=== PATIENT | male | born 1945 | race Caucasian/White ===

== ENCOUNTER 2023-11-26 06:35 | Outpatient (CLI) | payer MEDICARE, SELFPAY ==
--- NOTE | ~2023-11-26 | MR_ITS ---
MRI of the lumbar spine Clinical History: Spinal stenosis Technique: Axial T2-weighted images, and sagittal T1-weighted, T2-weighted, and STIR images were acqu ired. Findings: There is posterior fusion from L3 through S1, with bilateral rods and transpedicular screws present. There is posterior decompression L3, L4, L5. No acute fracture evident. There is underlying 4 mm anterolisthesis of L4 over L5. There is 4 mm retrolisthesis of L2 over L3. No suspicious bone m arrow signal abnormality seen. No acute fracture. At L1-L2, there is moderate degenerative disc narrowing. There is mild disc bulge and moderate facet arthropathy. No central canal stenosis. There is moderate bilateral neural foraminal narrowing. At L2-L3, there is moderate to advanced degenerative disc narrowing. Disc bulge and advanced facet ar thropathy result in severe spinal canal stenosis/thecal sac compression. There is severe bilateral ne ural foraminal, right. At L3-L4, there is advanced degenerative disc narrowing. No james spinal canal stenosis. There is mod erate bilateral neural foraminal narrowing. At L4-L5, there is advanced degenerative disc narrowing. No james spinal canal stenosis. There is mod erate bilateral neural foraminal narrowing. L5-S1, there is no james spinal canal stenosis. There is probable mild to moderate bilateral neural f oraminal narrowing. There is a 4.0 x 2.4 x 9.1 cm seroma in the posterior paravertebral soft tissues at the surgical bed. Impression: Posterior fusion changes from L3 through S1, as detailed above. Underlying 4 mm anterolisthesis of L4 over L5. 4 mm retrolisthesis of L2 over L3. Severe degenerative spondylosis at L2-L3, as detailed above. Moderate degenerative spondylosis in the remainder of the lumbar spine. Large chronic postoperative seroma in the posterior paravertebral soft tissues, as detailed above. Reviewed, dictated and finalized at location . Impression: Posterior fusion changes from L3 through S1, as detailed above. Underlying 4 mm anterolisthesis of L4 over L5. 4 mm retrolisthesis of L2 over L3. Severe degenerative spondylosis at L2-L3, as detailed above. Moderate degenerat jasbir spondylosis in the remainder of the lumbar spine. Large chronic postoperative seroma in the posterior paravertebral soft tissues, as detailed above.
--- NOTE | ~2023-11-26 | CT_ITS ---
EXAMINATION: CT lumbar spine wo con DATE: 11/26/2023 07:28 INDICATION: Spinal stenosis, lumbar region with neurogenic claudication. TECHNIQUE: Computed tomography (CT) of the lumbar spine was performed without intravenous contrast. A utomated exposure control and iterative reconstruction technique were employed. The dose-length produ ct was 1296.24 mGy-cm. COMPARISON: Lumbar spine MRI 11/26/2023 FINDINGS: There is a 4.9 cm cyst in right kidney. Aortic atherosclerosis is noted. There is 6 degrees levocurvature of lumbar spine. There is 3 mm retrolisthesis of L2 on L3 and 3 mm anterolisthesis of L4 on L5 and L5 on S1. There are Schmorl's nodes at most levels. There is mild chronic anterior wedgi ng of T11-L2 vertebral bodies. There is mildly decreased disc height at L1-L2, moderately decreased d isc height at L2-L3, and severely decreased disc height at L3-L4, L4-L5, and L5-S1. There are changes of posterior fusion procedure from L3 to S1 with pedicle screws. There are lucencies around the righ t S1 screw, consistent with loosening. There are laminectomies from L3 to L5 with fluid in the postla minectomy surgical bed, consistent with seroma. The following disc levels are specifically discussed: L1-L2: The disc is bulging. There is moderate bilateral facet joint osteoarthritis. There is mild yvette ateral neural foraminal stenosis. There is mild central canal stenosis. L2-L3: The disc is bulging. There is moderate right and mild left facet joint osteoarthritis. There i s moderate bilateral neural foraminal stenosis. There is mild central canal stenosis. L3-L4: The disc is bulging. There is mild bilateral facet joint hypertrophy. There is mild bilateral neural foraminal stenosis. There is mild central canal stenosis with posterior decompression. L4-L5: The disc is bulging. There is mild bilateral facet joint hypertrophy. There is mild bilateral neural foraminal stenosis. There is mild central canal stenosis with posterior decompression. L5-S1: The disc does not extend beyond the endplate margin. There is moderate bilateral facet joint h ypertrophy. There is mild bilateral neural foraminal stenosis. There is no central canal stenosis. IMPRESSION: 1. Severe lumbar spondylosis. 2. Posterior fusion procedure from L3 to S1. Lucencies around the right S1 screw, consistent with loo sening. Reviewed, dictated and finalized at location A. IMPRESSION: 1. Severe lumbar spondylosis. 2. Posterior fusion procedure from L3 to S1. Lucencies around the right S1 scre w, consistent with loosening.
== END 2023-11-26 06:36 | disposition home or self-care (01) ==
PROVIDERS: PCP Family Medicine; Visit Provider Neurological Surgery
DX: M48.062 Spinal stenosis, lumbar region with neurogenic claudication (principal); Z98.1 Arthrodesis status; M47.896 Other spondylosis, lumbar region
CPT/HCPCS: 72131; 72148

== ENCOUNTER 2025-05-19 13:57 | Outpatient (CLI) | payer MEDICARE, SELFPAY ==
--- OUTSIDE RECORDS SUMMARY | 2000-03-04 09:15 | XMS_ITS | Continuity of Care Document ---
Author Organization [facility] Address [address] [facility] [address] [facility] [address] [place] [address] Phone Care Team Providers Care Milking Worker Name Role Phone Drake Nuno MD, FACS Unavailable Unavailab le Advance Directives Directive Yes / No Effective Date File Name No Information Encounters Encounter Description Practice Location Reason(s) For Visit Diagnoses Date Provider Providers Copied on Encounter [facility], [address], [place], [place], [address], [place] tel:[phone] SEC Adam MCLAUGHLIN Professional No Information Garcia-2 0-200 0 Yaakov Juan. [address], [address], [place], [place], [address], [place]. tel:[phone] Family History Family Member Type Diagnosis Age At Onset No Information Payers Payer name Insurance type Covered constitution party ID Authoriza tion(s) No Information Social History [...]
--- OUTSIDE RECORDS SUMMARY | 2015-02-20 03:58 | XMS_ITS | Continuity of Care Document ---
Author Organization [employer] Address [address] [place] [address] Phone Care Team Providers Care Business Agent Name Role Phone Johnson De La Rosa [...] Diagnoses Date Provider Providers Copied on Encounter [facility], [address], [place], [place], [address] , [place] tel: [phone] [place] No Information 5 Rj Ornelas. [address] [facility], [address], [id number], [place]. tel:[phone] [facility], [address], [place], [place], [address] , [place] tel: [phone] [place] Male hypogonadismHyperte nsionHypothyroidism GERD (gastroesophageal reflux disease)Osteoarthri tisBPH (benign prostatic hyperplasia) Dec-0 5 Rj Ornelas. [address] [facility], [address], [address], [place]. tel:[phone] Referring Provider: Johnson De La Rosa, [address], [address] . tel:[phone] [facility], [address], [place], [place], [address] , tel: [phone] [place] Cough Nov-2 5 Ventura Smith. [address] [facility], [address], [address], . tel:[phone] Referring Provider: Johnson De La Rosa, [address], [address] . tel:[phone] [facility], [address], [place], [place], [address] , tel: [phone] [place] No Information 4 Rj Ornelas. [address] [facility], [address], [address], [place]. tel:[phone] [facility], [address], [place], [place], [address] , [place] tel:[phone] [place] HypothyroidismGERD (gastroesophageal reflux disease)Male hypogonadismSkin lesionsRight hip painHypertension 4 Rj Ornelas. [address] [facility], [facility] [address], [place], [address], [place]. tel:[phone] Referring Provider: Johnson De La Rosa, [address], [address] . tel:[phone] [facility], [address], [place], [place], [address] , tel: [phone] [place] GERD (gastroesophageal reflux disease)Hypothyroid ismHypertensionOste oarthritisBPH (benign prostatic hyperplasia) Sep-0 8201 4 Rj Ornelas. [address] [facility], [address], [address], . tel:[phone] Referring Provider: Johnson De La Rosa, [address], [address] . tel:[phone] Family History Family Member Type Diagnosis Age At Onset Father Problem (finding) alcoholism Mother Problem (finding) malignant neoplasm of b one Maternal grandfather Problem (finding) cancer of colon Payers Payer name Insurance type Covered democrat ID Authoriza tion(s) [facility] MEDICARE ADVANTAGE [id number] 8 Social History Type Description Quantity Date [...]
--- OUTSIDE RECORDS SUMMARY | 2025-02-03 05:00 | XMS_ITS ---
Author Organization [facility] Address [address] [address] Care Team Providers Care Plaster Caster Name Role Phone Jeffry Wilson Primary Care Provider JACINTA Wells Unavailable [phone] Allergies Allergen (clinical drug ingredient) Drug/Non Drug [...] 02/03/2025 Encounters Encounter Location Date Provider [facility] [id number] [place] [address] [place] [address] [place] [address] 02/03/2025 JACINTA HUERTA Chronic kidney disease, stage [...] FERRITIN PANEL (5616) 09/2025 RENAL FUNCTION PANEL (10756) 07/16/2026 ALBUMIN, RANDOM URINE W/O CREATININE (17 674) 07/16/2026 Next Appt Details Follow Up: 1 1/2 Years, Reas on: Provider Name:JACINTACHLOÉ HUERTA , 08/02/2026 10:00:00 AM, [address] [place] [address], [place] [address], [address], Progress Notes * JARET SORIA LDOB:[birth year] (80 yo M)Acc No.[id number]:02/03/2025 Progress Notes Patient: JARET BENITO Provider: Brittni Huerta MD :1945 A ge:79 Y S ex:Male Date:02/03/2025 Address:[address] [place], [place] [id number] Pcp:Jeffry Wilson Subjective: * Chief Complaints: * [...] Electronic signature of JUDI HUERTA MD on 05/19/2025 at 02:15 PM CDT Sign off status: Pending * Provider: Brittni Huerta MD Date: 0 02/03/2025 Generated for Chriss carrington/Emmie/Hellenitting on: 0 05/19/2025 02:15 PM CDT History and Physical Notes * HPI [...]
--- OUTSIDE RECORDS SUMMARY | 2025-05-19 14:14 | XMS_ITS | Encounter Summary ---
Author Organization [facility] Address [address] [place] [address] Care Team Providers Care Head Cleaning Porter Name Role Phone Errol Suarez DO Primary Care Provider Encounter Details Date Type Department Care Team (Latest Contact Info) Description 09/01/2000 Outpatient Historical [facility] Jaun John MD NO ADDRESS ON FILE Internal hemorrhoids with other complication (Primary Dx) Social History Tobacco Use Types Packs/Day Years Used Date Smoking Tobacco: Never Assessed Sex and Gender Information Value Date Recorded Sex Assigned at Not on file Legal Sex Male 4:15 AM CARPENTER Gender Identity Not on file Sexual Orientation Not on file documented as of this encounter Plan of Treatment Not on file documented as of this encounter Visit Diagnoses Diagnosis Internal hemorrhoids with other complication- Primary documented in this encounter Care Teams Head Cleaning Porter Relationship Specialty Start Date End Date Errol Suarez DO [address] [place] [id number] PCP - General Internal Medicine 11/10/15 documented as of this encounter
--- OUTSIDE RECORDS SUMMARY | 2025-05-19 14:14 | XMS_ITS | Clinical Summary ---
Author Organization [facility] [address] Address [address] [place] [address] Care Team Providers Care Management Trainer Name Role Phone Dieter Strauss MD Unavailable Onel Sheldon MD Unavailable Adam Boyer MD Unavailable Sahara Huerta MD Unavailable [phone] Grzegorz Cardenas MD Unavailable Jerry Reynolds MD Unavailable [phone] Krystian Paige MD Unavailable Cristopher Brian MD Unavailable [phone] Haley Milan Unavailable [phone] Jeffry Wilson MD Primary Care Provider [phone] Allergies Active Allergy Reactions Criticality Noted Date Comments Atorvastatin Muscle pain Medium 02/13/2016 Muscle weakness, memeory loss, joint pain Apixaban Hives High 01/28/2023 Levofloxacin Hives,Rash High 08/31/2010 Other reaction(s): Hives Reaction: Hives, , Minocycline Nausea only Low 04/22/2013 Nsaids (Non-Steroidal Anti-Inflammatory Drug) Other (See comments) Low 01/06/2023 Due to kidney function Sdymbpr-Tsi-Cbk Reductase Inhibitors Hives Medium 09/18/2016 Reaction: Hives, Other reaction(s): Memory and muscle loss Sulfa (Sulfonamide Antibiotics) Hives,Rash Medium 04/22/2013 Reaction: Hives, Other reaction(s): Skin Rashes, Hives Medications cholecalciferol (VITAMIN D-3) 25 mcg (1,000 unit) tabletIndications :Vitamin D Deficiency,For supplement Take 2 tablets (2,000 Units total) by mouth nightly Active tadalafiL (CIALIS) 5 mg tabletIndications :benign prostatic hyperplasia with lower urinary tract sx Take 1 tablet (5 mg total) by mouth nightly Active tamsulosin (FLOMAX) 0.4 mg extended release capsuleIndication s:benign prostatic hyperplasia with lower urinary tract sx Take 2 capsules (0.8 mg total) by mouth nightly Active hydrocortisone (CORTEF) 10 mg tabletIndications :Adrenal Cortical Insufficiency Take 1.5 tablets (15 mg total) by mouth daily before breakfast 15 mg morning 10mg noon 08/03/20 21 Active ezetimibe (ZETIA) 10 mg tabletIndications :hyperlipidemia Take 1 tablet (10 mg total) by mouth nightly Active atenoloL (TENORMIN) 50 mg tablet Take 1 tablet (50 mg total) by mouth nightly 30 tablet 01/15/20 23 Active Additional Information Patient taking differently:50 mg oral Nightly,Indications: hypertension, Informant: Self, Reported on 03/01/2025 hydrocortisone (CORTEF) 5 mg tabletIndications :Adrenal Cortical Insufficiency Take 2 tablets (10 mg total) by mouth daily after lunch 05/21/20 23 Active losartan (COZAAR) 25 mg tabletIndications :hypertension Take 1 tablet (25 mg total) by mouth every morning Active cabergoline (DOSTINEX) 0.5 mg tabletIndications :hyperprolactinem ia Take 1 tablet (0.5 mg total) by mouth every 2 (two) weeks Last dose 02/15/2025 Active levothyroxine (SYNTHROID) 175 mcg tabletIndications :hypothyroidism Take 1 tablet (175 mcg total) by mouth every morning Active testosterone 50 mg/5 gram (1 %)Indications:Low T Place 1 each on the skin every morning Gel 03/31/20 24 Active colchicine (COLCRYS) 0.6 mg tabletIndications :pseudo gout Take one tablet by mouth every 2 hours for 4 doses then twice daily until symptoms resolve. Hold for diarrhea. 60 tablet 05/13/20 Active Additional Information Patient taking differently: 0.6 mg oral As needed, muscle/joint pain, gout, Take one tablet by mouth every 2 hours for 4 doses then twice daily until symptoms resolve. Hold for diarrhea.,Indications: acute gouty arthritis, pseudo gout, Informant: Self, Reported on 03/01/2025 rivaroxaban (XARELTO) 20 mg tablet Take 1 tablet (20 mg total) by mouth daily with breakfast 30 tablet 3 06/17/20 24 Active Additional Information Patient taking differently:20 mg oralDaily with dinner, Per Mucker Operator and Urologist to stay off for a couple more day., Indications: atrial fibrillation, Informant: Self, Reported on 02/23/[address] (NexIUM) 40 mg capsule Take 1 capsule (40 mg total) by mouth daily 90 capsule 3 08/24/20 Active Additional Information Patient taking differently:40 mg oralDaily before breakfast, Indications: Treatment of Non-Bleeding Gastric Disorder, Informant: Self, Reported on 03/01/2025 vitamin B complex (B COMPLEX 1 ORAL)Indications: For supplement Take 1 tablet by mouth nightly Active ALPRAZolam (XANAX) 0.25 mg tabletIndications :anxiety Take 1 tablet (0.25 mg total) by mouth as needed for anxiety (for MRIs) Active vitamins A,C,R-fxxs-guvkcw (PreserVision AREDS) 2,148 mcg-113 mg-45 mg-17.4mg tablet Take 1 tablet by mouth 2 (two) times a day Eye vitamin 01/22/20 24 Active oxyCODONE-acetami nophen (PERCOCET) 5-325 mg per tabletIndications :Pain Take 1 tablet by mouth 3 (three) times a day as needed for pain 90 tablet 04/19/20 25 025 Active oxyCODONE-acetami nophen (PERCOCET) 5-325 mg per tabletIndications :Pain Take 1 tablet by mouth 3 (three) times a day as needed for pain 90 tablet 05/19/20 25 025 Active oxyCODONE-acetami nophen (PERCOCET) 5-325 mg per tabletIndications :Pain Take 1 tablet by mouth 3 (three) times a day as needed for pain 90 tablet 06/18/20 25 025 Active Active Problems Problem Noted Date Diagnosed Date Thumb pain, left 02/23/2025 Urinary tract infection with hematuria Assessment & Plan (01/30/2025 8:59 AM CDT): Completed course of linezolid. Benign prostatic hyperplasia with weak urinary s tream 01/30/2025 BMI 35.0-35.9,adult 01/30/2025 Severe obesity (BMI 35.0-39.9) with comorbidity 01/30/2025 Pancreatic cyst 01/09/2025 Assessment & Plan (01/30/2025 8:58 AM CDT): Continuing surveillance with GI and will montior esrpnse. Healthy food chocies. Gross hematuria 01/08/2025 Assessment & Plan (01/30/2025 8:57 AM CDT): Continue f/u with urology and will montior ersponse. Continues supplementation . Upcomgin f/u and prostate enlarged prostate. Encounter for annual wellness exam in Medicare p atient 08/24/2024 Assessment & Plan (08/24/2024 12:41 PM ECONOMIC FORECASTER): Preventive exam; reviewed recommended preventive screenings and vaccinations. Encourage annual flu vaccine. -Up-to-date on screening and vaccinations. VERENA (obstructive sleep apnea) 08/24/2024 Assessment & Plan (08/24/2024 12:42 PM ECONOMIC FORECASTER): Has not been able to wear oral appliance for the past few months with recent dental implants. Reports increased fatigued has correlated with timing of not having oral appliance. Is hopeful to have dental work completed in the next month and have new oral appliance made. CMC arthritis 08/18/2024 Calcium pyrophosphate crystal disease 08/06/2024 Assessment & Plan (08/06/2024 12:27 PM ECONOMIC FORECASTER): Unable to take nsaids . Prescribed colchicine given recent septic joint. Reviewed signs and symptoms of infection prompting immediate return to the emergency department. Infection of prosthetic left knee joint 05/07/20 Infection of total left knee replacement, initia l encounter 05/03/2024 Persistent atrial fibrillation 02/16/2024 Assessment & Plan (01/30/2025 8:58 AM CDT): As above. Continue surveillance [facility] for pituitary changes. Assessment & Plan (08/06/2024 12:28 PM ECONOMIC FORECASTER): Following with Cardiology, continue Eliquis. Rate controlled. Assessment & Plan (02/16/2024 11:05 AM CDT): EKG repeated today in office showing atrial fibrillation with rate 75. Rate controlled with atenolol. Patient is asymptomatic. He has allergy to Eliquis, will start Xarelto 20 mg daily. Reviewed medication side effects and scheduling and follow-up precautions. Patient to follow-up with his established chinchilla farmer, Dr. Boyer. Will fax EKG documentation to Dr. Boyer office. 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 Da Silva in 4 weeks. Infection of total left knee replacement 024 Fever 01/29/2024 Assessment & Plan (01/29/2024 2:36 PM CDT): Continue Tylenol p.r.n.. See plan as above. Thoracic aortic ectasia 12/01/2023 Platelets decreased 12/01/2023 Prolactinoma 12/01/2023 Assessment & Plan (01/30/2025 8:58 AM CDT): DoAC and rate control. Class 2 severe obesity due t o excess calories with serious comorbidity and body mass index (BMI) of 35.0 to 35.9 in adult 12/01/2023 Assessment & Plan (01/30/2025 8:58 AM CDT): Encourage 150min/week aerobic exerics. Healthy food chocie. S Assessment & Plan (08/24/2024 12:45 PM ECONOMIC FORECASTER): Encouraged higher protein, lower carb diet. Avoid sweetened beverages. Encourage health diet and regular exercise. Interested in GLP-1 use, no MENS or history of pancreatitis. Discussed concerns with addisons disease and GLP-1. See above Assessment & Plan (02/16/2024 11:05 AM CDT): Reviewed, mayank. Situational anxiety 05/26/2023 Assessment & Plan (01/29/2024 2:35 PM CDT): Stable. Will continue to monitor. RTC for any exacerbations. Assessment & Plan (05/26/2023 12:22 PM CDT): Prescribed alprazolam 0.25 mg tablets, instructed to take 1 tablet 30 minutes prior to testing and 1 tablet immediately before test. Patient planning upcoming MRI and CT. Aware not to drive while taking alprazolam. Mixed hyperlipidemia 05/26/2023 Assessment & Plan (08/24/2024 12:48 PM ECONOMIC FORECASTER): Stable; continue ezetimibe. Assessment & Plan (05/26/2023 12:24 PM CDT): LDL equals 78. Continues zetia 10 mg daily. Patient is unable to take statin medications. 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 Hypothyroid 08/27/2020 Assessment & Plan (08/24/2024 10:24 AM ECONOMIC FORECASTER): Levothyroxine 175 mcg daily. Will check TSH/T4 and make changes as needed. Lab Results Component Value Date TSH 1.19 01/29/2024 Assessment & Plan (05/26/2023 12:22 PM CDT): Managed by endocrinology. Assessment & Plan (08/27/2020 2:18 AM ECONOMIC FORECASTER): Continue levothyroxine Essential hypertension 08/27/2020 Assessment & Plan (01/29/2024 2:35 PM CDT): Normotensive. Continue atenolol, losartan, amlodipine. Will continue to monitor. Assessment & Plan (05/26/2023 12:24 PM CDT): Blood pressure is well controlled, patient reports he is no longer taking losartan. Continues atenolol 50 mg daily. Assessment & Plan (08/27/2020 2:18 AM ECONOMIC FORECASTER): Blood pressure is controlled. Home medications have been resumed with hold parameters. Will continue to monitor. Pneumonia due to COVID-19 virus 08/26/2020 Assessment & Plan (08/27/2020 2:21 AM ECONOMIC FORECASTER): He is currently feeling better. Continue remdesivir. Patient is on Solu-Cortef. IV fluids. Continue to monitor. Continuous pulse ox. Will check procalcitonin to rule out bacterial infection. Continue empiric antibiotics for cap for now. 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 Assessment & Plan (08/24/2024 12:44 PM ECONOMIC FORECASTER): Managed by endocrinology Dr. Sheldon. Continues 25 mg daily of hydrocortisone. Patient interested in use of GLP 1 for weight loss. Would need to check with shoe polisher given possible contraindication. Side effects of GI upset, dehydration nausea possibly triggering adrenal crisis. May also need closer monitoring of steroid replacement. Will avoid prescribing this today and have patient follow-up with endocrinology. Assessment & Plan (05/26/2023 12:24 PM CDT): Managed by endocrinology. Resolved Problems Problem Noted Date Diagnosed Date Resolved Date Strep pharyngitis 01/29/2024 08/24/2024 Assessment & Plan (01/29/2024 2:36 PM CDT): Will stop cephalexin start clindamycin. If worsening or not resolving RTC. Monitor knee pain as well. If not improving follow-up with orthopedist. Red flags reviewed as well. Will continue to monitor. Aftercare following left kne e joint replacement surgery 01/24/2023 08/27/2023 Failed total left knee repla cement, subsequent encounter 01/13/2023 08/27/2023 Failed total left knee replacement 12/30/2022 01/24/2023 Greater trochanteric bursitis of right hip 04/16/2022 08/27/2023 Lumbar radiculopathy 01/12/2020 023 Chronic bilateral low back p ain without sciatica 10/10/2019 08/27/2023 Lumbar facet joint syndrome 10/10/2019 08/27/2023 DDD (degenerative disc disease), lumbar 10/10/2019 08/27/2023 Right hip pain 11/27/2011 08/27/2023 Assessment & Plan (08/27/2020 2:18 AM ECONOMIC FORECASTER): Patient is on Percocet at home however may need more Tylenol for fevers. Will change Percocet to oxycodone p.r.n. and order Tylenol p.r.n.. Patient is aware of this change. Encounters Date Type Department Care Team Description 04/13/2025 3:00 PM CDT Office Visit [facility] Medicine Orthopaedic Surgery [address] 2[address] [place] [address] Jaylen Leigh MD [facility] arthritis (Primary Dx) 04/13/2025 7:23 AM CDT - 04/13/2025 11:59 PM CDT Hospital Encounter [facility] [address] [facility] [address] [place] [address] Negar Gonzales NP Lumbar post-laminectomy syndrome (Primary Dx); USP (current) use of opiate analgesic Discharge Disposition: Discharge to home or self care 04/01/2025 Orders Only [facility] [address] [phone] Jeffry Wilson MD 03/16/2025 10:20 AM CDT Therapy [facility] Medicine Occupational Therapy [address] [place] [address] 1st Floor [address] [place] [address] Nely Ferrari OT CMC arthritis (Primary Dx); Pain of left thumb 03/16/2025 9:30 AM CDT Office Visit [facility] [place] [place] Orthopaedic Surgery [address] [place] [address] 2nd Floor [address] [place] [address] Jaylen Leigh MD CMC arthritis (Primary Dx); Pain of left thumb 03/16/2025 Plan of Care Documentation [facility] Medicine Occupational Therapy [address] [place] [address] 1st Floor [address] [place] [id number] 03/01/2025 3:17 PM CDT Anesthesia Event [facility] [address] [place] [id number] Jose Ramon Agiula MD Horton, Cheryl Renee Hill, NP 03/01/2025 2:30 PM CDT - 03/01/2025 4:15 PM CDT Surgery [facility] [address] [place] [address] Jaylen Leigh MD left thumb ligament reconstruction and tendon interposition 03/01/2025 12:34 PM CDT - 03/01/2025 6:33 PM CDT Hospital Encounter [facility] [address] [place] [address] Jaylen Leigh MD Thumb pain, left (Primary Dx) Discharge Disposition: Discharge to home or self care 02/23/2025 10:00 AM CDT Office Visit [facility] Medicine Orthopaedic Surgery [address] [place] [address] Jaylen Leigh MD Arthritis of carpometacarpal (CMC) joint of left thumb (Primary Dx) from Last 3 Months Immunizations Immunization Administration Dates Next Due Influenza, Quad, Adjuvantate d, Intramuscular 07/18/2021 Influenza, Quadrivalent, Hig h Dose, Preservative Free, Intrr 05/26/2023,07/30/2022 Influenza, Quadrivalent, Rec ombinant, Egg Free, Preservative Free, Intramuscular 06/26/2018 Influenza, Quadrivalent, Spl it, Preservative Free, Intramuscular 07/16/2019,07/11/2017,07/03/2016,07/20 Influenza, Trivalent, High D ose, Split, Preservative Free, Intramuscular 07/15/2024,07/18/2021,07/17/2020,07/17 Influenza, Trivalent, IM (MDV) 07/27/2013 Influenza, Unspecified 07/30/2022,2021(Deferred: Patient Refused),05/16/2022(Deferred: Patient Refused),05/16/2022(Deferred: Patient Refused),05/16/2021(Deferred: Patient Refused) Pneumococcal Polysaccharide PPV23 10/02/2011 ZOSTER LIVE 05/18/2013 Surgical History Surgery Date Site/Laterality Comments KNEE ARTHROPLASTY 09/15/2000 - 09/14/2001 Bilateral Knee replacement and TRANSURETHRAL RESECTION OF PROSTATE 2012 - 09/14/2013 turp CATARACT EXTRACTION EXTRACAP SULAR W/ INTRAOCULAR LENS IMPLANTATION 09/15/1999 - 09/14/2000 Bilateral BACK SURGERY 09/15/2015 - 09/14/2016 fusion L3-4, L4-5 CHOLECYSTECTOMY 09/15/2015 - 09/14/2016 KNEE SURGERY 01/13/2023 Left Knee replacement IR INJECTION ARTHROGRAM SI J OINT RIGHT INCLUDES IMAGING GUIDANCE 08/12/2023 Right HEMORRHOID SURGERY 09/15/1994 - 09/14/1995 CARPAL TUNNEL RELEASE 09/15/2002 - 09/14/2003 Bilateral KNEE SURGERY 02/06/2024 Left Incision and Drainage WRIST SURGERY 09/15/2008 - 09/14/2009 Bilateral resection of tendon ESOPHAGOGASTRODUODENOSCOPY 09/15/2024 - 09/14/2025 OTHER SURGICAL HISTORY 09/15/2024 - 09/14/2025 Left Trapeziectomy Medical History Medical History Date Comments Disorder of thyroid Thyroid dise ase Hx Other Medical gastric reflux Hx Other Medical neuropathy hand s Hx Other Medical osteoarthritis GERD (gastroesophageal reflux disease) Osteoarthritis Ear problems Low back pain Hypertension Chronic pain disorder Sleep apnea Difficulty urinating after back surgery Arrhythmia flutter Pneumonia Chronic kidney disease Hypothyroidism Macular degeneration Billings disease Family History Medical History Relation Name Comments Alcohol abuse Father Liver cancer Father Bone cancer Mother Cancer Mother Alcohol abuse Other 1 Family history of Alcoholism; Cancer Other 2 Family history of cancer; Relation Name Status Comments Father Mother Other 1 Other 2 Social History Tobacco Use Types Packs/Day Years Used Date Smoking Tobacco: Former Cigarettes Q uit: 1989 Passive Smoke Exposure: Past Smokeless Tobacco: Never Tobacco Cessation:Counseling Given: Not Answered Alcohol Use Standard Drinks/Week Comments Yes 0 (1 standard drink = 0.6 oz pur e alcohol) rarely [email or web address] Answer Date Recorded In the past 12 months has [employer], gas, oil, or water codebender threatened to shut off services in your home? No 01/10/2025 Social Connection and Isolation Panel Answer Date Recorded In a typical week, how many times do you talk on the phone with family, friends, or neighbors? More than three times a week 01/10/2025 How often do you get togethe r with friends or relatives? More than three times a week 01/10/2025 How often do you attend [facility] or confucianism services? Never 01/10/2025 Do you belong to any clubs o r organizations such as anabaptist groups, unions, fraternal or athletic groups, or school groups? No 01/10/2025 How often do you attend meet ings of the clubs or organizations you belong to? Never 01/10/2025 Are you , , di vorced, , never , or living with a partner? 01/10/2025 AUDIT-C Answer Date Recorded Q1: How often do you have a drink containing alcohol? Never 03/01/2025 Q2: How many drinks containi ng alcohol do you have on a typical day when you are drinking? Patient does not drink Q3: How often do you have si x or more drinks on one occasion? Never 03/01/2025 Overall Financial Resource Strain (CARDIA) Answe r Date Recorded How hard is it for you to pa y for the very basics like food, housing, medical care, and heating? Not hard at all 01/10/2025 PHQ-2 Answer Date Recorded PHQ-2 Total Score (If total score is 3 or more points, staff should administer the PHQ-9) 0 04/13/2025 Hunger Vital Sign Answer Date Recorded Within the past 12 months, y ou worried that your food would run out before you got the money to buy more. Never true 01/11/20 25 Within the past 12 months, t he food you bought just didn't last and you didn't have money to get more. Never true 01/10/2025 PRAPARE - Transportation Answer Date Re corded In the past 12 months, has l ack of transportation kept you from medical appointments or from getting medications? No 12/15 In the past 12 months, has l ack of transportation kept you from meetings, work, or from getting things needed for daily living? No 01/10/2025 PHQ-9 Answer Date Recorded PHQ-9 Total Score 2 04/13/2025 Housing Stability Vital Sign Answer Joesph e Recorded In the last 12 months, was t here a time when you were not able to pay the mortgage or rent on time? No 01/10/2025 In the past 12 months, how m any times have you moved where you were living? 0 01/10/2025 At any time in the past 12 m [facility], were you homeless or living in a half-way (including now)? No 01/10/2025 Personal Safety Answer Date Recorded Have you ever been in or are you currently in a harmful physical or emotional relationship or is someone making you feel afraid or unsafe? Denies 03/01/2025 Sex and Gender Information Value Date Recorded Sex Assigned at Not on file Legal Sex Male 5:24 PM ECONOMIC FORECASTER Gender Identity Not on file Sexual Orientation Not on file Obstetrics History Last Filed Vital Signs Vital Sign Reading Time Taken Comments Blood Pressure 108/60 04/13/2025 7:41 AM CDT Pulse 92 04/13/2025 7:41 AM CDT Temperature 36.2 C (97.2 F) 03/01/2025 5:50 PM CDT Respiratory Rate 18 04/13/2025 7:41 AM CDT Oxygen Saturation 98% 04/13/2025 7:41 AM CDT Inhaled Oxygen Concentration - - Weight 110.2 kg (242 lb 14.4 oz) 03/01/2025 1:12 PM CDT Height 177.8 cm (5' 10) 03/01/2025 1:12 PM CDT Body Mass Index 34.85 03/01/2025 1:12 PM CDT Plan of Treatment Health Maintenance Due Date Last Done Comments Hepatitis C Screening 1945 DTaP/Tdap/Td Vaccine (1 - Tdap) 1957 Hepatitis B Screening 1963 Pneumococcal vaccine 65+ (2 of 2 - PCV) 10/02/2012 10/02/2011 Zoster Vaccine (2 of 3) 07/13/2013 05/18/2013 Covid-19 Vaccine (3 - 2023-2 5 season) 2024 11/08/2020, 10/18/2020 Influenza Vaccine (#1) 2025 , 05/26/2023, 07/30/2022, Additional history exists Well Visit 65+ 08/24/2025 08/24/2024 Fall Risk Assessment 03/01/2026 03/01/2025, 08/24/2024, 05/13/2024, Additional history exists Depression Screening 04/13/2026 04/13/2025, 04/13/2025, 01/05/2025, Additional history exists Abdominal Aortic Aneurysm (A AA) Screen Completed 01/12/2021, 03/25/2012 Goals Goal Patient Goal Type Associated Problems Recent Progress Patient-Stated? Author -Pain Behavioral Health On track(10/03 11:12 AM ECONOMIC FORECASTER) No Asia Sigala, RN Note: Patient will describe nonpharmacological methods that can be used to supplement, or enhance, pharmacological interventions and help achieve the comfort-function goal. -Pain Behavioral Health On track(10/03 11:12 AM ECONOMIC FORECASTER) No Cecy Cummins RN Note: Patient will establish a comfort-function goal and identify the pain level that will allow the patient to perform desired activities and achieve an acceptable quality of life. Medical Devices Implanted Type Area [employer] Device Identifier Shelf Expiration Date Model / Serial / Lot [employer] 3086 Octrode 60cm Trial Lead Kit Neurostimulator Sterile Latex Free - [id number] Implanted:Qty: 1 on 12/15/2020 by Dieter Garcia MD at [facility] [employer] 12/15/2021 3086 / / [employer] 3086 Octrode 60cm Trial Lead Kit Neurostimulator Sterile Latex Free - [id number] Implanted:Qty: 1 on 12/15/2020 by Dieter Garcia MD at [facility] [employer] 12/15/2021 3086 / / [employer] Attune L50 Mm Revision Full Coated Knee Sleeve Femoral Porocoat Sterile Latex Free [id number] - [id number] Implanted:Qty: 1 on 01/13/2023 by Dieter Strauss MD at [facility] Left: Knee [employer] 02/12/2031 [id number] / / [id number] [employer] Attune 20mm 60mm Revision Press Fit Knee Stem Femoral Sterile Latex Free [id number] - [id number] Implanted:Qty: 1 on 01/13/2023 by Dieter Strauss MD at [facility] Left: Knee [employer] 08/14/2030 [id number] / / [id number] [employer] Attune Revision Cement Constrain Knee Left 7 Component Femoral Sterile [id number] - [id number] Implanted:Qty: 1 on 01/13/2023 by Dieter Strauss MD at [facility] Left: Knee [employer] 11/12/2032 [id number] / / [id number] Depuy [employer] Attune 41mm Cemented Medialize Knee Dome Patellar Aox Sterile [id number] - [id number] Implanted:Qty: 1 on 01/13/2023 by Dieter Strauss MD at [facility] Left: Knee [employer] 06/14/2027 [id number] / / [id number] [employer] Cement Bone Simplex Gentamicin High Viscosity 40 6195-1-001 - [id number] Implanted:Qty: 1 on 01/13/2023 by Dieter Strauss MD at [facility] Left: Knee [employer] 05/15/2024 6195-1-001 / / [id number] [employer] Cement Bone Simplex Gentamicin High Viscosity 40 6195-1-001 - [id number] Implanted:Qty: 1 on 01/13/2023 by Dieter Strauss MD at [facility] Left: Knee [employer] 05/15/2024 6195-1-001 / / [id number] [employer] Attune Cement Revision Rotate Platform Knee 7 Baseplate Tibial Sterile [id number] - [id number] Implanted:Qty: 1 on 01/13/2023 by Dieter Strauss MD at [facility] Left: Knee [employer] 10/15/2032 [id number] / / [id number] [employer] Attune L53 Mm Revision Full Coated Knee Sleeve Tibial Porocoat Sterile Latex Free [id number] - [id number] Implanted:Qty: 1 on 01/13/2023 by Dieter Strauss MD at [facility] Left: Knee [employer] 06/14/2032 [id number] / / [id number] [employer] Attune 20mm 60mm Revision Press Fit Knee Stem Femoral Sterile Latex Free [id number] - [id number] Implanted:Qty: 1 on 01/13/2023 by Dieter Strauss MD at [facility] Left: Knee [employer] 04/14/2032 [id number] / / [id number] [employer] Attune H4 Mm Revision Cement Knee Distal 7 Augment Femoral Sterile Latex Free [id number] - [id number] Implanted:Qty: 1 on 01/13/2023 by Dieter Strauss MD at [facility] Left: Knee [employer] 04/14/2029 [id number] / / [id number] [employer] Attune H4 Mm Revision Cement Knee Distal 7 Augment Femoral Sterile Latex Free [id number] - [id number] Implanted:Qty: 1 on 01/13/2023 by Dieter Strauss MD at [facility] Left: Knee [employer] 07/15/2032 [id number] / / [id number] [employer] Attune 10mm Revision Constrain Rotate Platform Knee 7 Insert [id number] - [id number] Implanted:Qty: 1 on 02/06/2024 by Dieter Strauss MD at [facility] Left: Knee [employer] 01/13/2028 [id number] / / [id number] [employer] Internalbrace Kit Hand Wrist Set Implant Ligament Augmentation Ar-8978-Cp - [id number] Implanted:Qty: 1 on 09/21/2024 by Jaylen Leigh MD at [facility] [place] Left: Thumb [employer] 02/12/2029 AR-8978-CP / / [id number] Explanted Type Area [employer]ic[employer] Device Identifier Shelf Expiration Date Model / Serial / Lot Depuy [employer] Inc Attune 10mm Revision Constrain Rotate Platform Knee 7 Insert [id number] - [id number] Implanted:Qty: 1 on 01/13/2023 by Dieter Strauss MD at [facility] Explanted:Qty: 1 on 02/06/2024 at [facility] Left: Knee [employer] 04/14/2027 [id number] / / [id number] [employer] Alejandro .062in 9in Style 1 Wire Fixation Stainless Steel 1600-962tns - [id number] Explanted:Qty: 1 on 09/21/2024 at [facility] [place] Left: Thumb [employer] [id number] / / Procedures Procedure Name Priority Date/Time Associated Diagnosis Comments REPAIR LIGAMENT HAND 03/01/2025 3:17 PM CDT Thumb pain, left PA AN PROCEDURE PLACEHOLDER Routine 03/01/2025 2:07 PM CDT PA AN PROCEDURE PLACEHOLDER Routine 03/01/2025 2:07 PM CDT PA AN PROCEDURE PLACEHOLDER Routine 03/01/2025 2:06 PM CDT from Last 3 Months Results * PA AN PROCEDURE PLACEHOLDER (03/01/2025 2:07 PM CDT) Jose Ramon Nuñez MD - 03/01/2025 2:07 PM CDT Jose Ramon Aguila MD 03/01/2025 2:07 PM Peripheral Block Patient location during procedure: pre-op holding Reason for block: post-op pain management per surgeon request Ultrasound image in chart or stored: yes Block type: single shot Laterality: left Block type: musculocutaneous nerve block Procedure prep: Preprocedure checklist: patient identified, procedure contraindications assessed, site marked, procedure consent, surgical consent, IV checked, risks, benefits and alternatives discussed, monitors and equipment checked and timeout performed Patient position: supine Procedure performed while patient: sedate with meaningful contact Monitoring: oximetry Supplemental O2: nasal cannula Prep solution: chlorhexidine/alcohol Peripheral nerve block: Technique: ultrasound guided Needle type: short-bevel and echogenic Needle gauge: 26 G Needle length: 50 mm Injection assessment: injection made incrementally with constant monitoring, local visualized surrounding nerve on ultrasound, negative aspiration for heme, no paresthesias noted, normal resistance to injection and see flowsheet for medication details Assessment: Block success: full evaluation pending Events: patient tolerated procedure well with no complications Jose Ramon Aguila MD ANESTHESIA ORDERABLES Cara terrazas Result * PA AN PROCEDURE PLACEHOLDER (03/01/2025 2:07 PM CDT) Jose Ramon Nuñez MD - 03/01/2025 2:07 PM CDT Jose Ramon Aguila MD 03/01/2025 2:07 PM Peripheral Block Patient location during procedure: pre-op holding Reason for block: post-op pain management per surgeon request Ultrasound image in chart or stored: yes Block type: single shot Laterality: left Block type: radial nerve block - at forearm Procedure prep: Preprocedure checklist: patient identified, procedure contraindications assessed, site marked, procedure consent, surgical consent, IV checked, risks, benefits and alternatives discussed, monitors and equipment checked and timeout performed Patient position: supine Procedure performed while patient: sedate with meaningful contact Monitoring: oximetry Supplemental O2: nasal cannula Prep solution: chlorhexidine/alcohol Peripheral nerve block: Technique: ultrasound guided Needle type: short-bevel and echogenic Needle gauge: 26 G Needle length: 50 mm Injection assessment: injection made incrementally with constant monitoring, local visualized surrounding nerve on ultrasound, negative aspiration for heme, no paresthesias noted, normal resistance to injection and see flowsheet for medication details Assessment: Block success: full evaluation pending Events: patient tolerated procedure well with no complications Jose Ramon Aguila MD ANESTHESIA ORDERABLES Cara terrazas Result * PA AN PROCEDURE PLACEHOLDER (03/01/2025 2:06 PM CDT) Narrative Jose Ramon Aguila MD - 03/01/2025 2:06 PM CDT Jose Ramon Aguila MD 03/01/2025 2:07 PM Peripheral Block Patient location during procedure: pre-op holding Reason for block: post-op pain management per surgeon request Ultrasound image in chart or stored: yes Block type: single shot Laterality: left Block type: median nerve block - at forearm Procedure prep: Preprocedure checklist: patient identified, procedure contraindications assessed, site marked, procedure consent, surgical consent, IV checked, risks, benefits and alternatives discussed, monitors and equipment checked and timeout performed Patient position: supine Procedure performed while patient: sedate with meaningful contact Monitoring: oximetry Supplemental O2: nasal cannula Prep solution: chlorhexidine/alcohol Peripheral nerve block: Technique: ultrasound guided Needle type: short-bevel and echogenic Needle gauge: 26 G Needle length: 50 mm Injection assessment: injection made incrementally with constant monitoring, local visualized surrounding nerve on ultrasound, negative aspiration for heme, no paresthesias noted, normal resistance to injection and see flowsheet for medication details Assessment: Block success: full evaluation pending Events: patient tolerated procedure well with no complications Jose Ramon Aguila MD ANESTHESIA ORDERABLES Cara l Result from Last 3 Months Insurance AETNA MEDICARE AETNA MEDICARE AET MEDICARE Advance Directives For more information, please contact: [phone] * Full Code (Latest Code Status on File) Date Activated Date Inactivated Comments 02/09/2025 10:38 AM 02/09/2025 4:35 PM * Full Code Date Activated Date Inactivated Comments 01/08/2025 1:32 PM 01/10/2025 6:22 PM * Full Code Date Activated Date Inactivated Comments 01/08/2025 12:00 PM 01/08/2025 1:32 PM * Full Code Date Activated Date Inactivated Comments 02/06/2024 11:29 AM 02/10/2024 8:41 PM * Full Code Date Activated Date Inactivated Comments 01/13/2023 4:41 PM 01/14/2023 6:36 PM Care Teams Management Trainer Relationship Specialty Start Date End Date Jeffry Wilson MD [address] [place] [address] PCP - General Family Medicine 05/13/24 Dieter Strauss MD [address] [place] [address] [address] [place] [address] Surgeon Orthopedic Surgery 01/14/23 [place] [address] [place] [id number] Referring Physician Internal Medicine 05/26/23 Adam Boyer MD [address] [facility] [address] [address] Consulting Physician Cardiology 05/26/23 [place] [address] [place] [address] Consulting Physician Nephrology 05/26/23 Grzegorz Cardenas MD [address] [place] [address] Referring Physician Ophthalmology 05/26/23 Jerry Reynolds MD [address] [facility] [address] [place] [address] Referring Physician Dermatology 05/26/23 Krystian Paige MD [address] [address] Consulting Physician Neurosurgery 05/26/23 Cristopher Brian MD [address] [place] [address] Consulting Physician Anesthesiology 08/12/23 Haley Milan PA [address] [place] [address] [address] [place] [address] Physician Medical Legal Investigator Orthopedic Surgery 02/10/24
--- OUTSIDE RECORDS SUMMARY | 2025-05-19 14:14 | XMS_ITS | Encounter Summary ---
Author Organization [facility] Address 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
--- OUTSIDE RECORDS SUMMARY | 2025-05-19 14:14 | XMS_ITS | Encounter Summary ---
Author Organization [facility] Address 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
--- OUTSIDE RECORDS SUMMARY | 2025-05-19 14:15 | XMS_ITS | Patient Health Record ---
Author Organization [facility] Address [address] [place] [address] Care Team Providers Care Equity Research Associate Name Role Phone Jeffry Wilson Primary Care Provider JACINTA Wells Unavailable [phone] Allergies Allergen (clinical drug ingredient) Drug/Non Drug Allergy documented on EMR Reaction Allergy Type Onset Date Status Levaquin (levofloxacin) (uncoded) unspecified Allergy Active atorvastatin Lipitor (atorvastatin) (uncoded) unspecified Allergy Active Reason For Referral No Information Medications Medication SIG (Take, Route, Frequency, Duration) Notes Start Date End Date Status Multivitamin - 1 tablet Orally Once a day Active Hydrocortisone 10 MG 1.5 tablet Orally e very morning and 1 tablet at night Active Iron (Ferrous Sulfate) 325 (65 Fe) MG 1 tablet Orally Twice a week Active Zetia 10 MG 1 tablet Orally Once a day Active Esomeprazole Magnesium 40 MG 1 capsule Orally Once a day Active Cialis 10 MG 1 tablet as needed O rally Once a day Active Cyclobenzaprine HCl 10 MG 1 tablet at be dtime as needed Orally Once a day Active Testosterone Cypionate 200 MG/ML 1 mL Intramuscular every 2 weeks Active Chlor-Trimeton 4 MG 1 tablet as needed O rally every 8 hrs Active Vitamin D3 25 MCG (1000 UT) 1 capsule Or ally Once a day Active Atenolol 50 MG 1 tablet Orally Once a day Active Tamsulosin HCl 0.4 MG 1 capsule Orally O nce a day Active oxyCODONE-Acetaminophen 5-325 MG 1 tablet as needed Orally every 6 hrs Active Losartan Potassium 25 MG 1 tablet Orally Once a day Active Levothyroxine Sodium 150 MCG 1 tablet in the morning on an empty stomach Orally Once a day Active Immunizations Vaccine Route Administration Date Status Comme nts Influenza, high dose seasonal Unknown 06/15/2019 Admini stered Influenza, high dose seasonal Unknown 07/17/2020 Admini stered Problems Problem Type SNOMED Code ICD Code Onset Dates Problem Status W/U Status Risk Notes Problem Chronic kidney disease due to hypertension (751526821632559 ) Hypertensive chronic kidney disease with stage 1 through stage 4 chronic kidney disease, or unspecified chronic kidney disease (I12.9) 9 Active confirmed 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 Problem Chronic kidney disease stage 2 (442166692) Chronic kidney disease, stage 2 (mild) (N18.2) 9 Active confirmed Problem Proteinuria (99079457) Proteinuria, unspecified (R80.9) 9 Active confirmed Problem Diastolic dysfunction (7525196) Diastolic dysfunction (I51.9) 9 Active confirmed Problem Hypogonadism (69836456) Hypogonadism (E29.1) 9 Active confirmed Problem Prolactinoma (98186405) Prolactinoma (D35.2) 9 Active confirmed Vital Signs Heart Rate 52 /min 02/03/2025 Respiratory Rate 18 /min 02/03/2025 Blood pressure diastolic 60 mm Hg 02/03/2025 Weight-kg 110.59 kg 02/03/2025 Height 72 in 02/03/2025 Blood pressure systolic 124 mm Hg 02/03/2025 Weight 243.8 lbs 02/03/2025 BMI 33.06 kg/m2 02/03/2025 Encounters Encounter Location Date Provider Diagnosis [address] [address] 02/03/2025 JACINTA MENDEZ Chronic kidney disease, stage 2 (mild) N18.2 ; Hypertensive chronic kidney disease with stage 1 through stage 4 chronic kidney disease, or unspecified chronic kidney disease I12.9 ; Analgesic nephropathy N14.0 ; Proteinuria, unspecified R80.9 ; Diastolic dysfunction I51.9 ; Hypogonadism E29.1 and Prolactinoma D35[address] [address] 07/29/2024 JACINTA MENDEZ Chronic kidney disease, stage 2 (mild) N18.2 ; Hypertensive chronic kidney disease with stage 1 through stage 4 chronic kidney disease, or unspecified chronic kidney disease I12.9 ; Analgesic nephropathy N14.0 ; Proteinuria, unspecified R80.9 ; Diastolic dysfunction I51.9 ; Hypogonadism E29.1 and Prolactinoma D35.2 Assessments Encounter Date Diagnosis (ICD Code) Assessment Notes Treatment Notes Treatment Clinical Notes Section Notes 07/29/2024 Chronic kidney disease, stage 2 (mild) (ICD-10 - N18.2) 02/03/2025 Chronic kidney disease, stage 2 (mild) (ICD-10 - N18.2) 07/29/2024 Hypertensive chronic kidney disease with stage 1 through stage 4 chronic kidney disease, or unspecified chronic kidney disease (ICD-10 - I12.9) 02/03/2025 Hypertensive chronic kidney disease with stage 1 through stage 4 chronic kidney disease, or unspecified chronic kidney disease (ICD-10 - I12.9) 02/03/2025 Analgesic nephropathy (ICD-10 - N14.0) 07/29/2024 Analgesic nephropathy (ICD-10 - N14.0) 02/03/2025 Proteinuria, unspecified (ICD-10 - R80.9) 07/29/2024 Proteinuria, unspecified (ICD-10 - R80.9) 07/29/2024 Diastolic dysfunction (ICD-10 - I51.9) 02/03/2025 Diastolic dysfunction (ICD-10 - I51.9) 02/03/2025 Hypogonadism (ICD-10 - E29.1) 07/29/2024 Hypogonadism (ICD-10 - E29.1) 07/29/2024 Prolactinoma (ICD-10 - D35.2) 02/03/2025 Prolactinoma (ICD-10 - D35.2) Plan Of Treatment Next Appt Details Provider Name:JACINTA MENDEZ , 08/02/2026 10:00:00 AM, [address], [address], Insurance Providers Payer Name Payer Address Payer Phone Subscriber Number Group Number Insured Name Patient Relationship to Insured Coverage Start Date Coverage End Date AETNA [facility] MEDICARE PPO [address] [place] [phone] [id number] JARET SORIA Self - patient is the insured Medical (General) History Medical History History ICD Code Chronic kidney disease Hypertension Dyslipidemia 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
--- OUTSIDE RECORDS SUMMARY | 2025-05-19 14:15 | XMS_ITS | Clinical Summary ---
Author Organization [facility] Address [address] [place] [phone] Phone Care Team Providers Care Plastics Bench Mechanic Name Role Phone Errol Suarez DO Primary Care Provider Allergies Active Allergy Reactions Criticality Noted Date Comments Levofloxacin Hives High 08/31/2010 Medications levothyroxine (SYNTHROID) 150 mcg Oral tablet daily. Acti ve esomeprazole (NEXIUM) 40 mg Oral CpDR daily. Active testosterone (ANDROGEL) 1 %(50 mg/5 gram) Gel in Packet Apply to skin as directed 2 times daily. Active atenolol (TENORMIN) 50 mg tablet Take 1 Tab by mouth Daily LATE. 90 Tab 4 12/29/2013 Active sildenafil (VIAGRA) 100 mg tablet Take 100 mg by mouth 1 time daily as needed. Active FOLIC ACID/MULTIVITS- MIN/LUT (CENTRUM SILVER ORAL) Take by mouth daily. Active atorvastatin (LIPITOR) 20 mg tablet Take 1 Tab (20 mg) by mouth Daily LATE. 90 Tab 3 11/14/2014 Active amLODIPine (NORVASC) 10 mg tablet TAKE 1 TABLET BY MOUTH EVERY MORNING 90 Tab 3 12/30/2014 Active cholecalciferol , vitamin D3, 1,000 unit Take 2,000 Units by mouth daily. Active oxyCODONE-aceta minophen (PERCOCET) 5-325 mg tablet Take 1 Tablet by mouth. 04/03/2021 Active losartan (COZAAR) 100 mg tablet Take 100 mg by mouth daily. 07/26/2019 Active multivit with minerals/lutein (MULTIVITAMIN-M INERALS-LUTEIN ORAL) Take by mouth. Active cabergoline (DOSTINEX) 0.5 mg Tablet Take 0.5 mg by mouth. Active Active Problems Patient Care Coordination No te Formatting of this note migh t be different from the original. Hull Builder- Dr. Ramana Morgan Energy Operations Vice President - Dr. Adam Boyer Problem Noted Date Diagnosed Date Pancreatic mass 02/25/2014 Overview (02/25/2014): 1.3 cm onset mass present on CT urogram-to be evaluated with endoscopic ultrasound Hyperlipidemia 12/29/2013 Overview (11/14/2014): 08/28 Cholesterol 185 HDL 45 LDL 122 triglyceride 89, normal TSH/CMP x glucose 104 08/27 Cholesterol 185 HDL 34 LDL 100 triglyceride 254 Hypertension 11/08/2013 Chest pain 10/28/2012 Overview (10/28/2012): 11/17 stress nuclear: anterior ischemia, normal EF 11/17 cath: LV 120/15, EF 60%, normal coronaries 10/21 stress EKG 5:30--89% maximal heart rate, PVCs, no EKG ischemia, (nuclear report not known) SVT (supraventricular tachycardia), nonsustained 10/27/2012 Overview (12/21/2014): 10/27 Holter: SR at 63, range 48-103, rare PACs, no PVCs, 4 atrial triplets, fastest 129 / TSH 0.42 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 Overview (05/18/2015): 09/19 CT: mild eccentric aortic atherosclerosis 10/26 echo: EF 60%, mild LAE, probable Chiari/eustachian valve remnant, PA 41, aorta: root 40 mm, ascending 39 mm, arch 38 mm, 3 cusp AV 03/26 CT: fusiform thoracic aortic ectasia up to 38 mm in distal aortic arch, no AAA 09/27 echo: EF 55-60%, grade 1 DD, mild TR, PA 29, aorta: root 43 mm, ascending 40 mm, 3 cusp AV 10/29 echo: EF 60-65%, mild-moderate LVH, diastolic dysfunction with increased LA pressure, mild LAE, mild TR, PA 40, 3 cusp AV, aorta: 44 mm root, 39 mm ascending, 35 mm arch 01/26 CT abd: atherosclerotic abd aorta without aneurysm 11/27 echo: EF 65-70%, normal diastolic function, 3 cusp AV, aortic root 39 mm, ascending aorta grossly normal, arch images inadequate, mild MAC, mild TR, PA 33 PVC (premature ventricular contraction) 10/10/19 11 Hypothyroidism Overview (08/31/2010): Status post treatment Near syncope Family History Medical History Relation Name Comments Cancer Father Liver Disease Father Colon Cancer Maternal Grandmother Relation Name Status Comments Father (Age 64) throat can cer; no vasuclar/heart disease Maternal Grandmother Mother (Age 84) bone cance r; no vascular/heart disease Sister 1 Alive no vascular/hea rt disease Sister 2 Alive no vascular/hea rt disease Son Alive no vascular/hea rt disease Social History Tobacco Use Types Packs/Day Years Used Date Smoking Tobacco: Former Cigarettes Q uit: 08/31/1995 Smokeless Tobacco: Never Alcohol Use Standard Drinks/Week Comments Yes 0 (1 standard drink = 0.6 oz pur e alcohol) rarely Sex and Gender Information Value Date Recorded Sex Assigned at Not on file 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 Gender Identity Not on file Sexual Orientation Not on file Occupation Industry Job Start Date Job End Date Not on file Not on file Not on file Not on file Last Filed Vital Signs Vital Sign Reading Time Taken Comments Blood Pressure 136/67 04/26/2021 11:05 AM CDT Pulse 64 04/26/2021 11:05 AM CDT Temperature 35.9 C (96.7 F) 04/26/2021 10:50 AM CDT Respiratory Rate 16 04/26/2021 11:05 AM CDT Oxygen Saturation 100% 04/26/2021 11:05 AM CDT Inhaled Oxygen Concentration - - Weight 103.4 kg (228 lb) 04/26/2021 9:23 AM CDT Height 180.3 cm (5' 11) 04/26/2021 9:23 AM CDT Body Mass Index 31.8 04/26/2021 9:23 AM CDT Plan of Treatment Health Maintenance Due Date Last Done Comments DTAP/TDAP/TD VACCINES (1 - Tdap) 1965 PNEUMOCOCCAL VACCINE 50+ YEA RS (1 of 1 - PCV) 1996 ZOSTER VACCINE (1 of 2) 1996 RSV VACCINE (60+ or ) (1 - 1-dose 75+ series) 2021 INFLUENZA VACCINE (#1) 2025 COLORECTAL SCREENING Discontinued 03/17/2014, 01/22/20 11 Colorectal Cancer Screening Discontinued FIT-DNA Q 3 years Discontinued FIT/FOBT Q 1 year Discontinued Flex Sig/CT Colonography Q 5 years Discontinued Insurance Advance Directives For more information, please contact: [phone] * Full Code (Latest Code Status on File) Date Activated Date Inactivated Comments 04/26/2021 9:25 AM 04/26/2021 1:52 PM * Full Code Date Activated Date Inactivated Comments 03/17/2014 8:25 AM 03/17/2014 12:43 PM * Full Code Date Activated Date Inactivated Comments 01/21/2011 6:44 AM 01/22/2011 2:33 AM Care Teams Plastics Bench Mechanic Relationship Specialty Start Date End Date Errol Suarez DO [address] [place] [address] PCP - General Internal Medicine 11/10/15
--- OUTSIDE RECORDS SUMMARY | 2025-05-19 14:15 | XMS_ITS | Encounter Summary ---
Author Organization [facility] Address [address] [place] [address] Care Team Providers Care Speech Communication Instructor Name Role Phone Luisvic ErrolAlisia LAND Primary Care Provider Encounter Details Date Type Department Care Team (Late st Contact Info) Description 02/04/2008 Outpatient Historical [facility] Jaun John MD NO ADDRESS ON FILE Social History Tobacco Use Types Packs/Day Years Used Date Smoking Tobacco: Never Assessed Sex and Gender Information Value Date Recorded Sex Assigned at Not on file Legal Sex Male 4:15 AM RETAIL SUPPORT SPECIALIST Gender Identity Not on file Sexual Orientation Not on file documented as of this encounter Plan of Treatment Not on file documented as of this encounter Procedures Procedure Name Priority Date/Time Associated Diagnosis Comments PATHOLOGY Routine 02/04/2008 11:15 AM CDT documented in this encounter Results * PATHOLOGY (02/04/2008 11:15 AM CDT) FINAL REPORT [address] [address] Patient: CHIRAG MACHUCA : 1945 Procedure Date: 02/04/2008 Accession Date: 02/04/2008 Case No: [id number] Ordering Dr: JAUN JOHN Case types AW, BW, FW, NW and SH are performed by [facility], [place], [place] SURGICAL PATHOLOGY & NON-GYNECOLOGIC CYTOPATHOLOGY REPORT DIAGNOSIS LARGE INTESTINE, RIGHT COLON, BIOPSY: - TUBULAR ADENOMA. LARGE INTESTINE, RIGHT DISTAL SIGMOID, BIOPSY: - TUBULAR ADENOMA. Specimen Description: (1) Right colon polyp; (2) distal sigmoid polyp. Operative Procedure: Colonoscopy. Patient Information/Histo ry/Diagnosis: Not stated. Gross: Two containers are received labeled Chirag Sven. The first specimen is received in a container labeled right colon polyp. It consists of a single piece of alvares tissue measuring 0.2 x 0.1 x 0.1 cm. The specimen is submitted entirely labeled A1. The second specimen is received in a container labeled distal sigmoid polyp. It consists of two pieces of alvares tissue, each measuring 0.2 cm in greatest dimension. The specimen is submitted entirely labeled B1. KLA/LKP 02.04.2008 02:59 pm Microscopic: The slides are labeled Chirag Machuca, [id number]. The biopsy from the right colon, and the biopsy from the sigmoid show adenomatous polyps. TIA/PJS 02.05.2008 09:30 am Staging Form: NO ELECTRONIC SIGNATURE FOR VAN MCGILL M.D.- 02/05/08 05:10 pm INTERFACE SYSTEM 02/04/2008 11:1 5 AM CDT us Jaun John MD PATHOLOGY/CYTOLOGY ORDERABLE S Final Result INTERFACE SYSTEM Refer to clinic/hospital department documented in this encounter Visit Diagnoses Not on filedocumented in this encounter Care Teams Speech Communication Instructor Relationship Specialty Start Date End Date Errol Suarez DO [address] [place] [id number] PCP - General Internal Medicine 11/10/15 documented as of this encounter
--- OUTSIDE RECORDS SUMMARY | 2025-05-19 14:15 | XMS_ITS | Encounter Summary ---
Author Organization [employer] [facility] Address [address] [place] [address] Care Team Providers Care Maintenance Construction Helper Name Role Phone Errol Suarez DO Primary Care Provider Encounter Details Date Type Department Care Team (Late st Contact Info) Description 02/24/2003 Outpatient Historical [facility] Jaun John MD NO ADDRESS ON FILE DIVERTICULOSIS OF COLON W/O BLEED (Primary Dx) Social History Tobacco Use Types Packs/Day Years Used Date Smoking Tobacco: Never Assessed Sex and Gender Information Value Date Recorded Sex Assigned at Not on file Legal Sex Male 4:15 AM NAILHEAD SETTER Gender Identity Not on file Sexual Orientation Not on file documented as of this encounter Plan of Treatment Not on file documented as of this encounter Visit Diagnoses Diagnosis Diverticulosis of colon (without mention of hemorrhage)- Primary documented in this encounter Care Teams Maintenance Construction Helper Relationship Specialty Start Date End Date Errol Suarez DO [address] [place] [id number] PCP - General Internal Medicine 11/10/15 documented as of this encounter
--- OUTSIDE RECORDS SUMMARY | 2025-05-19 14:15 | XMS_ITS | Clinical Summary ---
Author Organization [facility] Address [address] [facility] [place] [address] Care Team Providers Care Acls Nurse Name Role Phone Jaylen Louis MD Unavailable [phone] Onel Sheldon MD Unavailable Jason Banerjee MD Unavailable Adam Boyer MD Unavailable [phone] Reagan Alvarado MD Unavailable [phone] Keith Thompson MD Unavailable [phone] Jeffry Wilson MD Primary Care Provider [phone] Source Comments [facility],non-owned Affiliates and Associated Physician Practices is amultiple site organization consisting of ambulatory clinics and hospital sitesin [place], [place], [place] and [place]. This disclosure is being madepursuant to the Care Everywhere program and may not contain all information available regarding this patient. Last updated 18.[facility] Allergies Active Allergy Reactions Criticality Noted Date Comments Apixaban Rash,Urticaria High 01/28/2023 Atorvastatin Myalgias 02/13/2016 Muscle weakness, memeory loss, joint pain Levofloxacin Rash Low 03/08/2013 Other reaction(s): Hives Medications * Be aware that medications may not be up to date on this document. Alwaysverify current medications with the patient. esomeprazole (NEXIUM) 40 MG capsule Take 1 (one) capsule by mouth daily before breakfast Active SM MULTIPLE VITAMINS/IRON TABS Active fluticasone propionate (FLONASE) 50 MCG/ACT nasal spray INSTILL 2 SPRAYS IEN D 018 Active ferrous sulfate 325 (65 FE) MG tablet Take 1 (one) tablet by mouth 2 times daily with morning and evening meal Active losartan (COZAAR) 100 MG tabletIndications :Thoracic aortic ectasia,Essential (primary) hypertension TAKE 1 TABLET BY MOUTH EVERY DAY 90 tablet 4 019 Active cyclobenzaprine (FLEXERIL) 10 MG tablet Take 10 mg by mouth once daily 020 Active atenolol (TENORMIN) 50 MG tablet TAKE 1 TABLET BY MOUTH DAILY 90 tablet 4 020 Active vitamin D3-cholecalcifero l (CHOLECALCIFEROL) 25 MCG (1000 UNITS) tablet Take 1 (one) tablet by mouth once daily Active oxyCODONE-acetami nophen (Percocet) 5-325 MG tablet Take 1 (one) tablet by mouth every 6 hours as needed for Pain Active amLODIPine (NORVASC) 5 MG tablet TAKE 1 TABLET BY MOUTH EVERY NIGHT AT BEDTIME 90 tablet 4 021 Active ALPRAZolam (Xanax) 0.25 MG tabletIndications :Prolactinoma (HCC) Take first tablet 30 minutes before MRI scan and take second tablet on arrival. 2 tablet 022 Active Xarelto 20 MG tablet TAKE 1 TABLET BY MOUTH IN THE EVENING WITH DINNER TAKE WITH FOOD Active hydrocortisone (Cortef) 10 MG tabletIndications :Secondary adrenal insufficiency (HCC) Take 1 (one) tablet by mouth 2 times daily 200 tablet 2 025 Active hydrocortisone (Cortef) 5 MG tabletIndications :Secondary adrenal insufficiency (HCC) TAKE 1 TABLET BY MOUTH EVERY DAY IN ADDITION TO 10 MG HYDROCORTISONE TO. MAKE TOTAL OF 25 MG DAILY 90 tablet 2 025 Active levothyroxine (Synthroid) 175 MCG tabletIndications :Secondary hypothyroidism Take 1 (one) tablet by mouth once daily 90 tablet 2 025 Active testosterone (AndroGel) 50 MG/5GM (1%) gelIndications:Hy pogonadism in male Use 10 (ten) g as instructed once daily Apply to clean, dry, intact skin of the shoulders and upper arms. 900 g 1 025 Active cabergoline (Dostinex) 0.5 MG tabletIndications :Prolactinoma (HCC) TAKE 1 TABLET BY MOUTH EVERY 14 DAYS 8 tablet 2 025 Active cabergoline (Dostinex) 0.5 MG tabletIndications :Prolactinoma (HCC) Take 1 (one) tablet by mouth every 14 days 8 tablet 2 025 2024 Discontinued Active Problems Problem Noted Date Diagnosed Date Class 2 severe obesity due t o excess calories with serious comorbidity and body mass index (BMI) of 35.0 to 35.9 in adult 11/01/2024 [place] disease 04/29/2024 Renal insufficiency 05/18/2019 Overview (05/31/2020): 08/03 creatinine 1.2 06/03 BUN 30 creatinine 1.4 GFR 53 11/03 creatinine 1.47 06/02 BUN 24 creatinine 1.2 05/01 BUN 34 creatinine 1.2 11/29 creatinine 1.15 Pain in both lower extremities 05/20/2017 Overview (05/27/2017): 06/01 PALLAVI: right 1.21, left 1.27 -> exercise -> right 1.14, left 1.11 Hypogonadism in male 07/02/2016 Secondary hypothyroidism 07/02/2016 Secondary adrenal insufficiency 07/02/2016 Prolactinoma 04/18/2016 Mixed hyperlipidemia 12/29/2013 Overview (05/18/2019): 06/03 Cholesterol 199 HDL 52 LDL 114 triglyceride 163, AST 22 ALT 24 glucose 95 06/02 Cholesterol 222 HDL 53 LDL 140 triglyceride 146, AST 24 ALT 25 CK 206 glucose 88 05/01 Cholesterol 170 HDL 38 LDL 100 triglyceride 160, AST 29 ALT 25 CK 308 (normal <200) glucose 89 04/30 Cholesterol 181 HDL 55 LDL 111 triglyceride 77, AST 19 ALT 17 CK 201 glucose 89 10/31 Cholesterol 106 HDL 27 LDL 54 triglyceride 127 08/28 Cholesterol 185 HDL 45 LDL 122 triglyceride 89, normal TSH/CMP x glucose 104 08/27 Cholesterol 185 HDL 34 LDL 100 triglyceride 254 10/31 Cholesterol 106 HDL 27 LDL 54 triglyceride 127 04/29 Cholesterol 135 HDL 36 LDL 64 triglyceride 174, AST 25 ALT 30 glucose 109 08/28 Cholesterol 185 HDL 45 LDL 122 triglyceride 89, normal TSH/CMP x glucose 104 08/27 Cholesterol 185 HDL 34 LDL 100 triglyceride 254 Essential (primary) hypertension 11/08/2013 Precordial pain 10/28/2012 Overview (05/27/2017): 11/17 stress nuclear: anterior ischemia, normal EF 11/17 cath: LV 120/15, EF 60%, normal coronaries 10/21 stress EKG 5:30--89% maximal heart rate, PVCs, no EKG ischemia, (nuclear report not known) 06/01 Lexiscan nuclear: no ischemia, EF 64% SVT (supraventricular tachycardia) 10/27/2012 Overview (07/19/2019): 10/27 Holter: SR at 63, range 48-103, rare PACs, no PVCs, 4 atrial triplets, fastest 129 12/28 TSH 0.42 04/30 EKG: SB at 55 07/03 EKG: SB at 55, borderline low voltage, baseline artifact in V2, normal intervals 07/03 Holter 48 hours: SR at 62, range 44-99, rare PVCs, rare PACs, 51 runs of nonsustained SVT, longest 17 beats at 100, fastest 4 beats at 176 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 Overview (10/03/2020): 09/19 CT: mild eccentric aortic atherosclerosis 10/26 echo: EF 60%, mild LAE, probable Chiari/eustachian valve remnant, PA 41, aortic root 40 mm, ascending aorta 39 mm, arch 38 mm, 3 cusp AV 03/26 CT: fusiform thoracic aortic ectasia up to 38 mm in distal aortic arch, no AAA 09/27 echo: EF 55-60%, grade 1 DD, mild TR, PA 29, aortic root 43 mm, ascending aorta 40 mm, 3 cusp AV 10/29 echo: [...] inadequate, mild MAC, mild TR, PA 33 11/28 echo: EF 55%, mild LVE/RVE/MAYRA, mild MR, mild-moderate TR, RV 37, aortic root 45 mm, ascending aorta 40 mm 11/28 CTA chest: 40 mm aorta at SOV, 38 mm ascending aorta, 41 mm proximal descending aorta 06/01 echo: EF 60%, mild LAE, mild TR, RVSP 36, proximal aorta 38 mm 06/02 echo: EF 55-60%, upper normal RA & RV sizes, trace MR/TR, RVSP 31, aortic root 43 mm, proximal ascending aorta 37 mm, grossly normal arch 06/03 echo: EF 65%, mild-moderate LVH, trace MR/TR, 3 cusp AV, RVSP 32-37, 44 mm aortic root, 37 mm proximal ascending aorta, grossly normal arch caliber 06/04 echo: EF 60%, trace PI/TR, 3 csup AV, aortic root 45 mm, proximal ascending aorta 40 mm, RVSP 32 10/[address] w/o contrast: borderline dilation descending aorta at 40 mm, mild dilation of arch extending to descending aorta at 41 mm, descending aorta normal size at 3.4 mm, nonspecific lung groundglass infiltrates, tiny nodule 4 mm LLL, bronchiectasis PVC's (premature ventricular contractions) 10/10 Resolved Problems Problem Noted Date Diagnosed Date Resolved Date Hypothyroidism 05/19/2015 05/19/2015 Overview (05/19/2015): Status post treatment Syncope and collapse 05/19/2015 015 Pancreatic mass 02/25/2014 05/19/2015 Overview (05/19/2015): 1.3 cm onset mass present on CT urogram-to be evaluated with endoscopic ultrasound Essential hypertension 11/08/201304/19 Supraventricular tachycardia 10/27/2012 05/17/2016 Overview (01/30/2016): Overview: 10/27 Holter: SR at 63, range 48-103, rare PACs, no PVCs, 4 atrial triplets, fastest 129 15 TSH 0.42 Ventricular premature depolarization 10/10/2010 05/27/2017 Encounters Date Type Department Care Team Description 04/21/2025 Refill [facility] - Endocrinology [address] [facility], [address] [address] Onel Sheldon MD Refill Request from Last 3 Months Family History Medical History Relation Name Comments Alcohol abuse Father Cancer Father Stroke Father Cancer Mother Cancer - Prostate Paternal Grandfather Arthritis - Osteo Sister 3 Thyroid Disease Sister 3 Relation Name Status Comments Father (Age 64) throat can cer/ no heart disease Mother (Age 84) bone cance r/ no heart disease Paternal Grandfather Sister 1 Alive no vascular or heart disease Sister 2 Alive no vascular or heart disease Sister 3 Son Alive no vascular or heart disease Social History Tobacco Use Types Packs/Day Years Used Date Smoking Tobacco: Former Cigarettes 0 09/15/1964 - 09/15/1994 Smokeless Tobacco: Never Tobacco Cessation:Counseling Given: Not Answered Alcohol Use Standard Drinks/Week Comments No 0 (1 standard drink = 0.6 oz pur e alcohol) PHQ-2 Answer Date Recorded PHQ2 TOTAL SCORE 0 04/22/2022 Sex and Gender Information Value Date Recorded Sex Assigned at Not on file Legal Sex Male 6:01 AM SOUS CHEF Gender Identity Not on file Sexual Orientation Not on file Occupation Industry Job Start Date Job End Date RETIRED Not on file Not on file Not on file Last Filed Vital Signs Vital Sign Reading Time Taken Comments Blood Pressure 122/80 11/01/2024 9:03 AM SOUS CHEF Pulse 86 11/01/2024 9:03 AM SOUS CHEF Temperature 36.5 C (97.7 F) 11/11/2023 10:10 AM SOUS CHEF Respiratory Rate 95 11/11/2023 10:10 AM SOUS CHEF Oxygen Saturation 98% 11/01/2024 9:03 AM SOUS CHEF Inhaled Oxygen Concentration - - Weight 115.2 kg (254 lb) 11/01/2024 9:03 AM SOUS CHEF Height 177.8 cm (5' 10) 11/01/2024 9:03 AM SOUS CHEF Body Mass Index 36.45 11/01/2024 9:03 AM SOUS CHEF Plan of Treatment Upcoming Encounters Date Type Department Care Team (Late st Contact Info) Description 11/01/2025 9:00 AM SOUS CHEF Office Visit [facility] - Endocrinology [address] [facility], [address] [place] [id number] [place] [address] [facility] [address] [place] [address] Health Maintenance Due Date Last Done Comments DTAP/TDAP/TD VACCINES (1 - Tdap) 1964 PNEUMOCOCCAL VACCINE 50+ (1 of 1 - PCV) 1996 ZOSTER VACCINE (1 of 2) 1996 Respiratory Syncytial Virus (RSV) Vaccine Pt: or over 60 yrs (1 - 1-dose 75+ series) 2021 DEPRESSION SCREENING 09/15/2024 04/22/2022 MEDICARE AWV CALENDAR YEAR 2024 COVID-19 VACCINE ( - season) 2025 11/08/2020, 10/18/2020 INFLUENZA VACCINE (#1) 2025 , 07/30/2022, 07/18/2021, Additional history exists HEPATITIS B VACCINE Aged Out No longe r eligible based on patient's age to complete this topic HIB VACCINE Aged Out No longer eligi ble based on patient's age to complete this topic HPV VACCINE Aged Out No longer eligi ble based on patient's age to complete this topic MENINGOCOCCAL (Group B) VACCINE SHARED DECISION-MAKING Aged Out No longer eligible based on patient's age to complete this topic MENINGOCOCCAL GROUPS A/C/Y/W VACCINE Aged Out No longer eligible based on patient's age to complete this topic Insurance [employer] MEDICARE ADV Advance Directives * Full Code (Latest Code Status on File) Date Activated Date Inactivated Comments 05/23/2016 4:51 PM 05/24/2016 11:37 AM * FULL RESUSCITATION Date Activated Date Inactivated Comments 03/10/2013 3:20 PM 03/11/2013 1:27 PM Care Teams Acls Nurse Relationship Specialty Start Date End Date Jeffry Wilson MD [address] [place] [address] PCP - General Internal Medicine 10/23/22 Jaylen Louis MD Urology 10/27/14 [place] [address] [place] [address] Endocrinology 03/28/16 [place] [address] [place] [address] Neurological Surgery 07/02/16 [place] [address] [place] [address] Cardiovascular Disease 07/08/17 [place] [address] [place] [address] Physical Medicine and Rehabilitation 07/08/17 [place] [address] [place] [address] Orthopedic Surgery 01/06/18
--- OUTSIDE RECORDS SUMMARY | 2025-05-19 14:15 | XMS_ITS | Clinical Summary ---
Author Organization [facility] Address [address] [place] [address] Phone Care Team Providers Care Ripsaw Grader Name Role Phone Errol Suarez DO Primary Care Provider [phone] Allergies Active Allergy Reactions Criticality Noted Date Comments Levofloxacin Unknown 04/19/2019 Medications Multiple Vitamins-Minera ls (CENTRUM SILVER PO) Take 1 Tab by mouth. Active amLODIPine (NORVASC) 5 MG Tablet TK 1 T PO QHS 4 9 Active atenolol (TENORMIN) 50 MG Tablet 50 mg. 4 Active atorvastatin (LIPITOR) 20 MG Tablet Take 20 mg by mouth. 5 Active cabergoline (DOSTINEX) 0.5 MG Tablet TK ONE T PO Q 4 WEEKS 0 9 Active Cholecalciferol (D3-1000) 1000 UNIT Capsule Take 2 Caps by mouth. Active esomeprazole (NEXIUM) 40 MG CAPSULE DELAYED RELEASE Take 40 mg by mouth. 7 Active hydrocortisone (CORTEF) 10 MG Tablet TAKE 2 TABLETS BY MOUTH EVERY MORNING AND 1 TABLET IN THE AFTERNOON 7 Active levothyroxine (SYNTHROID) 150 MCG Tablet TAKE 1 TABLET BY MOUTH EVERY DAY 7 Active Mirabegron ER 25 MG TABLET SR 24 HR Take 25 mg by mouth. 7 Active testosterone (ANDROGEL) 25 MG/2.5GM (1%) Gel APPLY ONCE DAILY TO CLEAN, DRY, INTACT SKIN OF THE SHOULDERS AND UPPER ARMS AND/OR ABDOMEN 8 Active traMADol (ULTRAM) 50 MG Tablet TK 1 T PO QID PRN. 0 9 Active tiZANidine (ZANAFLEX) 4 MG Tablet TAKE 1 TABLET BY MOUTH AT BEDTIME 9 Active Active Problems Problem Noted Date Diagnosed Date Anemia, unspecified 04/19/2019 Hypothyroidism 04/19/2019 Hypogonadism in male 04/19/2019 Pituitary tumor 04/19/2019 Adrenal insufficiency 04/19/2019 Fatigue 04/19/2019 Family History Medical History Relation Name Comments Cancer Mother Relation Name Status Comments Father Mother Social History Tobacco Use Types Packs/Day Years Used Date Smoking Tobacco: Former Cigarettes Smokeless Tobacco: Never Alcohol Use Standard Drinks/Week Comments Yes 0 (1 standard drink = 0.6 oz pur e alcohol) Sex and Gender Information Value Date Recorded Sex Assigned at Not on file Legal Sex Male 11:52 PM CDT Gender Identity Not on file Sexual Orientation Not on file Last Filed Vital Signs Vital Sign Reading Time Taken Comments Blood Pressure 133/73 10/06/2019 9:44 AM REPAIRER VENEER SHEET Pulse 99 10/06/2019 9:44 AM REPAIRER VENEER SHEET Temperature 36.5 C (97.7 F) 10/06/2019 9:44 AM REPAIRER VENEER SHEET Respiratory Rate 20 10/06/2019 9:44 AM REPAIRER VENEER SHEET Oxygen Saturation 98% 10/06/2019 9:44 AM REPAIRER VENEER SHEET Inhaled Oxygen Concentration - - Weight 112.2 kg (247 lb 4.8 oz) 10/06/2019 9:44 AM REPAIRER VENEER SHEET Height 180.3 cm (5' 11) 10/06/2019 9:44 AM REPAIRER VENEER SHEET Body Mass Index 34.49 10/06/2019 9:44 AM REPAIRER VENEER SHEET Plan of Treatment Health Maintenance Due Date Last Done Comments Hepatitis C Virus (HCV) Screening 1945 TdaP Immunization 1945 Pneumococcal Immunization (50+ years) (1 of 1 - PCV) 1996 Zoster Immunization (2 of 3) 07/13/2013 05/18/2013 Respiratory Syncytial Virus (RSV) Immunization (Adult) (1 - 1-dose 75+ series) 2021 Influenza Immunization (#1) 2025 11/0 09/2018, 06/26/2018, 07/11/2017, Additional history exists SARS-COV-2 Immunization (3 - season) 2025 11/08/2020, 10/18/2020 Hepatitis B Immunization Aged Out No longer eligible based on patient's age to complete this topic Human Papillomavirus (HPV) Immunization Aged Out No longer eligible based on patient's age to complete this topic Meningococcal Immunization (ACWY) Aged Out No longer eligible based on patient's age to complete this topic Rotavirus Immunization Aged Out No lo nger eligible based on patient's age to complete this topic Insurance MEDICARE C [facility] Care Teams Ripsaw Grader Relationship Specialty Start Date End Date Errol Suarez DO [address] [place] [id number] PCP - General Internal Medicine 04/19/19
--- OUTSIDE RECORDS SUMMARY | 2025-05-19 14:15 | XMS_ITS | Encounter Summary ---
Author Organization [facility] Address [address] [place] [address] Care Team Providers Care Superior Court Clerk Name Role Phone LuisErrol ho Eze LAND Primary Care Provider Encounter Details Date Type Department Care Team (Latest Contact Info) Description 05/05/2008 Outpatient Historical HIS [facility] John, Jaun Brown MD NO ADDRESS ON FILE Diverticulitis of Colon (without Mention of Hemorrhage) Social History Tobacco Use Types Packs/Day Years Used Date Smoking Tobacco: Never Assessed Sex and Gender Information Value Date Recorded Sex Assigned at Not on file Legal Sex Male 4:15 AM LICENSING OFFICER Gender Identity Not on file Sexual Orientation Not on file documented as of this encounter Plan of Treatment Not on file documented as of this encounter Procedures Procedure Name Priority Date/Time Associated Diagnosis Comments CBC WITH DIFFERENTIAL Routine 05/05/2008 4:32 PM CDT C-REACTIVE PROTEIN Routine 05/05/2008 4: 32 PM CDT documented in this encounter Results * (ABNORMAL) CBC WITH DIFFERENTIAL (05/05/2008 4:32 PM CDT) RBC 4.26(L) 4.50 - 5.40 M/uL [facility] MCHC 33.7 31.5 - 35.5 % [facility] MCV 91.3 82.0 - 99.0 fL [facility] PLATELETS 229 140 - 350 K/uL [facility] HEMOGLOBIN 13.1(L) 13.6 - 16.5 g/dL [facility] RDW 13.8 11.5 - 14.5 % [facility] WBC 5.6 4.0 - 9.8 K/uL [facility] MCH 30.8 27.2 - 32.6 pg [facility] MPV 10.4 9.3 - 12.4 fL [facility] HEMATOCRIT 38.9(L) 40.0 - 48.0 % [facility] RDW-STDEV 45.3 37.1 - 48.7 fL [facility] MONOCYTE ABSOLUTE 0.43 0.10 - 1.30 K/uL [facility] NEUTROPHILS 65 45 - 70 % [facility] NEUTROPHIL ABSOLUTE 3.61 1.90 - 7.00 K/uL [facility] EOSINOPHILS 3 0 - 7 % [facility] EOSINOPHIL ABSOLUTE 0.17 0.00 - 0.70 K/uL [facility] LYMPHOCYTES 24 16 - 45 % [facility] LYMPHOCYTE ABSOLUTE 1.32 0.70 - 4.50 K/uL [facility] BASOPHILS 1 0 - 2 % [facility] BASOPHILS ABSOLUTE 0.04 0.00 - 0.20 K/uL [facility] MONOCYTES 8 3 - 13 % [facility] Blood specimen (specimen) 05/05/2008 4:32 PM CDT 05/05/2008 5:12 PM CDT us Jaun John MD HEMATOLOGY ORDERABLES Edited INTERFACE SYSTEM Refer to clinic/hospital department [facility] CLIA# [id number] [address] [place] [address] * C-REACTIVE PROTEIN (05/05/2008 4:32 PM CDT) CRP <0.2 0.0 - 0.8 mg/dL [facility] Blood specimen (specimen) 05/05/2008 4:32 PM CDT 05/05/2008 5:11 PM CDT us Jaun John MD CHEMISTRY ORDERABLES Final R esult INTERFACE SYSTEM Refer to clinic/hospital department [facility] CLIA# [id number] [address] [place] [address] documented in this encounter Visit Diagnoses Diagnosis Diverticulitis of colon (without mention of hemorrhage)(562.11) Diverticulitis of colon (without mention of hemorrhage) documented in this encounter Care Teams Superior Court Clerk Relationship Specialty Start Date End Date Errol Suarez DO [address] [place] [address] PCP - General Internal Medicine 11/10/15 documented as of this encounter
[2025-05-19 15:15] LABS: Hematocrit 38.1 % (42.0-52.0); Hemoglobin 12.6 g/dL (14.0-18.0); Mean Corpuscular HGB Conc 33.1 g/dl (32-36); Mean Corpuscular Hemoglobin 30.8 pg (26-34); Mean Corpuscular Volume 93.2 fl (80-100); Platelet Count Result 141 k/mm3 (150-375); Red Blood Count 4.09 M/mm3 (4.6-6.20); White Blood Count 5.5 K/mm3 (4.5-10.0)
[2025-05-19 15:26] LABS: INR 1.4; Prothrombin Time 16.8 Seconds (11.1-14.7)
[2025-05-19 15:27] LABS: Partial Thromboplastin Time 33.2 Seconds (22.3-36.8)
[2025-05-19 15:29] LABS: Anion Gap 8 mmol/L (4-12); Blood Urea Nitrogen 25 mg/dL (9-20); Calcium 9.1 mg/dL (8.4-10.2); Carbon Dioxide 26 mmol/L (22-30); Chloride 99 mmol/L (98-107); Estimated Glomerular Filt Rate 54; Glucose 101 mg/dL (65-110); Potassium 4.5 mmol/L (3.4-5.0); Sodium 133 mmol/L (137-145)
[2025-05-19 16:18] LABS: Appearance Urine Clear (Clear)
[2025-05-19 16:32] LABS: Add Urine Microscopic? NO
[2025-05-19 16:33] LABS: Glucose Urine UA Negative (Negative); Leukocyte Esterase Ur Negative LEU/UL (Negative); Nitrate Urine Negative (Negative); Specific Grav Ur 1.010 (1.001-1.035)
== END 2025-05-19 13:58 | disposition home or self-care (01) ==
LOC: ANHSURGERY 14:01
PROVIDERS: PCP Family Medicine; Visit Provider Neurological Surgery
DX: M54.9 Dorsalgia, unspecified (principal); Z98.1 Arthrodesis status; M48.062 Spinal stenosis, lumbar region with neurogenic claudication; M46.1 Sacroiliitis, not elsewhere classified; Z01.818 Encounter for other preprocedural examination
CPT/HCPCS: 36415; 80048; 81003; 85027; 85610; 85730; 86850; 86900; 86901

== ENCOUNTER 2025-05-31 10:15 | Inpatient (IN) | payer MEDICARE, SELFPAY ==
--- OUTSIDE RECORDS SUMMARY | 2000-03-04 09:15 | XMS_ITS | Continuity of Care Document ---
Author Organization [facility] Address [address] [facility] [address] [place] [address] Phone Care Team Providers Care City Director Name Role Phone Drake Nuno MD, FACS Unavailable Unavailab le Advance Directives Directive Yes / No Effective Date File Name No Information Encounters Encounter Description Practice Location Reason(s) For Visit Diagnoses Date Provider Providers Copied on Encounter [facility], [address], [place], [place], [address], [place] tel:[phone] SEC Adam MCLAUGHLIN Professional No Information Garcia-2 0-200 0 Yaakov Juan. [address], [address], [place], [place], [address], [place]. tel:[phone] Family History Family Member Type Diagnosis Age At Onset No Information Payers Payer name Insurance type Covered republican ID Authoriza tion(s) No Information Social History Type Description Quantity Date Captured Comments Sex Male Smoking Status No Information Chief Complaint And Reason For Visit No Information Reason For Referral Reason For Referral No Information History Of Present Illness Encounter Date Complaint History Of Prese nt Illness No Information Functional Status Date Functional Assessmen t No Information Instructions Date Instruction Additional Infor mation No Information Assessments Type Assessment Date No Information Patient Care Teams Name Effective Dates (start - stop) Status Members No Information
--- OUTSIDE RECORDS SUMMARY | 2000-03-04 09:15 | XMS_ITS | Continuity of Care Document ---
Author Organization [facility] Address [address] [facility] [address] [place] [address] Phone Care Team Providers Care Aeronautical Test Engineer Name Role Phone Drake Nuno MD, FACS Unavailable Unavailab le Advance Directives Directive Yes / No Effective Date File Name No Information Encounters Encounter Description Practice Location Reason(s) For Visit Diagnoses Date Provider Providers Copied on Encounter [facility], [address] [facility] [address], [place], [place], [address], [place] tel:[phone] SEC Adam MCLAUGHLIN Professional No Information Garcia-2 0-200 0 Yaakov Juan. [address], [address], [place], [place], [address], [place]. tel:[phone] Family History Family Member Type Diagnosis Age At Onset No Information Payers Payer name Insurance type Covered libertarian ID Authoriza tion(s) No Information Social History [...]
--- OUTSIDE RECORDS SUMMARY | 2015-02-20 03:58 | XMS_ITS | Continuity of Care Document ---
Author Organization [employer] Address [address] [place] [address] Phone Care Team Providers Care Alignment Mechanic Name Role Phone Johnson De La Rosa MD Unavailable Unavailable Allergies, Adverse Reactions, Alerts Substance Reaction Status Criticality No Known Allergies Active No Inform ation Medications Medication Instructions Dosage Effective Dates (start - stop) Status Comments Nexium 40 mg capsule,delayed release take 1 capsule by oral route every day 40 MG - Active atenolol 50 mg tablet take 1 tablet by oral route every day 50 MG - Active Viagra 100 mg tablet take 1 tablet by oral route every day as needed approximately 1 hour before sexual activity 100 MG - Active Synthroid 150 mcg tablet take 1 tablet by oral route every day 150 MCG - Active amlodipine 10 mg tablet take 1 tablet by mouth route every day 10 MG - Active AndroGel 1.62 % (20.25 mg/1.25 gram) transdermal gel packet apply 2 Pumps by transdermal route every day in the morning to each upper arm and shoulder for a total dose of 40.5mg - Active atorvastatin 20 mg tablet take 1 tablet by oral route every day 20 MG - Active Nexium 40 mg capsule,delayed release take 1 capsule by oral route every day 40 MG - No Longer Active atenolol 50 mg tablet take 1 tablet by oral route every day 50 MG - No Longer Active Advance Directives Directive Yes / No Effective Date File Name No Information Encounters Encounter Description Practice Location Reason(s) For Visit Diagnoses Date Provider Providers Copied on Encounter [facility], [address], [place], [place], [address] , [place] tel: [phone] [place] No Information 5 Rj Ornelas. [address] [facility], [address], [id number], [place]. tel:[phone] [facility], [address], [place], [place], [address] , [place] tel: [phone] [place] Male hypogonadismHyperte nsionHypothyroidism GERD (gastroesophageal reflux disease)Osteoarthri tisBPH (benign prostatic hyperplasia) Dec-0 5 Rj Ornelas. [address] [facility], [address], [id number], [place]. tel:[phone] Referring Provider: Jhonson De La Rosa, [address], [address] . tel:[phone] [facility], [address], [place], [place], [address] , tel: [phone] [place] Cough Nov-2 5 Ventura Smith. [address] [facility], [address], [id number], . tel:[phone] Referring Provider: Johnson De La Rosa, [address], [address] . tel:[phone] [facility], [address], [place], [place], [address] , tel: [phone] [place] No Information 4 Rj Ornelas. [address] [facility], [address], [address], [place]. tel:[phone] [facility], [address], [place], [place], [address] , [place] tel:[phone] [place] HypothyroidismGERD (gastroesophageal reflux disease)Male hypogonadismSkin lesionsRight hip painHypertension 4 Rj Ornelas. [address] [facility], [facility] [address], [place], [address], [place]. tel:[phone] Referring Provider: Johnson De La Rosa, [address], [address] . tel:[phone] [facility], [address], [place], [place], [address] , tel: [phone] [place] GERD (gastroesophageal reflux disease)Hypothyroid ismHypertensionOste oarthritisBPH (benign prostatic hyperplasia) Sep-0 8201 4 Rj Ornelas. [address] [facility], [address], [address], . tel:[phone] Referring Provider: Johnson De La Rosa, [address], [address] . tel:[phone] Family History Family Member Type Diagnosis Age At Onset Father Problem (finding) alcoholism Mother Problem (finding) malignant neoplasm of b one Maternal grandfather Problem (finding) cancer of colon Payers Payer name Insurance type Covered alliance party ID Authoriza tion(s) [facility] MEDICARE ADVANTAGE [id number] Social History Type Description Quantity Date Captured [...]
--- OUTSIDE RECORDS SUMMARY | 2015-02-20 03:58 | XMS_ITS | Continuity of Care Document ---
Author Organization [employer] Address [address] [place] [address] Phone Care Team Providers Care Beam Saw Operator Name Role Phone Johnson De La Rosa [...] Diagnoses Date Provider Providers Copied on Encounter [facility], [address], [place], [place], [address] , [place] tel: [phone] [place] No Information 5 Rj Ornelas. [address] [facility], [address], [address], [place]. tel:[phone] [facility], [address], [place], [place], [address] , [place] tel: [phone] [place] Male hypogonadismHyperte nsionHypothyroidism GERD (gastroesophageal reflux disease)Osteoarthri tisBPH (benign prostatic hyperplasia) Dec-0 5 Rj Ornelas. [address] [facility], [address], [id number], [place]. tel:[phone] Referring Provider: Johnson De La Rosa, [address], [address] . tel:[phone] [facility], [address], [place], [place], [address] , tel: [phone] [place] Cough Nov-2 5 Ventura Smith. [address] [facility], [address], [id number], . tel:[phone] Referring Provider: Johnson De La Rosa, [address], [address] . tel:[phone] [facility], [address], [place], [place], [address] , tel: [phone] [place] No Information 4 Rj Ornelas. [address] [facility], [address], [address], [place]. tel:[phone] [facility], [address], [place], [place], [address] , [place] tel:[phone] [place] HypothyroidismGERD (gastroesophageal reflux disease)Male hypogonadismSkin lesionsRight hip painHypertension 4 Rj Ornelas. [address] [facility], [facility] [address], [place], [address], [place]. tel:[phone] Referring Provider: Johnson De La Rosa, [address], [address] . tel:[phone] [facility], [address], [place], [place], [address] , tel: [phone] [place] GERD (gastroesophageal reflux disease)Hypothyroid ismHypertensionOste oarthritisBPH (benign prostatic hyperplasia) Sep-0 8 4 Rj Ornelas. [address] [facility], [address], [address], . tel:[phone] Referring Provider: Johnson De La Rosa, [address], [address] . tel:[phone] Family History Family Member Type Diagnosis Age At Onset Maternal grandfather Problem (finding) cancer of colon Mother Problem (finding) malignant neoplasm of b one Father Problem (finding) alcoholism Payers Payer name Insurance type Covered green party ID Authoriza tion(s) [facility] PPO GROUP MEDICARE ADVANTAGE [id number] 8 Social History Type Description Quantity Date [...]
--- OUTSIDE RECORDS SUMMARY | 2025-02-03 05:00 | XMS_ITS ---
Author Organization [facility] Address [address] [address] Care Team Providers Care Tunnel Heading Supervisor Name Role Phone Jeffry Wilson Primary Care Provider JACINTA Wells Unavailable [phone] Allergies Allergen (clinical drug ingredient) Drug/Non Drug [...] 02/03/2025 Encounters Encounter Location Date Provider [facility] [id number] [place] [address] [place] [address] [place] [address] 02/03/2025 JACINTA HUERTA Chronic kidney disease, stage [...] FERRITIN PANEL (5616) 09/2025 RENAL FUNCTION PANEL (01564) 07/16/2026 ALBUMIN, RANDOM URINE W/O CREATININE (17 674) 07/16/2026 Next Appt Details Follow Up: 1 1/2 Years, Reas on: Provider Name:JACINTACHLOÉ HUERTA , 08/02/2026 10:00:00 AM, [id number] [place] [address], [place] [address], [address], Progress Notes * JARET SORIA LDOB:[birth year] (80 yo M)Acc No.[id number]:02/03/2025 Progress Notes Patient: JARET BENITO Provider: Brittni Huerta MD :1945 A ge:79 Y S ex:Male Date:02/03/2025 Address:[address] [place], [place] [id number] Pcp:Jeffry Wilson Subjective: * Chief Complaints: * [...] Electronic signature of JUDI HUERTA MD on 06/06/2025 at 10:16 AM CDT Sign off status: Pending * Provider: Brittni Huerta MD Date: 0 02/03/2025 Generated for Chriss carrington/Emmie/Hellenitting on: 0 06/06/2025 10:16 AM CDT History and Physical Notes * HPI (History [...]
--- OUTSIDE RECORDS SUMMARY | 2025-02-03 05:00 | XMS_ITS ---
Author Organization [facility] Address [address] [address] Care Team Providers Care Facilities Planner Name Role Phone Jeffry Wilson Primary Care Provider JACINTA Wells Unavailable [phone] Allergies Allergen (clinical drug ingredient) Drug/Non Drug [...] 02/03/2025 Encounters Encounter Location Date Provider [facility] [id number] [place] [address] [place] [address] [place] [address] 02/03/2025 JACINTA HUERTA Chronic kidney disease, stage [...] FERRITIN PANEL (5616) 09/2025 RENAL FUNCTION PANEL (96487) 07/16/2026 ALBUMIN, RANDOM URINE W/O CREATININE (17 674) 07/16/2026 Next Appt Details Follow Up: 1 1/2 Years, Reas on: Provider Name:JACINTACHLOÉ HUERTA , 08/02/2026 10:00:00 AM, [address] [place] [address], [place] [address], [place], [address], Progress Notes * JARET SORIA LDOB:[birth year] (80 yo M)Acc No.[id number]:02/03/2025 Progress Notes Patient: JARET BENITO Provider: Brittin Huerta MD :1945 A ge:79 Y S ex:Male Date:02/03/2025 Address:[address] [place], [place] [id number] Pcp:Jeffry Wilson Subjective: * Chief Complaints: * [...] Electronic signature of JUDI HUERTA MD on 05/31/2025 at 12:40 AM CDT Sign off status: Pending * Provider: Brittni Huerta MD Date: 0 02/03/2025 Generated for Chriss carrington/Emmie/Hellenitting on: 0 05/31/2025 12:40 AM CDT History and Physical Notes * [...]
[2025-05-19 14:23] VITALS: BP 125/73; PULSE 61; RESP 14; TEMP 36.8; O2SAT 100; BMI 35.6
--- NOTE | 2025-05-19 14:45 | PC.NURSE ---
Report to the Outpatient Waiting Room, entrance under the green pavilion located off [facility], at time _06:00am on date __05/31/25 . Planned Procedure Time: _07:30am .? Time changes happen often and if your time is changed the preop area will call you the afternoon before. - You and your visitor will be asked to self-screen and do not enter if you have any COVID symptoms. Please call surgeon if you need to reschedule. - A mask is optional within the hospital at this time. Patients may have clear liquids (water, carbonated beverages, clear teas, apple juice) until 3 hours prior to surgery with a maximum of 20 ounces. - No food from midnight until time of surgery and no smoking, or chewing tobacco (or any form of nicotine). No chewing gum, candy or mints. (0430am) Take only the following medications with a SIP of water on the morning of surgery: ____Levothyroxine, Hydrocortisone, and Percocet if needed DO NOT STOP ANY OF YOUR OTHER PRESCRIPTION MEDICATIONS PRIOR TO SURGERY EXCEPT THE FOLLOWING Hold all vitamins and supplements for 3 days per anesthesiologist. Medications to discontinue per physician Xarelto per Dr Paige Date to take last dose____Pt to get direction from their office, I left VM for them to notify pt Please no make-up, nail hebrew, hairspray, perfume, deodorant, or body powder the day of surgery.? No jewelry (including any body piercings) or valuables the day of surgery, leave them at home.? Please take a shower or bath the night before, or the morning of, surgery with an antibacterial soap. GOLD DIAL ? Wear comfortable, loose fitting clothing. Overnight bag, mouthpiece, and anything and cane if needed. - Jewelry must be removed prior to entering the operating room.? Rings and piercings that are not removed may be cut off. - The hospital will not accept responsibility for valuables.? - Please leave all valuables, including medications, at home the day of surgery. If you are going home after surgery, a licensed racecar driver must drive you home.? - NO public transportation without another adult if you receive anesthesia. - We recommend that an adult stay with you for 24 hours following discharge. - We also recommend that you do not drive, make important decision, drink alcoholic beverages, or take any drugs that were not prescribed by your health care provider for at least 24 hours after your discharge time. Follow any additional instructions given to you from your surgeon. Telephone instructions given to __Patient and asked if any additional questions and then verbalized understanding. Patient advised to call surgeon office or pre surgery nurse liaison [phone] if any additional questions.
[2025-05-31] VITALS (11 sets, daily range): BP systolic 102–150; BP diastolic 51–79; PULSE 72–105; RESP 12–20; TEMP 36.3–37.2; O2SAT 92–100
--- NOTE | ~2025-05-31 | XR_ITS ---
EXAMINATION: XR fluoroscopy no charge DATE: 05/31/2025 12:15 INDICATION: posterior lumbar interbody fusion TECHNIQUE: 3 fluoroscopic images of the lumbar spine were obtained during procedure performed by Dr. Paige. Radiologist was not present for the imaging or procedure. The amount of fluoroscopy time used during this procedure was 0.1 minutes. Total DAP was 0.657 Gycm^2. COMPARISON: Lumbar spine CT dated 12/13/2023 FINDINGS: Again seen is a L3-S1 posterior spinal fusion with bilateral vertical geovanni and pedicle screw fixation. Initial image demonstrate soft tissue retractors posterior to the lower lumbar spine. There is a displacement of an interbody fusion device for L3-L4 anterior spinal fusion. IMPRESSION: 1. Fluoroscopy utilized during neurosurgical procedure and the lumbar spine including L3-L4 anterior spinal fusion with interbody fusion device placement. See procedure note for further detail. Reviewed, dictated and finalized at location A. IMPRESSION: 1. Fluoroscopy utilized during neurosurgical procedure and the lumbar spine inc luding L3-L4 anterior spinal fusion with interbody fusion device placement. See procedure note for further detail.
--- OUTSIDE RECORDS SUMMARY | 2025-05-31 00:40 | XMS_ITS | Encounter Summary ---
Author Organization [facility] Address 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
--- OUTSIDE RECORDS SUMMARY | 2025-05-31 00:40 | XMS_ITS | Encounter Summary ---
Author Organization [facility] Address 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
--- OUTSIDE RECORDS SUMMARY | 2025-05-31 00:40 | XMS_ITS | Encounter Summary ---
Author Organization [facility] Address 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
--- OUTSIDE RECORDS SUMMARY | 2025-05-31 00:40 | XMS_ITS | Encounter Summary ---
Author Organization [email or web address] Address 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
--- OUTSIDE RECORDS SUMMARY | 2025-05-31 00:40 | XMS_ITS | Encounter Summary ---
Author Organization [facility] Address 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 Gender Identity Not on file Sexual Orientation Not on file documented as of this encounter Plan of Treatment Not on file documented as of this encounter Procedures Procedure Name Priority Date/Time Associated Diagnosis Comments PATHOLOGY Routine 02/04/2008 11:15 AM CDT documented in this encounter Results * PATHOLOGY (02/04/2008 11:15 AM CDT) FINAL REPORT [address] [address] Patient: CHIRAG MACHUCA : 1945 Procedure Date: 02/04/2008 Accession Date: 02/04/2008 Case No: [id number] Ordering Dr: JAUN JOHN Case types AW, BW, FW, NW and SH are performed by [facility] [place], [place], [place] SURGICAL PATHOLOGY & NON-GYNECOLOGIC CYTOPATHOLOGY REPORT [...] Microscopic: The slides are labeled Chirag Machuca, [id number]. The biopsy from the right colon, and [...] on filedocumented in this encounter Care Teams Load Test Mechanic Relationship Specialty Start Date End Date Errol Suarez DO [address] [place] [id number] PCP - General Internal Medicine 11/10/15 documented as of this encounter
--- OUTSIDE RECORDS SUMMARY | 2025-05-31 00:40 | XMS_ITS | Encounter Summary ---
Author Organization [facility] Address 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 Gender Identity Not on file Sexual Orientation [...] CDT) RBC 4.26(L) 4.50 - 5.40 M/uL [facility] MCHC 33.7 31.5 - 35.5 % [facility] MCV 91.3 82.0 - 99.0 fL [facility] PLATELETS 229 140 - 350 K/uL [facility] HEMOGLOBIN 13.1(L) 13.6 - 16.5 g/dL [facility] RDW 13.8 11.5 - 14.5 % [facility] WBC 5.6 4.0 - 9.8 K/uL [facility] MCH 30.8 27.2 - 32.6 pg [facility] MPV 10.4 9.3 - 12.4 fL [facility] HEMATOCRIT 38.9(L) 40.0 - 48.0 % [facility] RDW-STDEV 45.3 37.1 - 48.7 fL [facility] MONOCYTE ABSOLUTE 0.43 0.10 - 1.30 K/uL [facility] NEUTROPHILS 65 45 - 70 % [facility] NEUTROPHIL ABSOLUTE 3.61 1.90 - 7.00 K/uL [facility] EOSINOPHILS 3 0 - 7 % [facility] EOSINOPHIL ABSOLUTE 0.17 0.00 - 0.70 K/uL [facility] LYMPHOCYTES 24 16 - 45 % [facility] LYMPHOCYTE ABSOLUTE 1.32 0.70 - 4.50 K/uL [facility] BASOPHILS 1 0 - 2 % [facility] BASOPHILS ABSOLUTE 0.04 0.00 - 0.20 K/uL [facility] MONOCYTES 8 3 - 13 % [facility] Blood specimen (specimen) 05/05/2008 4:32 PM CDT 05/05/2008 5:12 PM CDT us Jaun John MD HEMATOLOGY ORDERABLES Edited INTERFACE SYSTEM Refer to clinic/hospital department [facility] CLIA# [id number] [address] [place] [address] * C-REACTIVE PROTEIN (05/05/2008 4:32 PM CDT) CRP <0.2 0.0 - 0.8 mg/dL [facility] Blood specimen (specimen) 05/05/2008 4:32 PM CDT 05/05/2008 5:11 PM CDT us Jaun John MD CHEMISTRY ORDERABLES Final R esult INTERFACE SYSTEM Refer to clinic/hospital department [facility] CLIA# [id number] [address] [place] [address] documented in this encounter Visit Diagnoses Diagnosis Diverticulitis of colon (without mention of hemorrhage)(562.11) Diverticulitis of colon (without mention of hemorrhage) documented in this encounter Care Teams Polysom Tech Relationship Specialty Start Date End Date Errol Suarez DO [address] [place] [id number] PCP - General Internal Medicine 11/10/15 documented as of this encounter
--- OUTSIDE RECORDS SUMMARY | 2025-05-31 00:40 | XMS_ITS | Clinical Summary ---
Author Organization [facility] Address [address] [place] [address] Care Team Providers Care Policy Issue Clerk Name Role Phone Dieter Strauss MD Unavailable [phone] Onel Sheldon MD Unavailable Adam Boyer MD Unavailable [phone] Sahara Huerta MD Unavailable [phone] Grzegorz Cardenas MD Unavailable Jeryr Reynolds MD Unavailable [phone] Krystian Paige MD Unavailable Cristopher Brian MD Unavailable Haley Milan Unavailable Jeffry Wilson MD Primary Care Provider [phone] Allergies Active Allergy Reactions Criticality Noted Date Comments Atorvastatin Muscle pain Medium 02/13/2016 Muscle weakness, memeory loss, joint pain Apixaban Hives High 01/28/2023 Levofloxacin Hives,Rash High 08/31/2010 Other reaction(s): Hives Reaction: Hives, , Minocycline Nausea only Low 04/22/2013 Nsaids (Non-Steroidal Anti-Inflammatory Drug) Other (See comments) Low 01/06/2023 Due to kidney function Zuidpji-Hjn-Ovy Reductase Inhibitors Hives Medium 09/18/2016 Reaction: Hives, [...] daily with breakfast 30 tablet 3 06/17/20 Active Additional Information Patient taking differently:20 mg oralDaily with dinner, Per Privacy Director and Urologist to stay off for a [...] needed for anxiety (for MRIs) Active vitamins A,C,E-gniw-gzmiry (PreserVision AREDS) 2,148 mcg-113 mg-45 mg-17.4mg tablet [...] pain 90 tablet 06/18/20 25 025 Active oxyCODONE-acetami nophen (PERCOCET) 5-325 mg per tabletIndications :Pain Take 1 tablet by mouth 3 (three) times a day as needed for pain 90 tablet 04/19/20 25 025 Active Problems Problem Noted Date Diagnosed Date [...] 08/24/2024 Assessment & Plan (08/24/2024 12:41 PM SPEECH LANGUAGE PATHOLOGIST): Preventive exam; reviewed recommended preventive screenings and vaccinations. Encourage annual flu vaccine. -Up-to-date on screening and vaccinations. VERENA (obstructive sleep apnea) 08/24/2024 Assessment & Plan (08/24/2024 12:42 PM SPEECH LANGUAGE PATHOLOGIST): Has not been able to wear oral appliance for the past few months with recent dental implants. Reports increased fatigued has correlated with timing of not having oral appliance. Is hopeful to have dental work completed in the next month and have new oral appliance made. CMC arthritis 08/18/2024 Calcium pyrophosphate crystal disease 08/06/2024 Assessment & Plan (08/06/2024 12:27 PM SPEECH LANGUAGE PATHOLOGIST): Unable to take nsaids . Prescribed colchicine given recent septic joint. Reviewed signs and symptoms of infection prompting immediate return to the emergency department. Infection of prosthetic left knee joint 05/07/20 Infection of total left knee replacement, initia l encounter 05/03/2024 Persistent atrial fibrillation 02/16/2024 Assessment & Plan (01/30/2025 8:58 AM CDT): As above. Continue surveillance [facility] for pituitary changes. Assessment & Plan (08/06/2024 12:28 PM SPEECH LANGUAGE PATHOLOGIST): Following with Cardiology, continue Eliquis. Rate controlled. Assessment & Plan (02/16/2024 11:05 AM CDT): EKG repeated today in office showing atrial fibrillation with rate 75. Rate controlled with atenolol. Patient is asymptomatic. He has allergy to Eliquis, will start Xarelto 20 mg daily. Reviewed medication side effects and scheduling and follow-up precautions. Patient to follow-up with his established proof passer, Dr. Boyer. Will fax EKG documentation to [...] S Assessment & Plan (08/24/2024 12:45 PM SPEECH LANGUAGE PATHOLOGIST): Encouraged higher protein, lower carb diet. Avoid [...] 05/26/2023 Assessment & Plan (08/24/2024 12:48 PM SPEECH LANGUAGE PATHOLOGIST): Stable; continue ezetimibe. Assessment & Plan (05/26/2023 12:24 PM CDT): LDL equals 78. Continues zetia 10 mg daily. Patient is unable to take statin medications. 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 Hypothyroid 08/27/2020 Assessment & Plan (08/24/2024 10:24 AM SPEECH LANGUAGE PATHOLOGIST): Levothyroxine 175 mcg daily. Will check TSH/T4 and make changes as needed. Lab Results Component Value Date TSH 1.19 01/29/2024 Assessment & Plan (05/26/2023 12:22 PM CDT): Managed by endocrinology. Assessment & Plan (08/27/2020 2:18 AM SPEECH LANGUAGE PATHOLOGIST): Continue levothyroxine Essential hypertension 08/27/2020 Assessment & Plan (01/29/2024 2:35 PM CDT): Normotensive. Continue atenolol, losartan, amlodipine. Will continue to monitor. Assessment & Plan (05/26/2023 12:24 PM CDT): Blood pressure is well controlled, patient reports he is no longer taking losartan. Continues atenolol 50 mg daily. Assessment & Plan (08/27/2020 2:18 AM SPEECH LANGUAGE PATHOLOGIST): Blood pressure is controlled. Home medications have been resumed with hold parameters. Will continue to monitor. Pneumonia due to COVID-19 virus 08/26/2020 Assessment & Plan (08/27/2020 2:21 AM SPEECH LANGUAGE PATHOLOGIST): He is currently feeling better. Continue remdesivir. Patient is on Solu-Cortef. IV fluids. Continue to monitor. Continuous pulse ox. Will check procalcitonin to rule out bacterial infection. Continue empiric antibiotics for cap for now. 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 Assessment & Plan (08/24/2024 12:44 PM SPEECH LANGUAGE PATHOLOGIST): Managed by endocrinology Dr. Sheldon. Continues 25 mg daily of hydrocortisone. Patient interested in use of GLP 1 for weight loss. Would need to check with [facility] senior specialist given possible contraindication. Side effects of GI [...] 08/27/2023 Assessment & Plan (08/27/2020 2:18 AM SPEECH LANGUAGE PATHOLOGIST): Patient is on Percocet at home however may need more Tylenol for fevers. Will change Percocet to oxycodone p.r.n. and order Tylenol p.r.n.. Patient is aware of this change. Encounters Date Type Department Care Team Description 05/19/2025 Orders Only [facility] [place] [address] [place] [address] Scanning, Provider 04/13/2025 3:00 PM CDT Office Visit [facility] [address] [place] [address] 2nd [address] [place] [address] Jaylen Leigh MD CMC arthritis (Primary Dx) 04/13/2025 7:23 AM CDT - 04/13/2025 11:59 PM CDT Hospital Encounter [facility], [facility] [address] [place] [address] Neagr Gonzales NP Lumbar post-laminectomy syndrome (Primary Dx); 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 Discharge Disposition: Discharge to home or self care 04/01/2025 Orders Only [facility] [address] [address] Jeffry Wilson MD 03/16/2025 10:20 AM CDT Therapy [facility] Occupational Therapy [address] [place] [address] 1st Floor [address] [place] [phone] Nely Ferrari OT CMC arthritis (Primary Dx); Pain of left thumb 03/16/2025 9:30 AM CDT Office Visit [facility] [address] [place] [address] 2nd Floor [address] [place] [phone] Jaylen Leigh MD CMC arthritis (Primary Dx); Pain of left thumb 03/16/2025 Plan of Care Documentation [facility] Occupational Therapy [address] [place] [address] Floor [address] [place] [phone] 03/01/2025 3:17 PM CDT Anesthesia Event [facility] [address] [place] [address] Jose Ramon Aguila MD Horton, Cheryl Renee Hill, NP 03/01/2025 2:30 PM CDT - 03/01/2025 4:15 PM CDT Surgery [facility] [address] [place] [address] Jaylen Leigh MD left thumb ligament reconstruction and tendon interposition 03/01/2025 12:34 PM CDT - 03/01/2025 6:33 PM CDT Hospital Encounter [facility] [address] [place] [address] Jaylen Leigh MD Thumb pain, left (Primary Dx) Discharge Disposition: Discharge to home or self care from Last 3 Months Immunizations Immunization Administration [...] Pneumonia Chronic kidney disease Hypothyroidism Macular degeneration Yinka disease Family History Medical History Relation Name [...] = 0.6 oz pur e alcohol) rarely [employer] Utilities Answer Date Recorded In the past 12 months has [employer], gas, oil, or water [employer] threatened to shut off services in your [...] week 01/10/2025 How often do you attend chur or rastafari services? Never 01/10/2025 Do you belong to any clubs o r organizations such as yazidi groups, unions, fraternal or athletic groups, or [...] any time in the past 12 m [facility], were you homeless or living in a senior living (including now)? No 01/10/2025 Personal Safety Answer Date Recorded Have you ever been in or are you currently in a harmful physical or emotional relationship or is someone making you feel afraid or unsafe? Denies 03/01/2025 Sex and Gender Information Value Date Recorded Sex Assigned at Not on file Legal Sex Male 5:24 PM SPEECH LANGUAGE PATHOLOGIST Gender Identity Not on file Sexual Orientation [...] 3) 07/13/2013 05/18/2013 Covid-19 Vaccine (3 - 2024-2 6 season) 2025 11/08/2020, 10/18/2020 Influenza Vaccine (#1) 2025 , 05/26/2023, 07/30/2022, Additional history exists Well Visit 65+ 08/24/2025 08/24/2024 Fall Risk Assessment 03/01/2026 03/01/2025, 08/24/2024, 05/13/2024, Additional history exists Depression Screening 04/13/2026 04/13/2025, 04/13/2025, 01/05/2025, Additional history exists Abdominal Aortic Aneurysm (A AA) Screen Completed 01/12/2021, 03/25/2012 Goals Goal Patient Goal Type Associated Problems Recent Progress Patient-Stated? Author -Pain Behavioral Health On track(10/03 11:12 AM SPEECH LANGUAGE PATHOLOGIST) No Asia Sigala RN Note: Patient will describe nonpharmacological methods that can be used to supplement, or enhance, pharmacological interventions and help achieve the comfort-function goal. -Pain Behavioral Health On track(10/03 11:12 AM SPEECH LANGUAGE PATHOLOGIST) No Cecy Cummins, RN Note: Patient will establish a comfort-function goal and identify the pain level that will allow the patient to perform desired activities and achieve an acceptable quality of life. Medical Devices Implanted Type Area Marine Technician Device Identifier Shelf Expiration Date Model / Serial / Lot [employer] 3086 Octrode 60cm Trial Lead Kit Neurostimulator Sterile Latex Free - [id number] Implanted:Qty: 1 on 12/15/2020 by Dieter Garcia MD at [facility] [employer] 12/15/2021 3086 / / [employer] 3086 Octrode 60cm Trial Lead Kit Neurostimulator Sterile Latex Free - [id number] Implanted:Qty: 1 on 12/15/2020 by Dieter Garcia MD at [facility] [employer] 12/15/2021 3086 / / [employer] Attune L50 Mm Revision Full Coated Knee Sleeve Femoral Porocoat Sterile Latex Free [id number] - [id number] Implanted:Qty: 1 on 01/13/2023 by Dieter Strauss MD at [facility] Left: Knee [employer] 02/12/2031 [id number] / / [id number] [employer] Attune 20mm 60mm Revision Press Fit Knee Stem Femoral Sterile Latex Free [id number] - [id number] Implanted:Qty: 1 on 01/13/2023 by Dieter Strauss MD at [facility] Left: Knee [employer] 08/14/2030 [id number] / / [id number] [employer] Attune Revision Cement Constrain Knee Left 7 Component Femoral Sterile [id number] - [id number] Implanted:Qty: 1 on 01/13/2023 by Dieter Strauss MD at [facility] Left: Knee [employer] 11/12/2032 [id number] / / [id number] [employer] Attune 41mm Cemented Medialize Knee Dome Patellar Aox Sterile [id number] - [id number] Implanted:Qty: 1 on 01/13/2023 by Dieter Strauss MD at [facility] Left: Knee [employer] 06/14/2027 [id number] / / [id number] [employer] Cement Bone Simplex Gentamicin High Viscosity 40gm 6195-1-001 - [id number] Implanted:Qty: 1 on 01/13/2023 by Dieter Strauss MD at [facility] Left: Knee [employer] 05/15/2024 6195-1-001 / / [id number] [employer] Cement Bone Simplex Gentamicin High Viscosity 40gm 6195-1-001 - [id number] Implanted:Qty: 1 on 01/13/2023 by Dieter Strauss MD at [facility] Left: Knee [employer] 05/15/2024 6195-1-001 / / [id number] [employer] Attune Cement Revision Rotate Platform Knee 7 Baseplate Tibial Sterile [id number] - [id number] Implanted:Qty: 1 on 01/13/2023 by Dieter Strauss MD at [facility] Left: Knee [employer] 10/15/2032 [id number] / / [id number] [employer] Attune L53 Mm Revision Full Coated Knee Sleeve Tibial Porocoat Sterile Latex Free [id number] - [id number] Implanted:Qty: 1 on 01/13/2023 by Dieter Strauss MD at [facility] Left: Knee [employer] 06/14/2032 [id number] / / [id number] [employer] Attune 20mm 60mm Revision Press Fit Knee Stem Femoral Sterile Latex Free [id number] - [id number] Implanted:Qty: 1 on 01/13/2023 by Deiter Strauss MD at [facility] Left: Knee [employer] 04/14/2032 [id number] / / [id number] [employer] Attune H4 Mm Revision Cement Knee Distal 7 Augment Femoral Sterile Latex Free [id number] - [id number] Implanted:Qty: 1 on 01/13/2023 by Dieter Strauss MD at [facility] Left: Knee [employer] 04/14/2029 [id number] / / [id number] [employer] Attune H4 Mm Revision Cement Knee Distal 7 Augment Femoral Sterile Latex Free [id number] - [id number] Implanted:Qty: 1 on 01/13/2023 by Dieter Strauss MD at [facility] Left: Knee [employer] 07/15/2032 [id number] / / [id number] [employer] Attune 10mm Revision Constrain Rotate Platform Knee 7 Insert [id number] - [id number] Implanted:Qty: 1 on 02/06/2024 by Dieter Strauss MD at [facility] Left: Knee [employer] 01/13/2028 [id number] / / [id number] [employer] Internalbrace Kit Hand Wrist Set Implant Ligament Augmentation Ar-8978-Cp - [id number] Implanted:Qty: 1 on 09/21/2024 by Jaylen Leigh MD at [facility] Left: Thumb [employer] 02/12/2029 AR-8978-CP / / [id number] Explanted Type Area Marine Technician Device Identifier Shelf Expiration Date Model / Serial / Lot [employer] Attune 10mm Revision Constrain Rotate Platform Knee 7 Insert [id number] - [id number] Implanted:Qty: 1 on 01/13/2023 by Dieter Strauss MD at [facility] Explanted:Qty: 1 on 02/06/2024 at [facility] Left: Knee [employer] 04/14/2027 [id number] / / [id number] [employer] Alejandro .062in 9in Style 1 Wire Fixation Stainless Steel [id number] - [id number] Explanted:Qty: 1 on 09/21/2024 at [facility] Left: Thumb [employer] [id number] / / Procedures Procedure Name Priority Date/Time Associated Diagnosis Comments SCAN - LABS 05/19/2025 REPAIR LIGAMENT HAND 03/01/2025 3:17 PM CDT Thumb pain, left WI AN PROCEDURE PLACEHOLDER Routine 03/01/2025 2:07 PM CDT WI AN PROCEDURE PLACEHOLDER Routine 03/01/2025 2:07 PM CDT WI AN PROCEDURE PLACEHOLDER Routine 03/01/2025 2:06 PM CDT from Last 3 Months Results * SCAN - LABS (05/19/2025) us Provider Scanning Edited Result - Final * WI AN PROCEDURE PLACEHOLDER (03/01/2025 2:07 PM CDT) [...] Aguila MD ANESTHESIA ORDERABLES Cara l Result * WI AN PROCEDURE PLACEHOLDER (03/01/2025 2:07 PM CDT) Narrative Jose Ramon Aguila MD - 03/01/2025 2:07 PM CDT Jose [...] Aguila MD ANESTHESIA ORDERABLES Cara l Result * WI AN PROCEDURE PLACEHOLDER (03/01/2025 2:06 PM CDT) [...] complications Jose Ramon Aguila MD ANESTHESIA ORDERABLES Caar l Result from Last 3 Months Insurance [employer] MEDICARE AET MEDICARE AET MEDICARE Advance Directives For more information, please contact: [phone] * Full Code (Latest Code Status on [...] 4:41 PM 01/14/2023 6:36 PM Care Teams Policy Issue Clerk Relationship Specialty Start Date End Date Jeffry Wilson MD [address] [place] [address] PCP - General Family Medicine 05/13/24 Dieter Strauss MD [address] [place] [address] [address] [place] [address] Surgeon Orthopedic Surgery 01/14/23 [place] [address] [place] [address] Referring Physician Internal Medicine 05/26/23 Adam Boyer MD [address] [facility] [address] [facility] [address] [place], [place] [id number] Consulting Physician Cardiology 05/26/23 [place] [address] [place] [address] Consulting Physician Nephrology 05/26/23 Grzegorz Cardenas MD [address] [place] [address] Referring Physician Ophthalmology 05/26/23 Jerry Reynolds MD [address] [facility] [address] [place] [address] Referring Physician Dermatology 05/26/23 Krystian Paige MD [address] [place] [address] [place] [address] Consulting Physician Neurosurgery 05/26/23 Cristopher Brian MD [address] [address] Consulting Physician Anesthesiology 08/12/23 Haley Milan PA [address] [place] [address] [address] [place] [address] Physician Planogrammer Orthopedic Surgery 02/10/24
--- OUTSIDE RECORDS SUMMARY | 2025-05-31 00:41 | XMS_ITS | Clinical Summary ---
Author Organization [facility] Address [address] [place] [address] Phone Care Team Providers Care Supervisor Riprap Placing Name Role Phone Errol Suarez DO Primary Care Provider [phone] Allergies Active Allergy Reactions Criticality Noted Date [...] Comments Blood Pressure 133/73 10/06/2019 9:44 AM UTILITY BAGGER Pulse 99 10/06/2019 9:44 AM UTILITY BAGGER Temperature 36.5 C (97.7 F) 10/06/2019 9:44 AM UTILITY BAGGER Respiratory Rate 20 10/06/2019 9:44 AM UTILITY BAGGER Oxygen Saturation 98% 10/06/2019 9:44 AM UTILITY BAGGER Inhaled Oxygen Concentration - - Weight 112.2 kg (247 lb 4.8 oz) 10/06/2019 9:44 AM UTILITY BAGGER Height 180.3 cm (5' 11) 10/06/2019 9:44 AM UTILITY BAGGER Body Mass Index 34.49 10/06/2019 9:44 AM UTILITY BAGGER Plan of Treatment Health Maintenance Due Date [...] to complete this topic Insurance MEDICARE C [facility] Care Teams Supervisor Riprap Placing Relationship Specialty Start Date End Date Errol Suarez DO [address] [place] [address] PCP - General Internal Medicine 04/19/19
--- OUTSIDE RECORDS SUMMARY | 2025-05-31 00:41 | XMS_ITS | Patient Health Record ---
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 Problem Chronic kidney disease stage 2 (278870973) Chronic kidney disease, stage 2 (mild) (N18.2) 9 Active confirmed Problem Proteinuria (91680770) Proteinuria, unspecified (R80.9) 9 Active confirmed Problem Diastolic dysfunction (0274249) Diastolic dysfunction (I51.9) 9 Active confirmed Problem Hypogonadism (71516732) Hypogonadism (E29.1) 9 Active confirmed Problem Prolactinoma (27820330) Prolactinoma (D35.2) 9 Active confirmed Vital Signs Heart Rate 52 /min 02/03/2025 Respiratory Rate 18 /min 02/03/2025 Blood pressure diastolic 60 mm Hg 02/03/2025 Weight-kg 110.59 kg 02/03/2025 Height 72 in 02/03/2025 Blood pressure systolic 124 mm Hg 02/03/2025 Weight 243.8 lbs 02/03/2025 BMI 33.06 kg/m2 02/03/2025 Encounters Encounter Location Date Provider Diagnosis [address] [address] 02/03/2025 JACINTA MENDEZ Chronic kidney disease, stage 2 (mild) N18.2 ; Hypertensive chronic kidney disease with stage 1 through stage 4 chronic kidney disease, or unspecified chronic kidney disease I12.9 ; Analgesic nephropathy N14.0 ; Proteinuria, unspecified R80.9 ; Diastolic dysfunction I51.9 ; Hypogonadism E29.1 and Prolactinoma D35.[address] [address] 07/29/2024 JACINTA MENDEZ Chronic kidney disease, stage [...] Provider Name:JACINTA MENDEZ , 08/02/2026 10:00:00 AM, [address], [address], Insurance Providers Payer Name Payer Address Payer Phone Subscriber Number Group Number Insured Name Patient Relationship to Insured Coverage Start Date Coverage End Date [employer] [facility] MEDICARE PPO [address] [place] [phone] [id number] JARET SORIA Self - patient is the insured Medical (General) History Medical History History ICD Code Chronic kidney disease Hypertension Dyslipidemia 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
--- OUTSIDE RECORDS SUMMARY | 2025-05-31 00:41 | XMS_ITS | Clinical Summary ---
Author Organization [facility] Address [address] [place] [phone] Phone Care Team Providers Care Ground Crew Lines Person Name Role Phone Errol Suarez DO Primary Care Provider [phone] Allergies Active Allergy Reactions Criticality Noted Date [...] migh t be different from the original. Clean Room Technician- Dr. Ramana Morgan Software Validation Technician - Dr. Adam Boyer Problem Noted Date [...] on file Legal Sex Male 4:15 AM FRAUD REPRESENTATIVE Gender Identity Not on file Sexual Orientation [...] Advance Directives For more information, please contact: [phone] * Full Code (Latest Code Status on File) Date Activated Date Inactivated Comments 04/26/2021 9:25 AM 04/26/2021 1:52 PM * Full Code Date Activated Date Inactivated Comments 03/17/2014 8:25 AM 03/17/2014 12:43 PM * Full Code Date Activated Date Inactivated Comments 01/21/2011 6:44 AM 01/22/2011 2:33 AM Care Teams Ground Crew Lines Person Relationship Specialty Start Date End Date Errol Suarez DO [address] [place] [address] PCP - General Internal Medicine 11/10/15
[2025-05-31] MEDS: LACTATED RINGERS 1,000 ML 30 ML IV CONT ×2 (06:30→13:53)
[2025-05-31 07:05] LABS: INR 1.1; Prothrombin Time 14.2 Seconds (11.1-14.7)
--- NOTE | 2025-05-31 07:06 | WPDANESEPPF ---
Anes - Initial Pre Proc Eval Procedure: Operation Date: 05/31/25 07:30 Proposed Procedures p L2-3, Posterior Lumbar Interbody Fusion, Re-do L3-4, L5-S1, Posterolateral Instrumented Fusion, Possible S2 Screws - Krystian Paige MD Date/Time: 05/31/25 07:06 Surgeon: Krystian Paige MD Pre Op Diagnosis: lumbar stenosis, s/p lumbar fusion Patient Data Age: 80 Gender: M Height: 1.78 m Weight: 109.6 kg Last Vital Signs Temp 36.8 C 05/19/25 14:23 Pulse 61 05/19/25 14:23 Resp 14 05/19/25 14:23 BP 125/73 05/19/25 14:23 Pulse Ox 100 05/19/25 14:23 O2 Del Method Room Air 05/19/25 14:23 Allergies Allergy/AdvReac Type Severity Reaction Status Date / Time levofloxacin Allergy Intermediate HIVES Verified 05/31/25 07:02 sulfamethoxazole (From Allergy Mild Rash Verified 05/31/25 07:02 Septra) trimethoprim (From Septra) Allergy Mild Rash Verified 05/31/25 07:02 NSAIDS (Non-Steroidal AdvReac Severe CKD Verified 05/31/25 07:02 Anti-Inflamma Fosiekm-VGS-TrL Reductase AdvReac Severe confusion, Verified 05/31/25 07:02 Inhibitor joint pain, lost weight apixaban (From Eliquis) AdvReac Intermediate Fever Verified 05/31/25 07:02 Home Medications ?Medication ?Instructions ?Recorded ?Confirmed ?Type atenolol 50 mg tablet 50 mg PO DAILY 06/24/22 05/19/25 History levothyroxine 175 mcg capsule 175 mcg PO DAILY 06/24/22 05/31/25 History oxycodone-acetaminophen 5 mg-325 1 tablet PO TID PRN pain 06/24/22 05/31/25 History mg tablet (Percocet) tadalafil 5 mg tablet 5 mg PO DAILY 06/24/22 05/19/25 History ezetimibe 10 mg tablet (Zetia) 10 mg PO DAILY 04/21/23 05/19/25 History tamsulosin 0.4 mg capsule 0.4 mg PO BID 04/21/23 05/19/25 History testosterone 1 % (25 mg/2.5 gram) 1 packet transdermal DAILY 04/21/23 05/19/25 History transdermal gel packet (AndroGel) vitamins A,C,G-kamp-hvnepy 2,148 2 tablet PO BID 04/21/23 05/31/25 History mcg-113 mg-45 mg-17.4 mg tablet (PreserVision AREDS) cabergoline 0.5 mg tablet 0.5 mg PO .biweekly 11/09/24 05/19/25 History cholecalciferol (vitamin D3) 50 50 mcg PO DAILY 11/09/24 05/31/25 History mcg (2,000 unit) tablet rivaroxaban 20 mg tablet (Xarelto) 20 mg PO DAILY 11/09/24 05/31/25 History hydrocortisone 10 mg tablet 10 mg PO BID 03/01/25 05/31/25 History losartan 25 mg tablet 25 mg PO DAILY 03/01/25 05/31/25 History Laboratory Tests 05/31/25 06:48 PT 14.2 Seconds (11.1-14.7) INR 1.1 Patient hx anesthesia problems: none Family hx anesthesia problems: none Results Review: All pre-operative results and documents have been reviewed as part of the pre-operative evaluation. [facility] Past Medical History Medical History (Updated 05/31/25 @ 07:07 by Jason Valencia MD) [place] disease Obesity Atrial fibrillation VERENA (obstructive sleep apnea) Fusion of lumbar spine Male erectile dysfunction, unspecified Pain in unspecified hip Benign prostatic hyperplasia with lower urinary tract symptoms Pain in thoracic spine Other neuromuscular dysfunction of bladder Other spondylosis with myelopathy, lumbar region Surgical History Surgical History History of carpal tunnel surgery Total knee replacement status Right 01/13/23 H/O: vasectomy H/O Spinal surgery H/O hand surgery Family History Family History Other Colon polyp Diabetes mellitus Heart disease Hypertension Social History Social History Smoking status: Former smoker Tobacco type: cigarettes Smoking end date: 09/15/91 Alcohol intake: current Alcohol use details: 1 per Month Substance use: current Substance use type: painkillers Other substance usage details: Percocet x 3 daily Do You Feel Safe in your Home?: Yes Lack of Transportation: No Lack of Food: Never True Current Housing: I Have Housing Concerned About Future Housing: No Difficulty Paying Gas/Electric Bills: No Difficulty Paying for Meds: No Currently Unemployed: No Education: Master's Degree or Higher Difficulty w/ Childcare or Family Care: No Living arrangements: with family Additional living arrangements comments: Occupation/Education: retired Spiritual care concerns: No Anes - Eval Final PreProcedure Day of Procedure 05/31/25 07:06 Patient weight: obese Heart: irregular rhythm Lungs: clear to auscultation Airway: Mallampati scale Neurological: alert and oriented Last oral intake: >/= 8 hours ASA classification: IV Emergent: no Anesthetic plan: proceed Anesthesia type and monitoring: general ETT and standard monitoring Results Review: All pre-operative results and documents have been reviewed as part of the pre-operative evaluation. Informed Consent: The patient's anesthetic plan and its attendant risks and benefits were discussed with the patient/family/POA. Questions were solicited and answers provided to the satisfaction of the patient/family/POA.
--- NOTE | 2025-05-31 08:00 | PM.IMHP ---
H&P: HPI History of Present Illness Date/Time: 05/31/25 08:00 Chief Complaint: back and leg pain Narrative: Urbano is here today for L2-3 posterior lumbar interbody fusion and redo posterolateral instrumented fusion at L3-4 and L5-S1. He has claudicatory discomfort in the low back that radiates towards the bilateral hips and down his right leg nonspecifically. He is sore all the time across his back right greater than left. Sustained postures in activity seemed to exacerbate his discomfort. This been going on for years and really predates other spine surgeries done in 2019. And may have gotten worse after his knee surgery in 2022. He does not report specific muscle group weakness or dermatomal numbness. He does not have bowel or bladder difficulty. He is eager to undergo definitive management of his problem. Review of Systems Review of Systems: All systems reviewed & are unremarkable except as noted in HPI and below Denies chills, Denies fever(s), Denies frequent falls, Denies weakness, Denies weight gain and Denies weight loss Eyes Denies change in vision, Denies diplopia and Denies loss of vision ENT Reports Normal hearing present and Denies disequilibrium Card Denies chest pain and Denies dyspnea Resp Denies cough and Denies dyspnea GI Denies abdominal pain, Denies change in bowel habits, Denies fecal incontinence and Denies vomiting Denies hematuria, Denies oliguria, Denies difficulty urinating, Denies dysuria, Denies urinary frequency, Denies urinary hesitancy, Denies urinary incontinence and Denies urinary urgency Musc Reports as per HPI, Reports abnormal gait, Reports back pain, Denies atrophy, Denies muscle weakness, Denies numbness, Reports radiating pain into limb, Reports stiffness and Denies tingling Skin/ Breast Reports system reviewed and no additional complaints, except as documented Neuro Reports as per HPI, Reports Normal hearing present, Reports abnormal gait, Denies burning sensations, Denies frequent falls, Denies lack of coordination, Denies focal weakness, Denies loss of vision, Denies numbness, Denies Other visual disturbances, Reports radicular pain, Denies tingling, Denies disequilibrium and Denies weakness Psych Reports no additional complaints, Denies depression and Denies hopelessness Endo Reports no additional complaints and Denies polyuria Nathan/ Lymph Reports no additional complaints Aller/ Immun Reports no additional complaints PMFSH Past Medical History Medical History (Updated 05/31/25 @ 07:07 by Jason Valencia MD) [place] disease Obesity Atrial fibrillation VERENA (obstructive sleep apnea) Fusion of lumbar spine Male erectile dysfunction, unspecified Pain in unspecified hip Benign prostatic hyperplasia with lower urinary tract symptoms Pain in thoracic spine Other neuromuscular dysfunction of bladder Other spondylosis with myelopathy, lumbar region Surgical History Surgical History History of carpal tunnel surgery Total knee replacement status Right 01/13/23 H/O: vasectomy H/O Spinal surgery H/O hand surgery Family History Family History Other Colon polyp Diabetes mellitus Heart disease Hypertension Social History Social History Smoking status: Former smoker Tobacco type: cigarettes Smoking end date: 09/15/91 Alcohol intake: current Alcohol use details: 1 per Month Substance use: current Substance use type: painkillers Other substance usage details: Percocet x 3 daily Do You Feel Safe in your Home?: Yes Lack of Transportation: No Lack of Food: Never True Current Housing: I Have Housing Concerned About Future Housing: No Difficulty Paying Gas/Electric Bills: No Difficulty Paying for Meds: No Currently Unemployed: No Education: Master's Degree or Higher Difficulty w/ Childcare or Family Care: No Living arrangements: with family Additional living arrangements comments: Occupation/Education: retired Spiritual care concerns: No Meds Home Medications and Allergies Home Medications ?Medication ?Instructions ?Recorded ?Confirmed ?Type atenolol 50 mg tablet 50 mg PO DAILY 06/24/22 05/19/25 History levothyroxine 175 mcg capsule 175 mcg PO DAILY 06/24/22 05/31/25 History oxycodone-acetaminophen 5 mg-325 1 tablet PO TID PRN pain 06/24/22 05/31/25 History mg tablet (Percocet) tadalafil 5 mg tablet 5 mg PO DAILY 06/24/22 05/19/25 History ezetimibe 10 mg tablet (Zetia) 10 mg PO DAILY 04/21/23 05/19/25 History tamsulosin 0.4 mg capsule 0.4 mg PO BID 04/21/23 05/19/25 History testosterone 1 % (25 mg/2.5 gram) 1 packet transdermal DAILY 04/21/23 05/19/25 History transdermal gel packet (AndroGel) vitamins A,C,P-nrnq-zdygau 2,148 2 tablet PO BID 04/21/23 05/31/25 History mcg-113 mg-45 mg-17.4 mg tablet (PreserVision AREDS) cabergoline 0.5 mg tablet 0.5 mg PO .biweekly 11/09/24 05/19/25 History cholecalciferol (vitamin D3) 50 50 mcg PO DAILY 11/09/24 05/31/25 History mcg (2,000 unit) tablet rivaroxaban 20 mg tablet (Xarelto) 20 mg PO DAILY 11/09/24 05/31/25 History hydrocortisone 10 mg tablet 10 mg PO BID 03/01/25 05/31/25 History losartan 25 mg tablet 25 mg PO DAILY 03/01/25 05/31/25 History Allergies Allergy/AdvReac Type Severity Reaction Status Date / Time levofloxacin Allergy Intermediate HIVES Verified 05/31/25 07:02 sulfamethoxazole (From Allergy Mild Rash Verified 05/31/25 07:02 Septra) trimethoprim (From Septra) Allergy Mild Rash Verified 05/31/25 07:02 NSAIDS (Non-Steroidal AdvReac Severe CKD Verified 05/31/25 07:02 Anti-Inflamma Udtwjsv-HCU-OoP Reductase AdvReac Severe confusion, Verified 05/31/25 07:02 Inhibitor joint pain, lost weight apixaban (From Eliquis) AdvReac Intermediate Fever Verified 05/31/25 07:02 Exam Narrative: General: cooperative, no acute distress, well developed, alert and awake Orientation/Consciousness: oriented to person, oriented to place and oriented to time Constitutional Limitations: no limitations Other: The patient is a normally developed, normal appearing male sitting on the examination table in no acute distress. He is awake, alert, and oriented x3 with good fund of knowledge, recall of events, and fluent speech. HENMT Head: normocephalic and atraumatic Ears: external ears normal Face/Nose/Sinus: Normal external nose present Eyes Eyelids: eyelids normal Pupils: Yes Pupils normal by confrontation EOM: EOMs intact bilaterally Neck General: Yes no meningeal signs, Yes supple and Yes no JVD Resp Effort/Inspection: normal respiratory effort and able to speak in complete sentences Cardio Rate: Yes regular rate GI Inspection: No abdominal distension Musc Other: Examination of the back reveals a well healed scar and lumbar tenderness paraspinally and over the sacrum. Straight leg raise is negative bilaterally. Valentino?s test is negative bilaterally. Skin General: normal color Neuro General: Yes oriented to person, Yes oriented to place, Yes oriented to time, Yes normal cognition and Yes no meningeal signs Cranial Nerves: Yes CN's II-XII intact bilaterally and Yes Normal hearing present Other: Motor: Strength is normal, 5/5, throughout all muscle groups of the bilateral lower extremities to direct confrontation. Sensory: Sensation is intact to light touch throughout the lower extremities bilaterally. Reflexes: Deep tendon reflexes are difficult to elicit at the knees and ankles bilaterally. There is no ankle clonus. Gait: Gait, station, and transfers are independent and steady but somewhat antalgic for short periods of time and over short distances with a cane as an assistive device. Psych Appearance: grossly normal Mental status: Yes mental status grossly normal Mood: congruent mood Affect: Yes normal affect Speech/Movement: Normal speech and movement present Attitude: Yes cooperative Thought Content: Normal thought content present Assessment and Plan Assessment and plan (1) Status post lumbar spinal fusion: Code(s): Z98.1 - Arthrodesis status Status: Acute (2) Lumbar stenosis with neurogenic claudication: Code(s): M48.062 - Spinal stenosis, lumbar region with neurogenic claudication Status: Acute (3) Pseudoarthrosis of spine: Status: Acute Plan I continue to recommend him open surgery to deal with the junctional stenosis at L2-3 as well as the nonunion at L3-4 and L5-S1. I no longer believe that we should put in BRENT screws as I have notice that most of these become loose over time and believe that is sacroiliac joint should be fused a separate operation, more dura bili, if this is necessary after the other issues are dealt with. I described to him the above operation, its risks, potential benefits, the operative and postoperative course in detail and answered all his questions personally. We discussed risks including but not limited to permanent neurologic deficit secondary to nerve root injury, need for reoperation secondary to infection, bleeding, CSF leak, adjacent level disease, recurrent residual pathology or instability, malposition or migration of the hardware or nonunion, failure of the procedure to relieve his pain or symptoms, persistent pain, medical complications related to anesthesia or surgery, cetera. He indicates and understanding elects to proceed with that operation.
--- NOTE | 2025-05-31 08:04 | WPDHPUPDATE1 ---
History and Physical Update Update Date/Time: 05/31/25 08:04 History and Physical has been reviewed, including an updated exam of the patient. There are NO changes in the patient's condition. Risks, benefits, and alternatives have been discussed and questions answered. Patient agrees to proceed with procedure.
[2025-05-31] MEDS: ceFAZolin 2 GM in SODIUM CHLORIDE 0.9% IV 50 ML 100 ML IVPB (08:12)
[2025-05-31] MEDS: LIDO 1%/EPINEPHRINE/PF 1:200,000 30 ML VIAL 20 ML XX (08:45)
[2025-05-31] MEDS: TRANEXAMIC ACID 1,000 MG/10 ML AMPUL 1000 MG IV PUSH (12:10)
[2025-05-31] MEDS: fentaNYL CITRATE INJ (*CRX) 100 MCG/2 ML VIAL 25 MCG IV PUSH ×7 (13:05→13:45)
--- NOTE | 2025-05-31 14:17 | ADMGEN ---
This patient, Chirag Machuca, was admitted to Medical Room 255-01. Patient/family oriented to hospital policies and general routines including ID bracelet, bed and alarms, visiting hours, pain management, procedures, bathroom and other care routines, personal items, smoking policy, room service/diet, and visiting hours. Information on how to activate the Rapid Response Team has been discussed. Patient/Family are encouraged to report perceived risks to care and to ask questions if they do not understand what they are told or what they should do.
[2025-05-31] MEDS: KCL 20 MEQ/D5/0.45% SOD CHL 1,000 ML 100 ML IV CONT (14:54)
[2025-05-31] MEDS: oxyCODONE/ACETAMINOPHEN (*CRX) 10-325 MG TABLET 1 TAB PO ×2 (14:57→19:04)
[2025-05-31] MEDS: ceFAZolin 1 GM in SODIUM CHLORIDE 0.9% IV 50 ML 100 ML IVPB (15:12)
--- NOTE | 2025-05-31 15:14 | W.PM.PROC2 ---
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 He was then turned into the prone position on an open Osman table. The of operation on his back was examined, marked for incision, prepped and draped routine sterile fashion. Incision was marked from L2-S1. This area was injected with 0.5% lidocaine with [id number] epinephrine. Intravenous antibiotics given prior to incision. Incision was made with a 10 blade scalpel down to the lumbodorsal fascia. A subperiosteal dissection of the muscle soft tissue away from spinous process and lamina at mm L2-3 was performed with a subperiosteal elevator and Bovie cautery. A verifying x-rays obtained to verify the level of operation. The instrumentation at L3-S1 was uncovered. During this part of the operation the pseudomeningocele was the left encountered. CSF was noted to flow from this area. 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 This was closed primarily with 4-0 Nurolon sutures used to hold down fat graft into this fistula. The entire area was then covered DuraSeal both at this point and at the end of the case. No further leaking was noted at the end case. The L2 spinous process was removed with a Nik rongeur. Kerrison punches, curved curettes and Leksell rongeur were used to remove lamina in the midline and to the soft contents of the canal were encountered. The hernia is the a Midas Rocky drill was used to resect the pars bilaterally at L2. The inferior articular process and facet of L2 could then be removed bilaterally. These places spinous processes were stripped free of soft tissue and morselized for later use as interbody autograft. Kerrison punches and curved curettes were used to define a plane with her and removed bone ligament flush with the pedicle and through the foramina widely decompressing the exiting nerve roots. With thecal sac retracted and protected disc space was entered bilaterally using an 11 blade scalp. Scrapers a very sizes, curettes of various configurations, pituitary rongeur and a rasp were used to remove as much cartilaginous endplate and disc material as possible down to bleeding cortical flat surfaces on the opposing bones. The disc space was incised an appropriately-sized interbody devices were chosen and filled with local autograft bone. The disc space was likewise filled with local autograft bone medially and anteriorly. The interbody devices were then placed to 2-3 mm countersink within the disc space bilaterally. These were 10 mm devices. Pedicle screw instrumentation was performed at L2 by observing and palpating the pedicle while ankle was made and superior to the process above the pedicle using Midas Rocky drill. The pedicle was then cannulated with a pedicle probe, checked for continuity with ball probe, tapped with a 5.5 mm tap and a 6.5 x 50 mm screw was placed into each pedicle on each side. The instrumentation at L3 and S1 was removed using the appropriate drivers. Tap metformin each of these holes. A 0.5 x 50 mm screws were then placed the each L3 pedicle and 9.5 x 50 mm screws were placed into S1 bilaterally. These were extremely tight in the bone. A 90 mm rods were then brought to the field was placed into the screw heads on either side. The risk secured in position using the caps for that purpose. These were then definitively tightened with a torque and anti torque device. The transverse processes at L3-4 and L5-S1 were uncovered using her Bovie cautery. There were decorticated using a a Midas Rocky drill including at the ala of the sacrum bilaterally. Magnetos and local autograft bone were packed against these decorticated surfaces. The wound was then copiously irrigated with bacitracin irrigation all bleeding stopped with bipolar and Bovie cautery and Gelfoam thrombin powder. The wound was then closed in layered fashion with 2-0 Vicryl interrupted sutures in the lumbodorsal fascia and Michaela's layer. 3-0 Vicryl buried interrupted sutures were placed in the dermis and the skin was closed with a running 4-0 Monocryl subcuticular stitch and dressed with Dermabond. The patient was allowed to wake up in the operating room and was taken to the recovery room in stable condition. There were no immediate complications of this operation. All counts were reported correct again to the case. Blood loss was 650 cc. The patient was neurologically at his baseline postoperatively. Estimated Blood Loss 650 Drains Yes Complications None Disposition PACU [facility] Billing Surgery - Charge Forward: Surgery Billing
[2025-05-31] MEDS: CYCLOBENZAPRINE HCL 10 MG TABLET PO (16:48)
[2025-05-31] MEDS: diazePAM (*CRX) 5 MG TABLET PO (21:02)
[2025-05-31] MEDS: TAMSULOSIN HCL 0.4 MG CAPSULE PO (21:02)
[2025-05-31] MEDS: HYDROmorphone HCL INJ (*CRX) 1 MG/ML SYR 0.5 MG IV PUSH (21:03)
[2025-06-01] MEDS: ceFAZolin 1 GM in SODIUM CHLORIDE 0.9% IV 50 ML 100 ML IVPB ×4 (00:37→23:02)
[2025-06-01] MEDS: HYDROmorphone HCL INJ (*CRX) 1 MG/ML SYR 0.5 MG IV PUSH ×3 (00:49→09:23)
[2025-06-01] MEDS: oxyCODONE/ACETAMINOPHEN (*CRX) 10-325 MG TABLET 1 TAB PO ×5 (01:32→21:23)
[2025-06-01] MEDS: KCL 20 MEQ/D5/0.45% SOD CHL 1,000 ML 100 ML IV CONT ×3 (02:54→23:02)
[2025-06-01 04:06] VITALS: BP 105/51; PULSE 89; RESP 20; TEMP 37.1; O2SAT 95
[2025-06-01] MEDS: CYCLOBENZAPRINE HCL 10 MG TABLET PO ×3 (04:16→17:23)
[2025-06-01] MEDS: LEVOTHYROXINE SODIUM 75 MCG TABLET PO (06:25)
[2025-06-01] MEDS: LEVOTHYROXINE SODIUM 100 MCG TABLET PO (06:25)
[2025-06-01 08:20] VITALS: PULSE 89
[2025-06-01] MEDS: OPTI-GEN TAB 2 TABLET PO ×2 (08:20→17:17)
[2025-06-01] MEDS: LOSARTAN POTASSIUM 25 MG TABLET PO (08:20)
[2025-06-01] MEDS: CHOLECALCIFEROL (VITAMIN D3) 25 MCG (1,000 UNITS) TABLET 50 MCG PO (08:21)
[2025-06-01] MEDS: DOCUSATE SODIUM 100 MG CAPSULE PO ×2 (08:24→21:22)
[2025-06-01] MEDS: EZETIMIBE 10 MG TABLET PO (08:25)
[2025-06-01] MEDS: TAMSULOSIN HCL 0.4 MG CAPSULE PO ×2 (08:25→21:22)
[2025-06-01 08:39] LABS: Alanine Aminotransferase 26 U/L (6-50); Albumin Level 3.6 g/dL (3.5-5.1); Alkaline Phosphatase 38 U/L (38-126); Anion Gap 5 mmol/L (4-12); Aspartate Amino Transferase 40 U/L (17-59); Bilirubin,Total 2.2 mg/dL (0.2-1.3); Blood Urea Nitrogen 19 mg/dL (9-20); Calcium 7.9 mg/dL (8.4-10.2); Carbon Dioxide 28 mmol/L (22-30); Chloride 101 mmol/L (98-107); Estimated CRCL calculation 57 ml/min; Estimated Glomerular Filt Rate > 60; Glucose 125 mg/dL (65-110); Potassium 3.8 mmol/L (3.4-5.0); Sodium 134 mmol/L (137-145); Total Protein 6.2 g/dL (6.3-8.2)
[2025-06-01 08:43] LABS: Hematocrit 35.6 % (42.0-52.0); Hemoglobin 11.4 g/dL (14.0-18.0); Immature Granulocyte Percent A 0.4 % (0-0.5); Lymphocytes Absolute Auto 0.95 K/mm3 (0.9-3.2); Mean Corpuscular HGB Conc 32.0 g/dl (32-36); Mean Corpuscular Hemoglobin 30.9 pg (26-34); Mean Corpuscular Volume 96.5 fl (80-100); Nucleated Red Blood Cells Absolute Auto 0.000 K/mm3 (0.0-0.012); Nucleated Red Blood Cells Perc 0.0 % (0.0-0.2); Platelet Count Result 120 k/mm3 (150-375); Red Blood Count 3.69 M/mm3 (4.6-6.20); White Blood Count 6.8 K/mm3 (4.5-10.0)
[2025-06-01 09:02] VITALS: BP 131/79; PULSE 89; RESP 16; TEMP 36.5; O2SAT 97
[2025-06-01] MEDS: HYDROCORTISONE 5 MG TABLET 15 MG PO (09:24)
--- NOTE | 2025-06-01 11:47 | P.PNNEUSUR_ITS ---
Progress Note: A&P Assessment and Plan (1) Status post lumbar spinal fusion: Code(s): Z98.1 - Arthrodesis status Status: Acute Plan -Keep flat until noon today -Can start to sit him up to 30 degrees this afternoon -Will monitor him in that position today; please notify Dr. Paige for drainage or significant positional headache Subjective Date/time seen: 06/01/25 11:47 Interval history: He is doing well overall with adequately-controlled pain in his back. He denies any pain in his legs. He has no headaches. He has been flat in bed since surgery. Review of Systems Review of Systems: All systems reviewed & are unremarkable except as noted in HPI and below Exam Narrative: AOx4 Full strength in lower extremities Sensation intact to light touch Incision c/d/i without evidence of drainage Objective Data Vital Signs Vital Signs: Vital Signs - 24 hr 05/31/25 12:53 05/31/25 13:10 05/31/25 13:25 Temperature 98.9 F Pulse Rate 80 87 89 Respiratory Rate 12 12 18 Blood Pressure 109/58 L 127/79 124/59 L Pulse Oximetry 100 94 98 Oxygen Delivery Simple Face Mask Simple Face Mask Room Air Oxygen Flow Rate 8 8 05/31/25 13:40 05/31/25 13:55 05/31/25 14:17 Temperature 97.6 F Pulse Rate 88 105 H 82 Respiratory Rate 12 14 16 Blood Pressure 102/56 L 102/51 L 132/66 Pulse Oximetry 95 92 97 Oxygen Delivery Room Air Room Air Oxygen Flow Rate 05/31/25 15:14 05/31/25 16:49 05/31/25 16:53 Temperature 97.4 F L 97.4 F L Pulse Rate 73 74 74 Respiratory Rate 16 16 16 Blood Pressure 141/73 H 129/71 Pulse Oximetry 99 100 100 Oxygen Delivery Room Air Oxygen Flow Rate 05/31/25 19:38 05/31/25 23:48 06/01/25 04:06 Temperature 97.7 F 97.6 F 98.7 F Pulse Rate 72 85 89 Respiratory Rate 18 20 20 Blood Pressure 150/72 H 116/67 105/51 L Pulse Oximetry 99 95 95 Oxygen Delivery Oxygen Flow Rate 06/01/25 08:20 06/01/25 08:30 Temperature Pulse Rate 89 Respiratory Rate Blood Pressure Pulse Oximetry Oxygen Delivery Room Air Oxygen Flow Rate Intake/Output Intake/Output: Intake & Output 05/29/25 05/30/25 05/31/25 06/01/25 23:59 23:59 23:59 23:59 Intake Total 300 1370 Output Total 110 1200 Balance 190 170 Meds/Results Medications: Active Medications Generic Name Dose Route Start Last Admin Trade Name Freq PRN Reason Stop Dose Admin Al Hydrox/Mg Hydrox/Simethicone 20 ml 05/31/25 14:02 Mag Hydrox/Al Hydrox/Simeth 30 Ml Udc PO Q4H PRN Indigestion/Heartburn Atenolol 50 mg 06/01/25 09:00 06/01/25 08:20 Atenolol 50 Mg Tablet PO 50 mg DAILY SAEID Administration Bisacodyl 10 mg 05/31/25 14:02 Bisacodyl 10 Mg Suppository RECTAL DAILY PRN Constipation Cyclobenzaprine HCl 10 mg 05/31/25 14:02 06/01/25 09:23 Cyclobenzaprine Hcl 10 Mg Tablet PO 10 mg TID PRN Administration Muscle Spasms Diazepam 5 mg 05/31/25 19:25 05/31/25 21:02 Diazepam (*Crx) 5 Mg Tablet PO 5 mg HS PRN Administration Sleep Docusate Sodium 100 mg 05/31/25 21:00 06/01/25 08:24 Docusate Sodium 100 Mg Capsule PO 100 mg Q12HR SAEID Administration Ezetimibe 10 mg 06/01/25 09:00 06/01/25 08:25 Ezetimibe 10 Mg Tablet PO 10 mg DAILY SAEID Administration Hydrocortisone 15 mg 06/01/25 08:55 06/01/25 09:24 Hydrocortisone 5 Mg Tablet PO 15 mg DAILY@0800 [facility] Administration Hydrocortisone 10 mg 06/01/25 12:00 Hydrocortisone 10 Mg Tablet PO DAILY@1200 [facility] Hydromorphone HCl 0.5 mg 05/31/25 14:02 06/01/25 09:23 Hydromorphone Hcl Inj (*Crx) 1 Mg/Ml Syr IV PUSH 0.5 mg Q2H PRN Administration Pain Rated 7-10 Cefazolin Sodium 1 gm/ Sodium 50 mls @ 100 mls/hr 05/31/25 16:00 06/01/25 08:25 Chloride IVPB 100 mls/hr Q8H SAEID Administration Potassium Chloride/Dextrose/Sod Cl 1,000 mls @ 100 mls/hr 05/31/25 14:02 06/01/25 02:54 Kcl 20 Meq/D5/0.45% Sod Chl IV CONT 100 mls/hr .Q10H SAEID Administration Levothyroxine Sodium 100 mcg 06/01/25 06:30 06/01/25 06:25 Levothyroxine Sodium 100 Mcg Tablet PO 100 mcg DAILY@0630 [facility] Administration Levothyroxine Sodium 75 mcg 06/01/25 06:30 06/01/25 06:25 Levothyroxine Sodium 75 Mcg Tablet PO 75 mcg DAILY@0630 SAE[facility] Administration Losartan Potassium 25 mg 06/01/25 09:00 06/01/25 08:20 Losartan Potassium 25 Mg Tablet PO 25 mg DAILY SAEID Administration Miscellaneous Information 1 each 05/31/25 00:01 Tadalafil Can Patient Use From Home? XX 06/30/25 00:00 CLARIFY [facility] Miscellaneous Information 1 each 05/31/25 00:01 Nonformulary Drug (Testosterone [Androgel] 1 % (25 Mg/2.5gram) Gel In Packet)Can Patient U XX 06/30/25 00:00 CLARIFY [facility] Miscellaneous Information 1 each 05/31/25 00:01 Nonformulary Drug (Cabergoline 0.5 Mg Tablet)Washing Machine Repairer Patient Use From Home? XX 06/30/25 00:00 CLARIFY [facility] Multivitamins/Minerals 2 tablet 05/31/25 17:00 06/01/25 08:20 Opti-Gen Tab PO 2 tablet BID SAEID Administration Non-Formulary Medication 0.5 mg 05/31/25 14:02 Cabergoline PO 06/30/25 14:01 .biweekly SAEID Non-Formulary Medication 5 mg 06/01/25 09:00 Tadalafil PO 07/01/25 08:59 DAILY [facility] Non-Formulary Medication 1 packet 06/01/25 09:00 Testosterone [Androgel] XX 07/01/25 08:59 DAILY [facility] Ondansetron HCl 4 mg 05/31/25 14:02 Ondansetron Inj 4 Mg/2 Ml Vial IV PUSH Q8H PRN Nausea And Vomiting Oxycodone/Acetaminophen 1 tablet 05/31/25 14:02 Oxycodone/Acetaminophen (*Crx) 5-325 Mg Tablet PO Q4H PRN Mild Pain (1-3) Oxycodone/Acetaminophen 1 tab 05/31/25 14:02 06/01/25 08:24 Oxycodone/Acetaminophen (*Crx) 10-325 Mg Tablet PO 1 tab Q4H PRN Administration Moderate Pain (4-6) Senna/Docusate Sodium 1 tab 05/31/25 14:02 Senna/Docusate Sodium Tablet PO HS PRN Constipation Tamsulosin HCl 0.4 mg 05/31/25 21:00 06/01/25 08:25 Tamsulosin Hcl 0.4 Mg Capsule PO 0.4 mg Q12HR SAEID Administration Vitamin D 50 mcg 06/01/25 09:00 06/01/25 08:21 Cholecalciferol (Vitamin D3) 25 Mcg (1,000 Units) Tablet PO 50 mcg DAILY SAEID Administration Radiology Results: ITS Impressions Fluoroscopy 05/31/25 12:37 IMPRESSION: 1. Fluoroscopy utilized during neurosurgical procedure and the lumbar spine including L3-L4 anterior spinal fusion with interbody fusion device placement. See procedure note for further detail. Labs Labs: Laboratory Results - last 24 hr 06/01/25 08:21 WBC 6.8 RBC 3.69 L Hgb 11.4 L Hct 35.6 L MCV 96.5 MCH 30.9 MCHC 32.0 RDW 14.9 H Plt Count 120 L MPV 9.4 Immature Gran % (Auto) 0.4 Neut % (Auto) 73.2 H Lymph % (Auto) 14.1 L Duval % (Auto) 10.4 H Eos % (Auto) 1.5 Baso % (Auto) 0.4 Lymph # (Auto) 0.95 [place]val # (Auto) 0.7 H Eos # (Auto) 0.1 Baso # (Auto) 0.0 Abs Immat Gran (auto) 0.03 Absolute Neuts (auto) 4.9 Absolute Nucleated RBC 0.000 Nucleated RBC % 0.0 Sodium 134 L Potassium 3.8 Chloride 101 Carbon Dioxide 28 Anion Gap 5 BUN 19 Creatinine 1.16 Estim Creat Clear Calc 57 Estimated GFR > 60 Glucose 125 H Calcium 7.9 L Total Bilirubin 2.2 H AST 40 ALT 26 Alkaline Phosphatase 38 Total Protein 6.2 L Albumin 3.6
[2025-06-01] MEDS: HYDROCORTISONE 10 MG TABLET PO (12:33)
--- NOTE | 2025-06-01 12:47 | PCOTNOTE ---
Pt to lie flat today until noon then increase HOB to 30 and monitor symptoms so will wait to evaluate for therapy evaluation tomorrow.
[2025-06-01 12:48] VITALS: BP 111/67; PULSE 101; RESP 20; TEMP 36.9; O2SAT 97
--- NOTE | 2025-06-01 13:43 | WPDANESPN ---
Anes - Prog Note Post-Op Date/Time: 06/01/25 13:43 Cardiovascular status: normal Respiratory status: normal Airway patency: baseline Mental status: baseline Post-Op hydration status: normal Vital Signs: Last Vital Signs Temp 36.9 C 06/01/25 12:48 Pulse 101 H 06/01/25 12:48 Resp 20 06/01/25 12:48 BP 111/67 06/01/25 12:48 Pulse Ox 97 06/01/25 12:48 O2 Del Method Room Air 06/01/25 08:30 O2 Flow Rate 8 05/31/25 13:10 Pain Score (VAS): 3 I/O: Intake & Output 05/31/25 06/01/25 06/01/25 23:59 07:59 15:59 Intake Total 1170 1320 Output Total 1200 Balance -30 1320 Laboratory Tests 06/01/25 08:21 06/01/25 08:21 06/01/25 08:21 WBC 6.8 RBC 3.69 L Hgb 11.4 L Hct 35.6 L MCV 96.5 MCH 30.9 MCHC 32.0 RDW 14.9 H Plt Count 120 L MPV 9.4 Immature Gran % (Auto) 0.4 Neut % (Auto) 73.2 H Lymph % (Auto) 14.1 L [place] % (Auto) 10.4 H Eos % (Auto) 1.5 Baso % (Auto) 0.4 Lymph # (Auto) 0.95 [place] # (Auto) 0.7 H Eos # (Auto) 0.1 Baso # (Auto) 0.0 Abs Immat Gran (auto) 0.03 Absolute Neuts (auto) 4.9 Absolute Nucleated RBC 0.000 Nucleated RBC % 0.0 Sodium 134 L Potassium 3.8 Chloride 101 Carbon Dioxide 28 Anion Gap 5 BUN 19 Creatinine 1.16 Estim Creat Clear Calc 57 Estimated GFR > 60 Glucose 125 H Calcium 7.9 L Total Bilirubin 2.2 H AST 40 ALT 26 Alkaline Phosphatase 38 Total Protein 6.2 L Albumin 3.6 Patient Feedback: Patient satisfied with anesthetic care.
[2025-06-01 17:02] VITALS: BP 99/50; PULSE 85; RESP 10; TEMP 37.3; O2SAT 96
[2025-06-01 20:00] VITALS: BP 122/57; PULSE 100; RESP 18; TEMP 36.6; O2SAT 98
[2025-06-01] MEDS: diazePAM (*CRX) 5 MG TABLET PO (21:23)
[2025-06-02 00:17] VITALS: BP 113/64; PULSE 84; RESP 18; TEMP 36.4; O2SAT 97
[2025-06-02] MEDS: SENNA/DOCUSATE SODIUM TABLET 1 TAB PO (02:42)
[2025-06-02] MEDS: oxyCODONE/ACETAMINOPHEN (*CRX) 10-325 MG TABLET 1 TAB PO ×4 (02:42→20:06)
[2025-06-02 04:21] VITALS: BP 129/60; PULSE 104; RESP 18; TEMP 36.6; O2SAT 97
[2025-06-02] MEDS: LEVOTHYROXINE SODIUM 75 MCG TABLET PO (05:41)
[2025-06-02] MEDS: LEVOTHYROXINE SODIUM 100 MCG TABLET PO (05:41)
--- NOTE | 2025-06-02 08:16 | PCOTNOTE ---
Attmpted OT evaluation this AM. At this time patient is restricted to 30 degrees of elevation. Will continue to follow after MD updates patient's activity restrictions.
[2025-06-02 09:31] VITALS: PULSE 100
[2025-06-02] MEDS: TAMSULOSIN HCL 0.4 MG CAPSULE PO ×2 (09:32→20:05)
[2025-06-02] MEDS: LOSARTAN POTASSIUM 25 MG TABLET PO (09:32)
[2025-06-02] MEDS: HYDROCORTISONE 5 MG TABLET 15 MG PO (09:32)
[2025-06-02] MEDS: EZETIMIBE 10 MG TABLET PO (09:32)
[2025-06-02] MEDS: DOCUSATE SODIUM 100 MG CAPSULE PO ×2 (09:32→20:05)
[2025-06-02] MEDS: OPTI-GEN TAB 2 TABLET PO ×2 (09:33→16:52)
[2025-06-02] MEDS: ceFAZolin 1 GM in SODIUM CHLORIDE 0.9% IV 50 ML 100 ML IVPB (09:33)
[2025-06-02] MEDS: CHOLECALCIFEROL (VITAMIN D3) 25 MCG (1,000 UNITS) TABLET 50 MCG PO (09:33)
[2025-06-02] MEDS: CYCLOBENZAPRINE HCL 10 MG TABLET PO (12:42)
[2025-06-02] MEDS: HYDROCORTISONE 10 MG TABLET PO (12:43)
[2025-06-02] MEDS: BISACODYL 10 MG SUPPOSITORY RECTAL (12:43)
[2025-06-02] MEDS: BISACODYL 5 MG TABLET EC PO (15:42)
[2025-06-02] MEDS: HYDROmorphone HCL INJ (*CRX) 1 MG/ML SYR 0.5 MG IV PUSH (17:09)
[2025-06-02] MEDS: diazePAM (*CRX) 5 MG TABLET PO (20:07)
[2025-06-02 20:30] VITALS: BP 118/64; PULSE 98; RESP 18; TEMP 37.2; O2SAT 98
[2025-06-03] MEDS: CYCLOBENZAPRINE HCL 10 MG TABLET PO ×2 (01:30→08:52)
[2025-06-03] MEDS: oxyCODONE/ACETAMINOPHEN (*CRX) 10-325 MG TABLET 1 TAB PO ×3 (01:30→09:34)
[2025-06-03 05:16] VITALS: BP 130/61; PULSE 100; RESP 20; TEMP 37; O2SAT 97
[2025-06-03] MEDS: LEVOTHYROXINE SODIUM 100 MCG TABLET PO (05:31)
[2025-06-03] MEDS: LEVOTHYROXINE SODIUM 75 MCG TABLET PO (05:31)
[2025-06-03] MEDS: HYDROCORTISONE 5 MG TABLET 15 MG PO (08:48)
[2025-06-03 08:49] VITALS: PULSE 88
[2025-06-03] MEDS: EZETIMIBE 10 MG TABLET PO (08:49)
[2025-06-03] MEDS: LOSARTAN POTASSIUM 25 MG TABLET PO (08:52)
[2025-06-03] MEDS: OPTI-GEN TAB 2 TABLET PO (08:52)
[2025-06-03] MEDS: TAMSULOSIN HCL 0.4 MG CAPSULE PO (08:52)
[2025-06-03] MEDS: DOCUSATE SODIUM 100 MG CAPSULE PO (08:52)
[2025-06-03] MEDS: CHOLECALCIFEROL (VITAMIN D3) 25 MCG (1,000 UNITS) TABLET 50 MCG PO (08:52)
--- NOTE | 2025-06-03 10:01 | P.PNNEUSUR_ITS ---
Progress Note: A&P Assessment and Plan (1) Status post lumbar spinal fusion: Code(s): Z98.1 - Arthrodesis status Status: Acute Plan He is doing very well from a postoperative standpoint. I discussed with Dr. Paige and he is okay with patient going home. I have asked the patient to discuss when to resume his Coumadin with Dr. Paige. I spoke to his nurse as well and she has agrees that he is doing very well and can go home today. Subjective Date/time seen: 06/03/25 10:01 Interval history: patient is doing very well he wishes to go home. He has tolerated diet he has voided he has passed flatus and bowel movement and he has ambulated with physical therapy and his pain is controlled. Exam Narrative: Awake alert no acute distress he moves all his extremities well full strength including iliopsoas, quadriceps, hamstrings, plantar flexors, dorsiflexors, EHL. Objective Data Vital Signs Vital Signs: Vital Signs - 24 hr 06/02/25 20:00 06/02/25 20:30 06/03/25 05:16 Temperature 99 F 98.6 F Pulse Rate 98 100 Respiratory Rate 18 20 Blood Pressure 118/64 130/61 Pulse Oximetry 98 97 Oxygen Delivery Room Air 06/03/25 08:49 Temperature Pulse Rate 88 Respiratory Rate Blood Pressure Pulse Oximetry Oxygen Delivery Intake/Output Intake/Output: Intake & Output 05/31/25 06/01/25 06/02/25 06/03/25 23:59 23:59 23:59 23:59 Intake Total 300 3640 900 350 Output Total 110 1200 1800 420 Balance 190 2440 -900 -70 Meds/Results Medications: Active Medications Generic Name Dose Route Start Last Admin Trade Name Freq PRN Reason Stop Dose Admin Al Hydrox/Mg Hydrox/Simethicone 20 ml 05/31/25 14:02 Mag Hydrox/Al Hydrox/Simeth 30 Ml Udc PO Q4H PRN Indigestion/Heartburn Atenolol 50 mg 06/01/25 09:00 06/03/25 08:49 Atenolol 50 Mg Tablet PO 50 mg DAILY SAEID Administration Bisacodyl 5 mg 06/02/25 15:03 06/02/25 15:42 Bisacodyl 5 Mg Tablet Ec PO 5 mg DAILY PRN Administration Constipation Cyclobenzaprine HCl 10 mg 05/31/25 14:02 06/03/25 08:52 Cyclobenzaprine Hcl 10 Mg Tablet PO 10 mg TID PRN Administration Muscle Spasms Diazepam 5 mg 05/31/25 19:25 06/02/25 20:07 Diazepam (*Crx) 5 Mg Tablet PO 5 mg HS PRN Administration Sleep Docusate Sodium 100 mg 05/31/25 21:00 06/03/25 08:52 Docusate Sodium 100 Mg Capsule PO 100 mg Q12HR SAEID Administration Ezetimibe 10 mg 06/01/25 09:00 06/03/25 08:49 Ezetimibe 10 Mg Tablet PO 10 mg DAILY SAEID Administration Hydrocortisone 15 mg 06/01/25 08:55 06/03/25 08:48 Hydrocortisone 5 Mg Tablet PO 15 mg DAILY@0800 SAEID Administration Hydrocortisone 10 mg 06/01/25 12:00 06/02/25 12:43 Hydrocortisone 10 Mg Tablet PO 10 mg DAILY@1200 [facility] Administration Hydromorphone HCl 0.5 mg 05/31/25 14:02 06/02/25 17:09 Hydromorphone Hcl Inj (*Crx) 1 Mg/Ml Syr IV PUSH 0.5 mg Q2H PRN Administration Pain Rated 7-10 Levothyroxine Sodium 100 mcg 06/01/25 06:30 06/03/25 05:31 Levothyroxine Sodium 100 Mcg Tablet PO 100 mcg DAILY@0630 SAEID Administration Levothyroxine Sodium 75 mcg 06/01/25 06:30 06/03/25 05:31 Levothyroxine Sodium 75 Mcg Tablet PO 75 mcg DAILY@0630 [facility] Administration Losartan Potassium 25 mg 06/01/25 09:00 06/03/25 08:52 Losartan Potassium 25 Mg Tablet PO 25 mg DAILY SAEID Administration Miscellaneous Information 1 each 05/31/25 00:01 Tadalafil Can Patient Use From Home? XX 06/30/25 00:00 CLARIFY [facility] Miscellaneous Information 1 each 05/31/25 00:01 Nonformulary Drug (Testosterone [Androgel] 1 % (25 Mg/2.5gram) Gel In Packet)Can Patient U XX 06/30/25 00:00 CLARIFY [facility] Miscellaneous Information 1 each 05/31/25 00:01 Nonformulary Drug (Cabergoline 0.5 Mg Tablet)Home Care Music Therapist Patient Use From Home? XX 06/30/25 00:00 CLARIFY [facility] Multivitamins/Minerals 2 tablet 05/31/25 17:00 06/03/25 08:52 Opti-Gen Tab PO 2 tablet BID SAEID Administration Non-Formulary Medication 0.5 mg 05/31/25 14:02 Cabergoline PO 06/30/25 14:01 .biweekly SAEID Non-Formulary Medication 5 mg 06/01/25 09:00 Tadalafil PO 07/01/25 08:59 DAILY SAEID Non-Formulary Medication 1 packet 06/01/25 09:00 Testosterone [Androgel] XX 07/01/25 08:59 DAILY SAEID Ondansetron HCl 4 mg 05/31/25 14:02 Ondansetron Inj 4 Mg/2 Ml Vial IV PUSH Q8H PRN Nausea And Vomiting Oxycodone/Acetaminophen 1 tablet 05/31/25 14:02 Oxycodone/Acetaminophen (*Crx) 5-325 Mg Tablet PO Q4H PRN Mild Pain (1-3) Oxycodone/Acetaminophen 1 tab 05/31/25 14:02 06/03/25 09:34 Oxycodone/Acetaminophen (*Crx) 10-325 Mg Tablet PO 1 tab Q4H PRN Administration Moderate Pain (4-6) Senna/Docusate Sodium 1 tab 05/31/25 14:02 06/02/25 02:42 Senna/Docusate Sodium Tablet PO 1 tab HS PRN Administration Constipation Tamsulosin HCl 0.4 mg 05/31/25 21:00 06/03/25 08:52 Tamsulosin Hcl 0.4 Mg Capsule PO 0.4 mg Q12HR SAEID Administration Vitamin D 50 mcg 06/01/25 09:00 06/03/25 08:52 Cholecalciferol (Vitamin D3) 25 Mcg (1,000 Units) Tablet PO 50 mcg DAILY SAEID Administration Radiology Results: ITS Impressions Fluoroscopy 05/31/25 12:37 IMPRESSION: 1. Fluoroscopy utilized during neurosurgical procedure and the lumbar spine including L3-L4 anterior spinal fusion with interbody fusion device placement. See procedure note for further detail.
[2025-06-03] MEDS: HYDROCORTISONE 10 MG TABLET PO (12:01)
--- OUTSIDE RECORDS SUMMARY | 2025-06-06 10:16 | XMS_ITS | Encounter Summary ---
Author Organization [facility] Address 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 Gender Identity Not on file Sexual Orientation [...] CDT) RBC 4.26(L) 4.50 - 5.40 M/uL [facility] MCHC 33.7 31.5 - 35.5 % [facility] MCV 91.3 82.0 - 99.0 fL [facility] PLATELETS 229 140 - 350 K/uL [facility] HEMOGLOBIN 13.1(L) 13.6 - 16.5 g/dL [facility] RDW 13.8 11.5 - 14.5 % [facility] WBC 5.6 4.0 - 9.8 K/uL [facility] MCH 30.8 27.2 - 32.6 pg [facility] MPV 10.4 9.3 - 12.4 fL [facility] HEMATOCRIT 38.9(L) 40.0 - 48.0 % [facility] RDW-STDEV 45.3 37.1 - 48.7 fL [facility] MONOCYTE ABSOLUTE 0.43 0.10 - 1.30 K/uL [facility] NEUTROPHILS 65 45 - 70 % [facility] NEUTROPHIL ABSOLUTE 3.61 1.90 - 7.00 K/uL [facility] EOSINOPHILS 3 0 - 7 % [facility] EOSINOPHIL ABSOLUTE 0.17 0.00 - 0.70 K/uL [facility] LYMPHOCYTES 24 16 - 45 % [facility] LYMPHOCYTE ABSOLUTE 1.32 0.70 - 4.50 K/uL [facility] BASOPHILS 1 0 - 2 % [facility] BASOPHILS ABSOLUTE 0.04 0.00 - 0.20 K/uL [facility] MONOCYTES 8 3 - 13 % [facility] Blood specimen (specimen) 05/05/2008 4:32 PM CDT 05/05/2008 5:12 PM CDT us Jaun John MD HEMATOLOGY ORDERABLES Edited INTERFACE SYSTEM Refer to clinic/hospital department [facility] CLIA# [id number] [address] [place] [address] * C-REACTIVE PROTEIN (05/05/2008 4:32 PM CDT) CRP <0.2 0.0 - 0.8 mg/dL [facility] Blood specimen (specimen) 05/05/2008 4:32 PM CDT 05/05/2008 5:11 PM CDT us Jaun John MD CHEMISTRY ORDERABLES Final R esult INTERFACE SYSTEM Refer to clinic/hospital department [facility] CLIA# [id number] [address] [place] [address] documented in this encounter Visit Diagnoses Diagnosis Diverticulitis of colon (without mention of hemorrhage)(562.11) Diverticulitis of colon (without mention of hemorrhage) documented in this encounter Care Teams Chart Picker Relationship Specialty Start Date End Date Errol Suarez DO [address] [place] [id number] PCP - General Internal Medicine 11/10/15 documented as of this encounter
--- OUTSIDE RECORDS SUMMARY | 2025-06-06 10:16 | XMS_ITS | Clinical Summary ---
Author Organization [facility] Address [address] [place] [address] Phone Care Team Providers Care Local Company Refrigerated Truck Driver Name Role Phone Jeffry Wilson MD Primary Care Provider [phone] Allergies Active Allergy Reactions Criticality Noted Date [...] Comments Blood Pressure 133/73 10/06/2019 9:44 AM COLOR DEVELOPER Pulse 99 10/06/2019 9:44 AM COLOR DEVELOPER Temperature 36.5 C (97.7 F) 10/06/2019 9:44 AM COLOR DEVELOPER Respiratory Rate 20 10/06/2019 9:44 AM COLOR DEVELOPER Oxygen Saturation 98% 10/06/2019 9: 44 AM COLOR DEVELOPER Inhaled Oxygen Concentration - - Weight 112.2 kg (247 lb 4.8 oz) 10/06/2019 9:44 AM COLOR DEVELOPER Height 180.3 cm (5' 11) 10/06/2019 9:44 AM COLOR DEVELOPER Body Mass Index 34.49 10/06/2019 9:44 AM COLOR DEVELOPER Plan of Treatment Health Maintenance Due Date Last Done Comments Hepatitis C Virus (HCV) Screening 1945 TdaP Immunization 1945 Pneumococcal Immunization (50+ years) (2 of 2 - PCV) 10/02/2012 10/02/2011 Zoster Immunization (2 of 3) 07/13/2013 05/18/2013 Respiratory Syncytial Virus (RSV) Immunization (Adult) (1 - 1-dose 75+ series) 2021 Influenza Immunization (#1) 2025 10/09/2023, 05/26/2023, 07/30/2022, Additional history exists SARS-COV-2 Immunization (3 - 2024- season) 2025 11/08/2020, 10/18/2020 Pneumococcal Immunization Combined Discontinued 10/02/2011 Hepatitis B Immunization Aged Out No longer [...] to complete this topic Insurance MEDICARE C [employer] Care Teams Local Company Refrigerated Truck Driver Relationship Specialty Start Date End [place] [address] PCP - General Internal Medicine 06/02/25
--- OUTSIDE RECORDS SUMMARY | 2025-06-06 10:16 | XMS_ITS | Clinical Summary ---
Author Organization [facility] Address [address] [place] [phone] Phone Care Team Providers Care Lining Machine Operator Name Role Phone Errol Suarez DO Primary Care Provider [phone] Allergies Active Allergy Reactions Criticality Noted Date [...] migh t be different from the original. Director Museum Or Zoo- Dr. Ramana Morgan Senior Policy Associate - Dr. 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
--- OUTSIDE RECORDS SUMMARY | 2025-06-06 10:16 | XMS_ITS | Encounter Summary ---
Author Organization [facility] Address [address] [place] [address] Care Team Providers Care Screen And Cyclone Repairer Name Role Phone Luisvic Errol Eze LAND [...] on file Legal Sex Male 4:15 AM RECORDS TECH Gender Identity Not on file Sexual Orientation Not on file documented as of this encounter Plan of Treatment Not on file documented as of this encounter Procedures Procedure Name Priority Date/Time Associated Diagnosis Comments PATHOLOGY Routine 02/04/2008 11:15 AM CDT documented in this encounter Results * PATHOLOGY (02/04/2008 11:15 AM CDT) FINAL REPORT [address] [address] Patient: CHIRAG MACHUCA : 1945 Procedure Date: 02/04/2008 Accession Date: 02/04/2008 Case No: [id number] Ordering Dr: JAUN JOHN Case types AW, BW, FW, NW and SH are performed by [facility] [place], [place] SURGICAL PATHOLOGY & NON-GYNECOLOGIC CYTOPATHOLOGY REPORT [...] Microscopic: The slides are labeled Chirag Machuca, [id number]. The biopsy from the right colon, and [...] on filedocumented in this encounter Care Teams Screen And Cyclone Repairer Relationship Specialty Start Date End Date Errol Suarez DO [address] [place] [id number] PCP - General Internal Medicine 11/10/15 documented as of this encounter
--- OUTSIDE RECORDS SUMMARY | 2025-06-06 10:16 | XMS_ITS | Encounter Summary ---
Author Organization [facility] Address 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
--- OUTSIDE RECORDS SUMMARY | 2025-06-06 10:16 | XMS_ITS | Encounter Summary ---
Author Organization [facility] Address 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
--- OUTSIDE RECORDS SUMMARY | 2025-06-06 10:16 | XMS_ITS | Encounter Summary ---
Author Organization [facility] Address 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
--- OUTSIDE RECORDS SUMMARY | 2025-06-06 10:16 | XMS_ITS | Clinical Summary ---
Author Organization [facility] Address [address] [place] [address] Care Team Providers Care Commercial Sales Director Name Role Phone Jaylen Louis MD Unavailable [phone] Onel Sheldon MD Unavailable Jason Banerjee MD Unavailable Adam Boyer MD Unavailable [phone] Reagan Alvarado MD Unavailable [phone] Keith Thompson MD Unavailable [phone] Jeffry Wilson MD Primary Care Provider [phone] Source Comments [facility],non-owned Affiliates and Associated Physician Practices is amultiple site organization consisting of ambulatory clinics and hospital sitesin [place], [place], [place] and [place]. This disclosure is being madepursuant to the Care Everywhere program and may not contain all information available regarding this patient. Last updated 18.[facility] Allergies Active Allergy Reactions Criticality Noted Date [...] before breakfast Active SM MULTIPLE VITAMINS/IRON TABS A ctive fluticasone propionate (FLONASE) 50 MCG/ACT nasal spray INSTILL 2 SPRAYS IEN D 10/16/19 18 Active ferrous sulfate 325 (65 FE) MG tablet Take 1 (one) tablet by mouth 2 times daily with morning and evening meal Active losartan (COZAAR) 100 MG tabletIndications: Thoracic aortic ectasia,Essential (primary) hypertension TAKE 1 TABLET BY MOUTH EVERY DAY 90 tablet 4 07/26/20 19 Active cyclobenzaprine (FLEXERIL) 10 MG tablet Take 10 mg by mouth once daily 11/22/19 20 Active atenolol (TENORMIN) 50 MG tablet TAKE 1 TABLET BY MOUTH DAILY 90 tablet 4 01/18/20 20 Active vitamin D3-cholecalciferol (CHOLECALCIFEROL) 25 MCG (1000 UNITS) tablet Take 1 (one) tablet by mouth once daily Active oxyCODONE-acetamin ophen (Percocet) 5-325 MG tablet Take 1 (one) tablet by mouth every 6 hours as needed for Pain Active amLODIPine (NORVASC) 5 MG tablet TAKE 1 TABLET BY MOUTH EVERY NIGHT AT BEDTIME 90 tablet 4 10/02/19 21 Active ALPRAZolam (Xanax) 0.25 MG tabletIndications: Prolactinoma (HCC) Take first tablet 30 minutes before MRI scan and take second tablet on arrival. 2 tablet 08/23/20 22 Active Xarelto 20 MG tablet TAKE 1 TABLET BY MOUTH IN THE EVENING WITH DINNER TAKE WITH FOOD Active hydrocortisone (Cortef) 10 MG tabletIndications: Secondary adrenal insufficiency (HCC) Take 1 (one) tablet by mouth 2 times daily 200 tablet 2 11/01/19 25 Active hydrocortisone (Cortef) 5 MG tabletIndications: Secondary adrenal insufficiency (HCC) TAKE 1 TABLET BY MOUTH EVERY DAY IN ADDITION TO 10 MG HYDROCORTISONE TO. MAKE TOTAL OF 25 MG DAILY 90 tablet 2 11/01/19 25 Active levothyroxine (Synthroid) 175 MCG tabletIndications: Secondary hypothyroidism Take 1 (one) tablet by mouth once daily 90 tablet 2 11/01/19 25 Active testosterone (AndroGel) 50 MG/5GM (1%) gelIndications:Hyp ogonadism in male Use 10 (ten) g as instructed once daily Apply to clean, dry, intact skin of the shoulders and upper arms. 900 g 1 01/20/20 25 Active cabergoline (Dostinex) 0.5 MG tabletIndications: Prolactinoma (HCC) TAKE 1 TABLET BY MOUTH EVERY 14 DAYS 8 tablet 2 04/24/20 25 Active Active Problems Problem Noted Date Diagnosed Date Class 2 severe obesity due t o excess calories with serious comorbidity and body mass index (BMI) of 35.0 to 35.9 in adult 11/01/2024 [place] disease 04/29/2024 Renal insufficiency 05/18/2019 Overview (05/31/2020): [...] triglyceride 89, normal TSH/CMP x glucose 104 12 Cholesterol 185 HDL 34 LDL 100 triglyceride 254 10/31 Cholesterol 106 HDL 27 LDL 54 triglyceride 127 04/29 Cholesterol 135 HDL 36 LDL 64 triglyceride 174, AST 25 ALT 30 glucose 109 08/28 Cholesterol 185 HDL 45 LDL 122 triglyceride 89, normal TSH/CMP x glucose 104 12 Cholesterol 185 HDL 34 LDL 100 triglyceride [...] no PVCs, 4 atrial triplets, fastest 129 4/15 TSH 0.42 Ventricular premature depolarization 10/10/2010 05/27/2017 Encounters Date Type Department Care Team Description 04/21/2025 Refill [facility] - Endocrinology [address], [address] [place] [address] Onel Sheldon MD Refill Request from Last [...] on file 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 Gender Identity Not on file Sexual Orientation Not on file Occupation Industry Job Start Date Job End Date RETIRED Not on file Not on file Not on file Last Filed Vital Signs Vital Sign Reading Time Taken Comments Blood Pressure 122/80 11/01/2024 9:03 AM HOTEL SERVICE SUPERVISOR Pulse 86 11/01/2024 9:03 AM HOTEL SERVICE SUPERVISOR Temperature 36.5 C (97.7 F) 11/11/2023 10:10 AM HOTEL SERVICE SUPERVISOR Respiratory Rate 95 11/11/2023 10:10 AM HOTEL SERVICE SUPERVISOR Oxygen Saturation 98% 11/01/2024 9:03 AM HOTEL SERVICE SUPERVISOR Inhaled Oxygen Concentration - - Weight 115.2 kg (254 lb) 11/01/2024 9:03 AM HOTEL SERVICE SUPERVISOR Height 177.8 cm (5' 10) 11/01/2024 9:03 AM HOTEL SERVICE SUPERVISOR Body Mass Index 36.45 11/01/2024 9:03 AM HOTEL SERVICE SUPERVISOR Plan of Treatment Upcoming Encounters Date Type Department Care Team (Late st Contact Info) Description 11/01/2025 9:00 AM HOTEL SERVICE SUPERVISOR Office Visit [facility] Medical [facility] - Endocrinology [address], [address] [place] [address] [place] [address] [address] [place] [address] Health Maintenance Due Date Last [...] 3:20 PM 03/11/2013 1:27 PM Care Teams Commercial Sales Director Relationship Specialty Start Date End Date Jeffry Wilson MD [address] [place] [address] PCP - General Internal Medicine 10/23/22 Jaylen Louis MD Urology 10/27/14 [place] [address] [place] [address] Endocrinology 03/28/16 [place] [address] [place] [address] Neurological Surgery 07/02/16 [place] [address] [place] [address] Cardiovascular Disease 07/08/17 [place] [address] [place] [address] Physical Medicine and Rehabilitation 07/08/17 [place] [address] [address] Orthopedic Surgery 01/06/18
--- OUTSIDE RECORDS SUMMARY | 2025-06-06 10:16 | XMS_ITS | Encounter Summary ---
Author Organization [facility] Address 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
--- NOTE | 2025-07-03 18:51 | P.DS_ITS ---
DS: Admitting Diagnosis Discharge Date 06/03/25 Admitting Diagnosis Junctional stenosis and nonunion DS: Discharge Diagnosis Discharge Diagnosis (1) Pseudoarthrosis of spine: Status: Acute (2) Lumbar stenosis with neurogenic claudication: Code(s): M48.062 - Spinal stenosis, lumbar region with neurogenic claudication Status: Acute DS: Summary Hospital Course Hospital Course: Mr. Machuca was taken to the operating room on 05/31/2025 with the above aforementioned L2-3 posterior lumbar interbody fusion with redo posterolateral fusion L3-4 and L5-S1 with redo vision of his posterior instrumentation from L3- S1 was performed without complication. The patient went to the floor postoperatively. Physical and occupational therapy were involved in his care. His Wilson catheter in drain removed by postoperative day 2. On postoperative day 3 he was eating, ambulating, emptying his bladder his pain was under control with by mouth pain medicine. His wounds remained clean, dry and intact. He was afebrile with stable vital signs. He was therefore allowed to be discharged home. Time Spent with Patient Time attestation: Total time spent providing and/or coordinating discharge services: Discharge Plan Discharge Attending physician on discharge: Krystian Paige Consulting providers: Ayse Whipple; Halle Vail; Jason Valencia; Adam Du Discharging Clinician: Maco Becerra Anticipated Discharge Date/Time: 06/03/25 09:51 Patient Disposition: Home with Home Health Service Activity: as tolerated Diet: as tolerated Wound Care Instructions: follow printed instructions Discharge Instructions: Per Care Coordination. Patient to have [facility] for RN/PT/OT eval and treat [phone]. RN please fax discharge instructions to: F: [phone] Patient Instructions: Antibiotic Form Patient Language: Hungarian Stand Alone Forms: General Discharge Information Follow-up/Referrals: Krystian Paige MD [Physician, Neurosurgery] Discharge Medications: New sennosides [senna] 8.6 mg tablet 8.6 mg PO BID PRN (Reason: constipation) Qty: 30 2RF oxycodone 5 mg tablet 5 mg PO Q4H PRN (Reason: pain) Qty: 32 0RF cyclobenzaprine 5 mg tablet 5 mg PO HS Qty: 30 0RF Continued levothyroxine 175 mcg capsule 175 mcg PO DAILY atenolol 50 mg tablet 50 mg PO DAILY Patient Comments: PM tadalafil 5 mg tablet 5 mg PO DAILY hydrocortisone 10 mg tablet 10 mg PO BID Rx Instructions: 15mg in am 10mg in pm PreserVision AREDS 2,148 mcg-113 mg-45 mg-17.4mg tablet 2 tablet PO BID Rx Instructions: administer with AM and PM meals tamsulosin 0.4 mg capsule 0.4 mg PO BID testosterone [AndroGel] 1 % (25 mg/2.5gram) gel in packet 1 packet transdermal DAILY ezetimibe [Zetia] 10 mg tablet 10 mg PO DAILY cabergoline 0.5 mg tablet 0.5 mg PO .biweekly losartan 25 mg tablet 25 mg PO DAILY cholecalciferol (vitamin D3) 50 mcg (2,000 unit) tablet 50 mcg PO DAILY Held oxycodone-acetaminophen [Percocet] 5-325 mg tablet 1 tablet PO TID PRN (Reason: pain) Hold Instructions: Resume on 06/10/25. Xarelto 20 mg tablet 20 mg PO DAILY Hold Instructions: follow up with dr. paige Rx Instructions: must administer with evening meal No Action oxycodone-acetaminophen 5-325 mg tablet 1 tablet PO Q8H PRN (Reason: pain) Qty: 21 0RF Date of admission: 05/31/25 10:15 Primary Care Provider: Steve,Jeffry Borges Admitting Provider: Krystian Paige Attending physician on admission: Maco Becerra Condition: Improved
== END 2025-06-03 12:05 | disposition home health service (06) | DRG 427 ==
LOC: ANH2MED 06-02 14:49
PROVIDERS: Admitting Provider Neurological Surgery; PCP Family Medicine; Visit Provider Neurological Surgery
PROC: 01NB0ZZ Release Lumbar Nerve, Open Approach (ICD-10-PCS; CPT 22612; principal; 2025-05-31 07:30)
DX: M48.062 Spinal stenosis, lumbar region with neurogenic claudication (principal); E27.1 Primary adrenocortical insufficiency; M47.16 Other spondylosis with myelopathy, lumbar region; I48.91 Unspecified atrial fibrillation; N40.1 Benign prostatic hyperplasia with lower urinary tract symptoms; N31.8 Other neuromuscular dysfunction of bladder; E66.9 Obesity, unspecified; G47.33 Obstructive sleep apnea (adult) (pediatric); Z96.651 Presence of right artificial knee joint; Z68.34 Body mass index [BMI] 34.0-34.9, adult; Z87.891 Personal history of nicotine dependence; Z98.1 Arthrodesis status
CPT/HCPCS: 36415; 80053; 85025; 85610; 97116; 97162; 97165; 97530; 97535; 99199; J0690; A9270; C1713; J1171; J1720; J2003; J2004; J2405; J2704; J3010; J3480; J7120

== ENCOUNTER 2025-07-19 08:40 | Outpatient (CLI) | payer MEDICARE, SELFPAY ==
--- OUTSIDE RECORDS SUMMARY | 2025-02-03 04:00 | XMS_ITS ---
Author Organization [facility] Address [address] [address] Care Team Providers Care Roadway Designer Name Role Phone Jeffry Wilson Primary Care Provider JACINTA Wells Unavailable [phone] Allergies Allergen (clinical drug ingredient) Drug/Non Drug Allergy documented on EMR Reaction Allergy Type Onset Date Status Levaquin (levofloxacin) (uncoded) unspecified Allergy Active atorvastatin Lipitor (atorvastatin) (uncoded) unspecified Allergy Active REASON FOR VISIT FOLLOW-UP VISIT, General ROS/Exam Medications Medication SIG (Take, Route, Frequency, Duration) Notes Start Date End Date Status Iron (Ferrous Sulfate) 325 (65 Fe) MG 1 tablet Orally Twice a week Active Esomeprazole Magnesium 40 MG 1 capsule Orally Once a day Active Cyclobenzaprine HCl 10 MG 1 tablet at be dtime as needed Orally Once a day Active Chlor-Trimeton 4 MG 1 tablet as needed O rally every 8 hrs Active Atenolol 50 MG 1 tablet Orally Once a day Active Multivitamin - 1 tablet Orally Once a day Active Losartan Potassium 25 MG 1 tablet Orally Once a day Active Levothyroxine Sodium 150 MCG 1 tablet in the morning on an empty stomach Orally Once a day Active Hydrocortisone 10 MG 1.5 tablet Orally e very morning and 1 tablet at night Active oxyCODONE-Acetaminophen 5-325 MG 1 tablet as needed Orally every 6 hrs Active Zetia 10 MG 1 tablet Orally Once a day Active Cialis 10 MG 1 tablet as needed O rally Once a day Active Testosterone Cypionate 200 MG/ML 1 mL Intramuscular every 2 weeks Active Vitamin D3 25 MCG (1000 UT) 1 capsule Or ally Once a day Active Tamsulosin HCl 0.4 MG 1 capsule Orally O nce a day Active Vital Signs Blood pressure systolic 124 mm Hg 02/04/20 25 Blood pressure diastolic 60 mm Hg 025 Heart Rate 52 /min 02/03/2025 Respiratory Rate 18 /min 02/03/2025 Height 72 in 02/03/2025 Weight 243.8 lbs 02/03/2025 BMI 33.06 kg/m2 02/03/2025 Weight-kg 110.59 kg 02/03/2025 Encounters Encounter Location Date Provider 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9) 02/03/2025 Hypogonadism (ICD-10 - E29.1) 02/03/2025 Prolactinoma (ICD-10 - D35.2) Plan Of Treatment Future Test Test Name Order Date IRON, TIBC AND FERRITIN PANEL (5616) 09/2025 RENAL FUNCTION PANEL (25680) 07/16/2026 ALBUMIN, RANDOM URINE W/O CREATININE (17 674) 07/16/2026 Next Appt Details Follow Up: 1 1/2 Years, Reas on: Provider Name:JACINTACHLOÉ HUERTA , 08/02/2026 10:00:00 AM, [id number] [place] [address], [place] [address], [place], [address], Progress Notes * JARET SORIA LDOB:[birth year] (80 yo M)Acc No.[id number]:02/03/2025 Progress Notes Patient: JARET BENITO Provider: Brittni Huerta MD :1945 A ge:79 Y S ex:Male Date:02/03/2025 Address:[address] [place], [place] [id number] Pcp:Jeffry Wilson Subjective: * Chief Complaints: * 1 . FOLLOW-UP VISIT. 2. General ROS/Exam. * HPI: H PI: . 79-year-old with medical history significant for CKD, hypertension, analgesic nephropathy, dyslipidemia, hematuria he is in for follow-up. Since his last visit patient reports he had hematuria and was seen by urology. He has no new complaints besides that. Renal function has improved considerably. Patient is being followed by GI for a pancreatic cyst. If continues to follow with urology for his hematuria and also for his BPH and he supposed to have prostatic artery embolization done soon. For his UTI he was treated with linezolid. I will see him back after a year. . * ROS: G eneral / Constitutional: Change in appetite d enies. L ightheadedness d enies. W eakness d enies. R espiratory: Hemoptysis d enies. S hortness of breath at rest d enies. G astrointestinal: Abdominal pain d enies. C hange in bowel habits d enies. V omiting d enies. H ematology: Bleeding problems d enies. W eight loss d enies.? M usculoskeletal: Joint stiffness d enies. S kin: Ulcerations d enies. * Active Problem List N18.2 Chronic kidney disea se, stage 2 (mild) Onset Date:07/26/2019Modified On:04/03/2022W/U Status:confirmedClinical Status:active I12.9 Hypertensive chronic kidney disease with stage 1 through stage 4 chronic kidney disease, or unspecified chronic kidney disease Onset Date:07/26/2019W/U Status:confirmedClinical Status:active N14.0 Analgesic nephropath y Onset Date:06/29/2020Modified On:04/03/2022W/U Status:confirmedClinical Status:active R80.9 Proteinuria, unspeci fied Onset Date:07/26/2019W/U Status:confirmedClinical Status:active I51.9 Diastolic dysfunctio n Onset Date:08/09/2019Modified On:04/03/2022W/U Status:confirmedClinical Status:active E29.1 Hypogonadism Onset Date:08/09/2019W/U Status:confirmedClinical Status:active D35.2 Prolactinoma Onset Date:08/09/2019Modified On:04/03/2022W/U Status:confirmedClinical Status:active * Medical History: C hronic kidney disease, Hypertension, Dyslipidemia, CAD with history of CABG, DJD with history of knee replacement, lumbar laminectomy, History of tonsillectomy allergies to Levaquin and statin. * Medications: T aking Zetia 10 MG Tablet 1 tablet Orally Once a day , Taking Cialis(Tadalafil) 10 MG Tablet 1 tablet as needed Orally Once a day , Taking Testosterone Cypionate 200 MG/ML Solution 1 mL Intramuscular every 2 weeks , Taking Vitamin D3 25 MCG (1000 UT) Capsule 1 capsule Orally Once a day , Taking Tamsulosin HCl 0.4 MG Capsule 1 capsule Orally Once a day , Taking oxyCODONE-Acetaminophen 5-325 MG Tablet 1 tablet as needed Orally every 6 hrs , Taking Multivitamin(Multiple Vitamin) - Tablet 1 tablet Orally Once a day , Taking Losartan Potassium 25 MG Tablet 1 tablet Orally Once a day , Taking Levothyroxine Sodium 150 MCG Tablet 1 tablet in the morning on an empty stomach Orally Once a day , Taking Hydrocortisone 10 MG Tablet 1.5 tablet Orally every morning and 1 tablet at night , Taking Iron (Ferrous Sulfate) 325 (65 Fe) MG Tablet 1 tablet Orally Twice a week , Taking Esomeprazole Magnesium 40 MG Capsule Delayed Release 1 capsule Orally Once a day , Taking Cyclobenzaprine HCl 10 MG Tablet 1 tablet at bedtime as needed Orally Once a day , Taking Chlor-Trimeton 4 MG Tablet 1 tablet as needed Orally every 8 hrs , Taking Atenolol 50 MG Tablet 1 tablet Orally Once a day , Medication List reviewed and reconciled with the patient * Allergies: L evaquin (levofloxacin): unspecified - Allergy, Lipitor (atorvastatin): unspecified - Allergy. Objective: * Vitals: H t (ft'in): 6'0, Ht: 72 in, Wt: 243.8 lbs, BMI: 33.06 Index, BP: 124/60 mm Hg, HR: 52 /min, RR: 18 /min, Wt-k.59 kg, Body Surface Area: 2.37. * Examination: G eneral Examination: General appearance: a lert, pleasant, well-nourished and in no acute distress . Head: n ormocephalic, atraumatic. Eyes: p upils equal, round, reactive to light and accommodation. Ears: n ormal. Throat: c lear. Neck / thyroid: c arotid pulses are normal and without bruits neck is supple, with full range of motion and no cervical lymphadenopathy trachea midline . Skin: s kin is warm and dry, with no rashes, good skin turgor and normal hair distribution with no suspicious skin lesions . Heart: r egular rate and rhythm without murmurs, gallops, clicks or rubs no jugular venous distention . Lungs: c lear to auscultation bilaterally, with good air movement and no rales, rhonchi or wheezes . Chest: c hest wall with no costochondral junction tenderness, no rib deformity and normal shape and expansion . Breasts: n ot examined . Abdomen: s oft with good bowel sounds, nontender, and no masses or hepatosplenomegaly . Extremities: n ormal extremity with no clubbing, cyanosis or edema . Peripheral pulses: n ormal 2+ arterial pulses . Neurologic: n onfocal alert and oriented . Psych: a lert and oriented x 3 . Assessment: * Assessment: 1. C hronic kidney disease, stage 2 (mild) - N18.2 (Primary) 2 . H ypertensive chronic kidney disease with stage 1 through stage 4 chronic kidney disease, or unspecified chronic kidney disease - I12.9 3 . A nalgesic nephropathy - N14.0 4 . Proteinuria, unspecified - R80.9 5 . D iastolic dysfunction - I51.9 ? 6 . H ypogonadism - E29.1 7 . P rolactinoma - D35.2 ? Plan: * Treatment: * Follow Up: 1 1/2 Years * * Electronic signature of JUDI HUERTA MD on 07/19/2025 at 09:14 AM OTOLARYNGOLOGIST Sign off status: Pending * Provider: Brittni Huerta MD Date: 0 02/03/2025 Generated for Chriss carrington/Emmie/Mahi on: 09/18/2024 09:14 AM OTOLARYNGOLOGIST History and Physical Notes * HPI (History of Present Illness) Category Sub-Category Detail Notes Category Not es HPI . 79-year-old with medical history significant for CKD, hypertension, analgesic nephropathy, dyslipidemia, hematuria he is in for follow-up. Since his last visit patient reports he had hematuria and was seen by urology. He has no new complaints besides that. Renal function has improved considerably. Patient is being followed by GI for a pancreatic cyst. If continues to follow with urology for his hematuria and also for his BPH and he supposed to have prostatic artery embolization done soon. For his UTI he was treated with linezolid. I will see him back after a year. . Examination Category Sub-Category Detail Notes Category Not es General Examination General appearance: alert, p leasant, well-nourished and in no acute distress Head: normocephalic, atrau matic Eyes: pupils equal, round, reactive to light and accommodation Ears: normal Throat: clear Neck / thyroid: carotid pulses are n ormal and without bruits neck is supple, with full range of motion and no cervical lymphadenopathy trachea midline Heart: regular rate and rhy thm without murmurs, gallops, clicks or rubs no jugular venous distention Chest: chest wall with no c ostochondral junction tenderness, no rib deformity and normal shape and expansion Lungs: clear to auscultatio n bilaterally, with good air movement and no rales, rhonchi or wheezes Abdomen: soft with good bowel sounds, nontender, and no masses or hepatosplenomegaly Neurologic: nonfocal alert and o riented Skin: skin is warm and dry , with no rashes, good skin turgor and normal hair distribution with no suspicious skin lesions Extremities: normal extremity wit h no clubbing, cyanosis or edema Peripheral pulses: normal 2+ arterial p ulses Breasts: not examined Psych: alert and oriented x 3
--- NOTE | ~2025-07-19 | XR_ITS ---
XR lumbar spine 2-3V Indication: Z98.1 - Arthrodesis status Comparison: None Findings: Posterior fixation S1, L5, L4, L3 and L2 at this prosthesis L2-3. Grade 1 retrolisthesis of L2 on L3. No acute fracture. Moderate to severe loss of disc height throughout. Soft tissues unremarkable Impression: No acute abnormality. Reviewed, dictated and finalized at location P. UITING COORDINATOR Impression: No acute abnormality.
--- OUTSIDE RECORDS SUMMARY | 2025-07-19 09:10 | XMS_ITS | Clinical Summary ---
Author Organization [facility] Address [address] [place] [address] Care Team Providers Care Collaborative Teacher Name Role Phone Dieter Strauss MD Unavailable Onel Sheldon MD Unavailable Adam Boyer MD Unavailable [phone] Sahara Huerta MD Unavailable [phone] Grzegorz Cardenas MD Unavailable Jerry Reynolds MD Unavailable [phone] Krystian Paige MD Unavailable [phone] Cristopher Brian MD Unavailable [phone] Haley Milan Unavailable Jeffry Wilson MD Primary Care Provider [phone] Allergies Active Allergy Reactions Criticality Noted Date Comments Atorvastatin Muscle pain Medium 02/13/2016 Muscle weakness, memeory loss, joint pain Apixaban Hives High 01/28/2023 Levofloxacin Hives,Rash High 08/31/2010 Other reaction(s): Hives Reaction: Hives, , Minocycline Nausea only Low 04/22/2013 Nsaids (Non-Steroidal Anti-Inflammatory Drug) Other (See comments) Low 01/06/2023 Due to kidney function Avhqwdi-Vkl-Rvl Reductase Inhibitors Hives Medium 09/18/2016 Reaction: Hives, [...] taking differently:20 mg oralDaily with dinner, Per Die Engraver and Urologist to stay off for a [...] needed for anxiety (for MRIs) Active vitamins A,C,N-tdbb-inofls (PreserVision AREDS) 2,148 mcg-113 mg-45 mg-17.4mg tablet Take 1 tablet by mouth 2 (two) times a day Eye vitamin 01/22/20 24 Active oxyCODONE-acetami nophen (PERCOCET) 5-325 mg per tabletIndications :Pain Take 1 tablet by mouth 3 (three) times a day as needed for pain 90 tablet 07/18/20 25 025 Active oxyCODONE-acetami nophen (PERCOCET) 5-325 mg per tabletIndications :Pain Take 1 tablet by mouth 3 (three) times a day as needed for pain 90 tablet 08/17/20 25 026 Active oxyCODONE-acetami nophen (PERCOCET) 5-325 mg per tabletIndications :Pain Take 1 tablet by mouth 3 (three) times a day as needed for pain 90 tablet 09/16/19 26 026 Active oxyCODONE-acetami nophen (PERCOCET) 5-325 mg per tabletIndications :Pain Take 1 tablet by mouth 3 (three) times a day as needed for pain 90 tablet 06/18/20 25 025 Discontin ued(Reord er) Active Problems Problem Noted Date Diagnosed Date [...] 08/24/2024 Assessment & Plan (08/24/2024 12:41 PM [place]): Preventive exam; reviewed recommended preventive screenings and vaccinations. Encourage annual flu vaccine. -Up-to-date on screening and vaccinations. VERENA (obstructive sleep apnea) 08/24/2024 Assessment & Plan (08/24/2024 12:42 PM [place]): Has not been able to wear oral appliance for the past few months with recent dental implants. Reports increased fatigued has correlated with timing of not having oral appliance. Is hopeful to have dental work completed in the next month and have new oral appliance made. CMC arthritis 08/18/2024 Calcium pyrophosphate crystal disease 08/06/2024 Assessment & Plan (08/06/2024 12:27 PM [place]): Unable to take nsaids . Prescribed colchicine given recent septic joint. Reviewed signs and symptoms of infection prompting immediate return to the emergency department. Infection of prosthetic left knee joint 05/07/20 Infection of total left knee replacement, initia l encounter 05/03/2024 Persistent atrial fibrillation 02/16/2024 Assessment & Plan (01/30/2025 8:58 AM CDT): As above. Continue surveillance [facility] endocrine for pituitary changes. Assessment & Plan (08/06/2024 12:28 PM [place]): Following with Cardiology, continue Eliquis. Rate controlled. Assessment & Plan (02/16/2024 11:05 AM CDT): EKG repeated today in office showing atrial fibrillation with rate 75. Rate controlled with atenolol. Patient is asymptomatic. He has allergy to Eliquis, will start Xarelto 20 mg daily. Reviewed medication side effects and scheduling and follow-up precautions. Patient to follow-up with his established enginehouse brakeman, Dr. Boyer. Will fax EKG documentation to [...] S Assessment & Plan (08/24/2024 12:45 PM [place]): Encouraged higher protein, lower carb diet. Avoid sweetened beverages. Encourage health diet and regular exercise. Interested in GLP-1 use, no MENS or history of pancreatitis. Discussed concerns with addisons disease and GLP-1. See above Assessment & Plan (02/16/2024 11:05 AM CDT): Reviewed, stable. Situational anxiety 05/26/2023 Assessment & Plan (01/29/2024 [...] 05/26/2023 Assessment & Plan (08/24/2024 12:48 PM [place]): Stable; continue ezetimibe. Assessment & Plan (05/26/2023 12:24 PM CDT): LDL equals 78. Continues zetia 10 mg daily. Patient is unable to take statin medications. 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 Hypothyroid 08/27/2020 Assessment & Plan (08/24/2024 10:24 AM [place]): Levothyroxine 175 mcg daily. Will check TSH/T4 and make changes as needed. Lab Results Component Value Date TSH 1.19 01/29/2024 Assessment & Plan (05/26/2023 12:22 PM CDT): Managed by endocrinology. Assessment & Plan (08/27/2020 2:18 AM [place]): Continue levothyroxine Essential hypertension 08/27/2020 Assessment & Plan (01/29/2024 2:35 PM CDT): Normotensive. Continue atenolol, losartan, amlodipine. Will continue to monitor. Assessment & Plan (05/26/2023 12:24 PM CDT): Blood pressure is well controlled, patient reports he is no longer taking losartan. Continues atenolol 50 mg daily. Assessment & Plan (08/27/2020 2:18 AM [place]): Blood pressure is controlled. Home medications have been resumed with hold parameters. Will continue to monitor. Pneumonia due to COVID-19 virus 08/26/2020 Assessment & Plan (08/27/2020 2:21 AM [place]): He is currently feeling better. Continue remdesivir. Patient is on Solu-Cortef. IV fluids. Continue to monitor. Continuous pulse ox. Will check procalcitonin to rule out bacterial infection. Continue empiric antibiotics for cap for now. longterm (current) use of opiate analgesic 11/2019 Sacroiliitis 02/24/2020 Insomnia secondary to chronic pain 11/04/2019 Myofascial pain syndrome 11/04/2019 Lumbar post-laminectomy syndrome 10/10/2019 Knee pain 09/26/2010 Pinconning disease Assessment & Plan (01/30/2025 8:58 AM CDT): Prednisone stable and will montir repsonse. Assessment & Plan (08/24/2024 12:44 PM [place]): Managed by endocrinology Dr. Sheldon. Continues 25 mg daily of hydrocortisone. Patient interested in use of GLP 1 for weight loss. Would need to check with electrician helper given possible contraindication. Side effects of GI [...] 08/27/2023 Assessment & Plan (08/27/2020 2:18 AM [place]): Patient is on Percocet at home however may need more Tylenol for fevers. Will change Percocet to oxycodone p.r.n. and order Tylenol p.r.n.. Patient is aware of this change. Encounters Date Type Department Care Team Description 07/05/2025 8:47 AM CDT - 07/05/2025 11:59 PM CDT Hospital Encounter [facility] [address] [facility] [address], [address] [place] [address] Negar Gonzales NP watermelon inspector (current) use of opiate analgesic (Primary Dx); Lumbar post-laminectomy syndrome Discharge Disposition: Discharge to home or self care 06/23/2025 Telephone [facility] [address] [address] Jeffry Wilson MD 06/15/2025 Telephone [facility] [address] [address] Jeffry Wilson MD 06/03/2025 [facility]phone [facility] [address] [address] Jeffry Wilson MD 05/31/2025 Orders Only [facility] [address] [place] [address] Scanning, Provider 05/19/2025 Orders Only [facility] [address] [place] [address] Scanning, Provider from Last 3 Months Immunizations Immunization Administration [...] Pneumonia Chronic kidney disease Hypothyroidism Macular degeneration Pinconning disease Family History Medical History Relation Name [...] = 0.6 oz pur e alcohol) rarely C Utilities Answer Date Recorded In the past 12 months has e electric, gas, oil, or water company threatened to shut off services in your [...] 01/10/2025 How often do you attend chur ch or jainism services? Never 01/10/2025 Do you belong to any clubs o r organizations such as jehovah's witness groups, unions, fraternal or athletic groups, or [...] points, staff should administer the PHQ-9) 0 07/05/2025 Hunger Vital Sign Answer Date Recorded Within [...] PHQ-9 Answer Date Recorded PHQ-9 Total Score 3 07/05/2025 Housing Stability Vital Sign Answer Joesph e Recorded In the last 12 months, was t here a time when you were not able to pay the mortgage or rent on time? No 01/10/2025 In the past 12 months, how m any times have you moved where you were living? 0 01/10/2025 At any time in the past 12 m [facility], were you homeless or living in a care home (including now)? No 01/10/2025 Personal Safety Answer Date Recorded Have you ever been in or are you currently in a harmful physical or emotional relationship or is someone making you feel afraid or unsafe? Denies 03/01/2025 Sex and Gender Information Value Date Recorded Sex Assigned at Not on file Legal Sex Male 5:24 PM [place] Gender Identity Not on file Sexual Orientation Not on file Last Filed Vital Signs Vital Sign Reading Time Taken Comments Blood Pressure 118/68 07/05/2025 9:08 AM CDT Pulse 81 07/05/2025 9:08 AM CDT Temperature 36.2 C (97.2 F) 03/01/2025 5:50 PM CDT Respiratory Rate 18 07/05/2025 9:08 AM CDT Oxygen Saturation 99% 07/05/2025 9:08 AM CDT Inhaled Oxygen Concentration - - [...] 08/24/2024, 05/13/2024, Additional history exists Depression Screening 07/05/2026 07/05/2025, 07/05/2025, 04/13/2025, Additional history exists Abdominal Aortic Aneurysm (A AA) Screen Completed 01/12/2021, 03/25/2012 Goals Goal Patient Goal Type Associated Problems Recent Progress Patient-Stated? Author -Pain Behavioral Health On track(10/03 11:12 AM [place]) No Asia Sigala, JIMENA Note: Patient will describe nonpharmacological methods that can be used to supplement, or enhance, pharmacological interventions and help achieve the comfort-function goal. -Pain Behavioral Health On track(10/03 11:12 AM [place]) No Cecy Cummins RN Note: Patient will establish a comfort-function goal and identify the pain level that will allow the patient to perform desired activities and achieve an acceptable quality of life. Medical Devices Implanted Type Area Upholstered Goods Crafter Device Identifier Shelf Expiration Date Model / Serial / Lot [employer] 3086 Octrode 60cm Trial Lead Kit Neurostimulator Sterile Latex Free - [id number] Implanted:Qty: 1 on 12/15/2020 by Dieter Garcia MD at [facility] [employer] 12/15/2021 3086 / / [employer] 3086 Octrode 60cm Trial Lead Kit Neurostimulator Sterile Latex Free - [id number] Implanted:Qty: 1 on 12/15/2020 by Dieter Garcia MD at [facility] [employer] 12/15/2021 3086 / / [employer] Attune L50 Mm Revision Full Coated Knee Sleeve Femoral Porocoat Sterile Latex Free [id number] - [id number] Implanted:Qty: 1 on 01/13/2023 by Dieter Strauss MD at [facility] Left: Knee [employer] 02/12/2031 [id number] / / [id number] [employer] Attune 20mm 60mm Revision Press Fit Knee Stem Femoral Sterile Latex Free [id number] - [id number] Implanted:Qty: 1 on 01/13/2023 by Dieter Strauss MD at [facility] Left: Knee [employer] 08/14/2030 [id number] / / [id number] [employer] Attune Revision Cement Constrain Knee Left 7 Component Femoral Sterile [id number] - [id number] Implanted:Qty: 1 on 01/13/2023 by Dieter Strauss MD at [facility] Left: Knee [employer] 11/12/2032 [id number] / / [id number] [employer] Attune 41mm Cemented Medialize Knee Dome Patellar Aox Sterile [id number] - [id number] Implanted:Qty: 1 on 01/13/2023 by Dieter Strauss MD at [facility] Left: Knee [employer] 06/14/2027 [id number] / / [id number] [employer] Cement Bone Simplex Gentamicin High Viscosity 40 6195-1-001 - [id number] Implanted:Qty: 1 on 01/13/2023 by Dieter Strauss MD at [facility] Left: Knee [employer] 05/15/2024 6195-1-001 / / [id number] [employer] Cement Bone Simplex Gentamicin High Viscosity 40 6195-1-001 - [id number] Implanted:Qty: 1 on 01/13/2023 by Dieter Strauss MD at [facility] Left: Knee [employer] 05/15/2024 6195-1-001 / / [id number] [employer] Attune Cement Revision Rotate Platform Knee 7 Baseplate Tibial Sterile [id number] - [id number] Implanted:Qty: 1 on 01/13/2023 by Dieter Strauss MD at [facility] Left: Knee [employer] 10/15/2032 [id number] / / [id number] [employer] Attune L53 Mm Revision Full Coated Knee Sleeve Tibial Porocoat Sterile Latex Free [id number] - [id number] Implanted:Qty: 1 on 01/13/2023 by Dieter Strauss MD at [facility] Left: Knee [employer] 06/14/2032 [id number] / / [id number] [employer] Attune 20mm 60mm Revision Press Fit Knee Stem Femoral Sterile Latex Free [id number] - [id number] Implanted:Qty: 1 on 01/13/2023 by Dieter Strauss MD at [facility] Left: Knee [employer] 04/14/2032 [id number] / / [id number] [employer] Attune H4 Mm Revision Cement Knee Distal 7 Augment Femoral Sterile Latex Free [id number] - [id number] Implanted:Qty: 1 on 01/13/2023 by Dieter Strauss MD at [facility] Left: Knee [employer] 04/14/2029 [id number] / / [id number] [employer] Attune H4 Mm Revision Cement Knee Distal 7 Augment Femoral Sterile Latex Free [id number] - [id number] Implanted:Qty: 1 on 01/13/2023 by Dieter Strauss MD at [facility] Left: Knee [employer] 07/15/2032 [id number] / / [id number] [employer] Attune 10mm Revision Constrain Rotate Platform Knee 7 Insert [id number] - [id number] Implanted:Qty: 1 on 02/06/2024 by Dieter Strauss MD at [facility] Left: Knee [employer] 01/13/2028 [id number] / / [id number] [employer] Internalbrace Kit Hand Wrist Set Implant Ligament Augmentation Ar-8978-Cp - [id number] Implanted:Qty: 1 on 09/21/2024 by Jaylen Leigh MD at [facility] Left: Thumb [employer] 02/12/2029 AR-8978-CP / / [id number] Explanted Type Area Upholstered Goods Crafter Device Identifier Shelf Expiration Date Model / Serial / Lot [employer] Attune 10mm Revision Constrain Rotate Platform Knee 7 Insert [id number] - [id number] Implanted:Qty: 1 on 01/13/2023 by Dieter Strauss MD at [facility] Explanted:Qty: 1 on 02/06/2024 at [facility] Left: Knee [employer] 04/14/2027 [id number] / / [id number] [employer] Alejandro .062in 9in Style 1 Wire Fixation Stainless Steel 1600-962tns - [id number] Explanted:Qty: 1 on 09/21/2024 at [facility] Left: Thumb [employer] [id number] / / Procedures Procedure Name Priority Date/Time Associated Diagnosis Comments SCAN - LABS 05/31/2025 SCAN - RADIOLOGY/IMAGING 05/31/2025 SCAN - LABS 05/19/2025 from Last 3 Months Results * SCAN - RADIOLOGY/IMAGING (05/31/2025) Anatomical Region Laterality Modality Other us Provider Scanning Final Result * SCAN - LABS (05/31/2025) us Provider Scanning Final Result * SCAN - LABS (05/19/2025) us Provider Scanning Edited Result - Final from Last 3 Months Insurance [facility], [facility] MEDICARE T MEDICARE [employer] MEDICARE Advance Directives For more information, please contact: [phone] * Full Code (Latest Code Status on [...] 4:41 PM 01/14/2023 6:36 PM Care Teams Collaborative Teacher Relationship Specialty Start Date End Date Jeffry Wilson [place] [address] PCP - General Family Medicine 05/13/24 Dieter Strauss MD [address] [place] [address] [address] [place] [address] Surgeon Orthopedic Surgery 01/14/23 [place] [address] [place] [id number] Referring Physician Internal Medicine 05/26/23 Adam Boyer MD [address] [facility] [address] [place] [address] Consulting Physician Cardiology 05/26/23 [place] [address] [place] [address] Consulting Physician Nephrology 05/26/23 Grzegorz Cardenas MD [address] [place] [address] [place] [address] Referring Physician Ophthalmology 05/26/23 Jerry Reynolds MD [facility] [address] [address] Referring Physician Dermatology 05/26/23 Krystian Paige MD [facility] [address] [address] Consulting Physician Neurosurgery 05/26/23 Cristopher Brian MD [address] [address] Consulting Physician Anesthesiology 08/12/23 Haley Milan PA [address] [place] [address] [address] [place] [address] Physician Meter Reader Orthopedic Surgery 02/10/24
--- OUTSIDE RECORDS SUMMARY | 2025-07-19 09:11 | XMS_ITS | Encounter Summary ---
Author Organization [facility] Address 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
--- OUTSIDE RECORDS SUMMARY | 2025-07-19 09:11 | XMS_ITS | Encounter Summary ---
Author Organization [facility] Address [address] [place] [address] Care Team Providers Care Remote Mortgage Underwriter Name Role Phone LuisErrol ho Eze LAND Primary Care Provider [phone] Encounter Details Date Type Department Care Team (Latest Contact Info) Description 05/05/2008 Outpatient Historical HIS 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 Gender Identity Not on file Sexual [...] CDT) RBC 4.26(L) 4.50 - 5.40 M/uL [facility] MCHC 33.7 31.5 - 35.5 % [facility] MCV 91.3 82.0 - 99.0 fL [facility] PLATELETS 229 140 - 350 K/uL [facility] HEMOGLOBIN 13.1(L) 13.6 - 16.5 g/dL [facility] RDW 13.8 11.5 - 14.5 % [facility] WBC 5.6 4.0 - 9.8 K/uL [facility] MCH 30.8 27.2 - 32.6 pg [facility] MPV 10.4 9.3 - 12.4 fL [facility] HEMATOCRIT 38.9(L) 40.0 - 48.0 % [facility] RDW-STDEV 45.3 37.1 - 48.7 fL [facility] MONOCYTE ABSOLUTE 0.43 0.10 - 1.30 K/uL [facility] NEUTROPHILS 65 45 - 70 % [facility] NEUTROPHIL ABSOLUTE 3.61 1.90 - 7.00 K/uL [facility] EOSINOPHILS 3 0 - 7 % [facility] EOSINOPHIL ABSOLUTE 0.17 0.00 - 0.70 K/uL [facility] LYMPHOCYTES 24 16 - 45 % [facility] LYMPHOCYTE ABSOLUTE 1.32 0.70 - 4.50 K/uL [facility] BASOPHILS 1 0 - 2 % [facility] BASOPHILS ABSOLUTE 0.04 0.00 - 0.20 K/uL [facility] MONOCYTES 8 3 - 13 % [facility] Blood specimen (specimen) 05/05/2008 4:32 PM CDT 05/05/2008 5:12 PM CDT us Jaun John MD HEMATOLOGY ORDERABLES Edited INTERFACE SYSTEM Refer to clinic/hospital department [facility] CLIA# [id number] [address] [place] [address] * C-REACTIVE PROTEIN (05/05/2008 4:32 PM CDT) CRP <0.2 0.0 - 0.8 mg/dL [facility] Blood specimen (specimen) 05/05/2008 4:32 PM CDT 05/05/2008 5:11 PM CDT us Jaun John MD CHEMISTRY ORDERABLES Final R esult INTERFACE SYSTEM Refer to clinic/hospital department [facility] CLIA# [id number] [address] [place] [address] documented in this encounter Visit Diagnoses Diagnosis Diverticulitis of colon (without mention of hemorrhage)(562.11) Diverticulitis of colon (without mention of hemorrhage) documented in this encounter Care Teams Remote Mortgage Underwriter Relationship Specialty Start Date End Date Errol Suarez DO [address] [place] [address] PCP - General Internal Medicine 11/10/15 documented as of this encounter
--- OUTSIDE RECORDS SUMMARY | 2025-07-19 09:11 | XMS_ITS | Clinical Summary ---
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 09/23/2024 Active apixaban (ELIQUIS) 5 MG tablet Take 5 mg by mouth in the morning and 5 mg in the evening. 09/23/2024 Active aspirin (ST YVONNE) 81 MG EC tablet Take 81 mg by mouth in the morning. Active carvedilol (COREG) 25 MG tablet Take 25 mg by mouth in the morning and 25 mg in the evening. 09/23/2024 Active cloNIDine (CATAPRES) 0.1 MG tablet Take 0.2 mg by mouth in the morning and 0.2 mg in the evening. 09/23/2024 Active ferrous sulfate 325 (65 Fe) MG tablet Take 325 mg by mouth in the morning. 05/02/2025 Active furosemide (LASIX) 40 MG tablet Take 40 mg by mouth in the morning. 04/26/2025 Active insulin glargine (Lantus SoloStar) 100 UNIT/ML injection Inject 18 Units under the skin in the morning. 02/22/2025 Active levothyroxine (SYNTHROID) 175 MCG tablet Take 175 mcg by mouth 1 (one) time each day 09/23/2024 Active omeprazole (PriLOSEC) [address] capsule Take 20 mg by mouth 1 (one) time each day Active potassium chloride (KLOR-CON M20) 20 MEQ CR tablet Take 20 mEq by mouth in the morning. 04/26/2025 Active SITagliptin (JANUVIA) 25 MG tablet Take 25 mg by mouth in the morning. 09/23/2024 Active Encounters Date Type Department Care Team Description 07/11/2025 11:45 AM EDT Office Visit [facility], [address] [place] [address] Jeane Galeas NP Acute nontraumatic kidney injury, not otherwise specified (Primary Dx); Stage 3b chronic kidney disease; Chronic kidney disease due to hypertension; Chronic kidney disease due to type 2 diabetes mellitus ([facility]) 07/11/2025 Abstract [facility], [address] [place] [address] Amy Torres MA 07/05/2025 Orders Only [facility], [facility] [address] [place] [address] Jeane Galeas NP 05/12/2025 Telephone [facility], [facility] [address] [place] [address] Carmen Wheatley MA 05/10/2025 Telephone [facility], [facility] [address] [place] [address] Carmen Wheatley MA from Last 3 Months Family History Medical History Relation Comments Cancer Father Diabetes Father Alzheimer's disease Mother Relation Status Comments Father Mother Social History Tobacco Use Types Packs/Day Years Used Date Smoking Tobacco: Former Cigarettes Tobacco Cessation:Counseling Given: Not Answered Alcohol Use Standard Drinks/Week Comments Yes 0 (1 standard drink = 0.6 oz pur e alcohol) Sex and Gender Information Value Date Recorded Sex Assigned at Not on file Legal Sex Male 11:44 AM MDT Gender Identity Not on file Sexual Orientation Not on file Last Filed Vital Signs Vital Sign Reading Time Taken Comments Blood Pressure 130/74 07/11/2025 11:54 AM EDT Pulse 68 07/11/2025 11:54 AM EDT Temperature - - Respiratory Rate - - Oxygen Saturation 98% 07/11/2025 11:54 AM EDT Inhaled Oxygen Concentration - - Weight 106 kg (234 lb) 07/11/2025 11:54 AM EDT Height 182.9 cm (6') 07/11/2025 11:54 AM EDT Body Mass Index 31.74 07/11/2025 11:54 AM EDT Plan of Treatment Upcoming Encounters Date Type Department Care Team (Late st Contact Info) Description 09/23/2025 12:30 PM EST Office Visit [facility] [address] [place] [address] Ashley Mann PA [address] [place] [address] Health Maintenance Due Date Last Done Comments Diabetic Foot Exam 1955 Ophthalmology Exam 1955 Pneumococcal PPSV23/PCV13 65 + Years / High and Highest Risk (2 of 4 - PPSV23, PCV20, or PCV21) 01/06/2015 11/11/2014 Influenza Vaccine (#1) 2025 3, 06/15/2012, 06/30/2009 COVID-19 Vaccine ( - 2024-2 6 season) 2025 05/30/2025, 06/07/2024, 11/15/2020, Additional history exists Procedures Procedure Name Priority Date/Time Associated Diagnosis Comments RENAL FUNCTION PANEL Routine 07/05/2025 11:00 AM EDT from Last 3 Months Results * (ABNORMAL) Renal Function Panel (RFP) (07/05/2025 11:00 AM EDT) Glucose, Serum/Plasma 144(H) 70 - 99 mg/dL [facility] 1 Urea nitrogen, Serum/Plasma (BUN) 21 8 - 27 mg/dL [facility] 1 Creatinine, Serum/Plasma 2.37(H) 0.76 - 1.27 mg/dL [facility] 1 Estimated Glomerular Filtration Rate (eGFR) 27(L) >59 mL/min/1.7 3 [facility] 1 Urea nitrogen/Creati nine, Serum/Plasma 9(L) 10 - 24 [facility] 1 Sodium, Serum/Plasma 139 134 - 144 mmol/L [facility] 1 Potassium, Serum/Plasma 4.3 3.5 - 5.2 mmol/L [facility] 1 Chloride, Serum/Plasma 104 96 - 106 mmol/L [facility] 1 Carbon dioxide CO2), total, Serum/Plasma 21 20 - 29 mmol/L [facility] 1 Calcium, Serum/Plasma 9.4 8.6 - 10.2 mg/dL [facility] 1 Phosphate, Serum/Plasma 3.4 2.8 - 4.1 mg/dL [facility] 1 Albumin, Serum/Plasma 4.1 3.8 - 4.8 g/dL [facility] 1 07/05/2025 11:0 0 AM EDT 07/05/2025 Narrative [facility] - 07/06/2025 8:08 AM EDT Performed at: 01 - [facility] [id number] [employer]iche Camera Operator: Dario Machado PhD, Phone: [phone] us Jeane Galeas NP LAB BLOOD ORDERABLES Final Res ult [facility] 1 from Last 3 Months Insurance [employer] MED[employer]ARE [employer]AGE Care Teams 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
--- OUTSIDE RECORDS SUMMARY | 2025-07-19 09:11 | XMS_ITS | Clinical Summary ---
Author Organization [facility] Address [address] [place] [phone] Phone Care Team Providers Care Head Of Data Name Role Phone Errol Suarez DO Primary [...] migh t be different from the original. Clinic Manager- Dr. Ramana Morgan Bobtailer - Dr. 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
--- OUTSIDE RECORDS SUMMARY | 2025-07-19 09:11 | XMS_ITS | Clinical Summary ---
Author Organization [facility] Address [address] [place] [address] Phone Care Team Providers Care Manufacturing Process Technician Name Role Phone ROBERT ORTIZ DO Primary Care Provider [phone] ANGEL D.ROBERT Allred Unavailable [phone] Reason for Visit and Chief Complaint The Chief Complaint is: pt is here with a fever, fatigue,ma,bass,nausea and diarrhea since friday Problems Includes: Problems addressed during this encounter and other active Problems Current Visit Onset Date Resolved Date Provider Conditio n Status Fever [as Symptom] 02/11/2013 SUMMER 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 COMMERCIAL 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 TEACHER-C Inactive Last Documented On 08/30/2021 8:50AM ; [facility] Note: Unchanged Former Smoker 08/31/2012 ARMANDO MAJANO MD Active Last Documented On 08/31/2012 10:22AM ; [facility] Note: Unchanged - quit 21 y/o1 ppd / day for 20 years Past Visits Onset Date Resolved Date Provider Condition Status Adrenal Insufficiency 08/30/2021 SABRINA SUNG COMMERCIAL BAKING TEACHER-C Active Last Documented On 1 8:51AM ; [facility] Dorsopathy Dorsalgia Pain in Thoracic Spine 08/30/2021 STEFANIE SUNG COMMERCIAL BAKING TEACHER -C Active Last Documented On 1 8:50AM ; [facility] Hypopituitarism 08/30/2021 STEFANIE ALLISON ER-LUIS COMMERCIAL BAKING TEACHER-C Active Last Documented On 1 8:52AM ; [facility] Urinary Retention 08/30/2021 STEFANIE E CLONI NGER-HULTZ COMMERCIAL BAKING TEACHER-C Active Last Documented On 1 8:50AM ; [facility] Hypogonadism 08/30/2021 STEFANIE Weber CLONINGER- HULTZ COMMERCIAL BAKING TEACHER-C Active Last Documented On 1 8:54AM ; [facility] Vitamin Deficiency 08/30/2021 STEFANIE Weber CLON DAINELLE-HULTZ COMMERCIAL BAKING TEACHER-C Active Last Documented On 1 8:51AM ; [facility] Anemia 02/15/2019 ROBERT A CRANCER D.O. Act jasbir Last Documented On 02/15/2019 8:38AM ; [facility] Note: -Hgb on 01-12-19 was at 11.6 Other fatigue 01/12/2019 ROBERT A CRANCER D.O. Active Last Documented On 9 9:51AM ; [facility] Gerd 08/17/2018 ROBERT A CRANCER D.O. Act jasbir Last Documented On 8 8:47AM ; [facility] Arthralgia - Knee / Patella / Tibia / Fibula Left 02/20/2018 ROBERT A CRANCER D.O. Active Last Documented On 8 8:55AM ; [facility] Arthralgia - Knee / Patella / Tibia / Fibula Right 02/20/2018 ROBERT A CRANCER D.O. Active Last Documented On 8 8:55AM ; [facility] Low Back Pain 02/20/2018 ROBERT A CRANCER D.O. 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 Is going to Pain Management through his Neuro Surgeon. BENIGN SARAHI PIT[facility] 04/18/2016 ROBERT A CRANCE R D.O. Active Last Documented On 6 3:00PM ; [facility] Hyperlipidemia 12/29/2013 ROBERT A CRANCER D.O. Active Last Documented On 9 9:02AM ; [facility] Note: Overview: Overview: 08/28 Choleste rol 185 HDL 45 LDL 122 triglyceride 89, normal TSH/CMP x glucose 21866/13 Cholesterol 185 HDL 34 LDL 100 triglyceride 2542/16 Cholesterol 106 HDL 27 LDL 54 triglyceride 1278/15 Cholesterol 135 HDL 36 LDL 64 triglyceride 174, AST 25 ALT 30 glucose 64887/14 Cholesterol 185 HDL 45 LDL 122 triglyceride 89, normal TSH/CMP x glucose 43093/13 Cholesterol 185 HDL 34 LDL 100 triglyceride 254 Hypertension Systemic 11/08/2013 ROBERTBAUMANNC ER D.O. Active Last Documented On 7 10:33AM ; [facility] Male Erectile Disorder 04/22/2013 LESGERTRUDE R A CRANCER D.O. Active Last Documented On 1 8:44AM ; [facility] Note: Unchanged Hypothyroidism 03/03/2013 ARMANDO MIJARES MD Active Last Documented On 3 4:54PM ; [facility] Note: Unchanged Cardiovascular Symptoms 03/03/2013 TIANA SUNG COMMERCIAL BAKING TEACHER-C Active Last Documented On 1 9:16AM ; [facility] Note: Unchanged - Has occl. palpitations . He was evaluated several yrs ago by a featheredger and reducer machine for frequent PABs but the work up was negative for any ischaemic heart disease.He denies any chest pains or dyspnoea. Chest Pain NOS 10/28/2012 ROBERT A CRAN CER D.O. Active Last Documented On 6 9:02AM ; [facility] Note: Overview: 11/17 stress nuclear: an terior ischemia, normal EF11/17 cath: LV 120/15, EF 60%, normal coronaries10/21 stress EKG 5:30--89% maximal heart rate, PVCs, no EKG ischemia, (nuclear report not known) CARDIAC DYSRHYTHMIAS NEC 10/27/2012 LES TER A CRANCER D.O. 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 Active Last Documented On 6 9:02AM ; [facility] Note: Overview: 09/19 CT: mild eccentric aortic atherosclerosis10/26 echo: EF 60%, mild LAE, probable Chiari/eustachian valve remnant, PA 41, aortic root 40 mm, ascending aorta 39 mm, arch 38 mm, 3 cusp AV7/ CT: fusiform thoracic aortic ectasia up to 38 mm in distal aortic arch, no AAA09/27 echo: EF 55-60%, grade 1 DD, mild TR, PA 29, aortic root 43 mm, ascending aorta 40 mm, 3 cusp AV2/ echo: EF 60-65%, mild-moderate LVH, diastolic dysfunction with increased LA pressure, mild LAE, mild TR, PA 40, 3 cusp AV, aorta: 44 mm root, 39 mm ascending, 35 mm arch01/26 CT abd: atherosclerotic abd aorta without aneurysm11/27 echo: EF 65-70%, normal diastolic function, 3 cusp AV, aortic root 39 mm, ascending aorta grossly normal, arch images inadequate, mild MAC, mild TR, PA 333/16 echo: EF 55%, mild LVE/RVE/MAYRA, mild MR, mild-moderate TR, RV 37, aortic root 45 mm, ascending aorta 40 mm3/16 CTA chest: 40 mm aorta at SOV, 38 mm ascending aorta, 41 mm proximal descending aorta Essential Hypertriglyceridemia 08/31/2012 MICHAEL MIJARES MD Active Last Documented On 2 10:22AM ; [facility] Note: Unchanged Epididymitis 08/10/2012 ARMANDO MIJARES MD Ac tive Last Documented On 2 3:47PM ; [facility] Note: Unchanged History of Arthritis 08/10/2012 ARMANDO MARIE MD Active Last Documented On 2 3:47PM ; [facility] Note: Unchanged History of Reported Hx of Kn ee Replacement 08/10/2012 ARMANDO MIJARES MD Active Last Documented On 2 3:47PM ; [facility] Note: Unchanged - Lt. 01/2001 and revisio n 07/2001Rt. knee 10/2001 PREMATURE BEATS NEC 10/10/2010 ROBERT ORTIZ D.O. Active Last Documented On 6 10:12AM ; [facility] Plan of Treatment - Return to the clinic if condition worsens or new symptoms arise - Last Documented On 01/22/2024 9:01AM ; [facility] Rapid strep test positive. Rapid Covid-19 and flu test negative today. 1. Increase water intake. 2. Get plenty of rest. 3. Take antibiotic as directed, even if/when you start to feel better. 4. May use salt water gargles, OTC Chloraseptic spray, or throat lozenges to help with symptoms. 5. Change mouth care products, such as your tooth brush, 24-48 hours after starting antibiotic to help prevent re-infection. 6. Illness is spread via droplet contact. It is important to avoid sharing eating utensils and drinking cups to prevent the spread of infection. 7. Patient may return to school/work after being on antibiotic therapy for 24 hours. 8. Patient voiced understanding to the teaching. - Last Documented On 01/22/2024 9:01AM ; [facility] Assessments Includes: Assessments from this encounter Findings - Group A streptococcus: B hemolytic pharyngitis - Last Documented On 01/22/2024 9:01AM ; [facility] - Acute pharyngitis - Last Documented On 01/22/2024 9:01AM ; [facility] Medical Equipment - Implanted Devices Includes: Current Devices No Medical Equipment Recorded Medications Includes: Medications discussed during this encounter and other current Medications Discontinued / Stopped on this date ADOLPH RIOS on 01/11/2022 Oseltamivir Phosphate 75 MG Oral Capsule Provider: ADOLPH RIOS Diagnosis: Contact w and ex posure to [facility] viral communicable diseases Last Documented On 4 8:37AM By FERN WALLACE ; [facility] Cefuroxime Axetil 500 MG Oral Tablet Prov ider: ADOLPH RIOS Diagnosis: Acute cough Last Documented On 4 8:37AM By FERN WALLACE ; [facility] Cyclobenzaprine HCl 10 MG Oral Tablet Pro vider: Diagnosis: Last Documented On 4 8:37AM By FERN WALLACE ; [facility] Ferrous Sulfate 325 (65 Fe) MG Oral Tablet Provider: Diagnosis: Last Documented On 4 8:39AM By FERN WALLACE ; [facility] New / Renewed during this visit DANIELLA ORTA APRN-CHANCELLOR on 01/22/2024 Cephalexin 500 MG Oral Capsule Provider: DANIELLA GREENWOOD BACK SEAM STITCHER 10 day supply: 20 capsule, 0 refills Diagnosis: Acute pharyngitis, unspecified take 1 capsule twice daily f or ten days Pharmacy: [address], [phone] - Last Documented On 4 9:15AM By Daniella Orta APRN, CNP ; [facility] Current Medications (continue as prescribed) Aspirin 81 MG Oral Tablet Delayed Release 01/22/2024 Provider: Diagnosis: Last Documented On 4 8:42AM By FERN WALLACE ; [facility] PreserVision AREDS Oral Tablet 01/22/2024 Provider: Diagnosis: Last Documented On 4 8:41AM By FERN WALLACE ; [facility] Ezetimibe 10 MG Oral Tablet 01/22/2024 Provider: Diagnosis: Last Documented On 4 8:40AM By FERN WALLACE ; [facility] Vitamin D3 250 MCG (82430 UT) Oral Capsule 024 Provider: Diagnosis: Last Documented On 4 8:42AM By FERN WALLACE ; [facility] Esomeprazole Magnesium 40 MG Oral Capsule Delayed Release 02/19/2023 Provider: ROBERT Pal Diagnosis: Gastro-esophagea l reflux disease without esophagitis TAKE 1 CAPSULE BY MOUTH BILL COLLINS FOR APPT. Last Documented On 02/19/2023 10:41AM By JUSTIN WALLACE ; [facility] oxyCODONE-Acetaminophen 5-325 MG Oral Tablet 2 Provider: Diagnosis: Last Documented On 2 11:25AM By CIRA WALLACE ; [facility] Tamsulosin HCl 0.4 MG Oral Capsule 10/16/2021 Provid er: Diagnosis: Last Documented On 2 11:27AM By CIRA WALLACE ; [facility] Atenolol 25 MG Oral Tablet 09/06/2021 Provider: Diagnosis: Last Documented On 9:11AM By Stefanie FONTAINE-C ; [facility] Testosterone Cypionate 200 MG/ML Intramuscular Solutio n 08/17/2021 Provider: Diagnosis: 1 ml intramuscular every 2 weeks on Friday, Dr. Sheldon Last Documented On 9:03AM By CIRA WALLACE ; [facility] Sildenafil Citrate 100 MG Oral Tablet 07/18/2021 Provider: ROBERT Pal Diagnosis: Male erectile dy sfunction, unspecified qd prn Last Documented On 2 11:25AM By CIRA WALLACE ; [facility] Cabergoline 0.5 MG Oral Tablet 06/12/2021 Provider: Diagnosis: Dr. Sheldon, On Friday Last Documented On 8:57AM By CIRA WALLACE ; [facility] Levothyroxine Sodium 175 MCG Oral Tablet 06/03/2021 Provider: Diagnosis: Dr. Sheldon Last Documented On 9:04AM By CIRA WALLACE ; [facility] Hydrocortisone 20MG Oral Tablet 08/17/2018 Provider: Diagnosis: Take 15 mg in the am and 10 mg in the pm, Dr. Rm norman Last Documented On 8 8:37AM By CIRA WALLACE ; [facility] Centrum Silver 50+Men Oral Tablet 03/19/2017 Provide r: Diagnosis: Last Documented On 03/19/2017 10:25AM By RANULFO WALLACE ; [facility] Medications Administered Includes: Administered Medications from this encounter No Administered Medications Recorded Vital Signs Includes: Vital Signs from this encounter Vital Name 01/22/2024 08:37A Blood Pressure Sitting (mmHg) 120/64 Pulse Rate-Sitting (bpm) 82 Temp-Oral (F) 98.2 Height (in) 72.82354 Weight (lb) 233 Body Mass Index 31.6 Body Surface Area 2.3 Oxygen Saturation (%) 98 Last Documented: On 01/22/2024 8:43AM ; [facility] Results Includes: Results discussed during this encounter Group A strep [facility] Ordered by DANIELLA ORTA APRN-CHANCELLOR on 05/2024 Collected: Reported: 01/22/2024 08:59 Last Documented On 4 8:59AM ; [facility] Reviewed by DANIELLA REDDING RN-CHANCELLOR on 01/22/2024; All test results are final unless otherwise noted. Rapid Strep pos A (Abnormal) Last Documented On 4 8:58AM ; [facility] LOT # AND EXP. DATE [id number] N (Normal) Last Documented On 4 8:58AM ; [facility] INT. QC ACCEPTABLE? yes N (Normal) Last Documented On 4 8:58AM ; [facility] SARS COVID-19 FLU A & B [facility] Ordered by DANIELLA ORTA DIAMOND POLISHER-CHANCELLOR on 05/2024 Collected: Reported: 01/22/2024 08:47 Last Documented On 4 8:59AM ; [facility] Reviewed by DANIELLA REDDING RN-CHANCELLOR on 01/22/2024; All test results are final unless otherwise noted. COVID neg N (Normal) Last Documented On 4 8:47AM ; [facility] INFLUENZA A neg (Negative) N (Normal) Last Documented On 4 8:47AM ; [facility] INFLUENZA B neg (negative) N (Normal) Last Documented On 4 8:47AM ; [facility] INT. QC ACCEPTABLE? yes N (Normal) Last Documented On 4 8:47AM ; [facility] LOT # & EXP. DATE [id number] N (Normal) Last Documented On 4 8:47AM ; [facility] History of Present Illness Includes: History of Present Illness from this encounter HPI JARET SORIA is a 78 year old male. - Allergy list reviewed - Medication list reviewed - Not feeling fine - Feeling tired - Fever - No chills - Headache - No sinus pain - No neck pain - No neck stiffness - No swollen glands in the neck - No eye symptoms - Hoarseness - Sore throat constantly - Triggered by swallowing - No ear symptoms - No nasal discharge - No nasal passage blockage (stuffiness) - No excessive drooling - No chest pain or discomfort - No dyspnea - No cough - Decreased appetite - Nausea - Diarrhea - No heartburn - No abdominal pain Jaret is a 78-year-old male who presents to the [facility] with fever (tmax 102F), fatigue, muscle aches, headache, nausea, and diarrhea x 3 days. Social History Description Last Updated Former smoker 01/22/2024 Last Documented On 4 9:01AM ; [facility] Smoking Status Unknown Procedures and Surgical History Includes: Procedures from this encounter Procedures Code Diagnosis Performing Provider Service L ocation Service Date Pt to use prescription as ordered. Purpose of and use of medication discussed.~ Last Documented On 4 8:57AM ; [facility] Pt to use OTC fever/pain product as need ed per product instruction.~ Last Documented On 4 8:57AM ; [facility] use of tobacco assessment performed 1000F Last Documented On 4 8:57AM ; [facility] review of medications documented 1160F Last Documented On 4 8:43AM ; [facility] Clinical summary provided to patient Last Documented On 4 8:57AM ; [facility] Medical History Includes: Medical History addressed during this encounter No Medical History Recorded Family History Includes: Family History addressed during this encounter No Family History Recorded Review of Systems Includes: Review of Systems from this encounter Systemic: Feeling poorly (malaise) and fever. No chills. Head: Headache. No sinus pain. Neck: No neck pain, no neck stiffness, and no lump or swelling in the neck. Eyes: No itching of the eyes and no eye pain. Otolaryngeal: No earache and no nasal discharge. Hoarseness and sore throat. Cardiovascular: No chest pain or discomfort. Pulmonary: No dyspnea and no cough. Gastrointestinal: No dysphagia, no nausea, and no vomiting. Abdominal pain and diarrhea. Skin: No rash. Mental Status Includes: Mental Status from this encounter No Mental Status Recorded Functional Status Includes: Functional Status from this encounter No Functional Status Recorded Physical Exam Includes: Physical Exam from this encounter Allergies Includes: Active Allergies Substance Type Reaction Onset Date Resolved Date Statu s Sulfamethoxazole-TMP DS Allergy 10/27/2014 Active Last Documented On 4 8:42AM ; [facility] Sulfa Antibiotics Allergy Skin Rashes / Eruption of skin, Hives / Urticaria 04/22/2013 Active Last Documented On 4 8:42AM ; [facility] Statins Allergy Memory and muscle loss 09/18/2016 Active Last Documented On 4 8:42AM ; [facility] Minocycline HCl Allergy nausea/headache 04/22/2013 Active Last Documented On 4 8:42AM ; [facility] Levaquin Allergy Skin Rashes / Er uption of skin, Hives / Urticaria 12/24/2011 Active Last Documented On 4 8:42AM ; [facility] Encounters Encounter Provider Location Date Check-In Time Check-Out Time Diagnosis COVID SICK VISIT- ESTABLISHED PATIENT DANIELLA Boy YOU DIAMOND POLISHER-CHANCELLOR [facility] 01/22/20 24 8:28AM 9:02AM Pharyngitis Streptococcus, Group A: Beta Hemolytic,Phar yngitis Acute Insurance Includes: Active Insurance Policies Plan Name Member ID Group # Subscriber Relationship Effect jasbir Dates 1 - AET [id number] JARET SORIA Self Clinical Notes Includes: Clinical Notes from this encounter * Progress note Date Encounter Last Documented by 01/22/2024 COVID SICK VISIT- ESTABLISHED PA ALEKSANDRA Last documented on 01/22/2024; 9:01 AM, DANIELLA ORTA DIAMOND POLISHER-CHANCELLOR; [facility] Chief Complaint The Chief Complaint is: Pt is here with a fever, fatigue,ma,bass,nausea and diarrhea since friday. History of Present Illness JARET SORIA is a 78 year old male. - Allergy list reviewed - Medication list reviewed - Not feeling fine - Feeling tired - Fever - No chills - Headache - No sinus pain - No neck pain - No neck stiffness - No swollen glands in the neck - No eye symptoms - Hoarseness - Sore throat constantly - Triggered by swallowing - No ear symptoms - No nasal discharge - No nasal passage blockage (stuffiness) - No excessive drooling - No chest pain or discomfort - No dyspnea - No cough - Decreased appetite - Nausea - Diarrhea - No heartburn - No abdominal pain Jaret is a 78-year-old male who presents to the [facility] with fever (tmax 102F), fatigue, muscle aches, headache, nausea, and diarrhea x 3 days. Social History Tobacco use: Former smoker. Review Of Systems Systemic: Feeling poorly (malaise) and fever. No chills. Head: Headache. No sinus pain. Neck: No neck pain, no neck stiffness, and no lump or swelling in the neck. Eyes: No itching of the eyes and no eye pain. Otolaryngeal: No earache and no nasal discharge. Hoarseness and sore throat. Cardiovascular: No chest pain or discomfort. Pulmonary: No dyspnea and no cough. Gastrointestinal: No dysphagia, no nausea, and no vomiting. Abdominal pain and diarrhea. Skin: No rash. Physical Findings - Vitals taken 01/22/2024 08:37 am BP-Sitting 120/64 mmHg Pulse Rate-Sitting 82 bpm Temp-Oral 98.2 F Height 72.008 in Weight 233 lbs Body Mass Index 31.6 kg/m2 Body Surface Area 2.3 m2 Oxygen Saturation 98 % General Appearance: - Awake. - Alert. - Well nourished. Eyes: General/bilateral: Pupils: - PERRLA. Ears: Right Ear: Tympanic Membrane: - Normal. - Not erythematous. Left Ear: Tympanic Membrane: - Normal. - Not erythematous. Nose: General/bilateral: Discharge: - No nasal discharge. Sinus Tenderness: - No sinus tenderness. Pharynx: Oropharynx: - Tonsils showed abnormalities. - Tonsils were enlarged. - Tonsils showed an exudate. - Inflamed. Lymph Nodes: - No adenopathy. - No tender lymph nodes. Lungs: - Clear to auscultation. Cardiovascular: Heart Rate And Rhythm: - Normal. Abdomen: Auscultation: - Bowel sounds were normal. Skin: - Normal. - Texture was normal. - Color and pigmentation were normal. - Mucous membranes were not dry. Tests - Test: SARS COVID-19 FLU A & B Report Date: 01/22/2024 COVID neg Normal INFLUENZA A neg Normal INFLUENZA B neg Normal INT. QC ACCEPTABLE? yes Normal LOT # & EXP. DATE [id number] Normal - Test: Group A strep Report Date: 01/22/2024 Rapid Strep pos Abnormal LOT # AND EXP. DATE [id number] Normal INT. QC ACCEPTABLE? yes Normal Assessment - Group A streptococcus: B hemolytic pharyngitis - Acute pharyngitis Therapy - Clinical summary provided to patient. Pt to use prescription as ordered. Purpose of and use of medication discussed. . Pt to use OTC fever/pain product as needed per product instruction. . Plan StartCited - Acute pharyngitis, unspecified In office procedures/*Clia Waived Labs: Rapid Strep Test, SARS COVID-19 + flu A & B test Cephalexin 500 MG capsule take 1 capsule twice daily for ten days, 10 days, 0 refills EndCited - Return to the clinic if condition worsens or new symptoms arise Rapid strep test positive. Rapid Covid-19 and flu test negative today. 1. Increase water intake. 2. Get plenty of rest. 3. Take antibiotic as directed, even if/when you start to feel better. 4. May use salt water gargles, OTC Chloraseptic spray, or throat lozenges to help with symptoms. 5. Change mouth care products, such as your tooth brush, 24-48 hours after starting antibiotic to help prevent re-infection. 6. Illness is spread via droplet contact. It is important to avoid sharing eating utensils and drinking cups to prevent the spread of infection. 7. Patient may return to school/work after being on antibiotic therapy for 24 hours. 8. Patient voiced understanding to the teaching. Practice Management Use of tobacco assessment performed Review of medications documented.
--- OUTSIDE RECORDS SUMMARY | 2025-07-19 09:11 | XMS_ITS | Encounter Summary ---
Author Organization [facility] Address 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
--- OUTSIDE RECORDS SUMMARY | 2025-07-19 09:11 | XMS_ITS | Patient Health Record ---
Author Organization [facility] Address [facility] [place] [address] Care Team Providers Care Front Office Clerk Name Role Phone Christian Brown MD Primary Care Provider UnavailNATALIE Strickland [phone] Allergies No Known Allergies Reason For Referral No Information Medications Medication SIG (Take, Route, Frequency, Duration) Notes Start Date End Date Status Insulin Glargine Act jasbir Lysine Active Insulin Lispro Activ e Osteo Bi-Flex Joint Shield Active [place] 5-325 MG Tablet 1 tablet as needed Orally every 6 hrs for Post-Operative Pain; Duration: 7 days 04/28/2019 Not-Taking/PRN Nystatin Active Nephro-Mallory Active Lidocaine Pain Relief Active Super B Complex Acti ve Glucophage 1000 MG Tablet 1 tablet with a meal Orally Once a day Active Sitagliptin-Simvastatin Active HYDROcodone-Acetaminophen 5-325 MG Tablet 1 tablet as needed Orally every 6 hrs for Post-Operative Pain; Duration: 3 days 06/07/2021 Not-Taking/PRN Polyethylene Glycol Active HYDROcodone-Acetaminophen 5-325 MG Tablet 1 tablet as needed Orally every 6 hrs for Post-Operative Pain; Duration: 3 days 06/07/2021 Not-Taking/PRN Pantoprazole Sodium Active [place] 5-325 MG Tablet 1 tablet as needed Orally every 6 hrs for Post-Operative Pain; Duration: 3 days 01/31/2020 Not-Taking/PRN Aspir-81 Active Apixaban Active Acetaminophen Active amLODIPine Besylate Active cloNIDine HCl Active Cholecalciferol Acti ve Carvedilol Active Atorvastatin Calcium Active Exenatide Active Docusate Sodium Acti ve Cyanocobalamin Activ e Colchicine Active Immunizations Vaccine Route Administration Date Status Comme nts Pneumococcal Unknown 05/20/2018 Administered Social History Social History Social History Social Info Question Answer Notes Recreational Drug Use: Do you use recreational drugs? No [patient portal] Exercise: Do you currently exercise? Yes [ patient portal] How often? Weekly [patient portal] Flu Vaccine: Have you had a flu s hot since the most recent May 16? Yes [patient portal] Have you had a flu vaccine between June 15 - December 13? Yes [patient portal] Date of last flu shot: [patient portal] Caffeine: Do you consume caffeine? Yes [pa tient portal] How often? Daily [patient portal] Smoking Status: Are you a: Former Smoker How long ago did you quit? More than 10 years ago Alcohol: How often did you bass ve a drink containing alcohol in the past year? 2 to 3 times a week (3 points) [patient portal] How many drinks did you have on a typical day when you were drinking in the past year? 1 or 2 drinks (0 points) [patient portal] How often did you have 6 or more drinks on one occasion in the past year? never (0 points) [patient portal] Do you consume alcoholic beverages? Yes [patient portal] How Often? Daily [patient portal] Pneumonia Vaccine: Is the patient over age 65? Yes [patient portal] Has the patient ever had a pneumonia vaccine? Yes [patient portal] Date of last pneumonia vaccine: 05/2018 [patient portal] Problems Problem Type SNOMED Code ICD Code Onset Dates Problem Status W/U Status Risk Notes Problem Essential hypertension (64077968) Essential (primary) hypertension (I10) Active confirmed Problem Nondisplaced fracture of trapezium [larger multangular], left wrist, subsequent encounter for fracture with routine healing (S62.175D) Active confirmed Problem Closed fracture of trapezium bone of wrist (33067493) Closed nondisplaced fracture of trapezium of left wrist, initial encounter (S62.175A) Active confirmed Problem Localized, primary osteoarthritis of the hand (076722623) Arthritis of carpometacarpal (CMC) joint of left thumb (M18.12) Active confirmed Problem Type II diabetes mellitus without complication (028756027) Diabetes mellitus without complication (E11.9) Active confirmed Plan Of Treatment No Information Insurance Providers Payer Name Payer Address Payer Phone Subscriber Number Group Number Insured Name Patient Relationship to Insured Coverage Start Date Coverage End Date [employer] PPO [address] [place] [phone] [id number] Chirag Machuca Jr Self - patient is the insured Medical (General) History Medical History History ICD Code Arthritis : Yes Diabetes: Yes High Blood Pressure: Yes Thyroid Problem: Yes Afib Kidney Disease Hyperlipidemia Hypertension Hypothyroidism Digital mucous cyst of finger of left bass nd M67.442 Trigger ring finger of right hand M65.34 1 Trigger index finger of left hand M65.32 2 Pain in joints of right hand M25.541 Pain in joints of left hand M25.542 Trigger finger, right middle finger M65. 331 Surgical History Surgery Date(Month/Year) Open Heart 2006 Hernia 2002 Right shoulder repair 2009 Trigger repair 2017 Lt ring Trigger release 09/23/18 Trigger release, LIF & RRF 02/01/2020 Right Middle Finger Trigger Finger Relea se 06/07/21
--- OUTSIDE RECORDS SUMMARY | 2025-07-19 09:11 | XMS_ITS | Encounter Summary ---
Author Organization [facility] Address 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 Gender Identity Not on file Sexual Orientation Not on file documented as of this encounter Plan of Treatment Not on file documented as of this encounter Procedures Procedure Name Priority Date/Time Associated Diagnosis Comments PATHOLOGY Routine 02/04/2008 11:15 AM CDT documented in this encounter Results * PATHOLOGY (02/04/2008 11:15 AM CDT) FINAL REPORT [address] [address] Patient: CHIRAG MACHUCA : 1945 Procedure Date: 02/04/2008 Accession Date: 02/04/2008 Case No: [id number] Ordering Dr: JAUN JOHN Case types AW, BW, FW, NW and SH are performed by [facility] [place], [place], [place] SURGICAL PATHOLOGY & NON-GYNECOLOGIC CYTOPATHOLOGY REPORT [...] Microscopic: The slides are labeled Chirag Machuca, [id number]. The biopsy from the right colon, and [...] on filedocumented in this encounter Care Teams Doughnut Machine Operator Helper Relationship Specialty Start Date End Date Errol Suarez DO [address] [place] [id number] PCP - General Internal Medicine 11/10/15 documented as of this encounter
--- OUTSIDE RECORDS SUMMARY | 2025-07-19 09:11 | XMS_ITS | Encounter Summary ---
Author Organization [facility] Address 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
--- OUTSIDE RECORDS SUMMARY | 2025-07-19 09:11 | XMS_ITS | Data Portability ---
Author Organization [place] [facility] RentShare, autoContract Address [address] [place] [address] Care Team Providers Care Fire Investigator Name Role Phone JAVI BROWN Primary Care Provider JAVI BROWN Referring Provider DEE GR Cost And Sales Record Supervisor Assessment Encounter Date Assessment Date Assessment LastModified by Organization Details LastModified Time 03/13/2023 03/13/2023 Patient presents with recent history of stroke with dysarthria, left hemiplegia, difficulty with memory over the past 2 months. Is receiving PT, OT, speech therapy and nursing bath aide. Is having improvement with rehabilitation. Has been evaluated by cardiology and told that the stroke was not due to heart his heart however as the infarcts are bilateral, it is most likely embolic. Encouraged to continue his aspirin and Eliquis, continue on the 20 mg of Crestor. Sed rate was not evaluated and will order to evaluate for vasculitis. We will monitor carotid artery stenosis in 6 months with ultrasound. Referral placed for physiatry to assist in patient's rehabilitation. Dimitri Hawkins PA-C The major issue here is mechanism of stroke. Patient with paroxysmal A-fib, anticoagulated, on antiplatelet therapy, all also noted to have significant atherosclerosis in the aortic arch [though CATHI discusses descending.] Statistically the multiple infarcts were related to paroxysmal A-fib regardless of not observing A-fib on patient's admission. There has been some discussion in the notes regarding a vascular surgery assessment to address the aortic arch, though I am not aware generally excepted surgical solution here. Patient may benefit from assessment by the stroke service/neurovascu lar team if there is consideration of further optimizing anticoagulation/an tiplatelet therapy. marques Not available 03/14/2023 15:30:06 Plan of Treatment Reminders Order Date Submit Date Provider Last Modified By Organization Details Last Modified Time Details Appointments None recorded. Lab erythrocyt e sedimentat ion rate, QN, blood 2022 023 [place] [facility], [address], [place], [address], 3 13:57:04 Referral physical medicine and rehabilita tion referral 2022 023 ELI Yee MD, [address] [facility], [place], [address], 3 17:45:19 Procedures None recorded. Surgeries None recorded. Imaging US, duplex, carotid artery 2022 023 [place] Internal Orders Only - [facility], [address], [place], [address], 4 05:01:27 Medication Orders None recorded. Patient TargetsNo targets recorded. Patient Instructions Encounter Date Encounter Id Patient Instructions Last Modified By Organization Details Last Modified Time 03/13/2023 [id number] Preceptor: Yuan Powell MD At the time of this visit I personally reviewed this clinical encounter with the SHUTTLE INSPECTOR/PA. I personally interviewed and evaluated the patient at the time of the encounter and I agree with the examination findings as documented. I have further reviewed the history, exam, medication list, progress note and assessment, and I agree with the plan of care as documented with no exceptions. MD marques Stark Not available 03/14/2023 15:30:39 Reason for Referral Physical Medicine And Rehabi litation Referral for Cerebrovascular accident Referring Physician: Yuan Powell Neurology, Encounter Date: 03/13/2023 Results Created Date Observation Date Name Description Value Unit Range Abnormal Flag Note LastModifiedBy Organization Detail LastModifiedTime 07/22/20 23 07/21/2023 US, duple x, carot id arter y No observ ation record ed. [email or web address] Internal Orders Only - [facility] [address] [place], [address], 08/02/2023 13:28:14 Result Notes None recorded. Problems Name Problem SNOMED Code Status Onset Date Resolution Date Notes Provider Name and Address Organization Details Recorded Time Cerebrovasc ular accident 562050068 Active 2022 Martín Dargantes null, [place] [facility] 13:42:47 Paroxysmal atrial fibrillatio n 917600521 Active 2022 Martín Dargantes null, [place] [facility] 13:43:15 Atrial septal defect 86507018 Active 2022 Martín Dargantes null, [place] [facility] 3 13:43:19 Type 2 diabetes mellitus 69066120 Active 2022 Martín Dargantes null, [place] [facility] 13:43:25 Hypertensiv e disorder 48339715 Active 2022 Martín Dargantes null, [place] [facility] 13:43:30 Mixed hyperlipide dayna due to type 2 diabetes mellitus 699568777936 Active 2022 Martín Dargantes null, [place] [facility] 3 13:43:41 Gastroesoph ageal reflux disease 998696488 Active 2022 Martín Dargantes null, [place] [facility] 3 13:43:49 Acquired trigger finger 6304511 Active 2022 Martín Dargantes null, [place] [facility] 3 13:43:59 Acquired hypothyroid ism 285061186 Active 2022 Martín Dargantes null, [place] [facility] 3 13:44:06 Pain of knee region 4866362271 Active 2022 Martín Dargantes null, [place] [facility] 13:44:24 Problem Notes None recorded. Procedures Surgical History Date Name Laterality Status Provider Name and Address Organization Details Recorded Time release of trigger finger completed Bren Erickson [place] [facility] 03/13/2023 13:19:24 total knee replacement completed Bren Erickson [place] [facility] 03/13/2023 13:19:38 open heart surgery completed Bren Erickson [facility] 03/13/2023 13:19:46 hernia repair completed Bren Erickson [facility] 03/13/2023 13:19:51 Imaging Results None recorded. Procedure Notes None recorded. Medical Equipment None Reported. Allergies No known drug allergies Medications Name Sig Start Date Stop Date Status Note LastModified by Organization Details LastModified Time carvedilol 25 mg tablet take 1 tablet by mouth twice a day WITH MEALS active Not Available Not Available No t Available clonidine HCl 0.1 mg tablet TAKE 2 TABLETS BY MOUTH TWICE A DAY active Not Available Not Available No t Available carvedilol 12.5 mg tablet 03/13 completed Not Available Not Available Not Available glipizide ER 10 mg tablet, extended release 24 hr 03/13 completed Not Available Not Available Not Available dofetilide 125 mcg capsule TAKE 1 CAPSULE BY MOUTH EVERY MORNING AND BEFORE BEDTIME 03/13 completed Not Available Not Available Not Available amlodipine 5 mg tablet 03/13 completed Not Available Not Available Not Available aspirin 81 mg tablet,sulaiman yed release take 1 tablet by mouth once daily AFTER BREAKFAST active Not Available Not Available No t Available triamcinolo ne acetonide 0.1 % topical cream APPLY TWICE A DAY FOR 2-3 WEEKS TO CHEEKS,NE CK,AND BEHIND LEFT EAR active Not Available Not Available No t Available amoxicillin 500 mg tablet take 4 tablets by mouth 1 hour prior to dental appointme nt active Not Available Not Available No t Available Synthroid 175 mcg tablet active Not Available Not Available Not Available OneTouch Ultra Test strips use 1 TEST STRIP to TEST BLOOD SUGAR before meals and at bedtime 03/13 completed Not Available Not Available Not Available meclizine 25 mg tablet take 1 tablet by mouth three times a day NEEDED FOR DIZZINESS 03/13 completed Not Available Not Available Not Available amlodipine 10 mg tablet take 1 tablet by mouth once daily active Not Available Not Available No t Available benzonatate 100 mg capsule take 1 capsule by mouth three times a day if needed for cough 03/13 completed Not Available Not Available Not Available cephalexin 500 mg capsule TAKE 1 CAPSULE BY MOUTH IN THE MORNING AND AT BEDTIME FOR 7 DAYS 03/13 completed Not Available Not Available Not Available simvastatin 20 mg tablet 03/13 completed Not Available Not Available Not Available metformin 1,000 mg tablet 03/13 completed Not Available Not Available Not Available docusate sodium 100 mg capsule take 1 capsule by mouth once daily NEEDED FOR CONSTIPAT ION active Not Available Not Available No t Available omeprazole 20 mg capsule,del ayed release active Not Available Not Available Not Available codeine 10 mg-guaifene sin 100 mg/5 mL oral liquid take 5 millilite rs (1 TEASPOONF UL) by mouth every 4 hours if needed for cough 03/13 completed Not Available Not Available Not Available scopolamine 1 mg over 3 days transdermal patch apply 1 patch BEHIND EAR every 72 hours as directed 03/13 completed Not Available Not Available Not Available lisinopril 40 mg tablet 03/13 completed Not Available Not Available Not Available dofetilide 500 mcg capsule active Not Available Not Available Not Available cyclobenzap rine 5 mg tablet take 1 tablet by mouth three times a day if needed for muscle spasm active Not Available Not Available No t Available rosuvastati n 20 mg tablet take 1 tablet by mouth at bedtime active Not Available Not Available No t Available rosuvastati n 40 mg tablet active Not Available Not Available Not Available BD Ultra-Fine Mini Pen Needle 31 gauge x 16 active Not Available Not Available Not Available Byetta 10 mcg/dose(25 0 mcg/mL)2.4 mL subcutaneou s pen injector active Not Available Not Available Not Available Vitamin D3 active Not Available Not Av ailable Not Available Vitamin B12 active Not Available Not A vailable Not Available Januvia 25 mg tablet active Not Available Not Available No t Available Januvia 100 mg tablet active Not Available Not Available No t Available Lantus Solostar U-100 Insulin 100 unit/mL (3 mL) subcutaneou s pen INJECT 10 UNITS SUBCUTANE OUS AT BEDTIME active Not Available Not Available No t Available Humalog KwikPen (U-100) Insulin 100 unit/mL subcutaneou s inject PER SLIDING SCALE four times a day with meals and at bedti... (REFER TO PRESCRIPT ION NOTES). active Not Available Not Available No t Available diclofenac 1 % topical gel apply 4 grams to affected area four times a day NEEDED FOR PAIN active Not Available Not Available No t Available blood pressure test kit-medium cuff 03/13 completed Not Available Not Available Not Available Eliquis 5 mg tablet active Not Available Not Available No t Available Lidocaine Pain Relief 4 % topical patch APPLY 1 PATCH EVERY AM active Not Available Not Available No t Available BD Nedra 2nd Gen Pen Needle 32 gauge x active Not Available Not Available Not Available OneTouch Ultra2 Meter use as directed 03/13 completed Not Available Not Available Not Available FreeStyle Mimi 2 Sensor kit active Not Available Not Available N ot Available FreeStyle Mimi 2 [place] 03/13 completed Not Available Not Available Not Available Lagevrio 200 mg capsule (EUA) take 4 capsules by mouth every 12 hours for 5 days 03/13 completed Not Available Not Available Not Available Vitals Date Recorded Body height Body mass index (BMI) Body weight Respiratory rate Heart rate Systolic And Diastolic Provider Name and Address Organization Details Last Updated DateTime 182.88 cm 33.9 kg/m2 848301. 09 g 15 /min 82 /min 117/73 mm[Hg] Bren Erickson [place] - [facility] 13:18:40 Social History Question Answer Notes LastModified by Organizat ion Details LastModified Time Tobacco Smoking Status Former Smoker Bren mcgovern [place] - [facility] 03/13/2023 13:09:46 Do You Have An Advance Directive? Yes [email or web address] Information not available 03/13/2023 What Is Your Level Of Caffeine Consumption? None [email or web address] Information not available 03/13/2023 What Is The Highest Grade Or Level Of School You Have Completed Or The Highest Degree You Have Received? [id number] [email or web address] Information not available 03/13/2023 Highest Educational Level Doctorate - Graduate [email or web address] Information not available 03/13/2023 ? Yes [email or web address] Information no t available 03/13/2023 What Was The Date Of Your Most Recent Tobacco Screening? 03/13/2023 Information not available 03/12/2023 Has Tobacco Cessation Counseling Been Provided? Yes Information not available 03/12/2023 On What Date Was Tobacco Cessation Counseling Provided? 03/13/2023 Information not available 03/12/2023 Sex: Unknown Functional Status Question Answer Note LastModified by Organizat ion Details LastModified Time Do you use any illicit or recreational drugs? No Information not available 03/13/2023 Do you or have you ever used any other forms of tobacco or nicotine? No Information not available 03/13/2023 What is your level of alcohol consumption? Occasional Information not available 03/13/2023 Mental Status None recorded. Family History Relationship Description Onset Age of this Age Resolved Age Notes LastModified by Organization Details LastModified Time Father Family history of malignant neoplasm [email or web address] Not available 03/13 13:09:14 Father Diabetes mellitus [email or web address] Not available 03/13 13:09:21 Father Hypercholest erolemia [email or web address] Not available 03/13 13:09:31 Mother Dementia [email or web address] Not availab le 03/13/2023 13:09:36 Medical History Condition Response Heart Problems Y Reflux/ulcers N Parkinson's Disease N Hospitalizations N Migraines N Depression N Lung Disease N Brain Tumors N Multiple Sclerosis N Spine Problems N Diabetes (note if ocular/renal/spot cleaner) Y Anxiety Disorder N Seizures/Epilepsy N Hyperlipidemia Y Cancer N Dementia N Stroke N Epilepsy/Seizures N anemia N Aneurysm N Hypertension Y Osteoporosis N Kidney Disease N Immunizations Vaccine Type Date Status Note Provider Nam e and Address Organization Details Recorded Time SARS-COV-2 (COVID-19) vaccine, UNSPECIFIED 1 completed Bren [email or web address] [place] - [facility] 03/13/2023 13:08:55 SARS-COV-2 (COVID-19) vaccine, UNSPECIFIED 1 completed Bren mcgovern [place] - [facility] 03/13/2023 13:09:00 SARS-COV-2 (COVID-19) vaccine, UNSPECIFIED 1 tr mcgovern [place] - [facility] 03/13/2023 13:09:05 Past Encounters Encounter ID Performer Location Encounter Start Date Encounter Closed Date Diagnosis/Indication Diagnosis SNOMED-CT Code Diagnosis ICD10 Code Diagnosis IMO Codes Diagnosis Note [id number] Yuan matthews MD [facility] [address] [place] [phone] 03/13/2023 12:44:55 03/13/2023 14:41:18 Cerebrovascular accident 625487568 I63.9 MRI demonstrat ed multiple acute infarcts of the bifrontal doran radiata, right posterior internal capsule Hypertensive disorder 38 054638 I10 Mixed hype rlipidemia due to type 2 diabetes mellitus 2565251661 03 E78.2 Paroxysmal atrial fibrillation 684360498 I48.0 on eliquis Bilateral stenosis of carotid arteries 994880357 I65.23 moderate per CTA December 2022 Left hemiplegia 07447997 8 G81.90 Impaired cognition 22270 6002 R41.89 Likely due to recent stroke. Baseline MoCA today of Health Concerns Section Related Observation LastModified by Organization Detai ls LastModified Time None Recorded Concern Status LastModified by Organization Details LastModified Time None Recorded Advance Directives Directive Y: Payers Insurance Date Sequence Insurance Name Policy Number Policy Rodriguez Covered Member ID Rodriguez Member ID Guarantor Name 07/18/2023 1 [employer] (MEDICARE REPLACEMENT/ ADVANTAGE - PPO) [id number] Chirag Machuca [id number] Chirag Machuca Notes Date Note Type Note Provider Name and Address Organization Details Recorded Time 03/13/2023 text/html NDX 1. Chief complaintReported by PatientChief complaint:For referring doc: (include supvisor if spot cleaner/pa), patient reportsreferred:dr. javi brown. For reason for visit, (cva). For patient accompanied by, (-conor). For brief story (nursing notes), (pt. is here for a cva referral. pt. had a stroke on 01/06/23. pt. has not driven since the stroke. pt.'s states she has noticed some memory loss, and has gotten better since the initial stroke, but she is still concerned. pt. is now in an electric wheelchair since the stroke, was not in it prior.). Patient presents as referral from family physician. He suffered a stroke at the end of December Slurred speech, left arm and leg weakness, and difficulty with memory. He was admitted to the hospital and then received rehab at [facility]. He has been home for about a month and is receiving PT, OT, speech, a nurse and a bath aide. They feel as though they are having good support with that, but physical therapy does run out soon. They have seen cardiology who did not believe that the stroke was from his heart. He does have history of paroxysmal A-fib and is on Eliquis and aspirin. For short time in the hospital he was on Eliquis and Plavix, that but was switched back to Eliquis and aspirin in rehab. His simvastatin was switched to rosuvastatin 20 mg. is wondering if they should increase this. Also wondering if aspirin should be increased. Cardiology electrophysiology wanted thoughts from neurology about seeing a vascular surgeon. No new numbness, weakness or incoordination.Dimitri Hawkins PA-C Database: Ref for CVAEmergency(01/17/2023) Eval for Acute CVA, slurred speechMRI brain does show multiple acute and subacute areas of infarction. I spoke with Dr. Collazo with stroke neurology who would recommend an echo and does not want to change patient's antiplatelet therapy at this time as he is already on Eliquis and likely a fall risk and thus does not want to increase the risk of bleeding.CT HEAD WITHOUT CONTRAST (01/17/2023 ) 1. No acute intracranial hemorrhage, large territorial infarction, or mass.2. No evidence for hydrocephalusPCP(Javi Brown MD:02/20/2023) Cerebrovascular accident (CVA), Type 2 diabetes mellitus without complication,Left hemiplegiaHospital Encounter (01/06/2023 - 01/10/2023 ) Left-sided weaknessXR CHEST PA OR AP AND LATERAL (STANDARD) (01/28/2023 ) Lower right hilar mild prominence most likely from central vascular prominence which could be seen with pulmonary arterial hypertension.MRI BRAIN WITHOUT CONTRAST (01/17/2023 )1. There are multiple small areas of acute or subacute infarct2. Findings suggestive of advanced chronic white matter small vessel ischemic diseaseDiffusion weighted imaging demonstrated small area restricted diffusion in the right thalamus, consistent with acute or subacute lacunar infarct. There are additional areas of restricted diffusion in the periventricular regions involving the white matter, as well as in the periventricular region in the right occipital lobe, consistent with additional areas of acute or subacute ischemia/infarct. No large vascular territory cortical infarct seen CTA HEAD AND NECK STROKE ALERT (01/06/2023 )1. Patent intracranial arteries with no stenoses.2. Moderate carotid atherosclerosis with no measurable internal carotid artery stenosis.3. Patent vertebral arteries with moderate stenosis in the V2 right vertebral artery due to extrinsic compression by hypertrophic facet arthropathy. CTA head:The bilateral anterior, middle and posterior cerebral arteries are patent with no stenosis. There is a patent anterior communicating artery. The posterior communicating artery is patent on the right side and not visualized on the left side. The basilar artery is patent with no stenosis.CTA neck:Aortic arch and great vessels:Moderate calcific plaque is in the aortic arch and great vessels with no significant subclavian or innominate artery stenosis.Right carotid:Moderate calcified and noncalcified plaque is in the right common carotid artery extending into the proximal external and internal carotid arteries with no measurable internal carotid artery stenosis.There is vessel tortuosity of both internal carotid arteries and moderate calcified plaque in the cavernous segments of both internal carotid arteries causing no high-grade stenosis.Left carotid:Moderate scattered calcified plaque is in the common carotid artery and external carotid artery origin causing mild external carotid artery stenosis. Punctate plaque in the proximal left internal carotid artery causes no stenosis.Vertebral:The vertebral arteries are patent with no high-grade stenoses. There is moderate stenosis in the V2 segment of the right vertebral artery due to extrinsic compression by hypertrophic facet arthropathy. The distal right vertebral artery is obscured by beam hardening artifact from dental amalgam and bone. Calcified plaque at the origin of the right vertebral artery causes mild stenosis.Cardiology( Dee Gr MD - 02/24/2023 ) there is many reasons why the patient could have had strokes which are not related to the cardiac things that were dealing with at the moment.CATHI, 02/18/2023: Moderate to severe atheromatous disease of the descending aorta Mild mitral regurgitation Negative PFO by bubble study No evidence of left atrial or left atrial appendage thrombusSM:03/12/2023 Yuan Powell MD [address] [facility],[address], [place], [address], [facility] [place] [facility] 03/14/2023 15:31:04
--- OUTSIDE RECORDS SUMMARY | 2025-07-19 09:11 | XMS_ITS | Encounter Summary ---
Author Organization [facility] Address 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
--- OUTSIDE RECORDS SUMMARY | 2025-07-19 09:12 | XMS_ITS | Patient Health Record ---
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 Problem Chronic kidney disease stage 2 (058464083) Chronic kidney disease, stage 2 (mild) (N18.2) 9 Active confirmed Problem Proteinuria (11627469) Proteinuria, unspecified (R80.9) 9 Active confirmed Problem Diastolic dysfunction (6491320) Diastolic dysfunction (I51.9) 9 Active confirmed Problem Hypogonadism (75972521) Hypogonadism (E29.1) 9 Active confirmed Problem Prolactinoma (99582721) Prolactinoma (D35.2) 9 Active confirmed Vital Signs Heart Rate 52 /min 02/03/2025 Respiratory Rate 18 /min 02/03/2025 Blood pressure diastolic 60 mm Hg 02/03/2025 Weight-kg 110.59 kg 02/03/2025 Height 72 in 02/03/2025 Blood pressure systolic 124 mm Hg 02/03/2025 Weight 243.8 lbs 02/03/2025 BMI 33.06 kg/m2 02/03/2025 Encounters Encounter Location Date Provider Diagnosis [address] [address] 02/03/2025 JACINTA MENDEZ Chronic kidney disease, stage 2 (mild) N18.2 ; Hypertensive chronic kidney disease with stage 1 through stage 4 chronic kidney disease, or unspecified chronic kidney disease I12.9 ; Analgesic nephropathy N14.0 ; Proteinuria, unspecified R80.9 ; Diastolic dysfunction I51.9 ; Hypogonadism E29.1 and Prolactinoma D35.[address] [address] 07/29/2024 JACINTA MENDEZ Chronic kidney disease, stage [...] Provider Name:JACINTA MENDEZ , 08/02/2026 10:00:00 AM, [id number], [address], Insurance Providers Payer Name Payer Address Payer Phone Subscriber Number Group Number Insured Name Patient Relationship to Insured Coverage Start Date Coverage End Date [employer] [facility] MEDIC[employer] PPO [address] [place] [phone] [id number] JARET SORIA Self - patient is the insured Medical (General) History Medical History History ICD Code Chronic kidney disease Hypertension Dyslipidemia 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
--- OUTSIDE RECORDS SUMMARY | 2025-07-19 09:13 | XMS_ITS | Clinical Summary ---
Author Organization [facility] Address [address] [place] [address] Phone Care Team Providers Care Web Marketing Strategist Name Role Phone ROBERT ORTIZ DO Primary Care Provider [phone] ANGEL D.ROBERT Allred Unavailable [phone] Reason for Visit and Chief Complaint The Chief Complaint is: pt c/o fever, muscle aches, headache, sore throat, great granddaughter had strep, has been taking tylenol and percocet to control fever, s/s started last night Problems Includes: Problems addressed during this encounter and other active Problems Current Visit Onset Date Resolved Date Provider Conditio n Status Fever [as Symptom] 02/11/2013 SUMMER SUNG AUDIO VISUAL ARTS DIRECTOR-C Inactive Last Documented On 08/30/2021 8:50AM ; [facility] Note: Unchanged Former Smoker 08/31/2012 ARMANDO MAJANO MD Active Last Documented On 08/31/2012 10:22AM ; [facility] Note: Unchanged - quit 21 y/o1 ppd / day for 20 years History of Arthritis 08/10/2012 ARMANDO MIJARES MD Active Last Documented On 08/10/2012 3:47PM ; [facility] Note: Unchanged History of Reported Hx of Knee Replacement 08/10/2012 ARMANDO MIJARES MD Active Last Documented On 08/10/2012 3:47PM ; [facility] Note: Unchanged - Lt. 01/2001 and revisio n 07/2001Rt. knee 10/2001 Past Visits Onset Date Resolved Date Provider Condition Status Adrenal Insufficiency 08/30/2021 SABRINA SUNG AUDIO VISUAL ARTS DIRECTOR-C Active Last Documented On 8:51AM ; [facility] Dorsopathy Dorsalgia Pain in Thoracic Spine 08/30/2021 STEFANIE E CLONINGER-HULTZ AUDIO VISUAL ARTS DIRECTOR -C Active Last Documented On 1 8:50AM ; [facility] Hypopituitarism 08/30/2021 STEFANIE E CLONING ER-HULTZ AUDIO VISUAL ARTS DIRECTOR-C Active Last Documented On 1 8:52AM ; [facility] Urinary Retention 08/30/2021 STEFANIE E CLONI NGER-HULTZ AUDIO VISUAL ARTS DIRECTOR-C Active Last Documented On 1 8:50AM ; [facility] Hypogonadism 08/30/2021 STEFANIE E CLONINGER- HULTZ AUDIO VISUAL ARTS DIRECTOR-C Active Last Documented On 1 8:54AM ; [facility] Vitamin Deficiency 08/30/2021 STEFANIE E CLON DANIELLE-HULTZ AUDIO VISUAL ARTS DIRECTOR-C Active Last Documented On 1 8:51AM ; [facility] Anemia 02/15/2019 ROBERT A CRANCER D.O. Act jasbir Last Documented On 02/15/2019 8:38AM ; [facility] Note: -Hgb on 01-12-19 was at 11.6 Other fatigue 01/12/2019 ROBERT A CRANCER D.O. Active Last Documented On 9 9:51AM ; [facility] Gerd 08/17/2018 ROBERT A CRANCER D.O. Act jasbir Last Documented On 8 8:47AM ; [facility] Arthralgia - Knee / Patella / Tibia / Fibula Left 02/20/2018 ROBERT A CRANCER D.O. Active Last Documented On 8 8:55AM ; [facility] Arthralgia - Knee / Patella / Tibia / Fibula Right 02/20/2018 ROBERT A CRANCER D.O. Active Last Documented On 8 8:55AM ; [facility] Low Back Pain 02/20/2018 ROBERT A CRANCER D.O. 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 Is going to Pain Management through his Neuro Surgeon. [facility] 04/18/2016 ROBERT FREY R D.O. Active Last Documented On 6 3:00PM ; [facility] Hyperlipidemia 12/29/2013 ROBERT RICHCER D.O. Active Last Documented On 9 9:02AM ; [facility] Note: Overview: Overview: 08/28 Choleste rol 185 HDL 45 LDL 122 triglyceride 89, normal TSH/CMP x glucose 70906/13 Cholesterol 185 HDL 34 LDL 100 triglyceride 2542/16 Cholesterol 106 HDL 27 LDL 54 triglyceride 1278/15 Cholesterol 135 HDL 36 LDL 64 triglyceride 174, AST 25 ALT 30 glucose 91290/14 Cholesterol 185 HDL 45 LDL 122 triglyceride 89, normal TSH/CMP x glucose 14411/13 Cholesterol 185 HDL 34 LDL 100 triglyceride 254 Hypertension Systemic 11/08/2013 ROBERT JOHNSTON ER D.O. Active Last Documented On 7 10:33AM ; [facility] Male Erectile Disorder 04/22/2013 ANKUR Loo CRANCER D.O. Active Last Documented On 1 8:44AM ; [facility] Note: Unchanged Hypothyroidism 03/03/2013 ARMANDO MIJARES MD Active Last Documented On 3 4:54PM ; [facility] Note: Unchanged Cardiovascular Symptoms 03/03/2013 TIANA SUNG AUDIO VISUAL ARTS DIRECTOR-C Active Last Documented On 1 9:16AM ; [facility] Note: Unchanged - Has occl. palpitations . He was evaluated several yrs ago by a security representative for frequent PABs but the work up was negative for any ischaemic heart disease.He denies any chest pains or dyspnoea. Chest Pain NOS 10/28/2012 ROBERT A CRAN CER D.O. Active Last Documented On 6 9:02AM ; [facility] Note: Overview: 11/17 stress nuclear: an terior ischemia, normal EF11/17 cath: LV 120/15, EF 60%, normal coronaries10/21 stress EKG 5:30--89% maximal heart rate, PVCs, no EKG ischemia, (nuclear report not known) CARDIAC DYSRHYTHMIAS NEC 10/27/2012 NIRALI KOCH CRANCER D.O. Active Last Documented On 6 10:12AM ; [facility] Note: Overview: Overview: 10/27 Holter: S R at 63, range 48-103, rare PACs, no PVCs, 4 atrial triplets, fastest 1294/15 TSH 0.42 Thoracic Aortic Ectasia 10/27/2012 SUSIE ORTIZ D.O. Active Last Documented On 6 9:02AM ; [facility] Note: Overview: 09/19 CT: mild eccentric aortic atherosclerosis10/26 echo: EF 60%, mild LAE, probable Chiari/eustachian valve remnant, PA 41, aortic root 40 mm, ascending aorta 39 mm, arch 38 mm, 3 cusp AV03/26 CT: fusiform thoracic aortic ectasia up to 38 mm in distal aortic arch, no AAA09/27 echo: EF 55-60%, grade 1 DD, mild TR, PA 29, aortic root 43 mm, ascending aorta 40 mm, 3 cusp AV10/29 echo: EF 60-65%, mild-moderate LVH, diastolic dysfunction [...] Active Last Documented On 2 10:22AM ; [facility] Note: Unchanged Epididymitis 08/10/2012 ARMANDO MIJARES MD Ac tive Last Documented On 2 3:47PM ; [facility] Note: Unchanged PREMATURE BEATS NEC 10/10/2010 ROBERT ORTIZ D.O. Active Last Documented On 6 10:12AM ; [facility] Plan of Treatment - Return to the clinic if condition worsens or new symptoms arise - Last Documented On 01/14/2022 12:57PM ; [facility] - Patient will call for appointment as needed - Last Documented On 01/14/2022 12:57PM ; [facility] Instructions to patient Instructions for patient Last Documented On 2 12:55PM ; [facility] Assessments Includes: Assessments from this encounter Findings - Acute upper respiratory infection - Last Documented On 01/14/2022 12:57PM ; [facility] Instructions Includes: Instructions from this encounter Instructions to patient Instructions for patient Last Documented On 2 12:55PM ; [facility] Medical Equipment - Implanted Devices Includes: Current Devices No Medical Equipment Recorded Medications Includes: Medications discussed during this encounter and other current Medications New / Renewed during this visit ADOLPH RIOS on 01/11/2022 Oseltamivir Phosphate 75 MG Oral Capsule Provider: ADOLPH RIOS 5 day supply: 10 capsule, 0 refills Diagnosis: Contact w and exposure to ot viral communicable diseases 1 CAPSULE TWO TIMES A DAY Pharmacy: [address], [phone] - Last Documented On 4 8:37AM By FERN WALLACE ; [facility] Cefuroxime Axetil 500 MG Oral Tablet Provider: ADOLPH RIOS 15 day supply: 30 tablet, 0 refills Diagnosis: Acute cough One tablet twice a day Pharmacy: [address], [phone] - Last Documented On 4 8:37AM By FERN WALLACE ; [facility] Current Medications (continue as prescribed) Aspirin 81 MG Oral Tablet Delayed Release 01/22/2024 Provider: Diagnosis: Last Documented On 4 8:42AM By FERN WALLACE ; [facility] PreserVision AREDS Oral Tablet 01/22/2024 Provider: Diagnosis: Last Documented On 4 8:41AM By FERN WALLACE ; [facility] Ezetimibe 10 MG Oral Tablet 01/22/2024 Provider: Diagnosis: Last Documented On 4 8:40AM By FERN WALLACE ; [facility] Vitamin D3 250 MCG (00870 UT) Oral Capsule 024 Provider: Diagnosis: Last Documented On 4 8:42AM By FERN WALLACE ; [facility] Esomeprazole Magnesium 40 MG Oral Capsule Delayed Release 02/19/2023 Provider: ROBERT Pal Diagnosis: Gastro-esophagea l reflux disease without esophagitis TAKE 1 CAPSULE BY MOUTH BILL COLLINS FOR APPT. Last Documented On 02/19/2023 10:41AM By JUSTIN MARI Eze ; [facility] oxyCODONE-Acetaminophen 5-325 MG Oral Tablet Provider: Diagnosis: Last Documented On 2 11:25AM By CIRA WALLACE ; [facility] Tamsulosin HCl 0.4 MG Oral Capsule 10/16/2021 Provid er: Diagnosis: Last Documented On 2 11:27AM By CIRA WALLACE ; [facility] Atenolol 25 MG Oral Tablet 09/06/2021 Provider: Diagnosis: Last Documented On 9:11AM By Stefanie BARCENAS ; [facility] Testosterone Cypionate 200 MG/ML Intramuscular Solutio n 08/17/2021 Provider: Diagnosis: 1 ml intramuscular every 2 weeks on Friday, Dr. Sheldon Last Documented On 1 9:03AM By CIRA VIGIL Eze ; [facility] Sildenafil Citrate 100 MG Oral Tablet 07/18/2021 Provider: ROBERT Pal Diagnosis: Male erectile dy sfunction, unspecified qd prn Last Documented On 2 11:25AM By CIRA WALLACE ; [facility] Cabergoline 0.5 MG Oral Tablet 06/12/2021 Provider: Diagnosis: Dr. Sheldon, On Friday Last Documented On 8:57AM By CIRA WALLACE ; [facility] Levothyroxine Sodium 175 MCG Oral Tablet 06/03/2021 Provider: Diagnosis: Dr. Sheldon Last Documented On 1 9:04AM By CIRA WALLACE ; [facility] Hydrocortisone 20MG Oral Tablet 08/17/2018 Provider: Diagnosis: Take 15 mg in the am and 10 mg in the pm, Dr. Rm norman Last Documented On 8 8:37AM By CIRA WALLACE ; [facility] Centrum Silver 50+Men Oral Tablet 03/19/2017 Provide r: Diagnosis: Last Documented On 03/19/2017 10:25AM By RANULFO WALLACE ; [facility] Past Medications on file Cephalexin 500 MG Oral Capsule 01/22/2024 - 02/01/2024 Provider: DANIELLA REEVES Diagnosis: Acute pharyngiti s, unspecified take 1 capsule twice daily for ten days Last Documented On 4 9:15AM By Daniella Cornejo APRN, CNP ; [facility] Amoxicillin-Pot Clavulanate 875-125 MG Oral Tablet 08/31/2022 - 09/07/2022 Provider: ATIYA RIVERA Diagnosis: Urinary tract infection, site not specified One tablet twice a day Last Documented On 2 2:20PM By Renee RIOS ; [facility] Medications Administered Includes: Administered Medications from this encounter No Administered Medications Recorded Vital Signs Includes: Vital Signs from this encounter Vital Name 01/11/2022 02:46P Pulse Rate-Sitting (bpm) 87 Respiration Rate (breaths/min) 20 Temp-Oral (F) 98.3 Height (in) 72.62820 Weight (lb) 230 Body Mass Index (kg/m2) 31.2 Body Surface Area (m2) 2.3 Oxygen Saturation (%) 95 Last Documented: On 01/11/2022 2:48PM ; [facility] Results Includes: Results discussed during this encounter No Results Recorded For Specified Dates History of Present Illness Includes: History of Present Illness from this encounter CRICKET SORIA is a 76 year old male. - Allergy list reviewed - Medication list reviewed - Fever - Chills - Duration of symptoms - Previously well - Headache associated with head congestion - No sinus pain - No sinus pressure - No swollen glands in the neck - No itching of the eyes - No discharge from the eyes - Nasal discharge - Nasal passage blockage (stuffiness) - Sore throat - No earache - The ears do not feel pressured - The ears do not feel full - No discharge from the ears - No postnasal drip - No sneezing - No itchy throat - No chest pain or discomfort - No palpitations - Cough - Not feeling congested in the chest - No dyspnea - No wheezing - No rash pt to clinic for above symptoms x 2 days was exposed to influenza A Social History Description Last Updated Former smoker quit 21 y/o ~1 ppd cigaret magdalena/ day for 20 years 01/22/2024 Last Documented On 2 2:45PM ; [facility] Alcohol 05/16/2015 Last Documented On 2 2:45PM ; [facility] 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 Last Documented On 2 2:45PM ; [facility] Cigarettes 01/01/2012 Last Documented On 2 2:45PM ; [facility] Currently 01/01/2012 Last Documented On 2 2:45PM ; [facility] Smoking Status Unknown Procedures and Surgical History Includes: Procedures from this encounter Procedures Code Diagnosis Performing Provider Service L ocation Service Date plan of care reviewed and agreed to by the patient Last Documented On 2 12:55PM ; [facility] use of tobacco assessment performed 1000F Last Documented On 2 2:46PM ; [facility] Patient verbalizes understanding Last Documented On 2 12:55PM ; [facility] Increase fluids Last Documented On 2 12:55PM ; [facility] Clinical summary provided to patient Last Documented On 2 12:55PM ; [facility] Surgical History Last Updated History of cholecystectomy 10/02/15 - Lap aroscopic for Biliary Diskinesia 10/02/2015 Last Documented On 2 2:45PM ; [facility] History of cataract surgery 01/01/2012 Last Documented On 2 2:45PM ; [facility] History of hemorrhoidectomy 1995 & 2000 01/01/2012 Last Documented On 2 2:45PM ; [facility] Knee replacement Lt. 01/2001 and revision 07/2001 ~Rt. knee 10/200101/01/2012 Last Documented On 2 2:45PM ; [facility] Medical History Includes: Medical History addressed during this encounter Description Last Updated No Contact with and (Suspected) exposure to COVID-19 01/11/2022 Last Documented On 2 12:57PM ; [facility] No fall 01/11/2022 Last Documented On 2 12:57PM ; [facility] cataracts 12/1999 and 05/2003 ~carpal tunnel 11/2002 ~nose ( septal reconstruction) 11/2006 ~hand surgery (ligament reconstruction w/tendon interposition0 09/06/2021 Last Documented On 2 2:45PM ; [facility] Currently wearing eyeglasses 09/06/2021 Last Documented On 2 2:45PM ; [facility] History of arthritis 09/06/2021 Last Documented On 2 2:45PM ; [facility] History of systemic hypertension 021 Last Documented On 2 2:45PM ; [facility] Reported cardiovascular symptoms 021 Last Documented On 2 2:45PM ; [facility] Surgery CATARACT SURGERY, KN EE REPLACEMENT , LRTI RIGHT HAND 2006, TURP 2012, CTS 2000 09/06/2021 Last Documented On 2 2:45PM ; [facility] Family History Includes: Family History addressed during this encounter Description Last Updated Family history unchanged 11/30/2018 Last Documented On 2 2:45PM ; [facility] Family history reviewed - unchanged [facility] e last visit 12/11/2015 Last Documented On 2 2:45PM ; [facility] Maternal history of cancer Bone 10/25/19 16 Last Documented On 2 2:45PM ; [facility] Maternal history of thyroid disorder gra ndmother 10/25/2015 Last Documented On 2 2:45PM ; [facility] Paternal history of thyroid disorder gra ndmother 10/25/2015 Last Documented On 2 2:45PM ; [facility] Family history of cancer 01/01/2012 Last Documented On 2 2:45PM ; [facility] Father 01/01/2012 Last Documented On 2 2:45PM ; [facility] Father at age 64 =liver cancer 12/14 Last Documented On 2 2:45PM ; [facility] Mother 01/01/2012 Last Documented On 2 2:45PM ; [facility] Mother at age 85= multiple myeloma 01/01/2012 Last Documented On 2 2:45PM ; [facility] Review of Systems Includes: Review of Systems from this encounter Systemic: Fatigue, fever, and chills. No edema. Head: Headache. Otolaryngeal: Sore throat. Cardiovascular: No chest pain or discomfort. Pulmonary: No shortness of breath. Cough. Musculoskeletal: Muscle aches. Neurological: No dizziness. Mental Status Includes: Mental Status from this encounter Description Oriented to time, place, and person Functional Status Includes: Functional Status from this encounter No Functional Status Recorded Physical Exam Includes: Physical Exam from this encounter Allergies Includes: Active Allergies Substance Type Reaction Onset Date Resolved Date Statu s Sulfamethoxazole-TMP DS Allergy 10/27/2014 Active Last Documented On 4 8:42AM ; [facility] Sulfa Antibiotics Allergy Skin Rashes / Eruption of skin, Hives / Urticaria 04/22/2013 Active Last Documented On 4 8:42AM ; [facility] Statins Allergy Memory and muscle loss 09/18/2016 Active Last Documented On 4 8:42AM ; [facility] Minocycline HCl Allergy nausea/headache 04/22/2013 Active Last Documented On 4 8:42AM ; [facility] Levaquin Allergy Skin Rashes / Er uption of skin, Hives / Urticaria 12/24/2011 Active Last Documented On 4 8:42AM ; [facility] Encounters Encounter Provider Location Date Check-In Time Check-Out Time Diagnosis COVID SICK VISIT- ESTABLISHED PATIENT ADOLPH PIZARRO AUDIO VISUAL ARTS DIRECTOR-[facility] 01/12/20 22 2:33PM 2:58PM Upper Respiratory Infection Acute Insurance Includes: Active Insurance Policies Plan Name Member ID Group # Subscriber Relationship Effect jasbir Dates 1 - [employer] [id number] JARET SORIA Self Clinical Notes Includes: Clinical Notes from this encounter No Clinical Notes Recorded
--- OUTSIDE RECORDS SUMMARY | 2025-07-19 09:13 | XMS_ITS ---
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 Last Documented On 1 8:51AM ; [facility] Dorsopathy Dorsalgia Pain in Thoracic Spine 08/30/2021 STEFANIE E CLONINGER-HULTZ DIRECTOR OF [employer] -C Active Last Documented On 1 8:50AM ; [facility] Hypopituitarism 08/30/2021 STEFANIE E CLONING ER-HULTZ DIRECT[employer] Active Last Documented On 1 8:52AM ; [facility] Urinary Retention 08/30/2021 STEFANIE E CLONI NGER-HULTZ DIRECTOR [employer] Active Last Documented On 1 8:50AM ; [facility] Hypogonadism 08/30/2021 STEFANIE E CLONINGER- HULTZ [employer] Active Last Documented On 1 8:54AM ; [facility] Vitamin Deficiency 08/30/2021 STEFANIE E CLON DANIELLE-HULTZ DIRECTOR [employer] Active Last Documented On 1 8:51AM ; [facility] Anemia 02/15/2019 ROBERT Loo CRANCER D.O. Act jasbir Last Documented On 02/15/2019 8:38AM ; [facility] Note: -Hgb on 01-12-19 was at 11.6 Other fatigue 01/12/2019 ROBERT Eze CRANCER D.O. Active Last Documented On 9 9:51AM ; [facility] Gerd 08/17/2018 ROBERT A CRANCER D.O. Act jasbir Last Documented On 8 8:47AM ; [facility] Arthralgia - Knee / Patella / Tibia / Fibula Left 02/20/2018 ROBERT A CRANCER D.O. Active Last Documented On 8 8:55AM ; [facility] Arthralgia - Knee / Patella / Tibia / Fibula Right 02/20/2018 ROBERT A CRANCER D.O. Active Last Documented On 8 8:55AM ; [facility] Low Back Pain 02/20/2018 ROBERT A CRANCER D.O. Active Last Documented On 02/20/2018 8:56AM ; [facility] Note: -radiated to both hips, lately lef t hip has been having increased pain. Is going to Pain Management through his Neuro Surgeon. [facility] 04/18/2016 ROBERT A CRANCE R D.O. Active Last Documented On 6 3:00PM ; [facility] Hyperlipidemia 12/29/2013 ROBERT A CRANCER D.O. Active Last Documented On 9 9:02AM ; [facility] Note: Overview: Overview: 08/28 Choleste rol 185 HDL 45 LDL 122 triglyceride 89, normal TSH/CMP x glucose 40563/13 Cholesterol 185 HDL 34 LDL 100 triglyceride 2542/16 Cholesterol 106 HDL 27 LDL 54 triglyceride 1278/15 Cholesterol 135 HDL 36 LDL 64 triglyceride 174, AST 25 ALT 30 glucose 65182/14 Cholesterol 185 HDL 45 LDL 122 triglyceride 89, normal TSH/CMP x glucose 88820/13 Cholesterol 185 HDL 34 LDL 100 triglyceride 254 Hypertension Systemic 11/08/2013 ROBERT A CRANC ER D.O. Active Last Documented On 7 10:33AM ; [facility] Male Erectile Disorder 04/22/2013 LESTE R A CRANCER D.O. Active Last Documented On 1 8:44AM ; [facility] Note: Unchanged Hypothyroidism 03/03/2013 ARMANDO BRYAN MD Active Last Documented On 3 4:54PM ; [facility] Note: Unchanged Cardiovascular Symptoms 03/03/2013 TIANA Weber ANA LILIA [employer] Active Last Documented On 1 9:16AM ; [facility] Note: Unchanged - Has occl. palpitations . He was evaluated several yrs ago by a aviation metalsmith for frequent PABs but the work up was negative for any ischaemic heart disease.He denies any chest pains or dyspnoea. Fever [as Symptom] 02/11/2013 SUMMER Weber ANA LILIA [employer] Inactive Last Documented On 1 8:50AM ; [facility] Note: Unchanged Chest Pain NOS 10/28/2012 ROBERT A CRAN CER D.O. Active Last Documented On 6 9:02AM ; [facility] Note: Overview: 11/17 stress nuclear: an terior ischemia, normal EF11/17 cath: LV 120/15, EF 60%, normal coronaries10/21 stress EKG 5:30--89% maximal heart rate, PVCs, no EKG ischemia, (nuclear report not known) CARDIAC DYSRHYTHMIAS NEC 10/27/2012 LES [address] A CRANCER D.O. 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 Active Last Documented On 6 9:02AM ; [facility] Note: Overview: 09/19 CT: mild eccentric aortic atherosclerosis10/26 echo: EF 60%, mild LAE, probable Chiari/eustachian valve remnant, PA 41, aortic root 40 mm, ascending aorta 39 mm, arch 38 mm, 3 cusp AV7/12 CT: fusiform thoracic aortic ectasia up to 38 mm in distal aortic arch, no AAA09/27 echo: EF 55-60%, grade 1 DD, mild TR, PA 29, aortic root 43 mm, ascending aorta 40 mm, 3 cusp AV2/14 echo: EF 60-65%, mild-moderate LVH, diastolic dysfunction with increased LA pressure, mild LAE, mild TR, PA 40, 3 cusp AV, aorta: 44 mm root, 39 mm ascending, [address] abd: atherosclerotic abd aorta without aneurysm11/27 [...] ascending aorta, 41 mm proximal descending aorta Former Smoker 08/31/2012 ARMANDO MAJANO MD Active Last Documented On 2 10:22AM ; [facility] Note: Unchanged - quit 21 y/o1 ppd / day for 20 years Essential Hypertriglyceridemia 08/31/2012 ARMANDO MIJARES MD Active Last Documented On 2 10:22AM ; [facility] Note: Unchanged Epididymitis 08/10/2012 ARMANDO MARIE MD Active Last Documented On 2 3:47PM ; [facility] Note: Unchanged History of Arthritis 08/10/2012 ARMANDO MIJARES MD Active Last Documented On 2 3:47PM ; [facility] Note: Unchanged History of Reported Hx of Kn ee Replacement 08/10/2012 ARMANDO MIJARES MD Active Last Documented On 2 3:47PM ; [facility] Note: Unchanged - Lt. 01/2001 and revisio n 07/2001Rt. knee 10/2001 PREMATURE BEATS NEC 10/10/2010 ROBERT ORTIZ D.O. Active Last Documented On 6 10:12AM ; [facility] Plan of Treatment Findings Encounter Date Ordered return to the clinic if condition worsens or new symptoms arise COVID SICK VISIT- ESTABLISHED PATIENT with DANIELLA ORTA APRN-RECOVERY RN 01/22/2024 Last Documented On 4 9:01AM ; [facility] Ordered return to the clinic if condition worsens or new symptoms arise WALK IN PATIENT - ESTABLISHED PT with CARMEN MICHELLE DNP 06/13/2023 Last Documented On 3 2:18PM ; [facility] Ordered patient will call fo r appointment as needed COVID SICK VISIT- ESTABLISHED PATIENT with ADOLPH PIZARRO DIRECTOR OF [employer]TS PERFORMANCE- 01/11/2022 Last Documented On 2 12:57PM ; [facility] Ordered return to the clinic if condition worsens or new symptoms arise COVID SICK VISIT- ESTABLISHED PATIENT with ADOLPH PIZARRO [facility]- 01/11/2022 Last Documented On 2 12:57PM ; [facility] Continue current medication see orders below for anything additional. PT/OT as recommended. Improve quality of life. Check baseline labwork [facility] DISCHARGE with STEFANIE SUNG DIRECTOR [employer] PER[employer]MANCE-C 09/06/2021 Last Documented On 1 9:18AM ; [facility] Continue current medication see orders below for anything additional. PT/OT as recommended. Improve quality of life. Check baseline labwork [facility] ADMISSION with STEFANIE SUNG DIRECTOR [employer] PER[employer]MANCE-C 08/30/2021 Last Documented On 1 3:51PM ; [facility] Ordered patient to call if p roblem develops CHECK UP with ROBERT A CRANCER D.O. 07/18/2021 Last Documented On 1 10:16AM ; [facility] Ordered return to the clinic if condition worsens or new symptoms arise CHECK UP with ROBERT A CRANCER D.O. 07/18/2021 Last Documented On 1 10:16AM ; [facility] Ordered patient to call if p roblem develops 1 YR CHECK-UP with ROBERT A CRANCER D.O. 01/15/2021 Last Documented On 1 2:44PM ; [facility] Ordered return to the clinic if condition worsens or new symptoms arise 1 YR CHECK-UP with ROBERT A CRANCER D.O. 01/15/2021 Last Documented On 1 2:44PM ; [facility] Ordered patient to call if p roblem develops CHECK UP with ROBERT A CRANCER D.O. 10/06/2020 Last Documented On 1 11:55AM ; [facility] Ordered return to the clinic if condition worsens or new symptoms arise CHECK UP with ROBERT ORTIZ D.O. 10/06/2020 Last Documented On 1 11:55AM ; [facility] Ordered patient to call if p santiago develops HOSPITAL FOLLOW UP EXAM with ROBERT ORTIZ D.O. 09/05/2020 Last Documented On 0 10:19AM ; [facility] Ordered return to the clinic if condition worsens or new symptoms arise HOSPITAL FOLLOW UP EXAM with ROBERT ORTIZ D.O. 09/05/2020 Last Documented On 0 10:19AM ; [facility] Since patient is seeing Spec ialists for his problems, it will be ok for him to f/u here once a year 6 MONTH CHECK with ROBERT ORTIZ D.O. 01/14/2020 Last Documented On 0 7:35PM ; [facility] Ordered patient to call if p rajeevlem develops 6 MONTH CHECK with ROBERTMCNAMARA D.O. 01/14/2020 Last Documented On 0 7:35PM ; [facility] Ordered return to the clinic if condition worsens or new symptoms arise 6 MONTH CHECK with ROBERT ORTIZ D.O. 01/14/2020 Last Documented On 0 7:35PM ; [facility] Continue the flonase, stay w ell hydrated and get plenty of rest SICK VISIT with ROBERT ORTIZ D.O. 09/24/2019 Last Documented On 0 2:21PM ; [facility] Ordered patient to call if aimee henderson develops SICK VISIT with ROBERTMCNAMARA D.O. 09/24/2019 Last Documented On 0 2:21PM ; [facility] Ordered return to the clinic if condition worsens or new symptoms arise SICK VISIT with ROBERT ORTIZ D.O. 09/24/2019 Last Documented On 0 2:21PM ; [facility] For the skin lesion on stoma ch, could try Salicylic acid (3 drops letting completely dry between drops) 3 MONTH CHECK with ROBERT ORTIZ D.O. 07/16/2019 Last Documented On 9 2:23PM ; [facility] Ordered follow-up visit pt i s to f/u in 6 months not 3 3 MONTH CHECK with ROBERT A CRANCER D.O. 07/16/2019 Last Documented On 9 2:23PM ; [facility] Ordered patient to call if p roblem develops 3 MONTH CHECK with ROBERT A CRANCER D.O. 07/16/2019 Last Documented On 9 2:23PM ; [facility] Ordered return to the clinic if condition worsens or new symptoms arise 3 MONTH CHECK with ROBERT A CRANCER D.O. 07/16/2019 Last Documented On 9 2:23PM ; [facility] Pt will do an H&H in late Au nicol, will cancel if is going to run this and other labs. If this lab is done, call a day or two after getting it for the results 2 WK CK-UP with ROBERT A CRANCER D.O. 04/15/2019 Last Documented On 9 11:09AM ; [facility] Ordered patient to call if p roblem develops 2 WK CK-UP with ROBERT A CRANCER D.O. 04/15/2019 Last Documented On 9 11:09AM ; [facility] Ordered return to the clinic if condition worsens or new symptoms arise 2 WK CK-UP with ROBERT A CRANCER D.O. 04/15/2019 Last Documented On 9 11:09AM ; [facility] Will get lab done today for the iron, he can call tomorrow for results 6 MONTH CHECK with ROBERT A CRANCER D.O. 02/15/2019 Last Documented On 9 10:41AM ; [facility] Ordered patient to call if p roblem develops 6 MONTH CHECK with ROBERT A CRANCER D.O. 02/15/2019 Last Documented On 9 10:41AM ; [facility] Ordered return to the clinic if condition worsens or new symptoms arise 6 MONTH CHECK with ROBERT A CRANCER D.O. 02/15/2019 Last Documented On 9 10:41AM ; [facility] Avoid caffeine after noon. T ry to back off the naps. Patient to call tomorrow for lab results PROBLEM VISIT with ROBERT RICHCER D.O. 01/12/2019 Last Documented On 9 12:09PM ; [facility] Ordered patient to call if p roblem develops PROBLEM VISIT with ROBERT A LAYLACER D.O. 01/12/2019 Last Documented On 9 12:09PM ; [facility] Ordered return to the clinic if condition worsens or new symptoms arise PROBLEM VISIT with ROBERT A CRANCER D.O. 01/12/2019 Last Documented On 9 12:09PM ; [facility] Ordered patient will call fo r appointment as needed WALK-IN CLINIC SICK VISIT with ADOLPH PIZARRO [facility] 11/30/2018 Last Documented On 9 3:03PM ; [facility] Ordered return to the clinic if condition worsens or new symptoms arise WALK-IN CLINIC SICK VISIT with ADOLPH PIZARRO [facility] 11/30/2018 Last Documented On 9 3:03PM ; [facility] Can try different shoes, ins oles/arch support in shoes 6 MONTH CHECK with ROBERT A CRANCER D.O. 08/17/2018 Last Documented On 8 2:14PM ; [facility] Ordered follow-up visit 6 months 6 MONTH CHECK w ith ROBERT RIHCCER D.O. 08/17/2018 Last Documented On 8 2:14PM ; [facility] Ordered patient to call if p roblem develops 6 MONTH CHECK with ROBERT A CRANCER D.O. 08/17/2018 Last Documented On 8 2:14PM ; [facility] Ordered return to the clinic if condition worsens or new symptoms arise 6 MONTH CHECK with ROBERT A CRANCER D.O. 08/17/2018 Last Documented On 8 2:14PM ; [facility] Ordered follow-up visit 6 months 6 MONTH CHECK w ith ROBERT A CRANCER D.O. 02/20/2018 Last Documented On 8 4:54PM ; [facility] Ordered patient to call if p roblem develops 6 MONTH CHECK with ROBERT A CRANCER D.O. 02/20/2018 Last Documented On 8 4:54PM ; [facility] Ordered return to the clinic if condition worsens or new symptoms arise 6 MONTH CHECK with ROBERT ORTIZ D.O. 02/20/2018 Last Documented On 8 4:54PM ; [facility] Try to back off/limit the Ex cedrin. Might take an occasional Aleve or Ibuprofen but don't take together. Try Nexium for the GERD to replace the Ranitidine. Think about and discuss injections vs. ablation with back Doctor. Can try over the counter Glucosamine Chondrointin for the aches and pains. Can pick a form up at the [facility] and drop off here to be filled out 6 MONTH CHECK with ROBERT Pace.O. 09/19/2017 Last Documented On 8 9:50AM ; [facility] Ordered follow-up visit 6 months 6 MONTH CHECK w joe [email or web address] 09/19/2017 Last Documented On 8 9:50AM ; [facility] Ordered patient to call if p rajeevlem develops 6 MONTH CHECK with ROBERT ORTIZ D.O. 09/19/2017 Last Documented On 8 9:50AM ; [facility] Ordered return to the clinic if condition worsens or new symptoms arise 6 MONTH CHECK with ROBERT ORTIZ D.O. 09/19/2017 Last Documented On 8 9:50AM ; [facility] Continue to stay off the Nex ium, Zantac (Ranitidine/generic) will be sent to the Pharmacy Stay away from greasy/spicy foods, don't eat before bed, can elevate head at night with an extra pillow if needed. Can get flu shot in June GENERAL OFFICE VISIT with ROBERT Pace.O. 06/09/2017 Last Documented On 7 2:03PM ; [facility] Ordered patient to call if p rajeevlem develops GENERAL OFFICE VISIT with ROBERT Pace.O. 06/09/2017 Last Documented On 7 2:03PM ; [facility] Ordered return to the clinic if condition worsens or new symptoms arise GENERAL OFFICE VISIT with ROBERT Loo CRANCER D.O. 06/09/2017 Last Documented On 7 2:03PM ; [facility] Ordered patient to call if p roblem develops PROBLEM VISIT with ROBERT A CRANCER D.O. 11/21/2016 Last Documented On 7 1:16PM ; [facility] Ordered return to the clinic if condition worsens or new symptoms arise PROBLEM VISIT with ROBERT A CRANCER D.O. 11/21/2016 Last Documented On 7 1:16PM ; [facility] Ordered patient to call if p roblem develops 3 MONTH CHECK with ROBERT A CRANCER D.O. 09/18/2016 Last Documented On 7 1:39PM ; [facility] Ordered return to the clinic if condition worsens or new symptoms arise 3 MONTH CHECK with ROBERT A CRANCER D.O. 09/18/2016 Last Documented On 7 1:39PM ; [facility] Continue the levothyroxine CHECK UP with ROBERT A CRANCER D.O. 02/27/2016 Last Documented On 6 5:35PM ; [facility] Laparoscopic Cholecystectomy under general anesthesia CONSULTATION with NATHAN MICHELLE DO 09/29/2015 Last Documented On 6 4:07PM ; [facility] Ordered follow-up visit GET LAB DONE IN 8 WEEKS 6 MONTH CHECK with ROBERT A CRANCER D.O. 09/18/2015 Last Documented On 6 1:28PM ; [facility] Ordered patient to call if p roblem develops 6 MONTH CHECK with ROBERT A CRANCER D.O. 09/18/2015 Last Documented On 6 1:28PM ; [facility] Ordered return to the clinic if condition worsens or new symptoms arise 6 MONTH CHECK with ROBERT A CRANCER D.O. 09/18/2015 Last Documented On 6 1:28PM ; [facility] Ordered Clinical summary pro vided to patient SICK VISIT with ROBERT A CRANCER D.O. 09/11/2015 Last Documented On 5 5:51PM ; [facility] Ordered return to the clinic if condition worsens or new symptoms arise SICK VISIT with ROBERT A CRANCER D.O. 09/11/2015 Last Documented On 5 5:51PM ; [facility] Ordered follow-up visit keep scheduled appt. make appt if symptoms worsen or no better SICK VISIT with ROBERT A CRANCER D.O. 08/24/2015 Last Documented On 5 4:39PM ; [facility] Ordered patient to call if p roblem develops SICK VISIT with ROBERT A CRANCER D.O. 08/24/2015 Last Documented On 5 4:39PM ; [facility] Ordered return to the clinic if condition worsens or new symptoms arise SICK VISIT with ROEBRT A CRANCER D.O. 08/24/2015 Last Documented On 5 4:39PM ; [facility] Ordered follow-up visit get lab appt in 1 month 2 WK CK-UP with ROBERT A CRANCER D.O. 08/14/2015 Last Documented On 5 11:09AM ; [facility] Ordered patient to call if p roblem develops 2 WK CK-UP with ROBERT A CRANCER D.O. 08/14/2015 Last Documented On 5 11:09AM ; [facility] Ordered return to the clinic if condition worsens or new symptoms arise 2 WK CK-UP with ROBERT A CRANCER D.O. 08/14/2015 Last Documented On 5 11:09AM ; [facility] will get labs done today PROBLEM VISIT with LEST ER A CRANCER D.O. 08/07/2015 Last Documented On 5 11:15PM ; [facility] Ordered follow-up visit 1 week PROBLEM VISIT wit h ROBERT A CRANCER D.O. 08/07/2015 Last Documented On 5 11:15PM ; [facility] Ordered patient to call if p roblem develops PROBLEM VISIT with ROBERT A CRANCER D.O. 08/07/2015 Last Documented On 5 11:15PM ; [facility] Ordered return to the clinic if condition worsens or new symptoms arise PROBLEM VISIT with ROBERT A CRANCER D.O. 08/07/2015 Last Documented On 5 11:15PM ; [facility] will decrease androgel to 2 pump actuations daily 4 MONTH CHECK UP with ARMANDO MIJARES MD 02/23/2014 Last Documented On 4 4:09PM ; [facility] Ordered patient to call if p roblem develops 4 MONTH CHECK UP with ARMANDO MIJARES MD 02/23/2014 Last Documented On 4 4:09PM ; [facility] 1. Advised to watch for any petechiae or bleeding any other place PROBLEM VISIT with ARMANDO MIJARES MD 11/04/2013 Last Documented On 4 6:12PM ; [facility] Ordered patient to call if p roblem develops PROBLEM VISIT with ARMANDO MIJARES MD 11/04/2013 Last Documented On 4 6:12PM ; [facility] Ordered return to the clinic if condition worsens or new symptoms arise PROBLEM VISIT with ARMANDO MIJARES MD 11/04/2013 Last Documented On 4 6:12PM ; [facility] 1. Ordered T4 ,TSH ,PSA, LIP ID PANEL AND TESTOSTERONE LEVEL 4 MONTH CHECK UP with ARMANDO MIJARES MD 08/23/2013 Last Documented On 3 5:29PM ; [facility] Ordered patient to call if p roblem develops 4 MONTH CHECK UP with ARMANDO MIJARES MD 04/22/2013 Last Documented On 3 11:47AM ; [facility] Ordered patient to call if p roblem develops 1. Pt may proceed with the proposed prostate surgery.2. reccomend pre-op cbc,p.t and ptt and ECG. 2.stop any asa preparations 3,.continue with Atenolol CHECK UP with ARMANDO MIJARES MD 03/03/2013 Last Documented On 3 5:29PM ; [facility] Ordered patient to call if p roblem develops SICK VISIT with ARMANDO MIJARES MD 02/11/2013 Last Documented On 3 5:03PM ; [facility] 1. Will get u.a to r/o prost atis . 2. Urology consult reccomended.3. Pt will call with the name of the urologist PROBLEM VISIT with ARMANDO MIJARES MD 12/31/2012 Last Documented On 3 5:12PM ; [facility] 1. Recomend Zostavax. in vie w of previous hx of Chicken pox infection in childhood 4 MONTH CHECK UP with ARMANDO MIJARES MD 08/31/2012 Last Documented On 2 5:46PM ; [facility] 1. U.A with c/s if needed 2. ibufrofen 200 mg x3 tabs tid 3. Cipro 500 mg bid x 3 wks. 4. Pt's called . Pt has allergies or side effect to Levaquin. 5. d/c cipro. 6.Augmentin 500 mg po bid x 3 wks PROBLEM VISIT with ARMANDO MIJARES MD 08/10/2012 Last Documented On 2 10:01PM ; [facility] 1. Rib x rays today. 2. Jose Miguel den 7.5mg/500 mg 1 tab po q 6 hrs prn pain 3. Flu vaccine today. 4. 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 Reynolds, dermatology Last Documented On 1 11:57AM ; [facility] Instructions to patient Instructions for patient Last Documented On 2 12:55PM ; [facility] Not instructed to lose weigh t Last Documented On 1 9:07AM ; [facility] Not instructed to lose weigh t Last Documented On 1 9:05AM ; [facility] Vitamin/diet support therapy Last Documented On 1 9:05AM ; [facility] Instructions for patient Pat ient meets criteria for COVID-19 testing. ~ Last Documented On 0 11:13AM ; [facility] Go to the emergency room if condition worsens Last Documented On 0 8:29AM ; [facility] Watch for signs/symptoms of infection Last Documented On 0 8:29AM ; [facility] Go to the emergency room if condition worsens Last Documented On 0 9:06AM ; [facility] Watch for signs/symptoms of infection Last Documented On 0 9:06AM ; [facility] Go to the emergency room if condition worsens Last Documented On 9 9:08AM ; [facility] Watch for signs/symptoms of infection Last Documented On 9 9:08AM ; [facility] Go to the emergency room if condition worsens Last Documented On 9 8:49AM ; [facility] Watch for signs/symptoms of infection Last Documented On 9 8:49AM ; [facility] Go to the emergency room if condition worsens Last Documented On 9 8:38AM ; [facility] Watch for signs/symptoms of infection Last Documented On 9 8:38AM ; [facility] Go to the emergency room if condition worsens Last Documented On 9 9:57AM ; [facility] Watch for signs/symptoms of infection Last Documented On 9 9:57AM ; [facility] Instructions for patient Last Documented On 9 3:01PM ; [facility] Go to the emergency room if condition worsens Last Documented On 8 8:46AM ; [facility] Watch for signs/symptoms of infection Last Documented On 8 8:46AM ; [facility] Go to the emergency room if condition worsens Last Documented On 8 8:47AM ; [facility] Watch for signs/symptoms of infection Last Documented On 8 8:47AM ; [facility] Go to the emergency room if condition worsens Last Documented On 8 8:34AM ; [facility] Watch for signs/symptoms of infection Last Documented On 8 8:34AM ; [facility] Watch for signs/symptoms of infection Last Documented On 7 9:12AM ; [facility] Recommend diet and exercise at least 30 min three times per week Last Documented On 7 9:05AM ; [facility] Go to the emergency room if condition worsens Last Documented On 6 10:04AM ; [facility] Go to the emergency room if condition worsens Last Documented On 5 1:59PM ; [facility] Education and Decision Aids were provided during visit for: Patient education about anti biotics: need to finish even if feeling better Last Documented On 2 2:16PM ; [facility] Discussed preventing falls Last Documented On 1 9:07AM ; [facility] Patient education about home safety plans for prevention of falls : Patient completed a Fall risk assesment and was provided fall risk education materials Last Documented On 1 9:07AM ; [facility] Discussed preventing falls Last Documented On 1 9:05AM ; [facility] Discussed exercise Last Documented On 1 9:05AM ; [facility] Patient education about phys ical activity benefits Last Documented On 1 9:05AM ; [facility] Discussed concerns about zaida dequate physical activity Last Documented On 1 9:05AM ; [facility] Education and counseling Last Documented On 1 8:22AM ; [facility] Education and counseling Last Documented On 1 8:14AM ; [facility] Patient education about home safety plans for prevention of falls : Patient completed a Fall risk assesment and was provided fall risk education materials Last Documented On 1 8:31AM ; [facility] Education and counseling Last Documented On 1 8:42AM ; [facility] Education and counseling Last Documented On 0 9:20AM ; [facility] Education, guidance, and cou nseling ~1) Instructed patient to proceed to ER if conditions worsens. ~2) Have patient remain at home or Quarantined and adhere to social distancing (>6 ft). ~3) Wash Hands with soap and water and if not available, us Hand Santizer (>60% alcohol) ~4) Visit https://www.cdc.gov/ for the lastest updates on COVID-19 Last Documented On 0 11:13AM ; [facility] Education and counseling Last Documented On 0 8:20AM ; [facility] Education and counseling Last Documented On 0 8:55AM ; [facility] Education and counseling Last Documented On 9 8:47AM ; [facility] Patient education about a pr oper diet Last Documented On 9 9:08AM ; [facility] Education and counseling Last Documented On 9 8:44AM ; [facility] Education and counseling Last Documented On 9 8:30AM ; [facility] Patient education about a pr oper diet Last Documented On 9 8:38AM ; [facility] Education and counseling Last Documented On 9 9:41AM ; [facility] Education and counseling Last Documented On 8 8:38AM ; [facility] Patient education about a pr oper diet Last Documented On 8 8:46AM ; [facility] Patient education about a pr oper diet -Healthy diet encouraged Last Documented On 8 8:53AM ; [facility] Patient's goal is to maintai n normal blood pressure discussed with patient to keep b/p below 140/90 Last Documented On 8 8:54AM ; [facility] Patient education about a pr oper diet -Healthy diet encouraged. Try to stay away from spicy/greasy foods Last Documented On 8 8:34AM ; [facility] Patient education about a pr oper diet Last Documented On 7 9:21AM ; [facility] Patient education about a pr oper diet -Healthy diet encouraged Last Documented On 7 2:51PM ; [facility] Patient education about anti biotics: need to finish even if feeling better Last Documented On 5 4:47PM ; [facility] Assessments Includes: Assessments for all patient encounters Findings Encounter Date Acute pharyngitis COVID SICK VISIT- ES TABLISHED PATIENT with DANIELLA ORTA BONDERIZER-RECOVERY RN 01/22/2024 Last Documented On 4 9:01AM ; [facility] Group A streptococcus: B hem olytic pharyngitis COVID SICK VISIT- ESTABLISHED PATIENT with DANIELLA ORTA BONDERIZER-RECOVERY RN 01/22/2024 Last Documented On 4 9:01AM ; [facility] Assessment of dysuria COVID SICK VISIT- ESTABLISHED PATIENT with FLORES MARK DIRECTOR OF SPORTS PERFORMANCE,BC 08/31/2022 Last Documented On 2 4:26PM ; [facility] Acute upper respiratory infection COVID SICK VISIT- ESTABLISHED PATIENT with ADOLPH PIZARRO DIRECTOR OF SPORTS PERFORMANCE-BC 01/11/2022 Last Documented On 2 12:57PM ; [facility] Anemia CHECK UP with STEFANIE POZO DIRECTOR OF SPORTS PERFORMANCE-C 11/07/2021 Last Documented On 2 2:39PM ; [facility] Adrenal insufficiency [facility] DISCH ARGE with STEFANIE SUNG DIRECTOR OF SPORTS PERFORMANCE-C 09/06/2021 Last Documented On 1 9:18AM ; [facility] Anemia [facility] DISCHARGE with TIANA SUNG DIRECTOR OF SPORTS PERFORMANCE-C 09/06/2021 Last Documented On 1 9:18AM ; [facility] Arthralgia of the left knee/patella/tibia/fibula [facility] DISCHARGE with STEFANIE SUNG DIRECTOR OF SP[employer]TS PERFORMANCE-C 09/06/2021 Last Documented On 1 9:18AM ; [facility] Assessment of cardiovascular symptoms NU RSING HOME DISCHARGE with STEFANIE E CLONINGER-HULTZ DIRECTOR OF SPORTS PERFORMANCE-C 09/06/2021 Last Documented On 1 9:18AM ; [facility] Hypothyroidism CHCF DISCHAR GE with STEFANIE E CLONINGER-HULTZ DIRECTOR OF SP[employer] PERFORMANCE-C 09/06/2021 Last Documented On 1 9:18AM ; [facility] Low back pain CHCF DISCHAR GE with STEFANIE E CLONINGER-HULTZ DIRECTOR OF [employer] PERFORMANCE-C 09/06/2021 Last Documented On 1 9:18AM ; [facility] Urinary retention CHCF DISCHAR GE with STEFANIE E CLONINGER-HULTZ DIRECTOR OF SP[employer] PERFORMANCE-C 09/06/2021 Last Documented On 1 9:18AM ; [facility] Anemia CHCF ADMISSION with STEP HANNIE E CLONINGER-HULTZ DIRECTOR OF SP[employer] PERFORMANCE-C 08/30/2021 Last Documented On 1 3:51PM ; [facility] GERD CHCF ADMISSION with STEP HANNIE E CLONINGER-HULTZ DIRECTOR OF SP[employer] PERFORMANCE-C 08/30/2021 Last Documented On 1 3:51PM ; [facility] Hypogonadism CHCF ADMISSI ON with STEFANIE E CLONINGER-HULTZ DIRECTOR OF SP[employer] PERFORMANCE-C 08/30/2021 Last Documented On 1 3:51PM ; [facility] Hypogonadism CHCF ADMISSI ON with STEFANIE E CLONINGER-HULTZ DIRECTOR OF SP[employer]TS PERFORMANCE-C 08/30/2021 Last Documented On 1 3:51PM ; [facility] Hypothyroidism CHCF ADMISSI ON with STEFANIE E CLONINGER-HULTZ DIRECTOR OF [employer] PER[employer]MAN[employer]-C 08/30/2021 Last Documented On 1 3:51PM ; [facility] Low back pain CHCF ADMISSI ON with STEFANIE E CLONINGER-HULTZ DIRECTOR OF [employer] PER[employer]MAN[employer]-C 08/30/2021 Last Documented On 1 3:51PM ; [facility] Systemic hypertension CHCF ADMIS CLAUDINE with STEFANIE E CLONINGER-HULTZ DIRECTOR OF [employer] PERFORMANCE-C 08/30/2021 Last Documented On 1 3:51PM ; [facility] Vitamin deficiency CHCF ADMISSI ON with STEFANIE SUNG DIRECTOR OF SP[employer] PERFORMANCE-C 08/30/2021 Last Documented On 1 3:51PM ; [facility] GERD CHECK UP with ROBERT A CRANCER D .O. 07/18/2021 Last Documented On 1 10:16AM ; [facility] Hypertension CHECK UP with ROBERT A CRANCER D .O. 07/18/2021 Last Documented On 1 10:16AM ; [facility] Male erectile disorder CHECK UP with ROBERT A CR ANCER D.O. 07/18/2021 Last Documented On 1 10:16AM ; [facility] [R23.4 - Changes in skin kaylen ture] skin lesions 1 YR CHECK-UP with ROBERT A CRANCER D.O. 01/15/2021 Last Documented On 1 2:44PM ; [facility] [R31.9 - Hematuria, unspecif ied] hematuria 1 YR CHECK-UP with ROBERT A CRANCER D.O. 01/15/2021 Last Documented On 1 2:44PM ; [facility] Hypertension 1 YR CHECK-UP with ROBERT A CRAN CER D.O. 01/15/2021 Last Documented On 1 2:44PM ; [facility] Hypothyroidism 1 YR CHECK-UP with ROBERT A CRAN CER D.O. 01/15/2021 Last Documented On 1 2:44PM ; [facility] [J47.9 - Bronchiectasis, unc omplicated] bronchiectasis CHECK UP with ROBERT A CRANCER D.O. 10/06/2020 Last Documented On 1 11:55AM ; [facility] Hypertension CHECK UP with ROBERT A CRANCER D .O. 10/06/2020 Last Documented On 1 11:55AM ; [facility] Low back pain CHECK UP with ROBERT A CRANCER D .O. 10/06/2020 Last Documented On 1 11:55AM ; [facility] [J18.9 - Pneumonia, unspecif ied organism] pneumonia HOSPITAL FOLLOW UP EXAM with ROBERT A CRANCER D.O. 09/05/2020 Last Documented On 0 10:19AM ; [facility] Hypertension HOSPITAL FOLLOW UP EXAM with LES TER A CRANCER D.O. 09/05/2020 Last Documented On 0 10:19AM ; [facility] COVID-19 infection SICK VISIT with RENETTA Nettles DIRECTOR OF SP[employer]TS PERFORMANCE-BC 08/18/2020 Last Documented On 0 11:17AM ; [facility] [D64.9 - Anemia, unspecified ] anemia -stable 6 MONTH CHECK with ROBERT A CRANCER D.O. 01/14/2020 Last Documented On 0 7:35PM ; [facility] [I10 - Essential (primary) h ypertension] hypertension -stable 6 MONTH CHECK with ROBERT A CRANCER D.O. 01/14/2020 Last Documented On 0 7:35PM ; [facility] [K21.9 - Gastro-esophageal r eflux disease without esophagitis] GERD -stable 6 MONTH CHECK with ROBERT A CRANCER D.O. 01/14/2020 Last Documented On 0 7:35PM ; [facility] [M54.5 - Low back pain] Low back pain -Is followed by Specialist 6 MONTH CHECK with ROBERT A CRANCER D.O. 01/14/2020 Last Documented On 0 7:35PM ; [facility] Hypertension SICK VISIT with ROBERT A CRANCER D.O. 09/24/2019 Last Documented On 0 2:21PM ; [facility] Viral infection SICK VISIT with ROBERT A CRANCER D.O. 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 07/16/2019 Last Documented On 9 2:23PM ; [facility] [I10 - Essential (primary) h ypertension] hypertension -stable 3 MONTH CHECK with ROBERT A CRANCER D.O. 07/16/2019 Last Documented On 9 2:23PM ; [facility] [K21.9 - Gastro-esophageal r eflux disease without esophagitis] GERD -stable 3 MONTH CHECK with ROBERT A CRANCER D.O. 07/16/2019 Last Documented On 9 2:23PM ; [facility] Hyperlipidemia 3 MONTH CHECK with ROBERT A CRAN CER D.O. 07/16/2019 Last Documented On 9 2:23PM ; [facility] Anemia 2 WK CK-UP with ROBERT A CRANCER D.O. 04/15/2019 Last Documented On 9 11:09AM ; [facility] Hypertension 2 WK CK-UP with ROBERT A CRANCER D.O. 04/15/2019 Last Documented On 9 11:09AM ; [facility] Low back pain 2 WK CK-UP with ROBERT A CRANCER D.O. 04/15/2019 Last Documented On 9 11:09AM ; [facility] Anemia GENERAL OFFICE VISIT with ROBERT A CRANCER D.O. 04/01/2019 Last Documented On 9 4:04PM ; [facility] Hypertension GENERAL OFFICE VISIT with ROBERT A CRANCER D.O. 04/01/2019 Last Documented On 9 4:04PM ; [facility] Low back pain GENERAL OFFICE VISIT with ROBERT A CRANCER D.O. 04/01/2019 Last Documented On 9 4:04PM ; [facility] Anemia -Hgb on 01-12-19 was at 11.6 6 MON TH CHECK with ROBERT A CRANCER D.O. 02/15/2019 Last Documented On 9 10:41AM ; [facility] GERD 6 MONTH CHECK with ROBERT A CRAN CER D.O. 02/15/2019 Last Documented On 9 10:41AM ; [facility] Hypertension 6 MONTH CHECK with ROBERT A CRAN CER D.O. 02/15/2019 Last Documented On 9 10:41AM ; [facility] Anemia PROBLEM VISIT with ROBERT A CRAN CER D.O. 01/12/2019 Last Documented On 9 12:09PM ; [facility] Benign essential hypertension PROBLEM VISIT with ROBERTBAUMANNCER D.O. 01/12/2019 Last Documented On 9 12:09PM ; [facility] Fatigue PROBLEM VISIT with ROBERT Eze CRAN CER D.O. 01/12/2019 Last Documented On 9 12:09PM ; [facility] Acute upper respiratory infection WALK-I N CLINIC SICK VISIT with ADOLPH PIZARRO [facility]- 11/30/2018 Last Documented On 9 3:03PM ; [facility] [I10 - Essential (primary) h ypertension] benign essential hypertension -stable, will follow 6 MONTH CHECK with ROBERT A LAYLACER D.O. 08/17/2018 Last Documented On 8 2:14PM ; [facility] [K21.9 - Gastro-esophageal r eflux disease without esophagitis] GERD -well controlled with Nexium 6 MONTH CHECK with ROBERT A LAYLACER D.O. 08/17/2018 Last Documented On 8 2:14PM ; [facility] [M79.10 - Myalgia, unspecifi ed site] myalgia legs and feet 6 MONTH CHECK with ROBERT A CRANCER D.O. 08/17/2018 Last Documented On 8 2:14PM ; [facility] Low back pain 6 MONTH CHECK with ROBERT A CRAN CER D.O. 08/17/2018 Last Documented On 8 2:14PM ; [facility] [Essential (primary) hyperte nsion] hypertension -stable 6 MONTH CHECK with ROBERT A CRANCER D.O. 02/20/2018 Last Documented On 8 4:54PM ; [facility] [Gastro-esophageal reflux di sease without esophagitis] GERD -well controlled with meds 6 MONTH CHECK with ROBERT A CRANCER D.O. 02/20/2018 Last Documented On 8 4:54PM ; [facility] [Low back pain] Low back lavonne n -radiated to both hips, lately left hip has been having increased pain. Is going to Pain Management through his Neuro Surgeon 6 MONTH CHECK with ROBERT A CRANCER D.O. 02/20/2018 Last Documented On 8 4:54PM ; [facility] Arthralgia of the left knee/patella/tibia/fibula 6 MONTH CHECK with ROBERT A CRANCER D.O. 02/20/2018 Last Documented On 8 4:54PM ; [facility] Arthralgia of the right knee/patella/tibia/fibula 6 MONTH CHECK with ROBERT A CRANCER D.O. 02/20/2018 Last Documented On 8 4:54PM ; [facility] Eustachian tube dysfunction of both ears 6 MONTH CHECK with ROBERT A CRANCER D.O. 09/19/2017 Last Documented On 8 9:50AM ; [facility] GERD 6 MONTH CHECK with ROBERT A CRAN CER D.O. 09/19/2017 Last Documented On 8 9:50AM ; [facility] Hypertension 6 MONTH CHECK with ROBERT A CRAN CER D.O. 09/19/2017 Last Documented On 8 9:50AM ; [facility] Left Hip pain 6 MONTH CHECK with ROBERT A CRAN CER D.O. 09/19/2017 Last Documented On 8 9:50AM ; [facility] Low back pain 6 MONTH CHECK with ROBERT A CRAN CER D.O. 09/19/2017 Last Documented On 8 9:50AM ; [facility] Right hip pain 6 MONTH CHECK with ROBERT A CRAN CER D.O. 09/19/2017 Last Documented On 8 9:50AM ; [facility] GERD GENERAL OFFICE VISIT with ROBERT A CRANCER D.O. 06/09/2017 Last Documented On 7 2:03PM ; [facility] Backache 6 MONTH CHECK with ROBERT A CRAN CER D.O. 03/19/2017 Last Documented On 7 10:40AM ; [facility] Hypertension 6 MONTH CHECK with ROBERT A CRAN CER D.O. 03/19/2017 Last Documented On 7 10:40AM ; [facility] Hypopituitarism 6 MONTH CHECK with ROBERT A CRAN CER D.O. 03/19/2017 Last Documented On 7 10:40AM ; [facility] Hypothyroidism 6 MONTH CHECK with ROBERT A CRAN CER D.O. 03/19/2017 Last Documented On 7 10:40AM ; [facility] Tinea corporis 6 MONTH CHECK with ROBERT A CRAN CER D.O. 03/19/2017 Last Documented On 7 10:40AM ; [facility] Arthralgia of the right pelvis/hip/femur PROBLEM VISIT with ROBERT A CRANCER D.O. 11/21/2016 Last Documented On 7 1:16PM ; [facility] Benign essential hypertension PROBLEM VISIT with ROBERT A CRANCER D.O. 11/21/2016 Last Documented On 7 1:16PM ; [facility] Hypothyroidism PROBLEM VISIT with ROBERT A CRAN CER D.O. 11/21/2016 Last Documented On 7 1:16PM ; [facility] Low back pain PROBLEM VISIT with ROBERT A CRAN CER D.O. 11/21/2016 Last Documented On 7 1:16PM ; [facility] Backache which is improving 3 MONTH CHECK with L DAWOOD A CRANCER D.O. 09/18/2016 Last Documented On 7 1:39PM ; [facility] GERD -well controlled with meds 3 MONTH CHECK wi th ROBERT A CRANCER D.O. 09/18/2016 Last Documented On 7 1:39PM ; [facility] Hypothyroidism -well controlled with med s 3 MONTH CHECK with ROBERT A CRANCER D.O. 09/18/2016 Last Documented On 7 1:39PM ; [facility] Viral syndrome -resolving 3 MONTH CHECK with LES TER A CRANCER D.O. 09/18/2016 Last Documented On 7 1:39PM ; [facility] Backache CONSULTATION with ROBERT A CRANC ER D.O. 03/08/2016 Last Documented On 6 6:41PM ; [facility] Cervicalgia CONSULTATION with ROBERT A CRANC ER D.O. 03/08/2016 Last Documented On 6 6:41PM ; [facility] Hyperthyroidism CONSULTATION with ROBERT A CRANC ER D.O. 03/08/2016 Last Documented On 6 6:41PM ; [facility] Arthralgia of the left pelvis/hip/femur CHECK UP with ROBERT A CRANCER D.O. 02/27/2016 Last Documented On 6 5:35PM ; [facility] Arthralgia of the right pelvis/hip/femur CHECK UP with ROBERT A CRANCER D.O. 02/27/2016 Last Documented On 6 5:35PM ; [facility] Hyperthyroidism CHECK UP with ROBERT A CRANCER D .O. 02/27/2016 Last Documented On 6 5:35PM ; [facility] Arthralgia of the right hand 2 MONTH CHECK with ROBERT A CRANCER D.O. 02/09/2016 Last Documented On 6 6:16PM ; [facility] Myalgia 2 MONTH CHECK with ROBERT A CRAN CER D.O. 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 02/09/2016 Last Documented On 6 6:16PM ; [facility] Hyperthyroidism 1 MONTH CHECK with ROBERT A CRAN CER D.O. 12/11/2015 Last Documented On 6 2:18PM ; [facility] [facility] Myalgia 1 MONTH CHECK with ROBERT A CRAN CER D.O. 12/11/2015 Last Documented On 6 2:18PM ; [facility] Hypothyroidism 2 WK CK-UP with ROBERT A CRANCER D.O. 10/25/2015 Last Documented On 6 5:21PM ; [facility] Low back pain 2 WK CK-UP with ROBERT A CRANCER D.O. 10/25/2015 Last Documented On 6 5:21PM ; [facility] Abdominal pain--[facility] FOLLOW UP EXAM with ROBERT A CRANCER D.O. 10/11/2015 Last Documented On 6 12:43PM ; [facility] Anxiety disorder [facility] FOLLOW UP EXAM wit h ROBERT A CRANCER D.O. 10/11/2015 Last Documented On 6 12:43PM ; [facility] Chronic Cholecystitis/Biliary Dyskinesia CONSULTATION with NATHAN MICHELLE DO 09/29/2015 Last Documented On 6 4:07PM ; [facility] Essential hypertriglyceridemia 6 MONTH CHECK wit h ROBERT A CRANCER D.O. 09/18/2015 Last Documented On 6 1:28PM ; [facility] Hyperthyroidism 6 MONTH CHECK with ROBERT A CRAN CER D.O. 09/18/2015 Last Documented On 6 1:28PM ; [facility] Nausea 6 MONTH CHECK with ROBERT A CRAN CER D.O. 09/18/2015 Last Documented On 6 1:28PM ; [facility] Fatigue SICK VISIT with ROBERT A CRANCER D.O. 09/11/2015 Last Documented On 5 5:51PM ; [facility] Hypothyroidism SICK VISIT with ROBERT A CRANCER D.O. 09/11/2015 Last Documented On 5 5:51PM ; [facility] Nausea SICK VISIT with ROBERT A CRANCER D.O. 09/11/2015 Last Documented On 5 5:51PM ; [facility] Viral infection SICK VISIT with ROBERT A CRANCER D.O. 08/24/2015 Last Documented On 5 4:39PM ; [facility] Myalgia due to statin 2 WK CK-UP with ROBERT A C RANCER D.O. 08/14/2015 Last Documented On 5 11:09AM ; [facility] Myalgia and myositis PROBLEM VISIT with ROBERT A CRANCER D.O. 08/07/2015 Last Documented On 5 11:15PM ; [facility] Benign essential hypertension NEW PATIENT VISIT with ROBERT A CRANCER D.O. 05/15/2015 Last Documented On 5 5:56PM ; [facility] Hypercholesterolemia NEW PATIENT VISIT with LEST ER A CRANCER D.O. 05/15/2015 Last Documented On 5 5:56PM ; [facility] Benign prostatic hypertrophy 4 MONTH CHECK UP sincere MIJARES MD 02/23/2014 Last Documented On 4 4:09PM ; [facility] Dyslipidemia 4 MONTH CHECK UP with ARMANDO MIJARES MD 02/23/2014 Last Documented On 4 4:09PM ; [facility] Essential hypertension 4 MONTH CHECK UP with RAJEEV MIJARES MD 02/23/2014 Last Documented On 4 4:09PM ; [facility] Hypothyroidism 4 MONTH CHECK UP with ARMANDO MIJARES MD 02/23/2014 Last Documented On 4 4:09PM ; [facility] Male erectile disorder 4 MONTH CHECK UP with RAJEEV MIJARES MD 02/23/2014 Last Documented On 4 4:09PM ; [facility] Secondary testicular failure (hypogonadotropic hypogonadism) 4 MONTH CHECK UP with ARMANDO MIJARES MD 02/23/2014 Last Documented On 4 4:09PM ; [facility] Hypothyroidism PROBLEM VISIT with ARMANDO BRYAN MD 11/04/2013 Last Documented On 4 6:12PM ; [facility] Rhythm disorder PROBLEM VISIT with ARMANDO BRYAN MD 11/04/2013 Last Documented On 4 6:12PM ; [facility] Secondary testicular failure (hypogonadotropic hypogonadism) PROBLEM VISIT with ARMANDO MIJARES MD 11/04/2013 Last Documented On 4 6:12PM ; [facility] Subconjunctival hemorrhage i n the right eye PROBLEM VISIT with ARMANDO MIJARES MD 11/04/2013 Last Documented On 4 6:12PM ; [facility] Benign prostatic hypertrophy 4 MONTH CHECK UP wi th ARMANDO MIJARES MD 08/23/2013 Last Documented On 3 5:29PM ; [facility] GERD 4 MONTH CHECK UP with ARMANDO MIJARES MD 08/23/2013 Last Documented On 3 5:29PM ; [facility] Hyperlipidemia 4 MONTH CHECK UP with ARMANDO MIJARES MD 08/23/2013 Last Documented On 3 5:29PM ; [facility] Hypothyroidism 4 MONTH CHECK UP with ARMANDO MIJARES MD 08/23/2013 Last Documented On 3 5:29PM ; [facility] Low back pain 4 MONTH CHECK UP with ARMANDO MIJARES MD 08/23/2013 Last Documented On 3 5:29PM ; [facility] Male erectile disorder 4 MONTH CHECK UP with RAJEEV MIJARES MD 08/23/2013 Last Documented On 3 5:29PM ; [facility] Premature ventricular contractions 4 MON TH CHECK UP with ARMANDO MIJARES MD 08/23/2013 Last Documented On 3 5:29PM ; [facility] Testicular failure 4 MONTH CHECK UP with ARMANDO MIJARES MD 08/23/2013 Last Documented On 3 5:29PM ; [facility] Benign prostatic hypertrophy 4 MONTH CHECK UP wi th ARMANDO MIJARES MD 04/22/2013 Last Documented On 3 11:47AM ; [facility] Hypothyroidism 4 MONTH CHECK UP with ARMANDO MIJARES MD 04/22/2013 Last Documented On 3 11:47AM ; [facility] Male erectile disorder 4 MONTH CHECK UP with RAJEEV MIJARES MD 04/22/2013 Last Documented On 3 11:47AM ; [facility] Premature ventricular contractions 4 MON TH CHECK UP with ARMANDO MIJARES MD 04/22/2013 Last Documented On 3 11:47AM ; [facility] Testicular dysfunction 4 MONTH CHECK UP with RAJEEV MIJARES MD 04/22/2013 Last Documented On 3 11:47AM ; [facility] Atrial premature complex CHECK UP with ARMANDO MIJARES MD 03/03/2013 Last Documented On 3 5:29PM ; [facility] Benign prostatic hypertrophy CHECK UP with MICHAEL MIJARES MD 03/03/2013 Last Documented On 3 5:29PM ; [facility] Hypothyroidism CHECK UP with ARMANDO MIJARES MD 03/03/2013 Last Documented On 3 5:29PM ; [facility] Testicular dysfunction CHECK UP with ARMANDO GALLEGOS MD 03/03/2013 Last Documented On 3 5:29PM ; [facility] Testicular failure CHECK UP with ARMANDO MARIE MD 03/03/2013 Last Documented On 3 5:29PM ; [facility] Prostatitis SICK VISIT with ARMANDO Loo MD 02/11/2013 Last Documented On 3 5:03PM ; [facility] Urinary tract infection SICK VISIT with ARMANDO MIJARES MD 02/11/2013 Last Documented On 3 5:03PM ; [facility] Benign prostatic hypertrophy r/o prostatitis PROBLEM VISIT with ARMANDO MIJARES MD 12/31/2012 Last Documented On 3 5:12PM ; [facility] Benign prostatic hypertrophy RECHECK with ZAC MIJARES MD 09/30/2012 Last Documented On 3 12:58PM ; [facility] Postpubertal hypogonadism RECHECK with ARMANDO MIJARES MD 09/30/2012 Last Documented On 3 12:58PM ; [facility] Premature ventricular contractions RECHECK with ARMANDO MIJARES MD 09/30/2012 Last Documented On 3 12:58PM ; [facility] Prostatitis Resolved RECHECK with ARMANDO MAJANO MD 09/30/2012 Last Documented On 3 12:58PM ; [facility] Benign prostatic hypertrophy 4 MONTH CHECK UP wi th ARMANDO MIJARES MD 08/31/2012 Last Documented On 2 5:46PM ; [facility] Essential hypertriglyceridemia 4 MONTH CHECK UP with ARMANDO MIJARES MD 08/31/2012 Last Documented On 2 5:46PM ; [facility] GERD 4 MONTH CHECK UP with ARMANDO MIJARES MD 08/31/2012 Last Documented On 2 5:46PM ; [facility] Male erectile disorder 4 MONTH CHECK UP with RAJEEV MIJARES MD 08/31/2012 Last Documented On 2 5:46PM ; [facility] Postpubertal hypogonadism 4 MONTH CHECK UP with ARMANDO MIJARES MD 08/31/2012 Last Documented On 2 5:46PM ; [facility] Premature ventricular contractions 4 MON TH CHECK UP with ARMANDO MIJARES MD 08/31/2012 Last Documented On 2 5:46PM ; [facility] Epididymitis PROBLEM VISIT with ARMANDO BRYAN MD 08/10/2012 Last Documented On 2 10:01PM ; [facility] Chest pain PROBLEM VISIT with ARMANDO BRYAN MD 07/20/2012 Last Documented On 2 3:12PM ; [facility] Closed fracture of the right ninth rib P ROBLEM VISIT with ARMANDO MIJARES MD 07/20/2012 Last Documented On 2 3:12PM ; [facility] Benign prostatic hypertrophy 4 MONTH CHECK UP wi th ARMANDO MIJARES MD 04/28/2012 Last Documented On 2 1:09PM ; [facility] Hypothyroidism 4 MONTH CHECK UP with ARMANDO MIJARES MD 04/28/2012 Last Documented On 2 1:09PM ; [facility] Premature ventricular contractions 4 MON TH CHECK UP with ARMANDO MIJARES MD 04/28/2012 Last Documented On 2 1:09PM ; [facility] Testicular failure 4 MONTH CHECK UP with ARMANDO MIJARES MD 04/28/2012 Last Documented On 2 1:09PM ; [facility] GERD NEW PATIENT VISIT with ARMANDO MIJARES MD 01/01/2012 Last Documented On 2 12:06PM ; [facility] Hypothyroidism NEW PATIENT VISIT with ARMANDO MIJARES MD 01/01/2012 Last Documented On 2 12:06PM ; [facility] Postpubertal hypogonadism NEW PATIENT VISIT with ARMANDO MIJARES MD 01/01/2012 Last Documented On 2 12:06PM ; [facility] Rhythm disorder NEW PATIENT VISIT with ARMANDO MIJARES MD 01/01/2012 Last Documented On 2 12:06PM ; [facility] Instructions Includes: Instructions for all patient encounters Instructions to patient Instructions for patient Last Documented On 2 12:55PM ; [facility] Not instructed to lose weigh t Last Documented On 1 9:07AM ; [facility] Not instructed to lose weigh t Last Documented On 1 9:05AM ; [facility] Vitamin/diet support therapy Last Documented On 1 9:05AM ; [facility] Instructions for patient Pat ient meets criteria for COVID-19 testing. ~ Last Documented On 0 11:13AM ; [facility] Go to the emergency room if condition worsens Last Documented On 0 8:29AM ; [facility] Watch for signs/symptoms of infection Last Documented On 0 8:29AM ; [facility] Go to the emergency room if condition worsens Last Documented On 0 9:06AM ; [facility] Watch for signs/symptoms of infection Last Documented On 0 9:06AM ; [facility] Go to the emergency room if condition worsens Last Documented On 9 9:08AM ; [facility] Watch for signs/symptoms of infection Last Documented On 9 9:08AM ; [facility] Go to the emergency room if condition worsens Last Documented On 9 8:49AM ; [facility] Watch for signs/symptoms of infection Last Documented On 9 8:49AM ; [facility] Go to the emergency room if condition worsens Last Documented On 9 8:38AM ; [facility] Watch for signs/symptoms of infection Last Documented On 9 8:38AM ; [facility] Go to the emergency room if condition worsens Last Documented On 9 9:57AM ; [facility] Watch for signs/symptoms of infection Last Documented On 9 9:57AM ; [facility] Instructions for patient Last Documented On 9 3:01PM ; [facility] Go to the emergency room if condition worsens Last Documented On 8 8:46AM ; [facility] Watch for signs/symptoms of infection Last Documented On 8 8:46AM ; [facility] Go to the emergency room if condition worsens Last Documented On 8 8:47AM ; [facility] Watch for signs/symptoms of infection Last Documented On 8 8:47AM ; [facility] Go to the emergency room if condition worsens Last Documented On 8 8:34AM ; [facility] Watch for signs/symptoms of infection Last Documented On 8 8:34AM ; [facility] Watch for signs/symptoms of infection Last Documented On 7 9:12AM ; [facility] Recommend diet and exercise at least 30 min three times per week Last Documented On 7 9:05AM ; [facility] Go to the emergency room if condition worsens Last Documented On 6 10:04AM ; [facility] Go to the emergency room if condition worsens Last Documented On 5 1:59PM ; [facility] Education and Decision Aids were provided during visit for: Patient education about anti biotics: need to finish even if feeling better Last Documented On 2 2:16PM ; [facility] Discussed preventing falls Last Documented On 1 9:07AM ; [facility] Patient education about home safety plans for prevention of falls : Patient completed a Fall risk assesment and was provided fall risk education materials Last Documented On 1 9:07AM ; [facility] Discussed preventing falls Last Documented On 1 9:05AM ; [facility] Discussed exercise Last Documented On 1 9:05AM ; [facility] Patient education about phys ical activity benefits Last Documented On 1 9:05AM ; [facility] Discussed concerns about zaida dequate physical activity Last Documented On 1 9:05AM ; [facility] Education and counseling Last Documented On 1 8:22AM ; [facility] Education and counseling Last Documented On 1 8:14AM ; [facility] Patient education about home safety plans for prevention of falls : Patient completed a Fall risk assesment and was provided fall risk education materials Last Documented On 1 8:31AM ; [facility] Education and counseling Last Documented On 1 8:42AM ; [facility] Education and counseling Last Documented On 0 9:20AM ; [facility] Education, guidance, and cou nseling ~1) Instructed patient to proceed to ER if conditions worsens. ~2) Have patient remain at home or Quarantined and adhere to social distancing (>6 ft). ~3) Wash Hands with soap and water and if not available, us Hand Santizer (>60% alcohol) ~4) Visit https://www.cdc.gov/ for the lastest updates on COVID-19 Last Documented On 0 11:13AM ; [facility] Education and counseling Last Documented On 0 8:20AM ; [facility] Education and counseling Last Documented On 0 8:55AM ; [facility] Education and counseling Last Documented On 9 8:47AM ; [facility] Patient education about a pr oper diet Last Documented On 9 9:08AM ; [facility] Education and counseling Last Documented On 9 8:44AM ; [facility] Education and counseling Last Documented On 9 8:30AM ; [facility] Patient education about a pr oper diet Last Documented On 9 8:38AM ; [facility] Education and counseling Last Documented On 9 9:41AM ; [facility] Education and counseling Last Documented On 8 8:38AM ; [facility] Patient education about a pr oper diet Last Documented On 8 8:46AM ; [facility] Patient education about a pr oper diet -Healthy diet encouraged Last Documented On 8 8:53AM ; [facility] Patient's goal is to maintai n normal blood pressure discussed with patient to keep b/p below 140/90 Last Documented On 8 8:54AM ; [facility] Patient education about a pr oper diet -Healthy diet encouraged. Try to stay away from spicy/greasy foods Last Documented On 8 8:34AM ; [facility] Patient education about a pr oper diet Last Documented On 7 9:21AM ; [facility] Patient education about a pr oper diet -Healthy diet encouraged Last Documented On 7 2:51PM ; [facility] Patient education about anti biotics: need to finish even if feeling better Last Documented On 5 4:47PM ; [facility] Medical Equipment - Implanted Devices Includes: Current and historical Devices No Medical Equipment Recorded Medications Includes: Current and historical Medications Current Medications (continue as prescribed) Aspirin 81 MG Oral Tablet Delayed Release 01/22/2024 Provider: Diagnosis: Last Documented On 4 8:42AM By FERN WALLACE ; [facility] PreserVision AREDS Oral Tablet 01/22/2024 Provider: Diagnosis: Last Documented On 4 8:41AM By FERN WALLACE ; [facility] Ezetimibe 10 MG Oral Tablet 01/22/2024 Provider: Diagnosis: Last Documented On 4 8:40AM By FERN WALLACE ; [facility] Vitamin D3 250 MCG ([id number] UT) Oral Capsule 024 Provider: Diagnosis: Last Documented On 4 8:42AM By FERN WALLACE ; [facility] Esomeprazole Magnesium 40 MG Oral Capsule Delayed Release 02/19/2023 Provider: ROBERT Pal Diagnosis: Gastro-esophagea l reflux disease without esophagitis TAKE 1 CAPSULE BY MOUTH BILL COLLINS FOR APPT. Last Documented On 02/19/2023 10:41AM By JUSTIN WALLACE ; [facility] oxyCODONE-Acetaminophen 5-325 MG Oral Tablet Provider: Diagnosis: Last Documented On 2 11:25AM By CIRA WALLACE ; [facility] Tamsulosin HCl 0.4 MG Oral Capsule 10/16/2021 Provid er: Diagnosis: Last Documented On 2 11:27AM By CIRA WALLACE ; [facility] Atenolol 25 MG Oral Tablet 09/06/2021 Provider: Diagnosis: Last Documented On 9:11AM By Stefanie BARCENAS ; [facility] Testosterone Cypionate 200 MG/ML Intramuscular Solutio n 08/17/2021 Provider: Diagnosis: 1 ml intramuscular every 2 weeks on Friday, Dr. Sheldon Last Documented On 1 9:03AM By CIRA WALLACE ; [facility] Sildenafil Citrate 100 MG Oral Tablet 07/18/2021 Provider: ROBERT Pal Diagnosis: Male erectile dy sfunction, unspecified qd prn Last Documented On 2 11:25AM By CIRA WALLACE ; [facility] Cabergoline 0.5 MG Oral Tablet 06/12/2021 Provider: Diagnosis: Dr. Sheldon, On Friday Last Documented On 1 8:57AM By CIRA WALLACE ; [facility] Levothyroxine Sodium 175 MCG Oral Tablet 06/03/2021 Provider: Diagnosis: Dr. Sheldon Last Documented On 1 9:04AM By CIRA WALLACE ; [facility] Hydrocortisone 20MG Oral Tablet 08/17/2018 Provider: Diagnosis: Take 15 mg in the am and 10 mg in the pm, Dr. Rm norman Last Documented On 8 8:37AM By CIRA WALLACE ; [facility] Centrum Silver 50+Men Oral Tablet 03/19/2017 Provide r: Diagnosis: Last Documented On 03/19/2017 10:25AM By RANULFO STEPHENS [facility] ; [facility] Past Medications on file Cephalexin 500 MG Oral Capsule 01/22/2024 - 02/01/2024 Provider: DANIELLA ORTA APRN-RECOVERY RN Diagnosis: Acute pharyngiti s, unspecified take 1 capsule twice daily for ten days Last Documented On 4 9:15AM By Daniella Orta APRN RECOVERY RN ; [facility] Amoxicillin-Pot Clavulanate 875-125 MG Oral Tablet 08/31/2022 - 09/07/2022 Provider: FLORES FONTAINE, Diagnosis: Urinary tract infection, site not specified One tablet twice a day Last Documented On 2 2:20PM By Renee Mark DIRECTOR OF SPORTS PERFORMANCE-BC ; [facility] Oseltamivir Phosphate 75 MG Oral Capsule 01/11/2022 - 01/22/2024 Provider: ADOLPH PIZARRO DIRECTOR OF SPORTS PERFORMANCE-BC Diagnosis: Contact w and ex posure to [facility] viral communicable diseases 1 CAPSULE TWO TIMES A DAY Last Documented On 4 8:37AM By FERN WALLACE ; [facility] Cefuroxime Axetil 500 MG Oral Tablet 01/11/2022 - 01/22/2024 Provider: ADOLPH PIZARRO DIRECTOR OF [employer] Diagnosis: Acute cough One tablet twice a day Last Documented On 4 8:37AM By FERN WALLACE ; [facility] Cyclobenzaprine HCl 10 MG Oral Tablet 10/25/2021 - 05/2024 Provider: Diagnosis: Last Documented On 4 8:37AM By FERN WALLACE ; [facility] oxyCODONE-Acetaminophen 5-32 5 MG Oral Tablet 09/05/2021 - 11/07/2021 Provider: STEFANIE SUNG DIRECTOR OF [employer] PER[employer]MANCE-C Diagnosis: 1 Q 4H scheduled with 1 sin tional as needed, no more than 8 a day Last Documented On 2 11:25AM By CIRA WALLACE ; [facility] Ambien 5 MG Oral Tablet 09/05/2021 - 11/07/2021 Provider: STEFANIE SUNG DIRECTOR OF [employer] Diagnosis: Insomnia, unspec ified One tablet at bed time Last Documented On 2 11:26AM By CIRA WALLACE ; [facility] Ferrous Sulfate 325 (65 Fe) MG Oral Tablet 08/30/2021 - 01/22/2024 Provider: Diagnosis: Last Documented On 4 8:39AM By FERN WALLACE ; [facility] oxyCODONE-Acetaminophen 5-32 5 MG Oral Tablet 08/21/2021 - 08/30/2021 Provider: ANEESH PETERSON MD Diagnosis: Take 1-2 tabs Q4H PRN, no more than 8 a day Last Documented On 1 9:05AM By CIRA WALLACE ; [facility] oxyCODONE-Acetaminophen 5-32 5 MG Oral Tablet 08/01/2021 - 09/06/2021 Provider: ROBBY VILLA MD Diagnosis: Take 1-2 Q4H PRN, no more than 8 a day Last Documented On 1 9:09AM By Stefanie BARCENAS ; [facility] Losartan Potassium 100 MG Or al Tablet 07/28/2021 - 09/06/2021 Provider: CHARLES FERRER MD Diagnosis: Last Documented On 1 9:10AM By Stefanie BARCENAS ; [facility] NexIUM 40 MG Oral Capsule Delayed Release 07/18/2021 - 02/19/2023 Provider: ROBERT ORTIZ D.O. Diagnosis: Gastro-esophagea l reflux disease without esophagitis TAKE ONE CAPSULE BY MOUTH DAILY Last Documented On 02/19/2023 10:29AM By JUSTIN WALLACE ; [facility] Atenolol 50 MG Oral Tablet 07/16/2021 - 09/06/2021 Pro vider: CHARLES FERRER MD Diagnosis: Last Documented On 1 9:12AM By Stefanie BARCENAS ; [facility] amLODIPine Besylate 5 MG Ora l Tablet 06/30/2021 - 09/06/2021 Provider: CHARLES FERRER MD Diagnosis: Last Documented On 1 9:10AM By Stefanie BARCENAS ; [facility] Testosterone Cypionate 200 M G/ML Injection Solution 01/15/2021 - 08/30/2021 Provider: Diagnosis: 1 inj every 2 weeks. Last Documented On 1 9:01AM By CIRA WALLACE ; [facility] Vitamin D 50 MCG (1999 [place]) Oral Tablet 01/15/2021 - Provider: Diagnosis: 1 po qdotc/ Last Documented On 1 9:03AM By CIRA WALLACE ; [facility] Percocet 5-325 MG Oral Tablet 01/15/2021 - 08/30/2021 Provider: Diagnosis: TID prnDrJavy/Pain [facility] Last Documented On 1 9:01AM By CIRA WALLACE ; [facility] Levothyroxine Sodium 175 MCG Oral Tablet 10/06/2020 - 08/30/2021 Provider: Diagnosis: 1 po qdDr,Chode Last Documented On 1 9:04AM By CIRA WALLACE ; [facility] NexIUM 40 MG Oral Capsule Delayed Release 03/27/2020 - 07/18/2021 Provider: ROBERT ORTIZ D.O. Diagnosis: TAKE ONE CAPSULE BY MOUTH DAILY Last Documented On 07/18/2021 8:41AM By Carmina Perales ; [facility] NexIUM 40 MG Oral Capsule Delayed Release 09/24/2019 - 03/27/2020 Provider: ROBERT ORTIZ D.O. Diagnosis: TAKE ONE CAPSULE BY MOUTH DAILY Last Documented On 03/27/2020 10:10AM By JUSTIN WALLACE ; [facility] Flomax 0.4 MG Oral Capsule 07/16/2019 - 01/15/2021 Pro vider: Diagnosis: Last Documented On 01/15/2021 8:30AM By JUSTIN WALLACE ; [facility] traMADol HCl 50MG Oral Tablet 04/22/2019 - 09/24/2019 Provider: ROBERT ORTIZ D.O. Diagnosis: TAKE 1 TABLET BY MOUTH FOUR TIMES DAILY NEEDE D. Last Documented On 09/24/2019 8:48AM By Whitney Kenny MA ; [facility] Ultram 50MG Oral Tablet 04/01/2019 - 04/22/2019 Provid er: ROBERT ORTIZ D.O. Diagnosis: 1 PO QID PRN #54 Last Documented On 04/22/2019 2:39PM By JUSTIN WALLACE ; [facility] NexIUM 40MG Oral Capsule Delayed Release 03/22/2019 - 09/24/2019 Provider: ROBERT ORTIZ D.O. Diagnosis: TAKE ONE CAPSULE BY MOUTH DAILY Last Documented On 09/24/2019 8:36AM By Whitney Kenny MA ; [facility] Iron 325 (65 Fe)MG Oral Tablet 02/16/2019 - 08/30/2021 Provider: Diagnosis: Last Documented On 1 8:58AM By ICRA WALLACE ; [facility] Testosterone 25 MG/2.5GM(1%) Transdermal Gel 9 - 01/15/2021 Provider: Diagnosis: 25 mg per pack, twice daily Last Documented On 01/15/2021 8:27AM By JUSTIN WALLACE ; [facility] Cabergoline 0.5MG Oral Tablet 01/12/2019 - 08/30/2021 Provider: Diagnosis: one every 4 weeks, Dr. Sheldon Last Documented On 1 8:57AM By CIRA WALLACE ; [facility] Cefuroxime Axetil 500MG Oral Tablet 11/30/2018 - 01/12/2019 Provider: ADOLPH PIZARRO [employer] Diagnosis: Cough 1 CAPSULE TWO TIMES A DAY Last Documented On 9 9:18AM By CIRA WALLACE ; [facility] guaiFENesin-Codeine 100-10MG /5ML Oral Syrup 11/30/2018 - 01/12/2019 Provider: ADOLPH PIZARRO [employer] Diagnosis: Cough as directed Last Documented On 9 9:19AM By CIRA WALLACE ; [facility] NexIUM 40MG Oral Capsule Delayed Release 09/21/2018 - 03/22/2019 Provider: ROBERT ORTIZ D.O. Diagnosis: TAKE ONE CAPSULE BY MOUTH DAILY Last Documented On 03/22/2019 8:35AM By JUSTIN WALLACE ; [facility] Losartan Potassium 100MG Oral Tablet 08/17/2018 - 08/15 Provider: Diagnosis: Dr. Ferrer Last Documented On 1 8:59AM By CIRA WALLACE ; [facility] AmLODIPine Besylate 5MG Oral Tablet 08/17/2018 - 08/30 Provider: Diagnosis: Dr. Ferrer Last Documented On 1 8:56AM By CIRA WALLACE ; [facility] NexIUM 40MG Oral Capsule Delayed Release 03/16/2018 - 09/21/2018 Provider: ROBERT ORTIZ D.O. Diagnosis: TAKE ONE CAPSULE BY MOUTH DAILY Last Documented On 9 5:02PM By CIRA WALLACE ; [facility] Cabergoline 0.5MG Oral Tablet 02/20/2018 - 01/12/2019 Provider: Diagnosis: One tablet every 3 weeks Last Documented On 9 9:18AM By CIRA WALLACE ; [facility] Hydrocortisone 10MG Oral Tablet 02/20/2018 - 8 Provider: Diagnosis: Dr. Sheldon Last Documented On 8 8:37AM By CIRA WALLACE ; [facility] NexIUM 40MG Oral Capsule Delayed Release 12/15/2017 - 03/16/2018 Provider: ROBERT ORTIZ D.O. Diagnosis: TAKE ONE CAPSULE BY MOUTH DAILY Last Documented On 8 10:38AM By CRIA WALLACE ; [facility] Fluticasone Propionate 50MCG/ACT Nasal Suspension 11/17/2017 - 02/20/2018 Provider: ROBERT ORTIZ D.O. Diagnosis: INSTILL 2 SPRAYS IN EACH NOSTRIL DAILY Last Documented On 8 8:31AM By CIRA WALLACE ; [facility] Fluticasone Propionate 50MCG/ACT Nasal Suspension 10/16/2017 - 11/17/2017 Provider: ROBERT ORTIZ D.O. Diagnosis: INHALE 2 SPRAYS IN EACH NOSTRIL DAILY Last Documented On 11/17/2017 10:17AM By JUSTIN WALLACE ; [facility] Flonase Allergy Relief 50MCG/ACT Nasal Suspension 09/19/2017 - 10/16/2017 Provider: ROBERT ORTIZ D.O. Diagnosis: Other specified disorders of Eustachian tube, bilateral 2 sprays in each nostril once a day Last Documented On 10/16/2017 8:19AM By JUSTIN WALLACE ; [facility] NexIUM 40MG Oral Capsule Delayed Release 09/19/2017 - 12/15/2017 Provider: ROBERT ORTIZ D.O. Diagnosis: Gastro-esophagea l reflux disease without esophagitis 1 po qd- stop the ranitidine. Last Documented On 8 8:56AM By CIRA WALLACE ; [facility] RaNITidine HCl 150MG Oral Capsule, conventional 08/11/2017 - 09/19/2017 Provider: ROBERT KOVACS D.O. Diagnosis: TAKE 1 TABLET BY MOUTH TWICE DAILY. DISCONTINUE THE NEXIUM Last Documented On 09/19/2017 9:03AM By JUSTIN WALLACE ; [facility] Cyclobenzaprine HCl 10MG Ora l Tablet 07/02/2017 - 09/19/2017 Provider: ROBERT ORTIZ D.O. Diagnosis: Take 1 po q hs prn-use sparingly Last Documented On 8 8:18AM By CIRA WALLACE ; [facility] RaNITidine HCl 150MG Oral Capsule, conventional 06/09/2017 - 08/11/2017 Provider: ROBERT ORTIZ D.O. Diagnosis: Gastro-esophagea l reflux disease without esophagitis 1 PO BID-D/C the Nexium Last Documented On 08/11/2017 8:24AM By JUSTIN WALLACE ; [facility] EQL Vitamin D3 1000UNIT Oral Capsule, conventional 06/09/2017 - 01/15/2021 Provider: Diagnosis: 1 cap daily otc Last Documented On 01/15/2021 8:29AM By JUSTIN WALLACE ; [facility] NexIUM 40MG Oral Capsule, delayed-release 03/20/2017 - 06/09/2017 Provider: ROBERT ORTIZ D.O. Diagnosis: Gastro-esophagea l reflux disease without esophagitis TAKE ONE CAPSULE BY MOUTH DAILY Last Documented On 06/09/2017 9:19AM By JUSTIN WALLACE ; [facility] Myrbetriq 25MG Oral Tablet, extended-release 24 hour 03/19/2017 - 01/15/2021 Provider: Diagnosis: dr ying Last Documented On 01/15/2021 8:30AM By JUSTIN WALLACE ; [facility] Cyclobenzaprine HCl 10MG Oral Tablet 11/21/2016 - 03/19/2017 Provider: ROBERT ORTIZ D.O. Diagnosis: Low back pain 1 po q hs prn-use sparingly Last Documented On 03/19/2017 10:24AM By RANULFO WALLACE ; [facility] NexIUM 40 MG Capsule, delayed-release 09/18/2016 - 03/20/2017 Provider: ROBERT ORTIZ D.O. Diagnosis: Gastro-esophagea l reflux disease without esophagitis TAKE ONE CAPSULE BY MOUTH DAILY Last Documented On 7 8:19AM By CIRA WALLACE ; [facility] Levothyroxine Sodium 150 MCG Tablet 09/18/2016 - 10/06 Provider: Diagnosis: Dr. Sheldon Last Documented On 10/06/2020 8:37AM By JUSTIN WALLACE ; [facility] Cabergoline 0.5 MG Tablet 09/18/2016 - 02/20/2018 Prov ider: Diagnosis: One tablet weekly Last Documented On 8 8:31AM By CIRA WALLACE ; [facility] NexIUM 40 MG Capsule, delayed-release 07/15/2016 - 09/18/2016 Provider: ROBERT ORTIZ D.O. Diagnosis: TAKE ONE CAPSULE BY MOUTH DAILY Last Documented On 09/18/2016 11:08AM By JUSTIN WALLACE ; [facility] Hydrocodone-Acetaminophen 10 -325 MG Tablet 05/01/2016 - 09/18/2016 Provider: ROBERT ORTIZ D.O. Diagnosis: Myalgia One tablet twice a day-PRN Last Documented On 7 10:43AM By CIRA WALLACE ; [facility] Levothyroxine Sodium 100 MCG Tablet 04/26/2016 - 09/18 Provider: Diagnosis: Last Documented On 7 10:45AM By CIRA WALLACE ; [facility] Cabergoline 0.5 MG Tablet 04/19/2016 - 09/18/2016 Prov ider: Diagnosis: Last Documented On 7 10:43AM By CIRA WALLACE ; [facility] Hydrocortisone 10 MG Tablet 04/18/2016 - 02/20/2018 Pr ovider: Diagnosis: Last Documented On 8 8:32AM By CIRA WALLACE ; [facility] Cosyntropin 0.25 MG Solution, when reconstituted 04/08/2016 - 09/18/2016 Provider: Diagnosis: Last Documented On 7 10:44AM By CIRA WALLACE ; [facility] Hydrocodone-Acetaminophen 10 -325 MG Tablet 03/28/2016 - 05/01/2016 Provider: ROBERT ORTIZ D.O. Diagnosis: Myalgia One tablet twice a day-PRN Last Documented On 05/01/2016 11:18AM By ROBERT VARGAS [facility] Neurontin 300 MG Capsule, conventional 03/20/2016 - 03/21/2016 Provider: ROBERT ORTIZ D.O. Diagnosis: 1 po tid Last Documented On 6 11:55AM By CIRA WALLACE ; [facility] Hydrocodone-Acetaminophen 10 -325 MG Tablet 02/27/2016 - 03/28/2016 Provider: ROBERT ORTIZ D.O. Diagnosis: Myalgia One tablet twice a day-PRN Last Documented On 03/28/2016 4:08PM By ROBERT ORTIZ DO ; [facility] Synthroid 50 MCG Tablet 02/23/2016 - 09/18/2016 Provid er: ROBERT ORTIZ D.O. Diagnosis: One tablet daily-decrease in strenth-stop the 75mcg.Lab for TSH 8 weeks after starting. Last Documented On 7 10:45AM By CIRA WALLACE ; [facility] Synthroid 75 MCG Tablet 02/21/2016 - 02/23/2016 Provid er: ROBERT ORTIZ D.O. Diagnosis: One tablet daily Last Documented On 02/23/2016 11:49AM By JUSTIN WALLACE ; [facility] Neurontin 300 MG Capsule 02/15/2016 - 03/20/2016 Provi paresh: ROBERT ORTIZ D.O. Diagnosis: 1 po q hs x 3 day then 1 po bid x 3 day then 1 p o TID Last Documented On 03/20/2016 10:43AM By ROBERT ORTIZ DO ; [facility] Hydrocodone-Acetaminophen 10 -325 MG Tablet 02/15/2016 - 02/27/2016 Provider: ROBERT ORTIZ D.O. Diagnosis: Myalgia One tablet at bed time PRN-use sparingly Last Documented On 02/27/2016 11:19AM By JUSTIN WALLACE ; [facility] NexIUM 40 MG Capsule Delayed Release 02/14/2016 - 07/15/2016 Provider: ROBERT ORTIZ D.O. Diagnosis: TAKE 1 CAPSULE BY MOUTH EVERY DAY Last Documented On 07/15/2016 8:28AM By JUSTIN WALLACE ; [facility] Hydrocodone-Acetaminophen 10 -325 MG Tablet 02/09/2016 - 02/15/2016 Provider: ROBERT ORTIZ D.O. Diagnosis: Myalgia One tablet at bed time PRN-use sparingly Last Documented On 02/15/2016 3:39PM By ROBERT ORTIZ DO ; [facility] Hydrocodone-Acetaminophen 10 -325 MG Tablet 01/30/2016 - 02/09/2016 Provider: ROBERT ORTIZ D.O. Diagnosis: Myalgia One tablet at bed time PRN-use sparingly Last Documented On 02/09/2016 10:43AM By JUSTIN WALLACE ; [facility] Synthroid 75 MCG Tablet 12/28/2015 - 02/21/2016 Provid er: ROBERT ORTIZ D.O. Diagnosis: One tablet daily-decreased Last Documented On 02/21/2016 7:23PM By JUSTIN WALLACE ; [facility] Hydrocodone-Acetaminophen 10 -325 MG Tablet 12/11/2015 - 01/30/2016 Provider: ROBERT ORTIZ D.O. Diagnosis: Myalgia One tablet at bed time PRN-use sparingly Last Documented On 01/30/2016 9:39AM By ROBERT ORTIZ DO ; [facility] Hydrocodone-Acetaminophen 10 -325 MG Tablet 11/28/2015 - 12/11/2015 Provider: ROBERT ORTIZ D.O. Diagnosis: One tablet four times a day Last Documented On 12/11/2015 9:44AM By JUSTIN WALLACE ; [facility] NexIUM 40 MG Capsule Delayed Release 11/14/2015 - 02/14/2016 Provider: ROBERT ORTIZ D.O. Diagnosis: TAKE 1 CAPSULE BY MOUTH EVERY DAY Last Documented On 02/14/2016 4:34PM By JUSTIN WALLACE ; [facility] Hydrocodone-Acetaminophen 10 -325 MG Tablet 10/25/2015 - 11/28/2015 Provider: ROBERT ORTIZ D.O. Diagnosis: One tablet four times a day Last Documented On 11/28/2015 12:39PM By ROBERT ORTIZ DO ; [facility] Synthroid 125 MCG Tablet 10/13/2015 - 02/09/2016 Provi paresh: ROBERT ORTIZ D.O. Diagnosis: One tablet daily Last Documented On 6 10:11AM By CIRA WALLACE ; [facility] Ativan 0.5 MG Tablet 10/11/2015 - 10/25/2015 Provider: ROBERT A CRANCER D.O. Diagnosis: 1-2 PO BID PRN Last Documented On 6 1:34PM By CIRA WALLACE ; [facility] [place]osa 5-325 MG Tablet 10/02/2015 - 10/11/2015 Provider : NATHAN MICHELLE DO Diagnosis: Chronic cholecys titis 1-2 every 4-6 hours as needed Last Documented On 10/11/2015 9:52AM By WHITNEY WALLACE ; [facility] Keflex 500 MG Capsule, conventional 09/29/2015 - 10/11/2015 Provider: NATHAN MICHELLE DO Diagnosis: Chronic cholecys titis One tablet four times a day Last Documented On 10/11/2015 9:46AM By WHITNEY WALLACE ; [facility] [place] 5-325 MG Tablet 09/29/2015 - 10/11/2015 Provider : NATHAN MICHELLE DO Diagnosis: Chronic cholecys titis 1-2 every 4-6 hours as needed Last Documented On 10/11/2015 9:46AM By WHITNEY WALLACE ; [facility] Hydrocodone-Acetaminophen 10 -325 MG Tablet 09/27/2015 - 10/11/2015 Provider: ROBERT Pace.ODemarco Diagnosis: 1 every 6 hours as needed Last Documented On 10/11/2015 9:52AM By WHITNEY WALLACE ; [facility] Hydrocodone-Acetaminophen 10 -325 MG Tablet 09/22/2015 - 09/27/2015 Provider: ROBERT ORTIZ D.ODemarco Diagnosis: 1 every 6 hours as needed Last Documented On 09/27/2015 12:58PM By JUSTIN WALLACE ; [facility] Ativan 0.5 MG Tablet 09/18/2015 - 10/11/2015 Provider: ROBERT ORTIZ D.ODemarco Diagnosis: 1 PO BID PRN Last Documented On 10/11/2015 10:48AM By JUSTIN WALLACE ; [facility] Synthroid 125 MCG Tablet 09/18/2015 - 10/13/2015 Provi paresh: ROBERT ORTIZ D.O. Diagnosis: One tablet daily Last Documented On 10/13/2015 9:41AM By ROBERT ORTIZ DO ; [facility] Hydrocodone-Acetaminophen 10 -325 MG Tablet 09/11/2015 - 09/22/2015 Provider: ROBERT ORTIZ D.O. Diagnosis: 1 every 6 hours as needed Last Documented On 09/22/2015 9:38AM By JUSTIN WALLACE ; [facility] Zofran 4 MG Tablet 08/30/2015 - 10/11/2015 Provider: ROBERT ORTIZ D.O. Diagnosis: 1 po TID,PRN Last Documented On 10/11/2015 9:46AM By WHITNEY WALLACE ; [facility] Hydrocodone-Acetaminophen 10 -325 MG Tablet 08/30/2015 - 09/11/2015 Provider: ROBERT ORTIZ D.O. Diagnosis: 1 every 6 hours as needed Last Documented On 09/11/2015 5:04PM By Maddie WALLACE ; [facility] Zofran 4 MG Tablet 08/24/2015 - 08/30/2015 Provider: ROBERT ORTIZ D.O. Diagnosis: 1 po TID Last Documented On 08/30/2015 1:51PM By ROBERT ORTIZ DO ; [facility] Hydrocodone-Acetaminophen 10 -325 MG Tablet 08/24/2015 - 08/30/2015 Provider: ROBERT ORTIZ D.O. Diagnosis: 1 every 6 hours as needed Last Documented On 08/30/2015 1:50PM By JUSTIN WALLACE ; [facility] Lescol XL 80 MG Tablet, extended-release 24 hour 08/14/2015 - 02/09/2016 Provider: ROBERT ORTIZ D.O. Diagnosis: Other hyperlipid emia One tablet daily Last Documented On 6 10:11AM By CIRA WALLACE ; [facility] Co-Enzyme Q10 100 MG Capsule, conventional 08/14/2015 - 10/11/2015 Provider: Diagnosis: Last Documented On 10/11/2015 9:52AM By WHITNEY WALLACE ; [facility] Esomeprazole Magnesium 40 MG Capsule, delayed-release 08/14/2015 - 10/25/2015 Provider: ROBERT JARQUIN D.O. Diagnosis: 1 capsule daily Last Documented On 6 1:35PM By CIRA WALLACE ; [facility] Hydrocodone-Acetaminophen 10 -325 MG Tablet 08/11/2015 - 08/24/2015 Provider: LALA LANG MD Diagnosis: 1 every 6 hours as needed Last Documented On 08/24/2015 2:33PM By JUSTIN WALLACE ; [facility] Tylenol with Codeine #3 300-30 MG Tablet 08/09/2015 - 10/11/2015 Provider: ROBERT ORTIZ D.O. Diagnosis: 1 PO QID PRN Last Documented On 10/11/2015 9:46AM By WHITNEY WALLACE ; [facility] PredniSONE 10 MG Tablet 08/09/2015 - 10/11/2015 Provid er: ROBERT ORTIZ D.O. Diagnosis: 3 PO QD X 2 DAYS, 2 PO QD X 2 DAYS, 1 PO QD X 2 DAYS Last Documented On 10/11/2015 9:46AM By WHITNEY WALLACE ; [facility] Myrbetriq 25 MG Tablet, extended-release 24 hour 08/07/2015 - 03/19/2017 Provider: Diagnosis: Last Documented On 03/19/2017 10:23AM By RANULFO WALLACE ; [facility] Atorvastatin Calcium 20 MG Tablet 08/07/2015 - 015 Provider: Diagnosis: Last Documented On 08/14/2015 3:15PM By JOSHUA WALLACE ; [facility] Synthroid 150 MCG Tablet 08/07/2015 - 09/18/2015 Provider: ROBERT ORTIZ D.O. Diagnosis: Hypothyroidism, unspecified One tablet daily TAKE 1 TABLET DAILY Last Documented On 09/18/2015 10:04AM By JUSTIN WALLACE ; [facility] Atorvastatin Calcium 10 MG Tablet 05/15/2015 - 015 Provider: Diagnosis: Last Documented On 08/07/2015 3:54PM By JOSHUA WALLACE ; [facility] Cialis 5 MG Tablet 05/15/2015 - 08/07/2015 Provider: Diagnosis: Last Documented On 08/07/2015 3:54PM By JOSHUA WALLACE ; [facility] Synthroid 150 MCG OR TABS 02/23/2014 - 08/07/2015 Provider: ARMANDO Loo MD Diagnosis: HYPOTHYROIDISM N OS TAKE 1 TABLET DAILY Last Documented On 08/07/2015 3:54PM By JOSHUA WALLACE ; [facility] NexIUM 40 MG OR CPDR 02/23/2014 - 11/14/2015 Provider: ARMANDO MIJARES MD Diagnosis: ESOPHAGEAL REFLU X TAKE 1 CAPSULE DAILY Last Documented On 11/14/2015 12:49PM By ROBERT ORTIZ DO ; [facility] Meloxicam 15 MG OR TABS 02/23/2014 - 05/15/2015 Provid er: ARMANDO MIJARES MD Diagnosis: From Dr. Chan Last Documented On 5 10:54AM By KHOI LEYVA MA ; [facility] Atenolol 50 MG OR TABS 02/23/2014 - 08/30/2021 Provide r: ARMANDO MIJARES MD Diagnosis: take 1 tab. 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 Last Documented On 9 9:20AM By CIRA WALLACE ; [facility] Cyclobenzaprine HCl 10 MG OR TABS 01/14/2014 - 02/23/2014 Provider: ARMANDO Loo MD Diagnosis: 1 tab po q 8 hrs prn myalgia Last Documented On 02/23/2014 1:09PM By Staci Gordon LPN ; [facility] AndroGel Pump 20.25 MG/ACT (1.62%) TD GEL 08/31/2013 - 02/23/2014 Provider: ARMANDO MAJANO MD Diagnosis: Testicular Hypof unc NEC apply 3 pumpful gel on shoulder once a day. 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 Last Documented On 08/31/2013 10:05AM By Staci Gordon LPN ; [facility] Synthroid 150 MCG OR TABS 08/17/2013 - 02/23/2014 Provider: ARMANDO Loo MD Diagnosis: HYPOTHYROIDISM N OS TAKE 1 TABLET DAILY Last Documented On 02/23/2014 1:32PM By ERIN MIJARES MD ; [facility] NexIUM 40 MG OR CPDR 08/13/2013 - 02/23/2014 Provider: ARMANDO MIJARES MD Diagnosis: ESOPHAGEAL REFLU X TAKE 1 CAPSULE DAILY Last Documented On 02/23/2014 1:32PM By ERIN MIJARES MD ; [facility] Atenolol 25 MG OR TABS 06/02/2013 - 02/23/2014 Provide r: ARMANDO MIJARES MD Diagnosis: TAKE 1 TABLET TWICE A DAY Last Documented On 02/23/2014 1:12PM By Staci Gordon LPN ; [facility] Meloxicam 15 MG OR TABS 04/22/2013 - 02/23/2014 Provid er: Diagnosis: From Dr. Chan Last Documented On 02/23/2014 1:33PM By ERIN MIJARES MD ; [facility] Minocycline HCl 100 MG OR CAPS 02/11/2013 - 03/03/2013 Provider: ARMANDO MIJARES MD Diagnosis: URIN TRACT INFEC TION NOS Last Documented On 03/03/2013 4:19PM By Staci Gordon LPN ; [facility] Synthroid 150 MCG OR TABS 10/07/2012 - 08/17/2013 Prov ider: ARMANDO MIJARES MD Diagnosis: Last Documented On 08/17/2013 11:57AM By Staci Grodon LPN ; [facility] AndroGel Pump 20.25 MG/ACT (1.62%) TD GEL 09/28/2012 - 08/23/2013 Provider: ARMANDO MAJANO MD Diagnosis: Testicular Hypof unc NEC TAKE 1 TABLET DAILY Last Documented On 08/23/2013 10:41AM By ERIN MIJARES MD ; [facility] Atenolol 25 MG OR TABS 09/28/2012 - 06/02/2013 Provide r: ARMANDO MIJARES MD Diagnosis: TAKE 1 TABLET TWICE A DAY Last Documented On 06/02/2013 8:39AM By ERIN MIJARES MD ; [facility] AndroGel Pump 20.25 MG/ACT (1.62%) TD GEL 09/16/2012 - 09/28/2012 Provider: ARMANDO Loo MD Diagnosis: apply 1 pump under each arm or shoulder daily Last Documented On 09/28/2012 1:16PM By ERIN MIJARES MD ; [facility] NexIUM 40 MG OR CPDR 09/14/2012 - 08/13/2013 Provider: ARMANDO MIJARES MD Diagnosis: ESOPHAGEAL REFLU X TAKE 1 CAPSULE DAILY Last Documented On 08/13/2013 9:37AM By ERIN MIJARES MD ; [facility] augmentin 500mg OR CAPS 09/04/2012 - 03/03/2013 Provid er: ARMANDO MIJARES MD Diagnosis: Last Documented On 03/03/2013 4:19PM By Staci Gordon LPN ; [facility] augmentin 500mg OR CAPS 08/10/2012 - 03/03/2013 Provider: ARMANDO Loo MD Diagnosis: ORCHITIS/EPIDIDY ALBERTINA NOS Last Documented On 03/03/2013 4:18PM By Staci Gordon LPN ; [facility] Ciprofloxacin HCl 500 MG OR TABS 08/10/2012 - 08/31/2012 Provider: ARMANDO MIJARES MD Diagnosis: ORCHITIS/EPIDIDY ALBERTINA NOS Last Documented On 08/31/2012 10:09AM By ERIN MIJARES MD ; [facility] Vicodin ES 7.5-750 MG OR TABS 07/29/2012 - 03/03/2013 Provider: ARMANDO Loo MD Diagnosis: FRACTURE RIB NOS-CLOSED 1 tab po q 6-8 hrs prn pain Last Documented On 03/03/2013 4:19PM By Staci Gordon LPN ; [facility] Vicodin ES 7.5-750 MG OR TABS 07/20/2012 - 07/29/2012 Provider: ARMANDO Loo MD Diagnosis: FRACTURE RIB NOS-CLOSED 1 tab po q 6-8 hrs prn pain Last Documented On 07/29/2012 4:47PM By ERIN MIJARES MD ; [facility] Flomax 0.4 MG OR CAPS 06/19/2012 - 04/22/2013 Provider : ARMANDO MIJARES MD Diagnosis: Last Documented On 04/22/2013 11:18AM By Staci Gordon LPN ; [facility] Synthroid 150 MCG OR TABS 04/28/2012 - 10/07/2012 Prov ider: ARMANDO MIJARES MD Diagnosis: Last Documented On 10/07/2012 1:27PM By Staci Gordon LPN ; [facility] Atenolol 25 MG OR TABS 04/28/2012 - 08/07/2015 Provide r: ARMANDO MIJARES MD Diagnosis: Last Documented On 08/07/2015 3:55PM By JOSHUA WALLACE ; [facility] AndroGel Pump 20.25 MG/ACT (1.62%) TD GEL 01/17/2012 - 09/16/2012 Provider: ARMANDO Loo MD Diagnosis: apply 1 pump under each arm or shoulder daily Last Documented On 09/16/2012 5:46PM By ERIN MIJARES MD ; [facility] AndroGel Pump 1.25 GM/ACT (1%) TD GEL 01/01/2012 - 01/17/2012 Provider: ARMANDO Loo MD Diagnosis: Testicular Hypof unc NEC ONE PACKET ONCE DAILY Last Documented On 01/17/2012 9:18AM By Staci Gordon LPN ; [facility] Synthroid 150 MCG OR TABS 12/24/2011 - 04/28/2012 Prov ider: Diagnosis: Last Documented On 04/28/2012 9:32AM By Staci Gordon LPN ; [facility] Atenolol 25 MG OR TABS 12/24/2011 - 04/28/2012 Provide r: Diagnosis: Last Documented On 04/28/2012 9:32AM By Staci Gordon LPN ; [facility] Finasteride 5 MG OR TABS 12/24/2011 - 04/28/2012 Provi paresh: Diagnosis: Last Documented On 04/28/2012 9:34AM By Staci Gordon LPN ; [facility] Flomax 0.4 MG OR CAPS 12/24/2011 - 04/28/2012 Provider : Diagnosis: Last Documented On 04/28/2012 9:33AM By Staci Gordon LPN ; [facility] NexIUM 40 MG OR CPDR 12/24/2011 - 04/28/2012 Provider: Diagnosis: Last Documented On 04/28/2012 9:33AM By Staci Gordon LPN ; [facility] AndroGel Pump 1.25 GM/ACT (1%) TD GEL 12/24/2011 - Provider: Diagnosis: ONE PACKET ONCE DAILY Last Documented On 01/01/2012 12:05PM By ERIN MIJARES MD ; [facility] Medications Administered Includes: Administered Medications in patient's chart No Administered Medications Recorded Results Includes: Results from 07/19/2024 through 07/19/2025 No Results Recorded For Specified Dates History of Present Illness History of Present Illness not supported for this document type No History of Present Illness Recorded Social History Description Last Updated Former smoker 01/22/2024 Last Documented On 4 9:01AM ; [facility] Tobacco non-user 06/13/2023 Last Documented On 3 2:18PM ; [facility] Alcohol 05/16/2015 Last Documented On 5 5:56PM ; [facility] 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 Last Documented On 5 5:56PM ; [facility] Cigarettes 01/01/2012 Last Documented On 2 2:46PM ; [facility] Currently 01/01/2012 Last Documented On 2 2:46PM ; [facility] Smoking Status Unknown Procedures and Surgical History Surgical History Last Updated History of cholecystectomy 10/02/15 - Lap aroscopic for Biliary Diskinesia 10/02/2015 Last Documented On 6 1:50PM ; [facility] History of cataract surgery 01/01/2012 Last Documented On 2 2:46PM ; [facility] History of hemorrhoidectomy 1994 & 199901/01/2012 Last Documented On 2 2:46PM ; [facility] Knee replacement Lt. 01/2001 and revision 07/2001 ~Rt. knee 10/200101/01/2012 Last Documented On 2 2:46PM ; [facility] Medical History Includes: Medical History in patient's chart Description Last Updated No Contact with and (Suspected) exposure to COVID-19 01/11/2022 Last Documented On 2 12:57PM ; [facility] No fall 01/11/2022 Last Documented On 2 12:57PM ; [facility] cataracts 12/1999 and 05/2003 ~carpal tunnel 11/2002 ~nose ( septal reconstruction) 11/2006 ~hand surgery (ligament reconstruction w/tendon interposition0 09/06/2021 Last Documented On 1 9:18AM ; [facility] Currently wearing eyeglasses 09/06/2021 Last Documented On 1 9:18AM ; [facility] Has had no fall in the last 12 months. 1 11/07/2020 Last Documented On 1 9:18AM ; [facility] History of arthritis 09/06/2021 Last Documented On 1 9:18AM ; [facility] History of systemic hypertension Last Documented On 1 9:18AM ; [facility] Reported cardiovascular symptoms Last Documented On 1 9:18AM ; [facility] Surgery CATARACT SURGERY, KN EE REPLACEMENT , LRTI RIGHT HAND 2006, TURP 2012, CTS 2000 09/06/2021 Last Documented On 1 9:18AM ; [facility] Denies a fear of falling. 07/16/2019 Last Documented On 9 2:23PM ; [facility] No history of cancer 01/01/2012 Last Documented On 2 2:46PM ; [facility] No history of chronic obstructive pulmon frank disease 01/01/2012 Last Documented On 2 2:46PM ; [facility] No history of convulsive disorder 2011 Last Documented On 2 2:46PM ; [facility] No history of diabetes mellitus 01/01/20 12 Last Documented On 2 2:46PM ; [facility] No history of stroke syndrome 01/01/2012 Last Documented On 2 2:46PM ; [facility] Family History Includes: Family History in patient's chart Description Last Updated Family history unchanged 11/30/2018 Last Documented On 9 3:03PM ; [facility] Family history reviewed - unchanged [facility] e last visit 12/11/2015 Last Documented On 6 2:18PM ; [facility] Maternal history of cancer Bone 10/25/19 16 Last Documented On 6 5:21PM ; [facility] Maternal history of thyroid disorder gra ndmother 10/25/2015 Last Documented On 6 5:21PM ; [facility] Paternal history of thyroid disorder gra ndmother 10/25/2015 Last Documented On 6 5:21PM ; [facility] Family history of cancer 01/01/2012 Last Documented On 2 2:46PM ; [facility] Father 01/01/2012 Last Documented On 2 2:46PM ; [facility] Father at age 64 =liver cancer 12/14 Last Documented On 2 2:46PM ; [facility] Mother 01/01/2012 Last Documented On 2 2:46PM ; [facility] Mother at age 85= multiple myeloma 01/01/2012 Last Documented On 2 2:46PM ; [facility] Review of Systems Review of Systems not supported for this document type No Review of Systems Recorded Mental Status No Mental Status Recorded Functional Status No Functional Status Recorded Physical Exam Physical Exam not supported for this document type No Physical Exam Recorded Immunizations Includes: Immunizations in patient's chart Vaccine Dose # Date Site Reaction(s) Status Source COVID-19 Pfizer 1 10/18/2020 Left Deltoid Complete (Reported) Patient Last Documented On 1 1:50PM ; [facility] COVID-19 Pfizer 2 11/08/2020 Right Deltoid Complet e (Reported) Patient Last Documented On 1 1:50PM ; [facility] Fluad, Quadravalent 1 07/18/2021 Left Arm Complete (Reported) Patient Last Documented On 2 11:21AM ; [facility] Flublock Quadravalent 1 06/26/2018 Left Deltoid Co mplete (Reported) Patient Last Documented On 9 9:23AM ; [facility] Influenza (High dose ) PF 1 07/17/2015 Right Deltoid Complete (Reported) Patient Last Documented On 9 9:23AM ; [facility] Influenza (High dose ) PF 2 07/17/2020 Left Deltoid Complete (Reported) Patient Last Documented On 1 1:50PM ; [facility] Influenza (High dose ) PF 3 07/18/2021 Left Arm Complete (Reported) Patient Last Documented On 08/30/2021 9:25AM ; [facility] Note: [facility] Influenza (Quadrivalent) PF 0.5ml 1 07/16/2019 Left Deltoid Complete (Administered) [facility] Last Documented On 9 9:03AM ; [facility] Influenza (Quadrivalent)36 mo.& older PF 0.5ml (SD) 1 07/20/2012 Right Arm Complete (Reported) Patient Last Documented On 07/20/2012 12:24PM ; [facility] Note: Pt. given VSI # 7-2-12 Influenza (Quadrivalent)36 mo.& older PF 0.5ml (SD) 2 07/27/2013 Complete (Reported) Patient Last Documented On 3 4:02PM ; [facility] Influenza (Quadrivalent)36 mo.& older PF 0.5ml (SD) 3 07/03/2016 Left Deltoid Complete (R eported) Patient Last Documented On 9 9:23AM ; [facility] Influenza (Quadrivalent)36 mo.& older PF 0.5ml (SD) 3 07/11/2017 Right Deltoid Complete (Reported) Patient Last Documented On 9 9:23AM ; [facility] Influenza (Trivalent) split virus-PF (ID) 1 07/27/2013 Right Arm Complete (Reported) Patie nt Last Documented On 9 9:23AM ; [facility] Pneumococcal Polyvalent (PPV23) 1 10/02/2011 Complete (Reported) Patient Last Documented On 2 10:20AM ; [facility] Zostavax 1 05/18/2013 Complete (Reported) Patient Last Documented On 8 8:39AM ; [facility] Allergies Includes: Active, inactive, and resolved Allergies Substance Type Reaction Onset Date Resolved Date Statu s Sulfamethoxazole-TMP DS Allergy 10/27/2014 Active Last Documented On 4 8:42AM ; [facility] Sulfa Antibiotics Allergy Skin Rashes / Eruption of skin, Hives / Urticaria 04/22/2013 Active Last Documented On 4 8:42AM ; [facility] Statins Allergy Memory and muscle loss 09/18/2016 Active Last Documented On 4 8:42AM ; [facility] Minocycline HCl Allergy nausea/headache 04/22/2013 Active Last Documented On 4 8:42AM ; [facility] Levaquin Allergy Skin Rashes / Er uption of skin, Hives / Urticaria 12/24/2011 Active Last Documented On 4 8:42AM ; [facility] Insurance Includes: Active Insurance Policies Plan Name Member ID Group # Subscriber Relationship Effect [id number] Dates 1 - [employer] [id number] JARET Ulloa Clinical Notes Includes: Signed Clinical Notes starting from 10/04/2022 No Clinical Notes Recorded
--- OUTSIDE RECORDS SUMMARY | 2025-07-19 09:13 | XMS_ITS | Patient Health Record ---
Author Organization [facility], [facility] Address [address] [facility] [address] [place] [address] Care Team Providers Care Radiopharmacist Name Role Phone Kevin ALLISON, Christian Primary Care Provider Unavailab Jonathan Elizalde Unavailable [phone] SELF Unavailable Unavailable Reason For Referral No Information Plan Of Treatment Pending Test Test Name Order Date IVAR - 79418 - Videostrobe - Laryngoscopy, flexible or rigid, with stroboscopy 07/04/2023 Insurance Providers Payer Name Payer Address Payer Phone Subscriber Number Group Number Insured Name Patient Relationship to Insured Coverage Start Date Coverage End Date [employer] [address] [place] [phone] [id number] MachucaChirag Self - patient is the insured
--- OUTSIDE RECORDS SUMMARY | 2025-07-19 09:13 | XMS_ITS | Clinical Summary ---
Author Organization [facility] Address [address] [place] [address] Phone Care Team Providers Care Drawbench Operator Name Role Phone ROBERT ORTIZ DO Primary Care Provider [phone] ANGEL D.ROBERT Allred Unavailable [phone] Reason for Visit and Chief Complaint The Chief Complaint is: PT IS HERE NEEDING A TETANUS INJECTION HE JABBED HIS RIGHT LEG ON A PIECE OF METAL 2DAYS AGO AND IS DUE FOR THE IMMUNIZATION Problems Includes: Problems addressed during this encounter and other active Problems Current Visit Onset Date Resolved Date Provider Conditio n Status Fever [as Symptom] 02/11/2013 SUMMER Weber CLONINGER-HULTZ PHOTOGRAPHIC MACHINE OPERATOR-C Inactive Last Documented On 08/30/2021 8:50AM ; [facility] Note: Unchanged Past Visits Onset Date Resolved Date Provider Condition Status Adrenal Insufficiency 08/30/2021 SABIRNA Weber CLONINGER-HULTZ PHOTOGRAPHIC MACHINE OPERATOR-C Active Last Documented On 1 8:51AM ; [facility] Dorsopathy Dorsalgia Pain in Thoracic Spine 08/30/2021 STEFANIE Weber CLONINGER-HULTZ PHOTOGRAPHIC MACHINE OPERATOR -C Active Last Documented On 1 8:50AM ; [facility] Hypopituitarism 08/30/2021 STEFANIE E CLONING ER-HULTZ PHOTOGRAPHIC MACHINE OPERATOR-C Active Last Documented On 1 8:52AM ; [facility] Urinary Retention 08/30/2021 STEFANIE Weber CLONI NGER-HULTZ PHOTOGRAPHIC MACHINE OPERATOR-C Active Last Documented On 1 8:50AM ; [facility] Hypogonadism 08/30/2021 STEFANIE ALLISONER- HULTZ PHOTOGRAPHIC MACHINE OPERATOR-C Active Last Documented On 1 8:54AM ; [facility] Vitamin Deficiency 08/30/2021 STEFANIE BALES KATARZYNA PHOTOGRAPHIC MACHINE OPERATOR-C Active Last Documented On 1 8:51AM ; [facility] Anemia 02/15/2019 ROBERT A CRANCER D.O. Act jasbir Last Documented On 02/15/2019 8:38AM ; [facility] Note: -Hgb on 01-12-19 was at 11.6 Other fatigue 01/12/2019 ROBERT A CRANCER D.O. Active Last Documented On 9 9:51AM ; [facility] Gerd 08/17/2018 ROBERT A CRANCER D.O. Act jasbir Last Documented On 8 8:47AM ; [facility] Arthralgia - Knee / Patella / Tibia / Fibula Left 02/20/2018 ROBERT A CRANCER D.O. Active Last Documented On 8 8:55AM ; [facility] Arthralgia - Knee / Patella / Tibia / Fibula Right 02/20/2018 ROBERT A CRANCER D.O. Active Last Documented On 8 8:55AM ; [facility] Low Back Pain 02/20/2018 ROBERT A CRANCER D.O. 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 Is going to Pain Management through his Neuro Surgeon. [facility] 04/18/2016 ROBERT Eze CRANCE R D.O. Active Last Documented On 6 3:00PM ; [facility] Hyperlipidemia 12/29/2013 ROBERT A CRANCER D.O. Active Last Documented On 9 9:02AM ; [facility] Note: Overview: Overview: 08/28 Choleste rol 185 HDL 45 LDL 122 triglyceride 89, normal TSH/CMP x glucose 88675/13 Cholesterol 185 HDL 34 LDL 100 triglyceride 2542/16 Cholesterol 106 HDL 27 LDL 54 triglyceride 1278/15 Cholesterol 135 HDL 36 LDL 64 triglyceride 174, AST 25 ALT 30 glucose 94171/14 Cholesterol 185 HDL 45 LDL 122 triglyceride 89, normal TSH/CMP x glucose 72882/13 Cholesterol 185 HDL 34 LDL 100 triglyceride 254 Hypertension Systemic 11/08/2013 ROBERT Eze LAYLAC ER D.O. Active Last Documented On 7 10:33AM ; [facility] Male Erectile Disorder 04/22/2013 LESJUSTIN CRANCER D.O. Active Last Documented On 1 8:44AM ; [facility] Note: Unchanged Hypothyroidism 03/03/2013 ARMANDO MIJARES MD Active Last Documented On 3 4:54PM ; [facility] Note: Unchanged Cardiovascular Symptoms 03/03/2013 TIANA Weber ANA LILIA PHOTOGRAPHIC MACHINE OPERATOR-C Active Last Documented On 1 9:16AM ; [facility] Note: Unchanged - Has occl. palpitations . He was evaluated several yrs ago by a multimedia engineer for frequent PABs but the work up was negative for any ischaemic heart disease.He denies any chest pains or dyspnoea. Chest Pain NOS 10/28/2012 ROBERT A CRAN CER D.O. Active Last Documented On 6 9:02AM ; [facility] Note: Overview: 11/17 stress nuclear: an terior ischemia, normal EF11/17 cath: LV 120/15, EF 60%, normal coronaries10/21 stress EKG 5:30--89% maximal heart rate, PVCs, no EKG ischemia, (nuclear report not known) CARDIAC DYSRHYTHMIAS NEC 10/27/2012 LES ROLANDO A CRANCER D.O. Active Last Documented On 6 10:12AM ; [facility] Note: Overview: Overview: 10/27 Holter: S R at 63, range 48-103, rare PACs, no PVCs, 4 atrial triplets, fastest 1294/15 TSH 0.42 Thoracic Aortic Ectasia 10/27/2012 LESTho ER A CRANCER D.O. Active Last Documented On 6 9:02AM ; [facility] Note: Overview: 09/19 CT: mild eccentric aortic [...] proximal descending aorta Former Smoker 08/31/2012 ARMANDO MIJARES MD A ctive Last Documented On 2 10:22AM ; [facility] Note: Unchanged - quit 21 y/o1 ppd / day for 20 years Essential Hypertriglyceridemia 08/31/2012 MICHAEL MIJARES MD Active Last Documented On 2 10:22AM ; [facility] Note: Unchanged Epididymitis 08/10/2012 ARMANDO MIJARES MD Ac tive Last Documented On 2 3:47PM ; [facility] Note: Unchanged History of Arthritis 08/10/2012 ARMANDO MARIE MD Active Last Documented On 2 3:47PM ; [facility] Note: Unchanged History of Reported Hx of Kn ee Replacement 08/10/2012 ARMANDO MIJARES MD Active Last Documented On 2 3:47PM ; [facility] Note: Unchanged - Lt. 01/2001 and revisio n 07/2001Rt. knee 10/2001 PREMATURE BEATS NEC 10/10/2010 ROBERT ORTIZ D.O. Active Last Documented On 6 10:12AM ; [facility] Plan of Treatment - Return to the clinic if condition worsens or new symptoms arise - Last Documented On 06/13/2023 2:18PM ; [facility] 1. Discussed treatment plan with patient. 2. Patient advised to monitor for fevers, chills, body aches, redness, swelling, purulent drainage, or increased pain and follow up as needed. 3. Patient may keep applying neosporin to the right knee and keep covered with a bandage. 4. Patient voiced understanding the the teaching. - Last Documented On 06/13/2023 2:18PM ; [facility] Pending Tests Order Diagnosis Results Due Ordering P rovider Injections Immunization Injection #1 (for over 18) Encounter for immunization 06/13/23 CARMEN MICHELLE [facility] Last Documented On 3 2:18PM ; [facility] Injections Immunization Injecti on #2 (for over 18) Encounter for immunization 06/13/23 CARMEN MICHELLE [facility] Last Documented On 3 2:18PM ; [facility] In office procedures - Immunizations Tdap Encounter for immunization 06/27/23 CARMEN MICHELLE [facility] Last Documented On 3 2:18PM ; [facility] Assessments Includes: Assessments from this encounter No Assessments Recorded Medical Equipment - Implanted Devices Includes: Current Devices No Medical Equipment Recorded Medications Includes: Medications discussed during this encounter and other current Medications Current Medications (continue as prescribed) Aspirin 81 MG Oral Tablet Delayed Release 01/22/2024 Provider: Diagnosis: Last Documented On 4 8:42AM By FERN WALLACE ; [facility] PreserVision AREDS Oral Tablet 01/22/2024 Provider: Diagnosis: Last Documented On 4 8:41AM By FERN WALLACE ; [facility] Ezetimibe 10 MG Oral Tablet 01/22/2024 Provider: Diagnosis: Last Documented On 4 8:40AM By FERN WALLACE ; [facility] Vitamin D3 250 MCG (31432 UT) Oral Capsule 024 Provider: Diagnosis: Last Documented On 4 8:42AM By FERN WALLACE ; [facility] Esomeprazole Magnesium 40 MG Oral Capsule Delayed Release 02/19/2023 Provider: ROBERT Pal Diagnosis: Gastro-esophagea l reflux disease without esophagitis TAKE 1 CAPSULE BY MOUTH BILLStephanie COLLINS FOR APPT. Last Documented On 02/19/2023 10:41AM By JUSTIN WALLACE ; [facility] oxyCODONE-Acetaminophen 5-325 MG Oral Tablet Provider: Diagnosis: Last Documented On 2 11:25AM By CIRA WALLACE ; [facility] Tamsulosin HCl 0.4 MG Oral Capsule 10/16/2021 Provid er: Diagnosis: Last Documented On 2 11:27AM By CIRA WALLACE ; [facility] Atenolol 25 MG Oral Tablet 09/06/2021 Provider: Diagnosis: Last Documented On 9:11AM By Stefanie BARCENAS ; [facility] Testosterone Cypionate 200 MG/ML Intramuscular Solutio n 08/17/2021 Provider: Diagnosis: 1 ml intramuscular every 2 weeks on Friday, Dr. Sheldon Last Documented On 9:03AM By CIRA WALLACE ; [facility] Sildenafil Citrate 100 MG Oral Tablet 07/18/2021 Provider: ROBERT Pal Diagnosis: Male erectile dy sfunction, unspecified qd prn Last Documented On 11:25AM By CIRA WALLACE ; [facility] Cabergoline 0.5 MG Oral Tablet 06/12/2021 Provider: Diagnosis: Dr. Sheldon, On Friday Last Documented On 8:57AM By CIRA WALLACE ; [facility] Levothyroxine Sodium 175 MCG Oral Tablet 06/03/2021 Provider: Diagnosis: Dr. Sheldon Last Documented On 9:04AM By CIRA WALLACE ; [facility] Hydrocortisone 20MG Oral Tablet 08/17/2018 Provider: Diagnosis: Take 15 mg in the am and 10 mg in the pm, Dr. Rm norman Last Documented On 8 8:37AM By CIRA WALLACE ; [facility] Centrum Silver 50+Men Oral Tablet 03/19/2017 Provide r: Diagnosis: Last Documented On 03/19/2017 10:25AM By RANULFO WALLACE ; [facility] Past Medications on file Cephalexin 500 MG Oral Capsule 01/22/2024 - 02/01/2024 Provider: DANIELLA REEVES Diagnosis: Acute pharyngiti s, unspecified take 1 capsule twice daily for ten days Last Documented On 4 9:15AM By Daniella Cornejo APRN PHARMACY TECHNICIAN PROGRAM DIRECTOR ; [facility] Amoxicillin-Pot Clavulanate 875-125 MG Oral Tablet 08/31/2022 - 09/07/2022 Provider: ATIYA RIVERA Diagnosis: Urinary tract infection, site not specified One tablet twice a day Last Documented On 2 2:20PM By Renee FONTAINE- ; [facility] Medications Administered Includes: Administered Medications from this encounter No Administered Medications Recorded Vital Signs Includes: Vital Signs from this encounter Vital Name 06/13/2023 01:48P Blood Pressure Sitting L 122/64 BP Cuff Size Regular Pulse Rate-Sitting (bpm) 56 Pulse Rhythm Regular Respiration Rate (breaths/min) 20 Temp-Oral (F) 97.7 Height (in) 72.64758 Weight (lb) 240.25 Body Mass Index 32.6 Body Surface Area 2.3 Oxygen Saturation (%) 98 Last Documented: On 06/13/2023 1:49PM ; [facility] Results Includes: Results discussed during this encounter No Results Recorded For Specified Dates History of Present Illness Includes: History of Present Illness from this encounter HPI JARET SORIA is a 78 year old male. - Allergy list reviewed - Medication list reviewed - Not feeling tired - No fever - No chills - No headache - No neck pain - No neck stiffness - No eye symptoms - No ear symptoms - No nasal discharge - No nasal passage blockage (stuffiness) - No sneezing - No sore throat - No chest pain or discomfort - No dyspnea - No cough - No wheezing - Appetite not decreased - No nausea - No vomiting - No abdominal pain - No diarrhea - No myalgia - Skin symptoms (Puncture wound right knee) Jaret presents to the clinic to receive a tetanus booster. He reports that he jabbed his right knee on a piece of metal two days ago and knows that he is not up to date on his Tdap vaccination. He denies any fever, chills, or body aches. Patient reports that he has not noticed any redness, warmth, purulent drainage from the wound. He has been applying neosporin and covering the site with a bandage. Social History Description Last Updated Tobacco non-user 06/13/2023 Last Documented On 3 2:18PM ; [facility] Smoking Status Unknown Procedures and Surgical History Includes: Procedures from this encounter Procedures Code Diagnosis Performing Provider Service L ocation Service Date use of tobacco assessment performed 1000F Last Documented On 3 1:48PM ; [facility] review of medications documented 1160F Last Documented On 3 1:48PM ; [facility] Increase fluids Last Documented On 3 2:00PM ; [facility] Clinical summary provided to patient Last Documented On 3 2:00PM ; [facility] Medical History Includes: Medical History addressed during this encounter No Medical History Recorded Family History Includes: Family History addressed during this encounter No Family History Recorded Review of Systems Includes: Review of Systems from this encounter Systemic: Not feeling poorly (malaise). No fever and no chills. Head: No headache and no sinus pain. Eyes: No itching of the eyes. Otolaryngeal: No earache, no nasal discharge, and no sore throat. Cardiovascular: No chest pain or discomfort. Pulmonary: No dyspnea, no cough, and no wheezing. Gastrointestinal: No nausea, no vomiting, and no abdominal pain. Musculoskeletal: No muscle aches. Skin: No pruritus and no rash. Mental Status Includes: Mental Status from this encounter No Mental Status Recorded Functional Status Includes: Functional Status from this encounter No Functional Status Recorded Physical Exam Includes: Physical Exam from this encounter Allergies Includes: Active Allergies Substance Type Reaction Onset Date Resolved Date Statu s Sulfamethoxazole-TMP DS Allergy 10/27/2014 Active Last Documented On 4 8:42AM ; [facility] Sulfa Antibiotics Allergy Skin Rashes / Eruption of skin, Hives / Urticaria 04/22/2013 Active Last Documented On 4 8:42AM ; [facility] Statins Allergy Memory and muscle loss 09/18/2016 Active Last Documented On 4 8:42AM ; [facility] Minocycline HCl Allergy nausea/headache 04/22/2013 Active Last Documented On 4 8:42AM ; [facility] Levaquin Allergy Skin Rashes / Er uption of skin, Hives / Urticaria 12/24/2011 Active Last Documented On 4 8:42AM ; [facility] Encounters Encounter Provider Location Date Check-In Time Check-Out Time Diagnosis WALK IN PATIENT - ESTABLISHED PT CARMEN MICHELLE DNP [facility] 06/13/20 23 1:29PM 1:57PM Insurance Includes: Active Insurance Policies Plan Name Member ID Group # Subscriber Relationship Effect jasbir Dates 1 - [employer] [id number] JARET SORIA Self Clinical Notes Includes: Clinical Notes from this encounter * Progress note Date Encounter Last Documented by 06/13/2023 WALK IN PATIENT - ESTABLISHED PT Last documented on 06/13/2023; 2:18 PM, CARMEN MICHELLE DNP; [facility] Active Problems & Conditions - E27.40 - Adrenal Insufficiency - D64.9 - Anemia - -Hgb on 01-12-19 was at 11.6 - M25.562 - Arthralgia - Knee / Patella / Tibia / Fibula Left - M25.561 - Arthralgia - Knee / Patella / Tibia / Fibula Right - 227.3 - [facility] - 427.89 - CARDIAC DYSRHYTHMIAS NEC - Overview: Overview: 10/27 Holter: SR at 63, range 48-103, rare PACs, no PVCs, 4 atrial triplets, fastest 1294/15 TSH 0.42 - 785.9 - Cardiovascular Symptoms - Has occl. palpitations . He was evaluated several yrs ago by a multimedia engineer for frequent PABs but the work up was negative for any ischaemic heart disease.He denies any chest pains or dyspnoea. - 786.50 - Chest Pain NOS - Overview: 11/17 stress nuclear: anterior ischemia, normal EF11/17 cath: LV 120/15, EF 60%, normal coronaries10/21 stress EKG 5:30--89% maximal heart rate, PVCs, no EKG ischemia, (nuclear report not known) - M54.6 - Dorsopathy Dorsalgia Pain in Thoracic Spine - 604.90 - Epididymitis - E78.1 - Essential Hypertriglyceridemia - Z87.891 - Former Smoker - quit 21 y/o1 ppd / day for 20 years - K21.9 - Gerd - V13.4 - History of Arthritis - V43.65 - History of Reported Hx of Knee Replacement - Lt. 01/2001 and revision 07/2001Rt. 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 Is going to Pain Management through his Neuro Surgeon. - 302.72 - Male Erectile Disorder - R53.83 - Other fatigue - 427.69 - PREMATURE BEATS NEC - 447.71 - Thoracic Aortic Ectasia - Overview: 09/19 CT: mild eccentric aortic atherosclerosis10/26 [...] ascending aorta, 41 mm proximal descending aorta - R33.9 - Urinary Retention - E56.8 - Vitamin Deficiency Chief Complaint The Chief Complaint is: PT IS HERE NEEDING A TETANUS INJECTION HE JABBED HIS RIGHT LEG ON A PIECE OF METAL 2DAYS AGO AND IS DUE FOR THE IMMUNIZATION. History of Present Illness JARET SORIA is a 78 year old male. - Allergy list reviewed - Medication list reviewed - Not feeling tired - No fever - No chills - No headache - No neck pain - No neck stiffness - No eye symptoms - No ear symptoms - No nasal discharge - No nasal passage blockage (stuffiness) - No sneezing - No sore throat - No chest pain or discomfort - No dyspnea - No cough - No wheezing - Appetite not decreased - No nausea - No vomiting - No abdominal pain - No diarrhea - No myalgia - Skin symptoms (Puncture wound right knee) Jaret presents to the clinic to receive a tetanus booster. He reports that he jabbed his right knee on a piece of metal two days ago and knows that he is not up to date on his Tdap vaccination. He denies any fever, chills, or body aches. Patient reports that he has not noticed any redness, warmth, purulent drainage from the wound. He has been applying neosporin and covering the site with a bandage. Current Medication - Atenolol 25 MG Oral Tablet One tablet daily 0 days, 0 refills - Cabergoline 0.5 MG Oral Tablet [address] Sheldon, On Friday, 90 days, 0 refills - Cefuroxime Axetil 500 MG Oral Tablet One tablet twice a day, 15 days, 0 refills - Centrum Silver 50+Men Oral Tablet One tablet daily 0 days, 0 refills - Cyclobenzaprine HCl 10 MG Oral Tablet One tablet twice a day 30 days, 0 refills - Esomeprazole Magnesium 40 MG Oral Capsule Delayed Release TAKE 1 CAPSULE BY MOUTH DAILYDUE FOR APPT., 30 days, 0 refills - Ferrous Sulfate 325 (65 Fe) MG Oral Tablet One tablet twice a day 0 days, 0 refills - Hydrocortisone 20MG Oral Tablet 20 MG Take 15 mg in the am and 10 mg in the pm, Dr. Sheldon, 0 days, 0 refills - Levothyroxine Sodium 175 MCG Oral Tablet One tablet daily Dr. Sheldon, 90 days, 0 refills - Oseltamivir Phosphate 75 MG Oral Capsule 1 CAPSULE TWO TIMES A DAY, 5 days, 0 refills - oxyCODONE-Acetaminophen 5-325 MG Oral Tablet One tablet three times a day 15 days, 0 refills - Sildenafil Citrate 100 MG Oral Tablet qd prn, 30 days, 0 refills - Tamsulosin HCl 0.4 MG Oral Capsule 1 CAPSULE TWO TIMES A DAY 90 days, 0 refills - Testosterone Cypionate 200 MG/ML Intramuscular Solution as directed 1 ml intramuscular every 2 weeks on Friday, Dr. Sheldon, 84 days, 0 refills Social History Tobacco use: Tobacco non-user. Allergies - Levaquin Reaction: , Hives / Urticaria - Minocycline HCl Reaction: nausea/headache - Statins Reaction: Memory and muscle loss - Sulfa Antibiotics Reaction: , Hives / Urticaria - Sulfamethoxazole-TMP DS Review Of Systems Systemic: Not feeling poorly (malaise). No fever and no chills. Head: No headache and no sinus pain. Eyes: No itching of the eyes. Otolaryngeal: No earache, no nasal discharge, and no sore throat. Cardiovascular: No chest pain or discomfort. Pulmonary: No dyspnea, no cough, and no wheezing. Gastrointestinal: No nausea, no vomiting, and no abdominal pain. Musculoskeletal: No muscle aches. Skin: No pruritus and no rash. Physical Findings - Vitals taken 06/13/2023 01:48 pm BP-Sitting L 122/64 mmHg BP Cuff Size Regular Pulse Rate-Sitting 56 bpm Pulse Rhythm Regular Respiration Rate 20 per min Temp-Oral 97.7 F Height 72.008 in Weight 240 lbs 4 oz Body Mass Index 32.6 kg/m2 Body Surface Area 2.3 m2 Oxygen Saturation 98 % General Appearance: - Well-appearing. - Well nourished. - Well hydrated. - In no acute distress. Neck: Suppleness: - Neck demonstrated no decrease in suppleness. Eyes: General/bilateral: Pupils: - PERRLA. Ears: Right Ear: External Auditory Canal: - Normal. Tympanic Membrane: - Normal. Left Ear: External Auditory Canal: - Normal. Tympanic Membrane: - Normal. Nose: General/bilateral: Discharge: - No nasal discharge. Cavity: - Nasal mucosa not red. Sinus Tenderness: - No sinus tenderness. Pharynx: Oropharynx: - Tonsils showed no abnormalities. - Not inflamed. Mucosal: - Pharynx showed no accumulation of mucous. Lungs: - Clear to auscultation. - No inspiratory wheezing was heard. - No expiratory wheezing was heard. Cardiovascular: Heart Rate And Rhythm: - Normal. Abdomen: Auscultation: - Bowel sounds were normal. Neurological: Motor: - Strength was normal. Coordination / Cerebellum: - No coordination/cerebellum abnormalities were noted. Psychiatric: Psychiatric: Value PHQ9 score: 1 Skin: - Mucous membranes were not dry --Small laceration noted to the right knee, bleeding controlled --No erythema, edema, or purulent drainage noted to the wound. Therapy - Increase fluids. - Clinical summary provided to patient. Plan StartCited - Encounter for immunization Injections: Immunization Injection #1 (for over 18), Immunization Injection #2 (for over 18) In office procedures/Immunizations: Tdap EndCited - Return to the clinic if condition worsens or new symptoms arise 1. Discussed treatment plan with patient. 2. Patient advised to monitor for fevers, chills, body aches, redness, swelling, purulent drainage, or increased pain and follow up as needed. 3. Patient may keep applying neosporin to the right knee and keep covered with a bandage. 4. Patient voiced understanding the the teaching. Practice Management Use of tobacco assessment performed Review of medications documented.
--- OUTSIDE RECORDS SUMMARY | 2025-07-19 09:14 | XMS_ITS | Clinical Summary ---
Author Organization [facility] Address [address] [place] [address] Care Team Providers Care Youth Specialist Name Role Phone Jaylen Louis MD Unavailable [phone] Onel Sheldon MD Unavailable Jason Banerjee MD Unavailable Adam Boyer MD Unavailable [phone] Reagan Alvarado MD Unavailable [phone] Keith Thompson MD Unavailable [phone] Jeffry Wilson MD Primary Care Provider [phone] Source Comments [facility],non-owned Affiliates and Associated Physician Practices is amultiple site organization consisting of ambulatory clinics and hospital sitesin [place], [place], [place] and [place]. This disclosure is being madepursuant to the Care Everywhere program and may not contain all information available regarding this patient. 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 Renal insufficiency 05/18/2019 Overview (05/31/2020): [...] Type Department Care Team Description 04/21/2025 Refill [facility] - Endocrinology [id number] [address], [address] [place] [address] Onel Sheldon MD Refill Request from Last [...] on file Legal Sex Male 6:01 AM [employer] Gender Identity Not on file Sexual Orientation Not on file Occupation Industry Job Start Date Job End Date RETIRED Not on file Not on file Not on file Last Filed Vital Signs Vital Sign Reading Time Taken Comments Blood Pressure 122/80 11/01/2024 9:03 AM [employer] Pulse 86 11/01/2024 9:03 AM [employer] Temperature 36.5 C (97.7 F) 11/11/2023 10:10 AM [employer] Respiratory Rate 95 11/11/2023 10:10 AM [employer] Oxygen Saturation 98% 11/01/2024 9:03 AM [employer] Inhaled Oxygen Concentration - - Weight 115.2 kg (254 lb) 11/01/2024 9:03 AM [employer] Height 177.8 cm (5' 10) 11/01/2024 9:03 AM [employer] Body Mass Index 36.45 11/01/2024 9:03 AM [employer] Plan of Treatment Upcoming Encounters Date Type Department Care Team (Late st Contact Info) Description 11/01/2025 9:00 AM [employer] Office Visit [facility] Medical [facility] - Endocrinology [address], [address] [place] [address] [place] [id number] [address] [place] [address] Health Maintenance Due Date Last [...] 3:20 PM 03/11/2013 1:27 PM Care Teams Youth Specialist Relationship Specialty Start Date End Date Jeffry Wilson MD [address] [place] [address] PCP - General Internal Medicine 10/23/22 Jaylen Louis MD Urology 10/27/14 [place] [address] [place] [address] Endocrinology 03/28/16 [place] [address] [place] [address] Neurological Surgery 07/02/16 [place] [address] [place] [address] Cardiovascular Disease 07/08/17 [place] [address] [place] [address] Physical Medicine and Rehabilitation 07/08/17 [place] [address] [address] Orthopedic Surgery 01/06/18
--- OUTSIDE RECORDS SUMMARY | 2025-07-19 09:14 | XMS_ITS | Clinical Summary ---
Author Organization [facility] Address [address] [address] Phone Care Team Providers Care Supervisor Customer Records Division Name Role Phone ROBERT ORTIZ DO Primary Care Provider [phone] ANGEL D.ROBERT Allred Unavailable [phone] Reason for Visit and Chief Complaint The Chief Complaint is: Pt here today for fever and mild sore throat. started . fever was 102 last night. notably the patient was treated for a UTI in July and then had a procedure on hisprostate in late July. He also has a history of kidney infection that required hospitalization.Dr. Jaylen Louis, urologist @ [facility] Problems Includes: Problems addressed during this encounter and other active Problems Current Visit Onset Date Resolved Date Provider Conditio n Status Fever [as Symptom] 02/11/2013 SUMMER SUNG VALUER-C Inactive Last Documented On 08/30/2021 8:50AM ; [facility] Note: Unchanged Former Smoker 08/31/2012 ARMANDO MAJANO MD Active Last Documented On 08/31/2012 10:22AM ; [facility] Note: Unchanged - quit 21 y/o1 ppd / day for 20 years History of Arthritis 08/10/2012 ARMANDO MIJARES MD Active Last Documented On 08/10/2012 3:47PM ; [facility] Note: Unchanged History of Reported Hx of Knee Replacement 08/10/2012 ARMANDO MIJARES MD Active Last Documented On 08/10/2012 3:47PM ; [facility] Note: Unchanged - Lt. 01/2001 and revisio n 07/2001Rt. knee 10/2001 Past Visits Onset Date Resolved Date Provider Condition Status Adrenal Insufficiency 08/30/2021 STEPHA NNIE E CLONINGER-HULTZ VALUER-C Active Last Documented On 1 8:51AM ; [facility] Dorsopathy Dorsalgia Pain in Thoracic Spine 08/30/2021 STEFANIE E CLONINGER-HULTZ VALUER -C Active Last Documented On 1 8:50AM ; [facility] Hypopituitarism 08/30/2021 STEFANIE E CLONING ER-HULTZ VALUER-C Active Last Documented On 1 8:52AM ; [facility] Urinary Retention 08/30/2021 STEFANIE E CLONI NGER-HULTZ VALUER-C Active Last Documented On 1 8:50AM ; [facility] Hypogonadism 08/30/2021 STEFANIE E CLONINGER- HULTZ VALUER-C Active Last Documented On 1 8:54AM ; [facility] Vitamin Deficiency 08/30/2021 STEFANIE E CLON DANIELLE-HULTZ VALUER-C Active Last Documented On 1 8:51AM ; [facility] Anemia 02/15/2019 ROBERT A CRANCER D.O. Act jasbir Last Documented On 02/15/2019 8:38AM ; [facility] Note: -Hgb on 01-12-19 was at 11.6 Other fatigue 01/12/2019 ROBERT A CRANCER D.O. Active Last Documented On 9 9:51AM ; [facility] Gerd 08/17/2018 ROBERT A CRANCER D.O. Act jasbir Last Documented On 8 8:47AM ; [facility] Arthralgia - Knee / Patella / Tibia / Fibula Left 02/20/2018 ROBERT A CRANCER D.O. Active Last Documented On 8 8:55AM ; [facility] Arthralgia - Knee / Patella / Tibia / Fibula Right 02/20/2018 ROBERT A CRANCER D.O. Active Last Documented On 8 8:55AM ; [facility] Low Back Pain 02/20/2018 ROBERT A CRANCER D.O. 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 Is going to Pain Management through his Neuro Surgeon. BENIGN SARAHI PITUITARY 04/18/2016 ROBERT FREY R D.O. Active Last Documented On 6 3:00PM ; [facility] Hyperlipidemia 12/29/2013 ROBERT ORTIZ D.O. Active Last Documented On 9 9:02AM ; [facility] Note: Overview: Overview: 08/28 Choleste rol 185 HDL 45 LDL 122 triglyceride 89, normal TSH/CMP x glucose 36879/13 Cholesterol 185 HDL 34 LDL 100 triglyceride 2542/16 Cholesterol 106 HDL 27 LDL 54 triglyceride 1278/15 Cholesterol 135 HDL 36 LDL 64 triglyceride 174, AST 25 ALT 30 glucose 24729/14 Cholesterol 185 HDL 45 LDL 122 triglyceride 89, normal TSH/CMP x glucose 08600/13 Cholesterol 185 HDL 34 LDL 100 triglyceride 254 Hypertension Systemic 11/08/2013 ROBERT JOHNSTON ER D.O. Active Last Documented On 7 10:33AM ; [facility] Male Erectile Disorder 04/22/2013 ANKUR ORTIZ D.O. Active Last Documented On 1 8:44AM ; [facility] Note: Unchanged Hypothyroidism 03/03/2013 ARMANDO MIJARES MD Active Last Documented On 3 4:54PM ; [facility] Note: Unchanged Cardiovascular Symptoms 03/03/2013 TIANA SUNG VALUER-C Active Last Documented On 1 9:16AM ; [facility] Note: Unchanged - Has occl. palpitations . He was evaluated several yrs ago by a glass breaker for frequent PABs but the work up was negative for any ischaemic heart disease.He denies any chest pains or dyspnoea. Chest Pain NOS 10/28/2012 ROBERT RICH CER D.O. Active Last Documented On 6 9:02AM ; [facility] Note: Overview: 11/17 stress nuclear: an terior ischemia, normal EF11/17 cath: LV 120/15, EF 60%, normal coronaries10/21 stress EKG 5:30--89% maximal heart rate, PVCs, no EKG ischemia, (nuclear report not known) CARDIAC DYSRHYTHMIAS NEC 10/27/2012 NIRALI MARSHALL A CRANCER D.O. Active Last Documented On 6 10:12AM ; [facility] Note: Overview: Overview: 10/27 Holter: S R at 63, range 48-103, rare PACs, no PVCs, 4 atrial triplets, fastest 1294/15 TSH 0.42 Thoracic Aortic Ectasia 10/27/2012 SUSIE Loo CRANCER D.O. Active Last Documented On 6 9:02AM ; [facility] Note: Overview: 09/19 CT: [...] Active Last Documented On 2 10:22AM ; [facility] Note: Unchanged Epididymitis 08/10/2012 ARMANDO MIJARES MD Ac tive Last Documented On 2 3:47PM ; [facility] Note: Unchanged PREMATURE BEATS NEC 10/10/2010 ROBERT Loo CRANCER D.O. Active Last Documented On 6 10:12AM ; [facility] Plan of Treatment Education and Decision Aids were provided during visit for: Patient education about anti biotics: need to finish even if feeling better Last Documented On 2 2:16PM ; [facility] Assessments Includes: Assessments from this encounter Findings - [R30.0 - Dysuria] Dysuria - Last Documented On 09/01/2022 4:26PM ; [facility] Instructions Includes: Instructions from this encounter Education and Decision Aids were provided during visit for: Patient education about anti biotics: need to finish even if feeling better Last Documented On 2 2:16PM ; [facility] Medical Equipment - Implanted Devices Includes: Current Devices No Medical Equipment Recorded Medications Includes: Medications discussed during this encounter and other current Medications New / Renewed during this visit ATIYA RIVERA on 08/31/2022 Amoxicillin-Pot Clavulanate 875-125 MG Oral Tablet Provider: FLORES FONTAINE 7 day supply: 14 tablet, 0 refills Diagnosis: Urinary tract infection, site not specified One tablet twice a day Pharmacy: [address], [phone] - Last Documented On 2 2:20PM By Renee Mark [facility] ; [facility] Current Medications (continue as prescribed) Aspirin 81 MG Oral Tablet Delayed Release 01/22/2024 Provider: Diagnosis: Last Documented On 4 8:42AM By FERN WALLACE ; [facility] PreserVision AREDS Oral Tablet 01/22/2024 Provider: Diagnosis: Last Documented On 4 8:41AM By FERN WALLACE ; [facility] Ezetimibe 10 MG Oral Tablet 01/22/2024 Provider: Diagnosis: Last Documented On 4 8:40AM By FERN WALLACE ; [facility] Vitamin D3 250 MCG (49794 UT) Oral Capsule 024 Provider: Diagnosis: Last Documented On 4 8:42AM By FERN WALLACE ; [facility] Esomeprazole Magnesium 40 MG Oral Capsule Delayed Release 02/19/2023 Provider: ROBERT Pal Diagnosis: Gastro-esophagea l reflux disease without esophagitis TAKE 1 CAPSULE BY MOUTH BILL COLLINS FOR APPT. Last Documented On 02/19/2023 10:41AM By JUSTIN WALLACE ; [facility] oxyCODONE-Acetaminophen 5-325 MG Oral Tablet Provider: Diagnosis: Last Documented On 2 11:25AM By CIRA WALLACE ; [facility] Tamsulosin HCl 0.4 MG Oral Capsule 10/16/2021 Provid er: Diagnosis: Last Documented On 11:27AM By CIRA WALLACE ; [facility] Atenolol 25 MG Oral Tablet 09/06/2021 Provider: Diagnosis: Last Documented On 9:11AM By Stefanie BARCENAS ; [facility] Testosterone Cypionate 200 MG/ML Intramuscular Solutio n 08/17/2021 Provider: Diagnosis: 1 ml intramuscular every 2 weeks on Friday, Dr. Sheldon Last Documented On 9:03AM By CIRA WALLACE ; [facility] Sildenafil Citrate 100 MG Oral Tablet 07/18/2021 Provider: ROBERT Pal Diagnosis: Male erectile dy sfunction, unspecified qd prn Last Documented On 2 11:25AM By CIRA WALLACE ; [facility] Cabergoline 0.5 MG Oral Tablet 06/12/2021 Provider: Diagnosis: Dr. Sheldon, On Friday Last Documented On 8:57AM By CIRA WALLACE ; [facility] Levothyroxine Sodium 175 MCG Oral Tablet 06/03/2021 Provider: Diagnosis: Dr. Sheldon Last Documented On 9:04AM By CIRA WALLACE ; [facility] Hydrocortisone 20MG Oral Tablet 08/17/2018 Provider: Diagnosis: Take 15 mg in the am and 10 mg in the pm, Dr. Rm norman Last Documented On 8 8:37AM By CIRA WALLACE ; [facility] Centrum Silver 50+Men Oral Tablet 03/19/2017 Provide r: Diagnosis: Last Documented On 03/19/2017 10:25AM By RANULFO WALLACE ; [facility] Past Medications on file Cephalexin 500 MG Oral Capsule 01/22/2024 - 02/01/2024 Provider: DANIELLA ORTA APRN-MICHELET Diagnosis: Acute pharyngiti s, unspecified take 1 capsule twice daily for ten days Last Documented On 4 9:15AM By Daniella Orta APRN REGISTERED DENTAL ASSISTANT ; [facility] Medications Administered Includes: Administered Medications from this encounter No Administered Medications Recorded Vital Signs Includes: Vital Signs from this encounter Vital Name 08/31/2022 12:47P Pulse Rate-Sitting (bpm) 80 Temp-Oral (F) 98.9 Height (in) 72.16589 Weight (lb) 236 Body Mass Index 32 Body Surface Area 2.3 Last Documented: On 08/31/2022 12:48P M ; [facility] Results Includes: Results discussed during this encounter URINALYSIS [facility] Ordered by FLORES MARK [facility] on 08/31/2022 Collected: Reported: 08/31/2022 13:39 Last Documented On 2 4:27PM ; [facility] Reviewed on 09/01/2022; All test results are final unless otherwise noted. Glucose neg (negaive) N (Normal) Last Documented On 2 1:40PM ; [facility] Bilirubin neg (Negative) N (Normal) Last Documented On 2 1:40PM ; [facility] Ketones neg (Negative) N (Normal) Last Documented On 2 1:40PM ; [facility] Sp [place] 1.010 (1.015-1.030) N (Normal) Last Documented On 2 1:40PM ; [facility] Blood mod (Negative) A (Abnormal) Last Documented On 2 1:40PM ; [facility] pH 6.0 (5-9) N (Normal) Last Documented On 2 1:40PM ; [facility] Protein 30 (Negative) A (Abnormal) Last Documented On 2 1:40PM ; [facility] Urobilinogen neg (Negative) N (Normal) Last Documented On 2 1:40PM ; [facility] Nitrite positive (Negative) A (Abnormal) Last Documented On 2 1:40PM ; [facility] Leukocytes large (Negative) A (Abnormal) Last Documented On 2 1:40PM ; [facility] SARS COVID-19 FLU A & B [facility] Ordered by FLORES MARK [facility], on 08/31/2022 Collected: Reported: 08/31/2022 12:58 Last Documented On 2 12:59PM ; [facility] Reviewed on 08/31/2022; All test results are final unless otherwise noted. COVID neg N (Normal) Last Documented On 2 12:59PM ; [facility] INFLUENZA A neg (Negative) N (Normal) Last Documented On 2 12:59PM ; [facility] INFLUENZA B neg (negative) N (Normal) Last Documented On 2 12:59PM ; [facility] INT. QC ACCEPTABLE? yes N (Normal) Last Documented On 2 12:59PM ; [facility] LOT # & EXP. DATE lot [id number] exp 07/24/23 (t) N (Normal) Last Documented On 2 12:59PM ; [facility] History of Present Illness Includes: History of Present Illness from this encounter CRICKET SORIA is a 77 year old male. - Allergy list reviewed - Medication list reviewed - Medication list reviewed - No fever - No chills - No chest pain or discomfort - No dyspnea - No cough - No nausea - No vomiting - No abdominal pain - No hematuria - No cloudy urine - No foul-smelling urine - No increase in urinary frequency - No urinary urgency - No dysuria - No burning sensation during urination Social History Description Last Updated Former smoker quit 21 y/o ~1 ppd cigaret magdalena/ day for 20 years 01/22/2024 Last Documented On 2 12:47PM ; [facility] Alcohol 05/16/2015 Last Documented On 2 12:47PM ; [facility] 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 Last Documented On 2 12:47PM ; [facility] Cigarettes 01/01/2012 Last Documented On 2 12:47PM ; [facility] Currently 01/01/2012 Last Documented On 2 12:47PM ; [facility] Smoking Status Unknown Procedures and Surgical History Surgical History Last Updated History of cholecystectomy 10/02/15 - Lap aroscopic for Biliary Diskinesia 10/02/2015 Last Documented On 2 12:47PM ; [facility] History of cataract surgery 01/01/2012 Last Documented On 2 12:47PM ; [facility] History of hemorrhoidectomy 1994 & 199901/01/2012 Last Documented On 2 12:47PM ; [facility] Knee replacement Lt. 01/2001 and revision 07/2001 ~Rt. knee 10/200101/01/2012 Last Documented On 2 12:47PM ; [facility] Medical History Includes: Medical History addressed during this encounter Description Last Updated No Contact with and (Suspected) exposure to COVID-19 01/11/2022 Last Documented On 2 12:47PM ; [facility] No fall 01/11/2022 Last Documented On 2 12:47PM ; [facility] cataracts 12/1999 and 05/2003 ~carpal tunnel 11/2002 ~nose ( septal reconstruction) 11/2006 ~hand surgery (ligament reconstruction w/tendon interposition0 09/06/2021 Last Documented On 2 12:47PM ; [facility] Currently wearing eyeglasses 09/06/2021 Last Documented On 2 12:47PM ; [facility] Has had no fall in the last 12 months. 1 11/07/2020 Last Documented On 2 12:47PM ; [facility] History of arthritis 09/06/2021 Last Documented On 2 12:47PM ; [facility] History of systemic hypertension Last Documented On 2 12:47PM ; [facility] Reported cardiovascular symptoms 12/23/2 021 Last Documented On 2 12:47PM ; [facility] Surgery CATARACT SURGERY, KN EE REPLACEMENT , LRTI RIGHT HAND 2006, TURP 2012, CTS 2000 09/06/2021 Last Documented On 2 12:47PM ; [facility] Denies a fear of falling. 07/16/2019 Last Documented On 2 12:47PM ; [facility] No history of cancer 01/01/2012 Last Documented On 2 12:47PM ; [facility] No history of chronic obstructive pulmon frank disease 01/01/2012 Last Documented On 2 12:47PM ; [facility] No history of convulsive disorder 2011 Last Documented On 2 12:47PM ; [facility] No history of diabetes mellitus 01/01/20 12 Last Documented On 2 12:47PM ; [facility] No history of stroke syndrome 01/01/2012 Last Documented On 2 12:47PM ; [facility] Family History Includes: Family History addressed during this encounter Description Last Updated Family history unchanged 11/30/2018 Last Documented On 2 12:47PM ; [facility] Family history reviewed - unchanged [facility] last visit 12/11/2015 Last Documented On 2 12:47PM ; [facility] Maternal history of cancer Bone 10/25/19 16 Last Documented On 2 12:47PM ; [facility] Maternal history of thyroid disorder gra ndmother 10/25/2015 Last Documented On 2 12:47PM ; [facility] Paternal history of thyroid disorder gra ndmother 10/25/2015 Last Documented On 2 12:47PM ; [facility] Family history of cancer 01/01/2012 Last Documented On 2 12:47PM ; [facility] Father 01/01/2012 Last Documented On 2 12:47PM ; [facility] Father at age 64 =liver cancer 12/14 Last Documented On 2 12:47PM ; [facility] Mother 01/01/2012 Last Documented On 2 12:47PM ; [facility] Mother at age 85= multiple myeloma 01/01/2012 Last Documented On 2 12:47PM ; [facility] Review of Systems Includes: Review of Systems from this encounter Gastrointestinal: No suprapubic pain. Genitourinary: No hematuria and no change in urinary frequency. No dysuria and no pain in the flank. Mental Status Includes: Mental Status from this encounter Description Oriented to time, place, and person Functional Status Includes: Functional Status from this encounter No Functional Status Recorded Physical Exam Includes: Physical Exam from this encounter Allergies Includes: Active Allergies Substance Type Reaction Onset Date Resolved Date Statu s Sulfamethoxazole-TMP DS Allergy 10/27/2014 Active Last Documented On 4 8:42AM ; [facility] Sulfa Antibiotics Allergy Skin Rashes / Eruption of skin, Hives / Urticaria 04/22/2013 Active Last Documented On 4 8:42AM ; [facility] Statins Allergy Memory and muscle loss 09/18/2016 Active Last Documented On 4 8:42AM ; [facility] Minocycline HCl Allergy nausea/headache 04/22/2013 Active Last Documented On 4 8:42AM ; [facility] Levaquin Allergy Skin Rashes / Er uption of skin, Hives / Urticaria 12/24/2011 Active Last Documented On 4 8:42AM ; [facility] Encounters Encounter Provider Location Date Check-In Time Check-Out Time Diagnosis COVID SICK VISIT- ESTABLISHED PATIENT FLORES MARK [facility] [facility] 08/31/20 22 12:19PM 1:50PM Assessment of Pain During Urination (Dysuria) Insurance Includes: Active Insurance Policies Plan Name Member ID Group # Subscriber Relationship Effect jasbir Dates 1 - [employer] [id number] JARET Ulloa Clinical Notes Includes: Clinical Notes from this encounter No Clinical Notes Recorded
--- OUTSIDE RECORDS SUMMARY | 2025-07-19 09:14 | XMS_ITS | Clinical Summary ---
Author Organization [facility] Address [address] [place] [address] Phone Care Team Providers Care Mail Censor Name Role Phone ROBERT ORTIZ DO Primary Care Provider [phone] ANGEL D.ROBERT Allred Unavailable [phone] Reason for Visit and Chief Complaint The Chief Complaint is: Patient is here for a basic check up after being discharged from [place] 2 [place] ago, says he is doing better then he was in [place], Problems Includes: Problems addressed during this encounter and other active Problems Current Visit Onset Date Resolved Date Provider Conditio n Status Anemia 02/15/2019 ROBERT Brunson D.O. Active Last Documented On 02/15/2019 8:38AM ; [facility] Note: -Hgb on 01-12-19 was at 11.6 Former Smoker 08/31/2012 ARMANDO MIJARES MD Active Last Documented On 08/31/2012 10:22AM ; [facility] Note: Unchanged - quit 21 y/o1 ppd / day for 20 years History of Reported Hx of Knee Replacement 08/10/2012 ARMANDO MIJARES MD Active Last Documented On 08/10/2012 3:47PM ; [facility] Note: Unchanged - Lt. 01/2001 and revisio n 07/2001Rt. knee 10/2001 Past Visits Onset Date Resolved Date Provider Condition Status Adrenal Insufficiency 08/30/2021 SABRINA SUNG GAS ENGINE PERFORMANCE ENGINEER-C Active Last Documented On 1 8:51AM ; [facility] Dorsopathy Dorsalgia Pain in Thoracic Spine 08/30/2021 STEFANIE SUNG GAS ENGINE PERFORMANCE ENGINEER -C Active Last Documented On 1 8:50AM ; [facility] Hypopituitarism 08/30/2021 STEFANIE Gus CLONING ER-HULTZ GAS ENGINE PERFORMANCE ENGINEER-C Active Last Documented On 1 8:52AM ; [facility] Urinary Retention 08/30/2021 STEFANIE Gus CLONI NGER-HULTZ GAS ENGINE PERFORMANCE ENGINEER-C Active Last Documented On 1 8:50AM ; [facility] Hypogonadism 08/30/2021 STEFANIE E CLONINGER- HULTZ GAS ENGINE PERFORMANCE ENGINEER-C Active Last Documented On 1 8:54AM ; [facility] Vitamin Deficiency 08/30/2021 STEFANIE E CLON DANIELLE-HULTZ GAS ENGINE PERFORMANCE ENGINEER-C Active Last Documented On 1 8:51AM ; [facility] Other fatigue 01/12/2019 ROBERT A CRANCER D.O. Active Last Documented On 9 9:51AM ; [facility] Gerd 08/17/2018 ROBERT Eze CRANCER D.O. Act jasbir Last Documented On 8 8:47AM ; [facility] Arthralgia - Knee / Patella / Tibia / Fibula Left 02/20/2018 ROBERT A CRANCER D.O. Active Last Documented On 8 8:55AM ; [facility] Arthralgia - Knee / Patella / Tibia / Fibula Right 02/20/2018 ROBERT A CRANCER D.O. Active Last Documented On 8 8:55AM ; [facility] Low Back Pain 02/20/2018 ROBERT A CRANCER D.O. 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 Is going to Pain Management through his Neuro Surgeon. BENIGN SARAHI PITUITARY 04/18/2016 ROBERT RICHCE R D.O. Active Last Documented On 6 3:00PM ; [facility] Hyperlipidemia 12/29/2013 ROBERT A CRANCER D.O. Active Last Documented On 9 9:02AM ; [facility] Note: Overview: Overview: 08/28 Choleste rol 185 HDL 45 LDL 122 triglyceride 89, normal TSH/CMP x glucose 48760/13 Cholesterol 185 HDL 34 LDL 100 triglyceride 2542/16 Cholesterol 106 HDL 27 LDL 54 triglyceride 1278/15 Cholesterol 135 HDL 36 LDL 64 triglyceride 174, AST 25 ALT 30 glucose 18928/14 Cholesterol 185 HDL 45 LDL 122 triglyceride 89, normal TSH/CMP x glucose 77133/13 Cholesterol 185 HDL 34 LDL 100 triglyceride 254 Hypertension Systemic 11/08/2013 ROBERTBAUMANNC ER D.O. Active Last Documented On 7 10:33AM ; [facility] Male Erectile Disorder 04/22/2013 LESTE R A CRANCER D.O. Active Last Documented On 1 8:44AM ; [facility] Note: Unchanged Hypothyroidism 03/03/2013 ARMANDO MIJARES MD Active Last Documented On 3 4:54PM ; [facility] Note: Unchanged Cardiovascular Symptoms 03/03/2013 TIANA SUNG GAS ENGINE PERFORMANCE ENGINEER-C Active Last Documented On 1 9:16AM ; [facility] Note: Unchanged - Has occl. palpitations . He was evaluated several yrs ago by a senior web services developer for frequent PABs but the work up was negative for any ischaemic heart disease.He denies any chest pains or dyspnoea. Chest Pain NOS 10/28/2012 ROBERT A CRAN CER D.O. Active Last Documented On 6 9:02AM ; [facility] Note: Overview: 11/17 stress nuclear: an terior ischemia, normal EF11/17 cath: LV 120/15, EF 60%, normal coronaries10/21 stress EKG 5:30--89% maximal heart rate, PVCs, no EKG ischemia, (nuclear report not known) CARDIAC DYSRHYTHMIAS NEC 10/27/2012 [address] A CRANCER D.O. Active Last Documented On 6 10:12AM ; [facility] Note: Overview: Overview: 10/27 Holter: S R at 63, range 48-103, rare PACs, no PVCs, 4 atrial triplets, fastest 1294/15 TSH 0.42 Thoracic Aortic Ectasia 10/27/2012 LESTho ER A CRANCER D.O. Active Last Documented On 6 9:02AM ; [facility] Note: Overview: 1/05 CT: mild eccentric aortic atherosclerosis10/26 echo: EF [...] Active Last Documented On 2 10:22AM ; [facility] Note: Unchanged Epididymitis 08/10/2012 ARMANDO MIJARES MD Ac tive Last Documented On 2 3:47PM ; [facility] Note: Unchanged History of Arthritis 08/10/2012 ARMANDO MARIE MD Active Last Documented On 2 3:47PM ; [facility] Note: Unchanged PREMATURE BEATS NEC 10/10/2010 ROBERT ORTIZ D.O. Active Last Documented On 6 10:12AM ; [facility] Plan of Treatment Increase dietary intake of salt-watch for increase in urination Follow up with surgeon about left hip pain PT-we can extend PT if you feel you need a few additional weeks due to the pain you have been having-let me know if you decide you want that Follow up in the office for Medicare Wellness Examination otherwise in 6 months. - Last Documented On 11/08/2021 2:39PM ; [facility] Assessments Includes: Assessments from this encounter Findings - [D64.9 - Anemia, unspecified] Anemia - Last Documented On 11/08/2021 2:39PM ; [facility] Medical Equipment - Implanted Devices Includes: Current Devices No Medical Equipment Recorded Medications Includes: Medications discussed during this encounter and other current Medications Discontinued / Stopped on this date STEFANIE ALLISONER-LUIS GAS ENGINE PERFORMANCE ENGINEER-C on 09/05/2021 oxyCODONE-Acetaminophen 5-32 5 MG Oral Tablet Provider: STEFANIE ALLISON ER-HULTZ GAS ENGINE PERFORMANCE ENGINEER-C Diagnosis: Last Documented On 11:25AM By CIRA WALLACE ; [facility] Ambien 5 MG Oral Tablet Provider: STEFANIE ALLISON ER-LUIS GAS ENGINE PERFORMANCE ENGINEER-C Diagnosis: Insomnia, unspec ified Last Documented On 11:26AM By CIRA WALLACE ; [facility] Current Medications (continue as prescribed) Aspirin 81 MG Oral Tablet Delayed Release 01/22/2024 Provider: Diagnosis: Last Documented On 4 8:42AM By FERN WALLACE ; [facility] PreserVision AREDS Oral Tablet 01/22/2024 Provider: Diagnosis: Last Documented On 4 8:41AM By FERN WALLACE ; [facility] Ezetimibe 10 MG Oral Tablet 01/22/2024 Provider: Diagnosis: Last Documented On 4 8:40AM By FERN WALLACE ; [facility] Vitamin D3 250 MCG (14625 UT) Oral Capsule 024 Provider: Diagnosis: Last Documented On 4 8:42AM By FERN WALLACE ; [facility] Esomeprazole Magnesium 40 MG Oral Capsule Delayed Release 02/19/2023 Provider: ROBERT Pal Diagnosis: Gastro-esophagea l reflux disease without esophagitis TAKE 1 CAPSULE BY MOUTH BILL YDUE FOR APPT. Last Documented On 02/19/2023 10:41AM By JUSTIN WALLACE ; [facility] oxyCODONE-Acetaminophen 5-325 MG Oral Tablet Provider: Diagnosis: Last Documented On 2 11:25AM By CIRA WALLACE ; [facility] Tamsulosin HCl 0.4 MG Oral Capsule 10/16/2021 Provid er: Diagnosis: Last Documented On 2 11:27AM By CIRA WALLACE ; [facility] Atenolol 25 MG Oral Tablet 09/06/2021 Provider: Diagnosis: Last Documented On 9:11AM By Stefanie FONTAINE-Gabrielle ; [facility] Testosterone Cypionate 200 MG/ML Intramuscular Solutio n 08/17/2021 Provider: Diagnosis: 1 ml intramuscular every 2 weeks on Friday, Dr. Sheldon Last Documented On 9:03AM By CIRA WALLACE ; [facility] Sildenafil Citrate 100 MG Oral Tablet 07/18/2021 Provider: ROBERT Pal Diagnosis: Male erectile dy sfunction, unspecified qd prn Last Documented On 2 11:25AM By CIRA WALLACE ; [facility] Cabergoline 0.5 MG Oral Tablet 06/12/2021 Provider: Diagnosis: Dr. Sheldon, On Friday Last Documented On 1 8:57AM By CIRA WALLACE ; [facility] Levothyroxine Sodium 175 MCG Oral Tablet 06/03/2021 Provider: Diagnosis: Dr. Sheldon Last Documented On 1 9:04AM By CIRA WALLACE ; [facility] Hydrocortisone 20MG Oral Tablet 08/17/2018 Provider: Diagnosis: Take 15 mg in the am and 10 mg in the pm, Dr. Rm norman Last Documented On 8 8:37AM By CIRA WALLACE ; [facility] Centrum Silver 50+Men Oral Tablet 03/19/2017 Provide r: Diagnosis: Last Documented On 03/19/2017 10:25AM By RANULFO WALLACE ; [facility] Past Medications on file Cephalexin 500 MG Oral Capsule 01/22/2024 - 02/01/2024 Provider: DANIELLA REEVES Diagnosis: Acute pharyngiti s, unspecified take 1 capsule twice daily for ten days Last Documented On 4 9:15AM By Daniella Cornejo APRN LENS GRINDER AND POLISHER ; [facility] Amoxicillin-Pot Clavulanate 875-125 MG Oral Tablet 08/31/2022 - 09/07/2022 Provider: ATIYA RIVERA Diagnosis: Urinary tract infection, site not specified One tablet twice a day Last Documented On 2 2:20PM By Renee FONTAINE-BC ; [facility] Medications Administered Includes: Administered Medications from this encounter No Administered Medications Recorded Vital Signs Includes: Vital Signs from this encounter Vital Name 11/07/2021 11:23A Blood Pressure Sitting R 130/86 BP Cuff Size Large Pulse Rate-Sitting (bpm) 68 Respiration Rate (breaths/min) 18 Height (in) 72.93879 Weight (lb) 227 Body Mass Index (kg/m2) 30.8 Body Surface Area (m2) 2.2 Last Documented: On 11/07/2021 11:29A M ; [facility] Results Includes: Results discussed during this encounter H & H (HGB & HCT) [facility] La boratory Ordered by ROBERT ORTIZ D.O. on 10/15/2021 [address] [employer] [facility] [place], [place], [address] Collected: 10/15/2021 Report ed: 10/15/2021 10:23 tel: Last Documented On 2 2:08PM ; [facility] Reviewed by ROBERT ORTIZ D.O. on 10/22/2021; All test results are final unless otherwise noted. HCT 40.5 % (40.0 - 54.0) None Last Documented On 2 2:06PM ; [facility] Note: Responsible Observer: (LW) HGB 12.8 g/dL (13.5 - 17.5) L (Low) Last Documented On 2 2:06PM ; [facility] Note: Responsible Observer: (LW) PROLACTIN [facility] La boratory Ordered by ROBERT ORTIZ D.O. on 10/15/2021 [address] [facility] [place], [address] Collected: 10/15/2021 Report ed: 10/16/2021 20:48 tel:[phone] Last Documented On 2 2:08PM ; [facility] Reviewed by ROBERT ORTIZ D.O. on 10/22/2021; All test results are final unless otherwise noted. PROLACTIN 5.5 ng/mL (2.0-18.0) N (Normal) Last Documented On 2 2:06PM ; [facility] Note: THIS TEST WAS PERFORMED AT:[employer] [id number] [place] [id number] BECKER,DO,MPHResponsible Observer: (rfl) TESTOSTERONE, FREE AND TOTAL [facility] Laboratory Ordered by ROBERT ORTIZ D.O. on 10/15/2021 [address] [place], [address] Collected: 10/15/2021 Report ed: 10/19/2021 13:22 tel:[phone] Last Documented On 2 2:08PM ; [facility] Reviewed by ROBERT ORTIZ D.O. on 10/22/2021; All test results are final unless otherwise noted. TESTOSTERONE, TOTAL, MS 736 ng/dL (250-1100) None Last Documented On 2 2:06PM ; [facility] Note: For additional information, please refer totps://education.Sensegon.Schoolnet/faq/HAU238(This link is being provided for informational/educational purposes only.)(Note)This test was developed and its analytical performancecharacteristics have been determined by [employer]. It has notbeen cleared or approved by the FDA. This assay has been validatedpursuant to the CLIA regulations and is used for clinical purposes.Responsible Observer: (rfl) TESTOSTERONE, FREE 161.4 pg/mL (30.0-135.0) H (High) Last Documented On 2 2:06PM ; [facility] Note: (Note)This test was developed and its analytical performancecharacteristics have been determined by [employer]. It has not beencleared or approved by the FDA. This assay has been validatedpursuant to the CLIA regulations and is used for clinical purposes.[address]ed [id number] [place] [place] [address],[address] [place] [address] [phone] Chaump, MDTHIS TEST WAS PERFORMED AT:[id number] [place] [address] [place] [id number] CHAUMP,MDResponsible Observer: ([facility]) CBC WITH DIFF [facility] La boratory Ordered by ROBERT ORTIZ D.O. on 08/24/[address] [place] [address], [place], [address] Collected: 08/24/2021 Report ed: 08/24/2021 15:09 tel: Last Documented On 10:07AM ; [facility] Reviewed by ROEBRT ORTIZ D.O. on 08/27/2021; All test results are final unless otherwise noted. ALC 0.8 None Last Documented On 4:19PM ; [facility] Note: Responsible Observer: ([facility]) ANC 7.1 None Last Documented On 4:19PM ; [facility] Note: Responsible Observer: (WE) BASO# 0.1 th/uL (0.0 - 0.2) None Last Documented On 4:19PM ; [facility] Note: Responsible Observer: ([facility]) BASO% 0.8 % (0.0 - 2.0) None Last Documented On 4:19PM ; [facility] Note: Responsible Observer: (WE) CBC WITH DIFF See Note None Last Documented On 4:19PM ; [facility] Note: CBC (COMPLETE BLOOD COUNT)Responsi ble Observer: (WE) DIFF (Y/N) NO None Last Documented On 4:19PM ; [facility] Note: Responsible Observer: (WE) EOS# 0.36 th/uL (0.00 - 0.45) None Last Documented On 4:19PM ; [facility] Note: Responsible Observer: ([facility]) EOS% 4.0 % (0.0 - 9.0) None Last Documented On 4:19PM ; [facility] Note: Responsible Observer: ([facility]) HCT 35.9 % (40.0 - 54.0) L (Low) Last Documented On 4:19PM ; [facility] Note: Responsible Observer: ([facility]) HGB 11.5 g/dL (13.5 - 17.5) L (Low) Last Documented On 4:19PM ; [facility] Note: Responsible Observer: ([facility]) IG% 0.7 % (0.0 - 0.5) H (High) Last Documented On 4:19PM ; [facility] Note: Responsible Observer: ([facility]) LYMPH# 0.79 th/uL (1.00 - 4.80) L (Low) Last Documented On 4:19PM ; [facility] Note: Responsible Observer: ([facility]) LYMPH% 8.9 % (14.0 - 45.0) L (Low) Last Documented On 4:19PM ; [facility] Note: Responsible Observer: (WE) MCH 30.4 pg (25.0 - 35.0) None Last Documented On 4:19PM ; [facility] Note: Responsible Observer: (WE) MCHC 32.0 g/dL (31.0 - 36.0) None Last Documented On 4:19PM ; [facility] Note: Responsible Observer: ([facility]) MCV 95.0 fl (80.0 - 100) None Last Documented On 4:19PM ; [facility] Note: Responsible Observer: ([facility]) MONO# 0.55 th/uL (0.00 - 0.80) None Last Documented On 4:19PM ; [facility] Note: Responsible Observer: ([facility]) MONO% 6.2 % (1.0 - 10.0) None Last Documented On 4:19PM ; [facility] Note: Responsible Observer: ([facility]) MPV 9.4 fl (6.0 - 11.0) None Last Documented On 1 4:19PM ; [facility] Note: Responsible Observer: ([facility]) NEUT# 7.07 th/uL None Last Documented On 4:19PM ; [facility] Note: Responsible Observer: (WE) NEUT% 79.4 % (45.0 - 76.0) H (High) Last Documented On 4:19PM ; [facility] Note: Responsible Observer: (WE) NRBC% 0.0 % (0.0 - 0.0) None Last Documented On 1 4:19PM ; [facility] Note: Responsible Observer: ([facility]) PLT 305 th/uL (150 - 400) None Last Documented On 4:19PM ; [facility] Note: Responsible Observer: ([facility]) RBC 3.78 mil/uL (4.50 - 5.90) L (Low) Last Documented On 4:19PM ; [facility] Note: Responsible Observer: ([facility]) RDW 14.0 % (11.0 - 16.0) None Last Documented On 4:19PM ; [facility] Note: Responsible Observer: ([facility]) WBC 8.9 th/uL (4.5 - 11.0) None Last Documented On 4:19PM ; [facility] Note: Responsible Observer: (WE) CMP [facility] La boratory Ordered by ROBERT ORTIZ D.O. on 08/24/[address] [place] [address], [phone] Collected: 08/24/2021 Report ed: 08/24/2021 15:55 tel: Last Documented On 1 10:07AM ; [facility] Reviewed by ROBERT ORTIZ D.O. on 08/27/2021; All test results are final unless otherwise noted. A/G RATIO 1.4 (1.1 - 2.2) None Last Documented On 1 4:19PM ; [facility] Note: Responsible Observer: ([facility]) AGE 76 YEARS None Last Documented On 4:19PM ; [facility] Note: Responsible Observer: (TER) ALBUMIN 3.5 g/dL (3.4 - 4.8) None Last Documented On 4:19PM ; [facility] Note: Responsible Observer: (TER) ALK PHOS 81 IU/L (40 - 150) None Last Documented On 4:19PM ; [facility] Note: Responsible Observer: (TER) ALT (SGPT) 29 IU/L (0 - 55) None Last Documented On 4:19PM ; [facility] Note: Responsible Observer: (TER) ANION GAP 14.2 mmol/L (8.0 - 16.0) None Last Documented On 4:19PM ; [facility] Note: Responsible Observer: (TER) AST (SGOT) 21 IU/L (5 - 34) None Last Documented On 4:19PM ; [facility] Note: Responsible Observer: (TER) BILIRUBIN TOT 0.9 mg/dL (0.2 - 1.0) None Last Documented On 4:19PM ; [facility] Note: Responsible Observer: (TER) BUN 17 mg/dL (9 - 20) None Last Documented On 4:19PM ; [facility] Note: Responsible Observer: (TER) CALCIUM 8.4 mg/dL (8.9 - 10.0) L (Low) Last Documented On 4:19PM ; [facility] Note: Responsible Observer: (TER) CHLORIDE 99 mmol/L (98 - 107) None Last Documented On 4:19PM ; [facility] Note: Responsible Observer: (TER) CMP See Note None Last Documented On 4:19PM ; [facility] Note: COMPREHENSIVE METABOLIC PANELRespo nsible Observer: (TER) CREATININE 1.0 mg/dL (0.8 - 1.5) None Last Documented On 4:19PM ; [facility] Note: Responsible Observer: (TER) GFR Afr-Am 94 ml/min None Last Documented On 4:19PM ; [facility] Note: Responsible Observer: (TER) GFR Non-AfrAm 77 ml/min None Last Documented On 4:19PM ; [facility] Note: GFR INTERPRETATION AGE AVG GFR 20 -29 116 ml/min/1.73 m2 30-39 107 ml/min/1.73 m2 40-49 99 ml/min/1.73 m2 50-59 93 ml/min/1.73 m2 60-69 85 ml/min/1.73 m2 70+ 75 ml/min/1.73 m2 Chronic Kidney Disease-Less than 60 ml/min Kidney Failure-Less than 15 ml/minResponsible Observer: (TER) GLOBULIN 2.5 g/dl (2.0 - 4.2) None Last Documented On 4:19PM ; [facility] Note: Responsible Observer: (TER) GLUCOSE 115 mg/dL (65 - 99) H (High) Last Documented On 4:19PM ; [facility] Note: Responsible Observer: (TER) POTASSIUM 4.2 mmol/L (3.6 - 5.0) None Last Documented On 4:19PM ; [facility] Note: Responsible Observer: (TER) SODIUM 132 mmol/L (137 - 145) L (Low) Last Documented On 4:19PM ; [facility] Note: Responsible Observer: (TER) TCO2 23.0 mmol/L (22.0 - 30.0) None Last Documented On 4:19PM ; [facility] Note: Responsible Observer: (TER) TOTAL PROTEIN 6.0 g/dL (6.4 - 8.3) L (Low) Last Documented On 4:19PM ; [facility] Note: Responsible Observer: (TER) BNP (B-TYPE NATRIURETIC PEPTIDE) [facility] Laboratory Ordered by ROBERT ORTIZ D.O. on 08/24/[address] [place] [address], [place], [address] Collected: 08/24/2021 Report ed: 08/24/2021 16:00 tel: Last Documented On 10:07AM ; [facility] Reviewed by ROBERT ORTIZ D.O. on 08/27/2021; All test results are final unless otherwise noted. BNP 71.5 PG/ML (10.0 - 100) None Last Documented On 08/24/2021 4:19PM ; [facility] Note: Responsible Observer: (TER) BNP (B-TYPE NATRIURETIC PEPTIDE) See Note None Last Documented On 08/24/2021 4:19PM ; [facility] Note: BNP (B-Type Natriuretic Peptide)Responsible Observer: (TER) CARDIAC PANEL (CKMB, CK, TROPONIN) [facility] Laboratory Ordered by ROBERT ORTIZ D.O. on 08/24/2021 [address] [facility] [place], [place], [address] Collected: 08/24/2021 Report ed: 08/24/2021 16:16 tel: Last Documented On 10:07AM ; [facility] Reviewed by ROBERT ORTIZ D.O. on 08/27/2021; All test results are final unless otherwise noted. CK 55 IU/L (30 - 200) None Last Documented On 08/24/2021 4:19PM ; [facility] Note: Responsible Observer: (TER) CKMB SPECIFIC 0.6 ng/mL (0.0 - 3.0) None Last Documented On 08/24/2021 4:19PM ; [facility] Note: Responsible Observer: (TER) TROPONIN I <0.01 ng/mL (0.00 - 0.07) None Last Documented On 08/24/2021 4:19PM ; [facility] Note: Responsible Observer: (TER) TSH [facility] La boratory Ordered by ROBERT ORTIZ D.O. on 08/24/2021 [address] [facility], [place], [address] Collected: 08/24/2021 Report ed: 08/24/2021 16:17 tel:[phone] Last Documented On 10:07AM ; [facility] Reviewed by ROBERT ORTIZ D.O. on 08/27/2021; All test results are final unless otherwise noted. TSH 2.8967 uIU/mL (0.3500 - 4.9400) None Last Documented On 1 4:19PM ; [facility] Note: Responsible Observer: (TER) History of Present Illness Includes: History of Present Illness from this encounter HPI JARET SORIA is a 76 year old male. - Allergy list reviewed - Problem list reviewed - Medication reconciliation performed - Medication list reviewed Bill is here today for follow up he was recently in the [place] after having had left [place]. He reports he is doing well-he is still receiving physical therapy, he does still have significant pin to the left hip-he follows up with the surgeon next week. CVD-He recently saw cardiology and reports his blood pressure is well controlled-no new medication changes Chronic Pain-he see's Dr. Garcia for chronic pain and reports that other than the recent hip pain he is well managed on his current dose of percocet. Adrenal Insufficiency-see's Dr. Sheldon-last appt was -PTH was normal sodium was low at 132. Prostate-See's urology Dr. Louis regularly last PSA in Oct 16, 2021 was 1.23. Labs from Aug reviewed with patient as well as specialist consult notes from Oct. 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 Last Documented On 2 11:23AM ; [facility] Currently 01/01/2012 Last Documented On 2 11:23AM ; [facility] Smoking Status Unknown Procedures and Surgical History Includes: Procedures from this encounter Procedures Code Diagnosis Performing Provider Service L ocation Service Date plan of care reviewed and agreed to by the patient Last Documented On 2 11:23AM ; [facility] use of tobacco assessment performed 1000F Last Documented On 2 11:30AM ; [facility] patient screened for future fall risk 3288F Last Documented On 2 11:23AM ; [facility] patient screened for future fall risk: documentation of any fall with injury in past year 1100F Last Documented On 2 2:39PM ; [facility] standardized depression screening: negative for symptoms 3351F Last Documented On 2 2:39PM ; [facility] review of medications documented 1160F Last Documented On 2 11:23AM ; [facility] counseling about safety issues Last Documented On 2 11:23AM ; [facility] assessment of substance use performed Last Documented On 2 11:23AM ; [facility] follow-up visit in one year Last Documented On 2 2:39PM ; [facility] screening for adult depression: impressi on and score Last Documented On 2 2:39PM ; [facility] encouragement to exercise Last Documented On 2 11:23AM ; [facility] screening for safety concerns Last Documented On 2 11:23AM ; [facility] Clinical summary provided to patient Last Documented On 2 11:23AM ; [facility] Surgical History Last Updated History of cholecystectomy 10/02/15 - Lap aroscopic for Biliary Diskinesia 10/02/2015 Last Documented On 2 11:23AM ; [facility] History of cataract surgery 01/01/2012 Last Documented On 2 11:23AM ; [facility] History of hemorrhoidectomy 1994 & 199901/01/2012 Last Documented On 2 11:23AM ; [facility] Knee replacement Lt. 01/2001 and revision 07/2001 ~Rt. knee 10/200101/01/2012 Last Documented On 2 11:23AM ; [facility] Medical History Includes: Medical History addressed during this encounter No Medical History Recorded Family History Includes: Family History addressed during this encounter Description Last Updated Family history unchanged 11/30/2018 Last Documented On 2 11:23AM ; [facility] Family history reviewed - unchanged sin e last visit 12/11/2015 Last Documented On 2 11:23AM ; [facility] Maternal history of cancer Bone 10/25/19 16 Last Documented On 2 11:23AM ; [facility] Maternal history of thyroid disorder gra ndmother 10/25/2015 Last Documented On 2 11:23AM ; [facility] Paternal history of thyroid disorder gra ndmother 10/25/2015 Last Documented On 2 11:23AM ; [facility] Family history of cancer 01/01/2012 Last Documented On 2 11:23AM ; [facility] Father 01/01/2012 Last Documented On 2 11:23AM ; [facility] Father at age 64 =liver cancer 12/14 Last Documented On 2 11:23AM ; [facility] Mother 01/01/2012 Last Documented On 2 11:23AM ; [facility] Mother at age 85= multiple myeloma 01/01/2012 Last Documented On 2 11:23AM ; [facility] Review of Systems Includes: Review of Systems from this encounter Systemic: General overall feeling. Feeling fine and no recent weight change. No pain. Head: No head symptoms. Eyes: No eye symptoms. Otolaryngeal: No otolaryngeal symptoms. Cardiovascular: No chest pain or discomfort. Pulmonary: No dyspnea. Gastrointestinal: No gastrointestinal symptoms. Genitourinary: No genitourinary symptoms. Musculoskeletal: No musculoskeletal symptoms. Neurological: No neurological symptoms. Psychological: No psychological symptoms. Skin: No skin symptoms. Mental Status Includes: Mental Status from this encounter Description Oriented to time, place, and person Functional Status Includes: Functional Status from this encounter No Functional Status Recorded Physical Exam Includes: Physical Exam from this encounter Immunizations Includes: Immunizations addressed during this encounter Vaccine Dose # Date Site Reaction(s) Status Source Fluad, Quadravalent 1 07/18/2021 Left Arm Complete (Reported) Patient Last Documented On 2 11:21AM ; [facility] Allergies Includes: Active Allergies Substance Type Reaction Onset Date Resolved Date Statu s Sulfamethoxazole-TMP DS Allergy 10/27/2014 Active Last Documented On 4 8:42AM ; [facility] Sulfa Antibiotics Allergy Skin Rashes / Eruption of skin, Hives / Urticaria 04/22/2013 Active Last Documented On 4 8:42AM ; [facility] Statins Allergy Memory and muscle loss 09/18/2016 Active Last Documented On 4 8:42AM ; [facility] Minocycline HCl Allergy nausea/headache 04/22/2013 Active Last Documented On 4 8:42AM ; [facility] Levaquin Allergy Skin Rashes / Er uption of skin, Hives / Urticaria 12/24/2011 Active Last Documented On 4 8:42AM ; [facility] Encounters Encounter Provider Location Date Check-In Time Check-Out Time Diagnosis CHECK UP 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
--- OUTSIDE RECORDS SUMMARY | 2025-07-19 09:14 | XMS_ITS | Clinical Summary ---
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 Temperature 36.5 C (97.7 F) 10/06/2019 9:44 AM BRINE PLANT OPERATOR Respiratory Rate 20 10/06/2019 9:44 AM BRINE PLANT OPERATOR Oxygen Saturation 98% 10/06/2019 9: 44 AM BRINE PLANT OPERATOR Inhaled Oxygen Concentration - - Weight 112.2 kg (247 lb 4.8 oz) 10/06/2019 9:44 AM BRINE PLANT OPERATOR Height 180.3 cm (5' 11) 10/06/2019 9:44 AM BRINE PLANT OPERATOR Body Mass Index 34.49 10/06/2019 9:44 AM BRINE PLANT OPERATOR Plan of Treatment Health Maintenance Due Date Last Done Comments Hepatitis C Virus (HCV) Screening 1945 TdaP Immunization 1945 Pneumococcal Immunization (50+ years) (2 of 2 - PCV) 10/02/2012 10/02/2011 Zoster Immunization (2 of 3) 07/13/2013 05/18/2013 Medicare Initial AWV [id number] 09/15/2019 Respiratory Syncytial Virus (RSV) Immunization (Adult) (1 - 1-dose 75+ series) 2021 Influenza Immunization (#1) 2025 10/09/2023, 05/26/2023, 07/30/2022, Additional history exists SARS-COV-2 Immunization ( season) 2025 11/08/2020, 10/18/2020 Pneumococcal Immunization Combined [...] topic Insurance MEDICARE C [employer] Care Teams Automobile Locator Relationship Specialty Start Date End Date Jeffry Wilson MD [address] [place] [address] PCP - General Internal Medicine 06/02/25
--- OUTSIDE RECORDS SUMMARY | 2025-07-19 09:14 | XMS_ITS | Data Portability ---
Author Organization [facility], Main Office Address [address] [facility] [address] [place] [address] Assessment No assessment recorded. Plan of Treatment Reminders Order Date Submit Date Provider Last Modified By Organization Details Last Modified Time Details Appointments ESTABLISH ED PATIENT 15 2025 09:45A M Dr. Reynolds Not available Not available Not available Lab None recorded. Referral None recorded. Procedures None recorded. Surgeries None recorded. Imaging None recorded. Medication Orders None recorded. Patient TargetsNo targets recorded. Patient Instructions Encounter Date Encounter Id Patient Instructions Last Modified By Organization Details Last Modified Time 08/04/2023 [id number] Stop the 5-FU now-tx completed. Vaseline ansd mild cleansers SPF 30. FU 6 mos. Revd tx- pt was expectant given response on the right. He is doing fine. [email or web address] Not available 08/04/2023 16:24:53 Reason for Referral None Reported. Problems Name Problem SNOMED Code Status Onset Date Resolution Date Notes Provider Name and Address Organization Details Recorded Time Actinic keratosis 901298250 Active 2022 Jerry Reynolds MD [address] [facility] [address], [place], [address], [facility] 3 16:56:21 Chronic effect of ultraviolet radiation on normal skin 014373526 Active 2022 Jerry Reynolds MD [address] [facility] [address], [place], [address], [facility] 3 16:57:26 Irritant contact dermatitis 589002707 Active 2022 Jerry Reynolds MD [address] [facility] [address], [place], [phone], [facility] 3 16:22:31 Problem Notes None recorded. Medical Equipment None Reported. Allergies Allergen ID Allergen Name Allergen Category Reaction Reaction Severity Criticality Documentation Date Start Date Code Code System Note Provider Name and Address Organization Details Recorded Time 3144 Levaquin medicatio n Not available Not available Not available 03/09/2021 98138 2 RxNorm [facility] 14:54:51 3145 Product containin g 3-hydroxy -3-methyl glutaryl- coenzyme A reductase inhibitor (product) medicatio n Not available Not available Not available 03/09/2021 15640 009 SNOMED [facility] 14:55:04 Medications Name Sig Start Date Stop Date Status Note LastModified by Organization Details LastModified Time losartan 50 mg tablet TAKE 1 TABLET BY MOUTH DAILY active Not Available Not Available Not Available hydrocortiso ne 5 mg tablet TAKE 1 TABLET BY MOUTH EVERY DAY IN ADDITION TO 10 MG HYDROCORTIS ONE TO. MAKE TOTAL OF 25 MG DAILY active Not Available Not Available No t Available cyclobenzapr ine 10 mg tablet active Not Available Not Available Not Available amoxicillin 500 mg capsule TAKE 4 CAPSULES BY MOUTH 1 HOUR PRIOR TO SURGERY active Not Available Not Available N ot Available levothyroxin e 175 mcg tablet TAKE 1 TABLET BY MOUTH DAILY active Not Available Not Available Not Available clindamycin HCl 300 mg capsule active Not Available Not Available Not Available aspirin 325 mg tablet TAKE 1 TABLET BY MOUTH DAILY active Not Available Not Available Not Available pravastatin 40 mg tablet TAKE 1 TABLET BY MOUTH IN THE EVENING active Not Available Not Available Not Available hydrocodone 5 mg-acetamino phen 325 mg tablet TAKE 1 TABLET BY MOUTH EVERY 6 HOURS NEEDED FOR PAIN active Not Available Not Available No t Available prednisone 20 mg tablet active Not Available Not Available Not Available fluorouracil 5 % topical cream APPLY TO THE FACE TWICE DAILY FOR 4 WEEKS. NOT TO EYELIDS active Not Available Not Available N ot Available atenolol 25 mg tablet TAKE 1 TABLET BY MOUTH DAILY active Not Available Not Available Not Available amlodipine 2.5 mg tablet TAKE 1 TABLET BY MOUTH DAILY active Not Available Not Available Not Available amlodipine 5 mg tablet TAKE 1 TABLET BY MOUTH EVERY NIGHT AT BEDTIME active Not Available Not Available No t Available sildenafil 100 mg tablet TAKE 1 TABLET BY MOUTH DAILY NEEDED active Not Available Not Available No t Available oxycodone-ac etaminophen 5 mg-325 mg tablet TAKE 1 TABLET BY MOUTH THREE TIMES DAILY NEEDED FOR PAIN active Not Available Not Available No t Available alprazolam 0.25 mg tablet TAKE 1 TABLET BY MOUTH NEEDED FOR ANXIETY 30 TO 90 MINUTES BEFORE PROCEDURE. MAY REPEAT AFTER 30-60 MINUTES NEEDED DO NOT TAKE WITH PAIN active Not Available Not Available No t Available aspirin 325 mg tablet,delay ed release TAKE 1 TABLET BY MOUTH DAILY active Not Available Not Available Not Available tamsulosin 0.4 mg capsule TAKE 1 CAPSULE BY MOUTH TWICE DAILY active Not Available Not Available No t Available cephalexin 500 mg capsule TAKE 1 CAPSULE BY MOUTH EVERY 12 HOURS active Not Available Not Available No t Available oseltamivir 75 mg capsule TAKE 1 CAPSULE BY MOUTH TWICE DAILY active Not Available Not Available No t Available esomeprazole magnesium 40 mg capsule,sulaiman yed release TAKE 1 CAPSULE BY MOUTH DAILY active Not Available Not Available Not Available cabergoline 0.5 mg tablet TAKE 1 TABLET BY MOUTH EVERY 14 DAYS active Not Available Not Available No t Available levothyroxin e 150 mcg tablet TAKE 1 TABLET BY MOUTH EVERY DAY active Not Available Not Available No t Available losartan 25 mg tablet TAKE 1 TABLET BY MOUTH DAILY active Not Available Not Available Not Available hydrocortiso ne 10 mg tablet TAKE 1 TABLET BY MOUTH TWICE DAILY active Not Available Not Available No t Available testosterone cypionate 200 mg/mL intramuscula r oil INJECT 0.75 ML IN THE MUSCLE EVERY 2 WEEKS active Not Available Not Available No t Available cefuroxime axetil 500 mg tablet TAKE 1 TABLET BY MOUTH TWICE DAILY active Not Available Not Available No t Available testosterone 1 % (25 mg/2.5 gram) transdermal gel packet active Not Available Not Available N ot Available colchicine 0.6 mg tablet TAKE 1 TABLET BY MOUTH EVERY 2 HOURS FOR 4 DOSES THEN TWICE DAILY UNTIL SYMPTOMS RESOLVE HOLD FOR DIARRHEA active Not Available Not Available No t Available BD Luer-Howard Syringe 3 mL 18 x 1 1/2 USE EVERY 14 DAYS active Not Available Not Available No t Available ondansetron 4 mg disintegrati ng tablet active Not Available Not Available No t Available cefdinir 300 mg capsule TAKE ONE CAPSULE BY MOUTH TWICE DAILY active Not Available Not Available No t Available losartan 100 mg tablet TAKE 1 TABLET BY MOUTH DAILY active Not Available Not Available Not Available atenolol 50 mg tablet TAKE 1 TABLET BY MOUTH DAILY active Not Available Not Available Not Available BD Luer-Howard Syringe 3 mL 21 gauge x 1 1 INJECTION DIRECTED active Not Available Not Available Not Available amoxicillin 875 mg-potassium clavulanate 125 mg tablet TAKE 1 TABLET BY MOUTH TWICE DAILY active Not Available Not Available No t Available azithromycin 500 mg tablet TAKE 1 TABLET BY MOUTH DAILY FOR 2 DOSES active Not Available Not Available Not Available ezetimibe 10 mg tablet TAKE 1 TABLET BY MOUTH DAILY active Not Available Not Available Not Available tadalafil 5 mg tablet TAKE 1 TABLET BY MOUTH DAILY active Not Available Not Available Not Available nitrofuranto in monohydrate/ macrocrystal s 100 mg capsule TAKE ONE CAPSULE BY MOUTH TWICE DAILY active Not Available Not Available No t Available chlorhexidin e gluconate 0.12 % mouthwash SWISH AND SPIT 10 TO 15 ML TWICE DAILY FOR 1 WEEK BEFORE AND AFTER SURGERY active Not Available Not Available No t Available testosterone 50 mg/5 gram (1 %) transdermal gel USE 5 GIVE INSTRUCTED ONCE DAILY APLLY TO CLEAN DRY INTACT SKIN OF THE SHOULDERS AND UPPER ARMS active Not Available Not Available No t Available BD Integra Syringe 3 mL 21 gauge x 1 1/2 USE 1 FOR EACH INJECTION DIRECTED active Not Available Not Available Not Available FeroSul 325 mg (65 mg iron) tablet TAKE 1 TABLET BY MOUTH DAILY TAKE WITH BREAKFAST active Not Available Not Available No t Available Xarelto 15 mg tablet TAKE 1 TABLET BY MOUTH IN THE EVENING WITH DINNER TAKE WITH FOOD active Not Available Not Available No t Available Xarelto 20 mg tablet TAKE 1 TABLET BY MOUTH IN THE EVENING WITH DINNER TAKE WITH FOOD active Not Available Not Available No t Available Myrbetriq 25 mg tablet,exten ded release TK 1 T PO QD active Not Available Not Available No t Available Eliquis 2.5 mg tablet active Not Available Not Available No t Available Xyosted 100 mg/0.5 mL subcutaneous auto-injecto r INJECT 100MG SUBCUTANEOU SLY EVERY 7 DAYS active Not Available Not Available No t Available Vitals None Recorded Social History None recorded. Functional Status None recorded. Mental Status None recorded. Family History Nothing Reported. Medical History No medical history recorded. Past Encounters Encounter ID Performer Location Encounter Start Date Encounter Closed Date Diagnosis/Indication Diagnosis SNOMED-CT Code Diagnosis ICD10 Code Diagnosis IMO Codes Diagnosis Note [id number] Jerry Reynolds MD Main Office [address] [place] [address] [address] [place] [id number] 10/22/2021 10:53:02 10/22/2021 11:12:27 History of actinic keratosis 9298269285 104 Z87.2 [id number] Jerry Reynolds MD Main Office [address] [facility] [address] [place] [id number] 08/04/2023 11:31:48 08/04/2023 16:25:30 Actinic keratosis 581011688 L57.0 Chronic ef fect of ultraviolet radiation on normal skin 495046977 L57.8 Chemotherapy 544642890 Z 51.11 topical Irritant c ontact dermatitis 075673745 L24.4 [id number] Jerry Reynolds MD Main Office [address] [facility] [address] [place] [id number] 02/08/2025 10:45:14 03/05/2025 18:10:15 Screening for malignant neoplastic disease 11678697 Z12.83 553732 Health Concerns Section Related Observation LastModified by Organization Detai ls LastModified Time None Recorded Concern Status LastModified by Organization Details LastModified Time None Recorded Advance Directives Directive None Recorded Payers Insurance Date Sequence Insurance Name Policy Number Policy Rodriguez Covered Member ID Rodriguez Member ID Guarantor Name 02/08/2025 1 [employer] (MEDICARE REPLACEMENT/A DVANTAGE - PPO) [id number] Chirag Machuca [id number] Chirag Machuca 02/08/2025 1 [facility] (MEDICARE REPLACEMENT/A DVANTAGE - PPO) [id number] Chirag Machuca [id number] Chirag Machuca Notes Date Note Type Note Provider Name and Address Organization Details Recorded Time 12/16/2022 text/html [facility].PCP- Dr Wilson Not Available Not Available Not Available 06/24/2023 text/html FU chemocream. Not Available Not Available Not Available 08/04/2023 text/html ROS as noted in the HPI FU 5-FU to face- left side and nose.Used just QD per our discussion. Jerry Reynolds MD [address] [facility] [address], [place], [address], [facility] 08/04/2023 16:25:23
--- OUTSIDE RECORDS SUMMARY | 2025-07-19 09:14 | XMS_ITS ---
Care Plan - [facility] Created on: July 19, 2025 JARET SORIA : 1945 Sex: Male Author Organization [facility] Address [address] [place] [address] Phone Care Team Providers Care Inspector Dials Name Role Phone ROBERT ORTIZ DO Primary Care Provider [phone] ROBERT ORTIZ D.O. Unavailable [phone]
== END 2025-07-19 08:41 | disposition home or self-care (01) ==
PROVIDERS: PCP Family Medicine; Visit Provider Neurological Surgery
DX: Z98.1 Arthrodesis status (principal)
CPT/HCPCS: 72100